=== PATIENT | male | born 1965 | race African-American/Black ===

== ENCOUNTER 2017-05-16 19:35 | Inpatient (IN) | payer MEDICARE ==
[~2017-05-16] VITALS: Ht 172.7 cm; Wt 101.7 kg
[~2017-05-16 19:35] MED LIST: LIPI20TA PO; LISI10TA3 PO; METF500T PO; ONDANSETRON HCL 4 MG/2 ML VIAL IV PUSH ONE; PHENYLEPH/NS 1000 MCG/10 ML SYR IV ONE; PROPOFOL 200 MG/20 ML AMP IV ONE
[2017-05-16 20:00] VITALS: BP 135/66; PULSE 119; RESP 18; TEMP 101.8; O2SAT 97
[2017-05-16] MEDS ORDERED: CHLORHEXIDINE GLUCONATE 2 % 1 PACK (2 CLOTHS) TOP PRN (20:30)
[2017-05-16] MEDS ORDERED: SENNOSIDES 8.6 MG TAB PO PRN (20:30)
[2017-05-16] MEDS ORDERED: LORazepam 2 MG/ML VIAL IV PRN (20:30)
[2017-05-16] MEDS ORDERED: LACTULOSE SYRUP 20 GM/30 ML CUP PO PRN (20:30)
[2017-05-16] MEDS ORDERED: MISCELLANEOUS NURSING INFORMATION XX SCH (20:30)
[2017-05-16] MEDS ORDERED: MAGNESIUM HYDROXIDE SUSP 30 ML CUP PO PRN (20:30)
[2017-05-16] MEDS ORDERED: BISACODYL 10 MG SUPP RECTAL PRN (20:30)
--- NOTE | 2017-05-16 20:40 | HHI.HP ---
HPI Service Critical Care Medicine Primary Care Physician No Primary Care Physician Admission Diagnosis Diagnosis: Travel History International Travel<30 Days: No Contact w/Intl Traveler <30 Da: No Traveled to Known Affected Are: No History of Present Illness 51-year-old gentleman with history of diabetes dyslipidemia presents with infection of left gluteal area and generalized weakness also some fevers. This has started to both the morning and a half week ago. Severe is a moderate to severe. Review of Systems Constitutional: COMPLAINS OF: Diaphoretic episodes, Fatigue, Fever, Chills, Dizziness, DENIES: Weight gain, Weight loss, Change in appetite, Night Sweats Endocrine: DENIES: Heat/cold intolerance, Polydipsia, Polyuria, Polyphagia Eyes: DENIES: Blurred vision, Diplopia, Eye inflammation, Eye pain, Vision loss , Photosensitivity, Double Vision Ears, nose, mouth, throat: DENIES: Tinnitus, Hearing loss, Vertigo, Nasal discharge, Oral lesions, Throat pain, Hoarseness, Ear Pain, Running Nose, Epistaxis, Sinus Pain, Toothache, Odynophagia Respiratory: DENIES: Apneas, Cough, Snoring, Wheezing, Hemoptysis, Sputum production, Shortness of breath Cardiovascular: DENIES: Chest pain, Palpitations, Syncope, Dyspnea on Exertion , PND, Lower Extremity Edema, Orthopnea, Claudication Gastrointestinal: DENIES: Abdominal pain, Black stools, Bloody stools, Constipation, Diarrhea, Nausea, Vomiting, Difficulty Swallowing, Anorexia Genitourinary: DENIES: Sexual dysfunction, Urinary frequency, Urinary incontinence, Urgency, Hematuria, Dysuria, Nocturia, Penile Discharge, Testicular Pain, Testicular Swelling Musculoskeletal: DENIES: Joint pain, Muscle aches, Stiffness, Joint Swelling, Back pain, Neck pain Integumentary: DENIES: Abnormal pigmentation, Nail changes, Pruritus, Rash Hematologic/lymphatic: DENIES: Bruising, Lymphadenopathy Immunologic/allergic: DENIES: Eczema, Urticaria Neurologic: DENIES: Abnormal gait, Headache, Localized weakness, Paresthesias, Seizures, Speech Problems, Tremor, Poor Balance Psychiatric: DENIES: Anxiety, Confusion, Mood changes, Depression, Hallucinations, Agitation, Suicidal Ideation, Homicidal Ideation, Delusions Past Family Social History Allergies: Coded Allergies: No Known Allergies (Unverified , 05/16/17) Past Medical History Diabetes type 2 Dyslipidemia Hypertension Past Surgical History No past surgical history Reported Medications Reported Meds & Active Scripts Active Reported Lisinopril 10 Mg Tab 10 Mg PO DAILY Lipitor (Atorvastatin Calcium) 20 Mg Tab 20 Mg PO HS Metformin (Metformin HCl) 500 Mg Tab 500 Mg PO BIDPC With meals Active Ordered Medications Current Medications Medications (Trade) Dose Ordered Sig/Reese Route PRN Reason Start Time Stop Time Status Last Admin Dose Admin Sodium Chloride (NS 1000 ml Inj) 1,000 ml @ 84 mls/hr [id number] IV 05/16/17 20:29 UNV Sodium Chloride (NS Flush) 2 ml UNSCH PRN .XX FLUSH AFTER USING IV ACCESS 05/16/17 20:30 UNV Sodium Chloride (NS Flush) 2 ml BID .XX 05/16/17 21:00 UNV Acetaminophen (Tylenol) 650 mg Q6H PRN PO PAIN 1-10 AND/OR FEVER >101F 05/16/17 20:30 UNV Morphine Sulfate (Morphine Inj) 2 mg Q2H PRN IV PAIN SCALE 6 TO 10 05/16/17 20:30 UNV Famotidine (Pepcid Inj) 20 mg Q12HR IV PUSH 05/16/17 21:00 UNV Lorazepam (Ativan Inj) 1 mg Q1H PRN IV Agitation/Sedation 05/16/17 20:30 UNV Miscellaneous Information 1 Q361D XX 05/16/17 20:30 UNV Chlorhexidine Gluconate (Chlorhexidine 2% Cloth) 3 pack Taper DAILY@04 TOP 05/17/17 04:00 05/13/18 03:59 UNV Chlorhexidine Gluconate (Chlorhexidine 2% Cloth) 3 pack UNSCH PRN [facility] 05/16/17 20:30 UNV Family History No history of premature coronary artery disease or cancer Social History Denies tobacco or illicit drug or alcohol abuse Physical Exam Physical Exam GENERAL: Well-nourished, well-developed patient. SKIN: Warm and dry. HEAD: Normocephalic. EYES: No scleral icterus. No injection or drainage. NECK: Supple, trachea midline. No JVD or lymphadenopathy. CARDIOVASCULAR: Regular rate and rhythm without murmurs, gallops, or rubs. RESPIRATORY: Breath sounds equal bilaterally. No accessory muscle use. GASTROINTESTINAL: Abdomen soft, non-tender, nondistended. MUSCULOSKELETAL: No cyanosis, or edema. BACK: Nontender without obvious deformity. No CVA tenderness. 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 fluids resuscitation DVT GI prophylaxis - Subcutaneous heparin teds SCDs and Pepcid Critical Care: The total critical care time was 35 minutes. Time to perform other separately billable procedures was not included in the critical care time. Wojciech Novak MD May 16, 2017 20:40
[2017-05-16] MEDS ORDERED: Vancomycin Consult Pharmacy 1 EA OTHER SCH (20:45)
[2017-05-16] MEDS ORDERED: DEXTROSE 50% IN WATER 50 ML VIAL(D50) IV PRN (20:45)
[2017-05-16] MEDS ORDERED: GLUCAGON 1 MG/ML VIAL OTHER PRN (20:45)
[2017-05-16] MEDS ORDERED: INSULIN ASPART SUPPLEMENTAL SCALE SQ SCH (21:00)
[2017-05-16] MEDS: HEPARIN SODIUM - SQ 10,000 UNITS/ML VIAL SQ SCH (21:00)
[2017-05-16] MEDS: FAMOTIDINE 20 MG/2 ML VIAL IV PUSH SCH (21:00)
[2017-05-16] MEDS: ATORVASTATIN 20 MG TAB PO SCH (21:00)
[2017-05-16] MEDS: DOCUSATE SODIUM 50 MG/SENNA 8.6 MG TAB PO SCH (21:00)
[2017-05-16] MEDS: SODIUM CHLORIDE 0.9% FLUSH 10 ML FLUSH IV FLUSH SCH (21:00)
[2017-05-16] MEDS ORDERED: ACETAMINOPHEN 1000 MG/100 ML VIAL IV ONE (21:12)
[2017-05-16] MEDS: SODIUM CHLOR 0.9% 1000 ML INJ 1,000 ML IV SCH (22:08)
[2017-05-16] MEDS ORDERED: DEXTROSE 50% IN WATER 50 ML VIAL(D50) IV PUSH PRN (22:30)
[2017-05-16] MEDS ORDERED: MISC INFORMATION OTHER ONE (22:30)
--- NOTE | 2017-05-16 22:33 | PD.OP ---
Operative Report Date of Surgery: May 16, 2017 Preoperative Diagnosis: (1) Carlos gangrene Postoperative Diagnosis: Procedure: Extensive Incision and Drainage, Debridement of Scrotum, Perineum extending into Left Gluteus Surgeon: Nikolas Lopes Special Procedure Technologist(s): N/A Operation and Findings: Extensive necrosis, eschar of scrotum, perineum, left gluteal area Cultures sent Will likely need another debridement in 24-48 hours. May need General Surgery involvement. Nikolas Lopes MD May 16, 2017 22:33
[2017-05-16] MEDS ORDERED: MIDAZOLAM HCL 2 MG/2 ML VIAL ONE (22:45)
[2017-05-16] MEDS ORDERED: fentaNYL CITRATE 250 MCG/5 ML AMP ONE (22:45)
[2017-05-16] MEDS: INSULIN REGULAR (IV INFUSION) 100 UNITS in SODIUM CHLORIDE 0.9% INJ 99 ML IV SCH (22:47)
[2017-05-16 23:00] VITALS: O2SAT 100
[2017-05-16] MEDS: MIDAZOLAM 100 MG/ML INJ 100 ML IV SCH (23:11)
[2017-05-16] MEDS: fentaNYL DRIP 250 ML IV SCH (23:12)
[2017-05-16 23:15] VITALS: BP 111/53; PULSE 118; RESP 18; TEMP 100.9; O2SAT 100
--- NOTE | 2017-05-16 23:29 | RADRPT ---
EXAM DATE/TIME: 05/16/2017 23:08 [facility] COMPARISON: CHEST SINGLE AP, May 16, 2017, 18:13. INDICATIONS : Post intubation MEDICAL HISTORY : Diabetes mellitus type II. Hypertension SURGICAL HISTORY : None. ENCOUNTER: Initial ACUITY: 1 day PAIN SCORE: Non-responsive. LOCATION: Bilateral chest FINDINGS: Status post placement of an endotracheal tube which appears in good position. No evidence of pneumoth orax. There is atelectasis in the left lung base. Right lung is grossly clear. No definite pleural ef fusions. The bony structures are grossly intact. CONCLUSION: 1. ET tube in good position. 2. No pneumothorax. 3. Left lung atelectasis. Abundio Allison MD on May 16, 2017 at 23:27 Board Certified Radiologist. This report was verified electronically.
[2017-05-16] MEDS ORDERED: DO NOT ADM ANY ANTICOAGULANT DRUGS PRN (23:45)
[2017-05-17] VITALS (16 sets, daily range): BP systolic 88–146; BP diastolic 53–87; PULSE 92–126; RESP 7–23; TEMP 97.8–101.9; O2SAT 95–100
[2017-05-17] MEDS ORDERED: TERBUTALINE INJ 1 MG/ML AMP SQ PRN (01:00)
[2017-05-17] MEDS ORDERED: NOREPINEPHRINE INJ 4 MG in SODIUM CHLOR 0.9% 250 ML INJ 246 ML IV SCH ×5 (01:00→01:15)
[2017-05-17] MEDS ORDERED: SODIUM BICARBONATE 8.4% INJ 50 ML ONE (01:01)
--- NOTE | 2017-05-17 01:09 | PD.PROCEDR ---
Procedure Note Procedure Central line placement A time-out was completed verifying correct patient, procedure, site, positioning , and special equipment if applicable. The patient was placed in a dependent position appropriate for central line placement based on the vein to be cannulated. The patients right shoulder was prepped and draped in sterile fashion. 1% Lidocaine was used to anesthetize the surrounding skin area. A triple lumen 9-[place] Cordis catheter was introduced into the the right subclavian vein using the Seldinger technique. The catheter was threaded smoothly over the guide wire and appropriate blood return was obtained. Each lumen of the catheter was evacuated of air and flushed with sterile saline. The catheter was then sutured in place to the skin and a sterile dressing applied. Perfusion to the extremity distal to the point of catheter insertion was checked and found to be adequate. Estimated Blood Loss: 1ml The patient tolerated the procedure well and there were no complications. Wojciech Novak MD May 17, 2017 01:09
--- NOTE | 2017-05-17 01:10 | PD.PROCEDR ---
Procedure Note Procedure Arterial line placement A time-out was completed verifying correct patient, procedure, site, positioning , and special equipment if applicable. Allens test was performed to ensure adequate perfusion. The patients right wrist was prepped and draped in sterile fashion. 1% Lidocaine was used to anesthetize the area. A 18G Arrow arterial line was introduced into the radial artery. The catheter was threaded over the guide wire and the needle was removed with appropriate pulsatile blood return. The catheter was then sutured in place to the skin and a sterile dressing applied. Perfusion to the extremity distal to the point of catheter insertion was checked and found to be adequate. Estimated Blood Loss: 1ml The patient tolerated the procedure well and there were no complications. Wojciech Novak MD May 17, 2017 01:10
[2017-05-17 01:20] LABS: BLOOD GAS HCO3 24 mmol/L (22-26); BLOOD GAS METHEMOGLOBIN 0.9 % (0-2); BLOOD GAS O2 HGB SATURATION 97 % (90-100); BLOOD GAS OXYGEN CONTENT 12.8 Vol % (12.0-20.0); BLOOD GAS PCO2 42 mmHg (38-42); BLOOD GAS PO2 229 mmHg (61-120); CRITICAL VALUE NO; FIO2 60 %; OXYGEN DEVICE VENTILATOR; TEMP CORR TO 98.6; VENT SETTINGS PRVC/AC
[2017-05-17 01:21] LABS: DRAW SITE ART LINE; STAT YES
--- NOTE | 2017-05-17 01:36 | RADRPT ---
EXAM DATE/TIME: 05/17/2017 01:32 [facility] COMPARISON: CHEST SINGLE AP, May 16, 2017, 23:08. INDICATIONS : Central line placement. MEDICAL HISTORY : None. SURGICAL HISTORY : None. ENCOUNTER: Initial ACUITY: 1 day PAIN SCORE: 0/10 LOCATION: Bilateral chest FINDINGS: The right central line appears to be in good position. No pneumothorax. The ET tube and NG tube are i n good position. There are scattered areas of atelectasis bilaterally. The heart size is stable. Ther e are no pleural effusions. CONCLUSION: 1. Right-sided central line in place. No pneumothorax. 2. Scattered areas of bilateral atelectasis. Abundio Allison MD on May 17, 2017 at 1:34 Board Certified Radiologist. This report was verified electronically.
[2017-05-17] MEDS: CLINDAMYCIN INJ 600 MG in SODIUM CHLORIDE 0.9% INJ 100 ML IV SCH ×4 (02:39→21:03)
[2017-05-17 03:31] LABS: AUTOMATED NEUTROPHIL # 17.3 TH/MM3 (1.8-7.7); BASOPHIL # 0.2 TH/MM3 (0-0.2); BASOPHIL % 1.1 % (0.0-2.0); HEMATOCRIT 27.5 % (39.0-51.0); LYMPH % 3.2 % (9.0-44.0); LYMPHOCYTE # 0.7 TH/MM3 (1.0-4.8); MEAN CELL VOLUME 81.5 FL (80.0-100.0); MEAN CORPUSCULAR HGB CONC 34.3 % (32.0-36.0); NEUT % 82.7 % (16.0-70.0); PLATELET COUNT 174 TH/MM3 (150-450); RED BLOOD COUNT 3.37 MIL/MM3 (4.50-5.90); RED CELL DISTRIBUTION WIDTH 12.2 % (11.6-17.2); WHITE BLOOD COUNT 20.9 TH/MM3 (4.0-11.0)
[2017-05-17 03:43] LABS: ALT (GPT) 76 U/L (12-78); ANION GAP 12 MEQ/L (5-15); AST (GOT) 165 U/L (15-37); BICARBONATE 23.5 MEQ/L (21.0-32.0); BLOOD UREA NITROGEN 37 MG/DL (7-18); CHLORIDE 105 MEQ/L (98-107); GLOMERULAR FILTRATION RATE 33 ML/MIN (>89); MAGNESIUM 2.2 MG/DL (1.5-2.5); POTASSIUM 4.2 MEQ/L (3.5-5.1); SODIUM (NA) 140 MEQ/L (136-145)
[2017-05-17 03:45] LABS: ALKALINE PHOSPHATASE 119 U/L (45-117); TOTAL BILIRUBIN ADULT 2.6 MG/DL (0.2-1.0)
[2017-05-17] MEDS ORDERED: SODIUM BICARBONATE 8.4% INJ 50 MEQ/50 ML SYR IV ONE (03:45)
[2017-05-17 03:58] LABS: HEMO FLAGS AUTO DIFF
[2017-05-17] MEDS ORDERED: SODIUM CHLOR 0.9% 1000 ML INJ 2,000 ML IV ONE (04:00)
[2017-05-17] MEDS: CHLORHEXIDINE GLUCONATE 2 % 1 PACK (2 CLOTHS) TOP SCH (04:39)
[2017-05-17 05:19] LABS: BANDS 47 % (0-6); DOHLE BODIES PRESENT (NONE SEEN); METAMYELOCYTES 1 % (0-1); NEUTROPHIL # MANUAL DIFF 18.4 TH/MM3 (1.8-7.7); PLATELET ESTIMATE SMEAR NORMAL (NORMAL); PLATELET MORPHOLOGY NORMAL (NORMAL); POLYS (SEG NEUTROPHILS) 40 % (16-70); SCAN/DIFF FINAL DIFF MANUAL; WBC DIFF SAMPLE 100
[2017-05-17] MEDS: HEPARIN SODIUM - SQ 10,000 UNITS/ML VIAL SQ SCH ×4 (05:41→22:31)
[2017-05-17 05:59] LABS: BLOOD GAS BASE EXCESS -2.5 mmol/L (-2-2); BLOOD GAS CARBOXYHEMOGLOBIN 1.8 % (0-4); BLOOD GAS HCO3 22 mmol/L (22-26); BLOOD GAS O2 HGB SATURATION 96 % (90-100); BLOOD GAS OXYGEN CONTENT 12.1 Vol % (12.0-20.0); BLOOD GAS PCO2 36 mmHg (38-42); BLOOD GAS PO2 116 mmHg (61-120); BLOOD GAS TOTAL HGB 8.8 G/DL (12.0-16.0); CRITICAL VALUE NO; OXYGEN DEVICE VENTILATOR; TEMP CORR TO 98.6
[2017-05-17 06:00] LABS: DRAW SITE ALINE; FIO2 45 %; STAT NO; ULNAR PULSE PRESENT; VENT SETTINGS PRVC18/550/1.0/+5
--- NOTE | 2017-05-17 06:23 | MB ---
cc: GUY VALLADARES MD DATE OF SERVICE 05/16/2017 REASON FOR CONSULTATION Cralos's gangrene. HISTORY OF PRESENT ILLNESS The patient is a 51-year-old -[place] male with history of poorly controlled/uncontrolled diabetes. He presented to [facility] with complaint of generalized weakness and fevers starting approximately a week and a half ago and progressively worsened. The patient states he noticed a small little pimple in his left gluteal area about a week and half ago. He states that over the course of time it has worsened and started to spread to his scrotum. He noticed that he started having fevers between 100 and 130 degrees at home, has chills and night sweats. He presented to [facility] for further evaluation. At [facility] he was found have an elevated white count of 17,000 and acidotic with a temperature of 103 and with what appeared to be a septic-like picture. The patient had a CT abdomen and pelvis without contrast done which showed a significant amount of air in the patient's left gluteal area, extending through his perineum, up into the posterior portion of his scrotum. The critical care at [facility] was contacted and they accepted him in transfer to ICU. Urology was also consulted for this apparent Carlos's gangrene. According to the patient, the patient denies any prior episodes like this in the past. He states he does have problems with urination and he usually goes three to four times a night and has a weak stream. He denies family history of prostate cancer or history of kidney stones. He does complain that his scrotum is quite painful at this time and very tense in nature. Denies nausea and vomiting, dysuria, frequency or urgency. ALLERGIES No known drug allergies. PAST MEDICAL HISTORY 1. Type 2 diabetes. 2. Dyslipidemia. 3. Hypertension. SURGICAL HISTORY Circumcision. HOME MEDICATIONS 1. Metformin 500 mg p.o. b.i.d. 2. Lipitor 20 mg p.o. q.h.s. 3. Lisinopril 10 mg p.o. daily. FAMILY HISTORY Denies urolithiasis or genitourinary malignancies. SOCIAL HISTORY Denies tobacco, illicit drug or alcohol abuse. REVIEW OF SYSTEMS See HPI, otherwise all systems reviewed otherwise were negative. PHYSICAL EXAMINATION VITAL SIGNS: T-max 103, T-current 102.3. Heart rate 126, blood pressure 102/75, sating 96% on room air. GENERAL: In general he is alert and oriented x 3, in no apparent distress. Pleasant, cooperative, generally appears his stated age. HEAD: Normocephalic, atraumatic. LUNGS: Clear to auscultation bilaterally. No wheezes, rales or rhonchi. SKIN: No ulcers or rashes. Mucous membranes pink and moist. EYES: No scleral icterus. External extraocular muscles intact. NECK: No JVD. Neck is supple. Trachea is benign. HEART: Tachycardiac. No murmurs, gallops or rubs. ABDOMEN: Soft, obese, nontender, nondistended. Positive bowel sounds. GENITOURINARY EXAMINATION: His penis is circumcised. Testes are descended bilaterally, normal in size and consistency. His left hemiscrotum/posterior base is swollen and tender to touch, slightly warm with fluctuance and crepitus noted. No obvious eschar. EXTREMITIES: Nontender. No clubbing, cyanosis or edema. NEUROLOGICAL: Cranial nerves II-XII intact. Strength 5/5 in all four extremities. LABORATORY DATA Labs show a white count of 17.5, hemoglobin 12.1, hematocrit 37.2, platelet count 11.4. Sodium 126, potassium 4.9, chloride 90, bicarb 17, BUN 30, creatinine 1.90, glucose 576, lactic acid 2.4. His urine showed greater than 1000 glucose, small blood, small bilirubin many bacteria. Cultures currently pending. IMAGING CT of abdomen and pelvis without contrast images were reviewed, read the radiologist report. There is extensive subcutaneous gas in the patient's left perineum that appears to be extending into the lower scrotal sacs consistent with Carlos's gangrene. 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 PLAN 1. Keep the patient n.p.o. 2. We will take him to the OR emergently tonight for incision and drainage and debridement of the scrotum and perineum. I discussed the risks, benefits and alternatives as well as complications with the patient regarding this procedure including pain, bleeding, infection, need for repeat debridement in the next 24-48 hours, potential loss of testicle, need for potential skin grafts in the future by Plastic Surgery as well as worsening sepsis, stroke, IN, loss of life and blood clots to legs and lungs. All questions were answered and he would like to proceed and informed consent was obtained. MD HALEY Wheatley/FRANCOIS /9:26 PM /6:10 AM
[2017-05-17] MEDS: SODIUM CHLORIDE 0.9% FLUSH 10 ML FLUSH IV FLUSH SCH ×2 (09:00→21:00)
[2017-05-17] MEDS: FAMOTIDINE 20 MG/2 ML VIAL IV PUSH SCH (09:05)
[2017-05-17] MEDS: DOCUSATE SODIUM 50 MG/SENNA 8.6 MG TAB PO SCH ×2 (09:06→21:00)
[2017-05-17] MEDS: SODIUM CHLOR 0.9% 1000 ML INJ 1,000 ML IV SCH ×2 (09:06→20:50)
--- NOTE | 2017-05-17 12:12 | HHI.PR ---
Subjective Patient symptoms today intubated, sedated. s/p debridement of scrotum, perineum, left gluteal region Objective Vital Signs Vital Signs Date Time Temp Pulse Resp B/P Pulse Ox O2 Delivery O2 Flow Rate FiO2 05/17/17 10:00 102 05/17/17 08:42 95 40 05/17/17 08:00 45 05/17/17 08:00 95 05/17/17 08:00 98.1 94 18 117/65 100 05/17/17 07:00 100 Mechanical Ventilator 45 05/17/17 06:00 92 05/17/17 04:00 100 45 05/17/17 04:00 96 05/17/17 04:00 45 05/17/17 04:00 97.8 96 18 111/65 100 05/17/17 02:00 94 05/17/17 00:00 99.0 118 18 88/53 100 05/17/17 00:00 118 05/16/17 23:15 118 05/16/17 23:15 100.9 118 18 111/53 100 05/16/17 23:15 60 05/16/17 23:00 100 60 05/16/17 20:00 119 05/16/17 20:00 101.8 119 18 135/66 97 Intake & Output 05/17/17 05/17/17 06:59 18:59 Intake Total 992 ml Output Total 725 ml Balance 267 ml Intake IV Total 992 ml Output Urine Total 725 ml Result Diagram: 05/17/17 0315 05/17/17 0315 Imaging Last 24 hours Impressions Chest X-Ray 05/17/17 0000 Signed Impressions: Service Date/Time: Wednesday, May 17, 2017 01:32 - CONCLUSION: 1. Right-sided central line in place. No pneumothorax. 2. Scattered areas of bilateral atelectasis. Abundio Allison MD Objective Remarks NAD. sedated, intubated abd soft wound edges clean, but some necrosis seen deep within wound. reed dark, cloudy urine Medications and IVs Current Medications Medications (Trade) Dose Ordered Sig/Reese Route Start Time Stop Time Status Last Admin (NS 1000 ml Inj) 1,000 ml @ 84 mls/hr [id number] IV 05/16/17 21:00 05/17/17 09:06 (NS Flush) 2 ml UNSCH PRN .XX 05/16/17 20:30 (NS Flush) 2 ml BID IV FLUSH 05/16/17 21:00 (Tylenol) 650 mg Q6H PRN PO 05/16/17 20:30 (Morphine Inj) 2 mg Q2H PRN IV 05/16/17 20:30 (Pepcid Inj) 20 mg Q12HR IV PUSH 05/16/17 21:00 05/17/17 09:05 (Ativan Inj) 1 mg Q1H PRN IV 05/16/17 20:30 (Heparin Inj) 5,000 units Q8H SQ 05/16/17 21:00 05/17/17 05:41 Miscellaneous Information 1 Q361D XX 05/16/17 20:30 (Chlorhexidine 2% Cloth) 3 pack Taper DAILY@04 TOP 05/17/17 04:00 05/13/18 03:59 05/17/17 04:39 (Chlorhexidine 2% Cloth) 3 pack UNSCH PRN TOP 05/16/17 20:30 (Raquel-Colace) 1 tab BID PO 05/16/17 21:00 05/17/17 09:06 (Milk Of Magnesia Liq) 30 ml Q12H PRN PO 05/16/17 20:30 (Senokot) 17.2 mg Q12H PRN PO 05/16/17 20:30 (Dulcolax Supp) 10 mg DAILY PRN RECTAL 05/16/17 20:30 (Lactulose Liq) 30 ml DAILY PRN PO 05/16/17 20:30 Atorvastatin Calcium 20 mg 20 mg HS PO 05/16/17 21:00 Clindamycin Phosphate 600 mg/ Sodium Chloride 104 ml @ 208 mls/hr Q8H IV 05/16/17 22:00 05/17/17 05:41 Pharmacy Profile Note 0 ml @ 0 mls/hr UNSCH OTHER 05/16/17 20:45 (Vancomycin Inj/ NS 500 ml Inj) 515 ml @ 257.5 mls/ hr Q24H IV 05/17/17 18:00 Miscellaneous Information SPECIFIC LAB TO BE MISAEL... ONCE ONCE .XX 05/19/17 17:45 05/19/17 17:46 (NovoLIN R (IV INFUSION)/NS Inj) 100 ml @ 0 mls/hr TITRATE IV 05/16/17 22:30 05/16/17 22:47 Dextrose 50 ml 50 ml UNSCH PRN IV PUSH 05/16/17 22:30 Fentanyl Citrate 250 ml @ 0 mls/hr TITRATE IV 05/16/17 23:00 05/16/17 23:12 (Versed 100 Mg/ ml Inj) 100 ml @ 0 mls/hr TITRATE IV 05/16/17 23:00 05/16/17 23:11 Miscellaneous Information ALL NURSING DEPARTME... UNSCH PRN .XX 05/16/17 23:45 05/17/17 23:44 Terbutaline Sulfate 1 mg 1 mg UNSCH PRN SQ 05/17/17 01:00 (Levophed Inj/NS 250 ml Inj) 250 ml @ 0 mls/hr TITRATE IV 05/17/17 01:15 05/17/17 02:38 Assessment and Plan Problem List: (1) Carlos gangrene ICD Code: N49.3 Status: Acute Assessment and Plan Will schedule for 2nd look/debridement for tomorrow afternoon ID consult pending Vent per ICU Nikolas Lopes MD May 17, 2017 12:12
--- NOTE | 2017-05-17 13:05 | HHI.CCPN ---
Subjective Remarks/Hospital Course 51-year-old gentleman with history of diabetes dyslipidemia presents with infection of left gluteal area and generalized weakness also some fevers. This has started to both the morning and a half week ago. Severe is a moderate to severe. 05/17: Glucose control improving, still requiring insulin gtt. Urine output acceptable. Septic picture. Objective Vital Signs Date Time Temp Pulse Resp B/P Pulse Ox O2 Delivery O2 Flow Rate FiO2 05/17/17 10:00 102 05/17/17 08:42 95 40 05/17/17 08:00 98.1 18 117/65 05/17/17 07:00 Mechanical Ventilator Result Diagram: 05/17/17 0315 05/17/17 0315 Other Results Laboratory Tests Test 05/17/17 05/17/17 01:07 05:45 Blood Gas Puncture Site ART LINE NICK Blood Gas Patient Temperature 98.6 98.6 Blood Gas HCO3 24 mmol/L 22 mmol/L (22-26) (22-26) Blood Gas Base Excess -1.0 mmol/L -2.5 mmol/L (-2-2) (-2-2) Blood Gas Oxygen Saturation 97 % (90-100) 96 % (90-100) Arterial Blood pH 7.37 7.39 (7.380-7.420) (7.380-7.420) Arterial Blood Partial 42 mmHg (38-42) 36 mmHg (38-42) Pressure CO2 Arterial Blood Partial 229 mmHg 116 mmHg Pressure O2 (61-120) (61-120) Arterial Blood Oxygen Content 12.8 Vol % 12.1 Vol % (12.0-20.0) (12.0-20.0) Arterial Blood 2.0 % (0-4) 1.8 % (0-4) Carboxyhemoglobin Arterial Blood Methemoglobin 0.9 % (0-2) 1.0 % (0-2) Blood Gas Hemoglobin 9.0 G/DL 8.8 G/DL (12.0-16.0) (12.0-16.0) Oxygen Delivery Device VENTILATOR VENTILATOR Blood Gas Ventilator Setting [facility]/ PRVC18/550/1.0/+5 Blood Gas Inspired Oxygen 60 % 45 % Objective Remarks GENERAL: Well-nourished, well-developed patient. SKIN: Warm and dry. HEAD: Normocephalic. EYES: No scleral icterus. No injection or drainage. NECK: Supple, trachea midline. Orally intubated. CARDIOVASCULAR: Regular rate and rhythm without murmurs, gallops, or rubs. No JVD. RESPIRATORY: Breath sounds equal bilaterally. No accessory muscle use. GASTROINTESTINAL: Abdomen soft, non-tender, nondistended. BS few. MUSCULOSKELETAL: No cyanosis, or edema. NEURO: Moves 4 limbs. Opens eyes. A/P Assessment and Plan Assessment: 1. Carlos's gangrene. 2. ROBERTO. 3. Diabetes, Type 2, uncontrolled. 4. Respiratory Failure Plan: 1. Insulin gtt. 2. Electrolyte replacement. 3. Aggressive hydration. 4. Protonix. 5. SCDs. 6. PRVC vent mode/ Overall impression: Critically ill with severe metabolic disturbance from severe sepsis and uncontrolled diabetes. Watch urine blayne. Critical care 38 mins Samuel Betancur MD May 17, 2017 13:05
[2017-05-17] MEDS: fentaNYL DRIP 250 ML IV SCH (13:15)
--- NOTE | 2017-05-17 14:52 | PD.CONS ---
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 Records reviewed. Patient is a 51-year-old male, with diabetes, presented initially to the [facility] emergency room complaining of generalized weakness and fevers. Symptoms have been present for about a week and a half now. He apparently also noted a little pimple in his left gluteal area about the same time, and it progressively worsened and increase in size and the area involved spread to his scrotum. His had some fevers associated with chills and night sweats at home. Patient has no problem with dysuria, frequency or urination. No nausea or vomiting. Patient however has had problem with no dysuria, and decreased urinary stream. Patient has not had any problems similar to his current symptomatology. In the emergency room he had an elevated white count of 17,000 , febrile, and was acidotic. CT of the abdomen and pelvis showed significant amount of air in the patient's left gluteal area extending through his perineum up into his scrotum. He was transferred to the [facility], in the ICU, and was seen by her urology. Surgery was done emergently. Patient currently is on the vent, and on Levophed. He is awake and alert and interactive. Highest temperature since admission is 101.8. His his last WBC is 20.8. Creatinine is also elevated. Lactic acid is down to normal. Infectious disease consultation has been requested to assist with management of his infection. Review of Systems Constitutional: COMPLAINS OF: Fatigue, Fever, Chills, Night Sweats Eyes: DENIES: Eye pain Ears, nose, mouth, throat: DENIES: Nasal discharge, Throat pain, Ear Pain, Sinus Pain Respiratory: DENIES: Cough, Shortness of breath Cardiovascular: DENIES: Chest pain, Palpitations Gastrointestinal: DENIES: Abdominal pain, Diarrhea, Nausea, Vomiting Genitourinary: COMPLAINS OF: Urinary frequency, Nocturia Musculoskeletal: COMPLAINS OF: Muscle aches, DENIES: Joint pain Integumentary: DENIES: Rash Neurologic: DENIES: Headache Psychiatric: DENIES: Hallucinations Past Family Social History Allergies: Coded Allergies: No Known Allergies (Unverified , 05/16/17) Past Medical History Diabetes Hyperlipidemia Hypertension Past Surgical History Circumcision Active Ordered Medications Tylenol Albuterol Lipitor Dulcolax Clindamycin Pepcid Fentanyl Heparin Insulin Lactulose Ativan MOM Versed Morphine Levophed Raquel-Colace Senokot Vancomycin Family History Noncontributory Social History No smoking No alcohol abuse No illicit drugs Physical Exam Vital Signs Vital Signs Date Time Temp Pulse Resp B/P Pulse Ox O2 Delivery O2 Flow Rate FiO2 05/17/17 10:00 102 05/17/17 08:42 95 40 05/17/17 08:00 45 05/17/17 08:00 95 05/17/17 08:00 98.1 94 18 117/65 100 05/17/17 07:00 100 Mechanical Ventilator 45 05/17/17 06:00 92 05/17/17 04:00 100 45 05/17/17 04:00 96 05/17/17 04:00 45 05/17/17 04:00 97.8 96 18 111/65 100 05/17/17 02:00 94 05/17/17 00:00 99.0 118 18 88/53 100 05/17/17 00:00 118 05/16/17 23:15 118 05/16/17 23:15 100.9 118 18 111/53 100 05/16/17 23:15 60 05/16/17 23:00 100 60 05/16/17 20:00 119 05/16/17 20:00 101.8 119 18 135/66 97 Physical Exam GENERAL: Patient is a well-nourished, well-developed AAM, awake, alert, interactive, on the vent, , not in respiratory distress. SKIN: Warm and dry. No generalized rash, no ecchymoses and no evidence of embolic lesions. HEAD: Atraumatic. Normocephalic. No temporal wasting, or tenderness. EYES: [place] conjunctiva. No petechia or hemorrhage. Pupils equal, round and reactive to light. Extraocular movements full and intact. No scleral icterus. No injection or drainage. EARS, NOSE AND THROAT: Nose without bleeding or purulent nasal discharge. No sinus tenderness. Mucous membranes pink and moist. Endotracheal tube is in the mouth. NECK: Trachea midline. Supple and not tender, no meningeal signs CARDIOVASCULAR: Regular rate and rhythm. No murmurs, rubs or gallops heard RESPIRATORY: Clear to auscultation. Breath sounds equal bilaterally. No rales , wheezing or rhonchi. Decreased breath sounds at the bases. ABDOMEN: Soft, non-tender, nondistended. Bowel sounds present and normoactive. No guarding. No rebound. No organomegaly. GENITOURINARY: Cobos in place. He has an open wound in his scrotum down to perineum and back, with packing, has bloody drainage, no odor. EXTREMITIES: No clubbing, cyanosis, or edema. No joint effusion, has good ROM. No calf tenderness. Well perfused and warm. NEUROLOGICAL: Awake and alert. Equal motor strength BUE and BLE. No facial asymmetry. No Babinski, no clonus PSYCHIATRIC: calm and cooperative. LINE: No evidence of infection Laboratory Laboratory Tests Test 05/17/17 05/17/17 05/17/17 01:07 03:15 05:45 Blood Gas Puncture Site ART LINE NICK Blood Gas Patient Temperature 98.6 98.6 Blood Gas HCO3 24 22 Blood Gas Base Excess -1.0 -2.5 Blood Gas Oxygen Saturation 97 96 Arterial Blood pH 7.37 7.39 Arterial Blood Partial 42 36 Pressure CO2 Arterial Blood Partial 229 116 Pressure O2 Arterial Blood Oxygen Content 12.8 12.1 Arterial Blood 2.0 1.8 Carboxyhemoglobin Arterial Blood Methemoglobin 0.9 1.0 Blood Gas Hemoglobin 9.0 8.8 Oxygen Delivery Device VENTILATOR VENTILATOR Blood Gas Ventilator Setting [facility]/AC PRVC18/550/1.0/+5 Blood Gas Inspired Oxygen 60 45 White Blood Count 20.9 Red Blood Count 3.37 Hemoglobin 9.4 Hematocrit 27.5 Mean Corpuscular Volume 81.5 Mean Corpuscular Hemoglobin 28.0 Mean Corpuscular Hemoglobin 34.3 Concent Red Cell Distribution Width 12.2 Platelet Count 174 Mean Platelet Volume 8.9 Neutrophils (%) (Auto) 82.7 Lymphocytes (%) (Auto) 3.2 Monocytes (%) (Auto) 13.0 Eosinophils (%) (Auto) 0.0 Basophils (%) (Auto) 1.1 Neutrophils # (Auto) 17.3 Lymphocytes # (Auto) 0.7 Monocytes # (Auto) 2.7 Eosinophils # (Auto) 0.0 Basophils # (Auto) 0.2 CBC Comment AUTO DIFF Differential Total Cells 100 Counted Neutrophils % (Manual) 40 Band Neutrophils % 47 Lymphocytes % 5 Monocytes % 7 Neutrophils # (Manual) 18.4 Metamyelocytes 1 Differential Comment FINAL DIFF MANUAL Dohle Bodies PRESENT Platelet Estimate NORMAL Platelet Morphology Comment NORMAL Sodium Level 140 Potassium Level 4.2 Chloride Level 105 Carbon Dioxide Level 23.5 Anion Gap 12 Blood Urea Nitrogen 37 Creatinine 2.53 Estimat Glomerular Filtration 33 Rate Random Glucose 224 Lactic Acid Level 1.5 Calcium Level 7.5 Phosphorus Level 4.2 Magnesium Level 2.2 Total Bilirubin 2.6 Aspartate Amino Transf 165 (AST/SGOT) Alanine Aminotransferase 76 (ALT/SGPT) Alkaline Phosphatase 119 Total Protein 5.9 Albumin 1.8 Date/Time Procedure Status Source Growth 05/17/17 04:20 Aerobic Blood Culture Received Blood Peripheral Pending 05/17/17 04:20 Anaerobic Blood Culture Received Blood Peripheral Pending 05/16/17 21:33 Gram Stain - Final Resulted Wound Scrotum 05/16/17 21:33 Wound Culture Resulted Wound Scrotum Pending 05/16/17 21:33 Fungal Smear - Final Resulted Wound Scrotum NO FUNGAL ELEMENTS SEEN. 05/16/17 21:33 Fungal Culture Resulted Wound Scrotum Pending 05/16/17 21:33 Acid Fast Stain Received Wound Scrotum Pending 05/16/17 21:33 Mycobacterial Culture Received Wound Scrotum Pending Result Diagram: 05/17/17 0315 05/17/17 0315 Imaging RADIOLOGY STUDIES/FILMS REVIEWED Chest X-Ray 05/17/17 0000 Signed Impressions: Service Date/Time: Wednesday, May 17, 2017 01:32 - CONCLUSION: 1. Right-sided central line in place. No pneumothorax. 2. Scattered areas of bilateral atelectasis. 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 - on pressors - elevated creatinine due to sepsis, ?baseline not known - acidosis better Respiratory failure Known DM, HTN RECOMMENDATION On Clinda and Vanc - continue for now Add Zosyn for GNR coverage since GNR plays big role in Carlos's gangrene Follow C/S Follow CBC Follow creatinine Will adjust Abx once C/S available Monitor progress I will follow along with you Thank you for this consultation Shanti Solis MD May 17, 2017 14:52
[2017-05-17] MEDS: PIPERACIL-TAZO 2.25 GM PREMIX 50 ML IV SCH ×2 (16:26→21:03)
[2017-05-17] MEDS: INSULIN REGULAR (IV INFUSION) 100 UNITS in SODIUM CHLORIDE 0.9% INJ 99 ML IV SCH (17:23)
[2017-05-17] MEDS ORDERED: VANCOMYCIN 1,500 MG/NS 500 ML IV SCH ×2 (18:00)
[2017-05-17] MEDS: ACETAMINOPHEN 325 MG TAB PO PRN (21:03)
[2017-05-17] MEDS: ATORVASTATIN 20 MG TAB PO SCH (21:05)
[2017-05-18] VITALS (18 sets, daily range): BP systolic 103–127; BP diastolic 50–62; PULSE 77–118; RESP 7–18; TEMP 98.6–100.9; O2SAT 100
[2017-05-18] MEDS: CHLORHEXIDINE GLUCONATE 2 % 1 PACK (2 CLOTHS) TOP SCH (04:00)
[2017-05-18 04:16] LABS: AUTOMATED NEUTROPHIL # 13.8 TH/MM3 (1.8-7.7); BASOPHIL # 0.1 TH/MM3 (0-0.2); BASOPHIL % 0.4 % (0.0-2.0); EOSINOPHIL % 0.1 % (0.0-4.0); HEMATOCRIT 22.1 % (39.0-51.0); HEMO FLAGS DIFF FINAL; LYMPH % 6.5 % (9.0-44.0); LYMPHOCYTE # 1.1 TH/MM3 (1.0-4.8); MEAN CELL VOLUME 85.7 FL (80.0-100.0); MEAN CORPUSCULAR HEMOGLOBIN 27.5 PG (27.0-34.0); MEAN CORPUSCULAR HGB CONC 32.1 % (32.0-36.0); MONO % 9.7 % (0.0-8.0); NEUT % 83.3 % (16.0-70.0); PLATELET COUNT 188 TH/MM3 (150-450); RED BLOOD COUNT 2.59 MIL/MM3 (4.50-5.90); RED CELL DISTRIBUTION WIDTH 12.8 % (11.6-17.2); WHITE BLOOD COUNT 16.6 TH/MM3 (4.0-11.0)
[2017-05-18] MEDS: PIPERACIL-TAZO 2.25 GM PREMIX 50 ML IV SCH ×4 (04:45→23:03)
[2017-05-18] MEDS: CLINDAMYCIN INJ 600 MG in SODIUM CHLORIDE 0.9% INJ 100 ML IV SCH ×3 (04:45→21:09)
[2017-05-18 05:09] LABS: BICARBONATE 22.1 MEQ/L (21.0-32.0); CALCIUM-PROTEIN CORRECTED 7.7 MG/DL (8.5-10.1); MAGNESIUM 2.3 MG/DL (1.5-2.5); POTASSIUM 4.2 MEQ/L (3.5-5.1); TOTAL BILIRUBIN ADULT 1.1 MG/DL (0.2-1.0)
--- NOTE | 2017-05-18 07:06 | HHI.CCPN ---
Subjective Remarks/Hospital Course 51-year-old gentleman with history of diabetes dyslipidemia presents with infection of left gluteal area and generalized weakness also some fevers. This has started to both the morning and a half week ago. Severe is a moderate to severe. 05/17: Glucose control improving, still requiring insulin gtt. Urine output acceptable. Septic picture. 05/18: Urine marginal and renal function worse; clearly ATN. Objective Vital Signs Date Time Temp Pulse Resp B/P Pulse Ox O2 Delivery O2 Flow Rate FiO2 05/18/17 06:00 89 05/18/17 06:00 115/53 115/53 05/18/17 05:08 100 40 05/18/17 04:00 99.4 11 05/17/17 19:00 Mechanical Ventilator Intake and Output 05/17/17 05/17/17 05/17/17 07:59 15:59 23:59 Intake Total 992 ml 116 ml 1411 ml Output Total 725 ml 150 ml 150 ml Balance 267 ml -34 ml 1261 ml Result Diagram: 05/18/17 0400 05/18/17 0400 Objective Remarks GENERAL: Ill-appearing patient. SKIN: Warm and dry. HEAD: Normocephalic. EYES: No scleral icterus. No injection or drainage. NECK: Supple, trachea midline. Orally intubated. CARDIOVASCULAR: Regular rate and rhythm without murmurs, gallops, or rubs. No JVD. RESPIRATORY: Breath sounds equal bilaterally. Clear, no wheezes. GASTROINTESTINAL: Abdomen soft, non-tender, nondistended. BS few. MUSCULOSKELETAL: No cyanosis, or edema. Well perfused. NEURO: Moves 4 limbs. Opens eyes. A/P Assessment and Plan Assessment: 1. Carlos's gangrene. 2. ROBERTO. 3. Diabetes, Type 2, uncontrolled. 4. Respiratory Failure Plan: 1. Insulin gtt. 2. Electrolyte replacement. 3. Aggressive hydration. 4. Protonix. 5. SCDs. 6. PRVC vent mode. 7. Renal consult. 8. Adjust heparin DVT to q12h. 9. Check urine lytes. Overall impression: Remains critically ill with severe metabolic disturbance from severe sepsis and uncontrolled diabetes. Worsening renal function. Critical care 39 mins aside from procedures. Samuel Betancur MD May 18, 2017 07:06
[2017-05-18] MEDS: DOCUSATE SODIUM 50 MG/SENNA 8.6 MG TAB PO SCH ×2 (08:07→21:00)
[2017-05-18] MEDS: SODIUM CHLOR 0.9% 1000 ML INJ 1,000 ML IV SCH (08:51)
[2017-05-18] MEDS: SODIUM CHLORIDE 0.9% FLUSH 10 ML FLUSH IV FLUSH SCH ×2 (08:52→21:06)
[2017-05-18] MEDS: FAMOTIDINE 20 MG/2 ML VIAL IV PUSH SCH ×2 (09:12→21:07)
[2017-05-18] MEDS: fentaNYL DRIP 250 ML IV SCH ×2 (09:48→21:08)
--- NOTE | 2017-05-18 11:36 | PD.CONS ---
HPI Service Nephrology Consult Requested By Pipe Reason for Consult Acute renal failure Primary Care Physician No Primary Care Physician History of Present Illness This is a 51 y/o male who went to the ER in [place] for wound to gluteal area. He was transferred to [facility] [place], diagnosed with Carlos gangrene, was taken to OR yesterday for I&D. PMH of DM II, HTN, and hyperlipidemia. On arrival his creatinine was 1.9, then increased to 2.5 and is 4.76 today. His urine output has slowed but is now averaging 40 cc/hr per the nurse. He was intubated for the surgery, and he is to go back for revision today. He is septic , is on Levophed for pressure support. His glucose was in the 500s yesterday. He is unable to provide any history, the information is pulled from medical record and the nurse. He is on sedation, insulin gtt, and also on NS at 125 cc/ hr. He is a full code, we were consulted for renal management. (Latha Friedman) Review of Systems ROS Limitations: Intubated, Unresponsive (Latha Friedman) Past Family Social History Allergies: Coded Allergies: No Known Allergies (Unverified , 05/16/17) Past Medical History HTN DM II hyperlipidemia Past Surgical History no prior surgical history he had I&D yesterday Reported Medications Lisinopril 10 Mg Tab 10 Mg PO DAILY Lipitor (Atorvastatin Calcium) 20 Mg Tab 20 Mg PO HS Metformin (Metformin HCl) 500 Mg Tab 500 Mg PO BIDPC With meals Active Ordered Medications Current Medications Medications (Trade) Dose Ordered Sig/Reese Route Start Time Stop Time Status Last Admin (NS 1000 ml Inj) 1,000 ml @ 125 mls/hr Q8H IV 05/16/17 21:00 05/18/17 08:51 (NS Flush) 2 ml UNSCH PRN .XX 05/16/17 20:30 (NS Flush) 2 ml BID IV FLUSH 05/16/17 21:00 05/18/17 08:52 (Tylenol) 650 mg Q6H PRN PO 05/16/17 20:30 05/17/17 21:03 (Morphine Inj) 2 mg Q2H PRN IV 05/16/17 20:30 (Ativan Inj) 1 mg Q1H PRN IV 05/16/17 20:30 Miscellaneous Information 1 Q361D XX 05/16/17 20:30 (Chlorhexidine 2% Cloth) 3 pack Taper DAILY@04 TOP 05/17/17 04:00 05/13/18 03:59 05/18/17 04:00 (Chlorhexidine 2% Cloth) 3 pack UNSCH PRN TOP 05/16/17 20:30 (Raquel-Colace) 1 tab BID PO 05/16/17 21:00 05/17/17 09:06 (Milk Of Magnesia Liq) 30 ml Q12H PRN PO 05/16/17 20:30 (Senokot) 17.2 mg Q12H PRN PO 05/16/17 20:30 (Dulcolax Supp) 10 mg DAILY PRN RECTAL 05/16/17 20:30 (Lactulose Liq) 30 ml DAILY PRN PO 05/16/17 20:30 Atorvastatin Calcium 20 mg 20 mg HS PO 05/16/17 21:00 05/17/17 21:05 Clindamycin Phosphate 600 mg/ Sodium Chloride 104 ml @ 208 mls/hr Q8H IV 05/16/17 22:00 05/18/17 04:45 Pharmacy Profile Note 0 ml @ 0 mls/hr UNSCH OTHER 05/16/17 20:45 (Vancomycin Inj/ NS 500 ml Inj) 515 ml @ 257.5 mls/ hr Q24H IV 05/17/17 18:00 Hold 05/17/17 17:24 Miscellaneous Information SPECIFIC LAB TO BE MISAEL... ONCE ONCE .XX 05/19/17 17:45 05/19/17 17:46 (NovoLIN R (IV INFUSION)/NS Inj) 100 ml @ 0 mls/hr TITRATE IV 05/16/17 22:30 05/17/17 17:23 Dextrose 50 ml 50 ml UNSCH PRN IV PUSH 05/16/17 22:30 Fentanyl Citrate 250 ml @ 0 mls/hr TITRATE IV 05/16/17 23:00 05/18/17 09:48 (Versed 100 Mg/ ml Inj) 100 ml @ 0 mls/hr TITRATE IV 05/16/17 23:00 05/16/17 23:11 Terbutaline Sulfate 1 mg 1 mg UNSCH PRN SQ 05/17/17 01:00 Norepinephrine Bitartrate 4 mg/ Sodium Chloride 250 ml @ 0 mls/hr TITRATE IV 05/17/17 01:15 05/17/17 02:38 (Zosyn 2.25 Gm Premix) 50 ml @ 100 mls/hr Q6H IV 05/17/17 16:00 05/18/17 09:13 (Pepcid Inj) 10 mg Q12HR IV PUSH 05/18/17 09:00 05/18/17 09:12 (Heparin Inj) 5,000 units Q12H SQ 05/18/17 17:00 Family History unable to obtain Social History unable to obtain he lives in [place] his brother is POA (Latha Friedman) Physical Exam Vital Signs Vital Signs Date Time Temp Pulse Resp B/P Pulse Ox O2 Delivery O2 Flow Rate FiO2 05/18/17 08:42 100 40 05/18/17 08:00 98.6 86 12 106/50 100 Automatic Cuff 05/18/17 08:00 40 05/18/17 07:00 100 Mechanical Ventilator 40 05/18/17 06:00 89 05/18/17 06:00 95 115/53 115/53 05/18/17 05:08 100 40 05/18/17 04:00 40 05/18/17 04:00 99.4 93 11 127/58 100 05/18/17 04:00 88 05/18/17 02:00 88 05/18/17 01:30 100 40 05/18/17 00:00 40 05/18/17 00:00 100.7 90 7 103/58 100 105/59 05/18/17 00:00 90 05/17/17 23:00 95 109/56 103/58 05/17/17 22:00 100.3 05/17/17 22:00 100 40 05/17/17 22:00 93 05/17/17 20:00 101.9 104 7 113/61 100 05/17/17 20:00 104 05/17/17 20:00 40 05/17/17 19:36 105 05/17/17 19:00 100 Mechanical Ventilator 40 05/17/17 18:00 103 05/17/17 16:53 100 40 05/17/17 16:00 105 7/17/17 16:00 40 05/17/17 16:00 98.7 104 13 109/56 100 05/17/17 14:00 108 05/17/17 12:00 98.4 100 15 115/55 100 05/17/17 12:00 40 05/17/17 12:00 102 Physical Exam Obese middle aged AAM, intubated, sedated/unresponsive on vent S1/S2, regular rate, blood pressure is 120s on Levophed lungs clear, vented abdomen round, soft, NG tube is clamped reed draining clear slightly dark urine extremities: trace edema, distal pulses strong skin: his gluteal area is wrapped, some drainage, unable to visualize Laboratory Laboratory Tests Test 05/18/17 05/18/17 04:00 08:20 White Blood Count 16.6 Red Blood Count 2.59 Hemoglobin 7.1 Hematocrit 22.1 Mean Corpuscular Volume 85.7 Mean Corpuscular Hemoglobin 27.5 Mean Corpuscular Hemoglobin 32.1 Concent Red Cell Distribution Width 12.8 Platelet Count 188 Mean Platelet Volume 9.0 Neutrophils (%) (Auto) 83.3 Lymphocytes (%) (Auto) 6.5 Monocytes (%) (Auto) 9.7 Eosinophils (%) (Auto) 0.1 Basophils (%) (Auto) 0.4 Neutrophils # (Auto) 13.8 Lymphocytes # (Auto) 1.1 Monocytes # (Auto) 1.6 Eosinophils # (Auto) 0.0 Basophils # (Auto) 0.1 CBC Comment DIFF FINAL Differential Comment Sodium Level 140 Potassium Level 4.2 Chloride Level 108 Carbon Dioxide Level 22.1 Anion Gap 10 Blood Urea Nitrogen 55 Creatinine 4.76 Estimat Glomerular Filtration 16 Rate Random Glucose 156 Calcium Level 7.2 Protein Corrected Calcium 7.7 Phosphorus Level 4.2 Magnesium Level 2.3 Total Bilirubin 1.1 Aspartate Amino Transf 81 (AST/SGOT) Alanine Aminotransferase 61 (ALT/SGPT) Alkaline Phosphatase 107 Total Protein 6.1 Albumin 1.7 Random Vancomycin Level 20.2 Urine Eosinophils NONE SEEN Urine Osmolality 275 Urine Random Creatinine 119.0 Urine Random Sodium 26 Date/Time Procedure Status Source Growth 05/17/17 04:20 Aerobic Blood Culture - Preliminary Resulted Blood Peripheral NO GROWTH IN 1 DAY 05/17/17 04:20 Anaerobic Blood Culture - Preliminary Resulted Blood Peripheral NO GROWTH IN 1 DAY 05/16/17 21:33 Gram Stain - Final Resulted Wound Scrotum 05/16/17 21:33 Wound Culture - Preliminary Resulted Gram Negative Triston 05/16/17 21:33 Fungal Smear - Final Resulted Wound Scrotum NO FUNGAL ELEMENTS SEEN. 05/16/17 21:33 Fungal Culture Resulted Wound Scrotum Pending 05/16/17 21:33 Acid Fast Stain - Final Resulted Wound Scrotum NO ACID FAST BACILLI SEEN 05/16/17 21:33 Mycobacterial Culture Resulted Wound Scrotum Pending (Latha Friedman) Result Diagram: 05/18/17 0400 05/18/17 0400 Imaging Last Impressions Chest X-Ray 05/17/17 0000 Signed Impressions: Service Date/Time: Wednesday, May 17, 2017 01:32 - CONCLUSION: 1. Right-sided central line in place. No pneumothorax. 2. Scattered areas of bilateral atelectasis. Abundio Allison MD (Latha Friedman) Assessment and Plan Problem List: (1) Acute renal failure Plan: In a patient with no labs for comparison ROBERTO likely from sepsis and decreased renal perfusion; may have progressed to ATN FeNa < 1% which is consistent with prerenal etiology of ROBERTO monitor renal funciton also monitor urine output and electrolytes obtain UA for analysis change IVF to 1/2 NS at 100 cc/hr continue Levophed to maintain MAP > 65mmHg if his urine output stops, he may require dialysis support (2) Carlos gangrene Plan: Dr Lopes is following s/p I&D yesterday, to to back to OR today on Zosyn and clindamycin, was given vancomycin monitor clinically (3) Poorly controlled diabetes mellitus Plan: he is on insulin gtt. monitor glucose (Latha Friedman) Assessment and Plan patient was seen and examined. Likely has suffered ATN. Monitor. No immediate indication for dialysis. Continue supportive care. Avoid nephrotoxic agents. Maintain MAP above 65. (Ernesto Montano MD) Latha Friedman May 18, 2017 11:36 Ernesto Montano MD May 18, 2017 11:45
[2017-05-18] MEDS: SODIUM CHLOR 0.45% 1000 ML INJ 1,000 ML IV SCH ×2 (11:53→21:08)
[2017-05-18] MEDS ORDERED: PHENYLEPH/NS 1000 MCG/10 ML SYR IV ONE (12:00)
[2017-05-18] MEDS ORDERED: ONDANSETRON HCL 4 MG/2 ML VIAL IV PUSH ONE (12:00)
[2017-05-18] MEDS ORDERED: DEXMEDETOMIDINE INJ 200 MCG in SODIUM CHLORIDE 0.9% INJ 50 ML IV SCH (13:00)
[2017-05-18] MEDS ORDERED: METOPROLOL TARTRATE 5 MG/5 ML VIAL IV PUSH SCH (13:00)
[2017-05-18] MEDS ORDERED: TERBUTALINE INJ 1 MG/ML AMP SQ PRN (13:00)
[2017-05-18] MEDS: METOPROLOL TARTRATE 25 MG TAB PO SCH ×2 (13:15→18:00)
--- NOTE | 2017-05-18 13:21 | HHI.PR ---
Subjective Patient symptoms today went into Afib with RVR. on Levophed. Remains Intubated. Objective Vital Signs Vital Signs Date Time Temp Pulse Resp B/P Pulse Ox O2 Delivery O2 Flow Rate FiO2 05/18/17 12:45 100 40 05/18/17 12:00 94 05/18/17 12:00 40 05/18/17 10:00 94 05/18/17 08:42 100 40 05/18/17 08:00 98.6 86 12 106/50 100 Automatic Cuff 05/18/17 08:00 86 05/18/17 08:00 40 05/18/17 07:00 100 Mechanical Ventilator 40 05/18/17 06:00 89 05/18/17 06:00 95 115/53 115/53 05/18/17 05:08 100 40 05/18/17 04:00 40 05/18/17 04:00 99.4 93 11 127/58 100 05/18/17 04:00 88 05/18/17 02:00 88 05/18/17 01:30 100 40 05/18/17 00:00 40 05/18/17 00:00 100.7 90 7 103/58 100 105/59 05/18/17 00:00 90 05/17/17 23:00 95 109/56 103/58 05/17/17 22:00 100.3 05/17/17 22:00 100 40 05/17/17 22:00 93 05/17/17 20:00 101.9 104 7 113/61 100 05/17/17 20:00 104 05/17/17 20:00 40 05/17/17 19:36 105 05/17/17 19:00 100 Mechanical Ventilator 40 05/17/17 18:00 103 05/17/17 16:53 100 40 05/17/17 16:00 105 05/17/17 16:00 40 05/17/17 16:00 98.7 104 13 109/56 100 05/17/17 14:00 108 Intake & Output 05/18/17 05/18/17 06:59 18:59 Intake Total 2071 ml Output Total 275 ml Balance 1796 ml Intake Oral 0 ml IV Total 2071 ml Output Urine Total 275 ml Gastric Drainage Total 0 ml # Bowel Movements 0 Result Diagram: 7/18/17 0400 7/18/17 0400 Objective Remarks NAD. sedated, intubated abd soft reed dark, cloudy urine Medications and IVs Current Medications Medications (Trade) Dose Ordered Sig/Reese Route Start Time Stop Time Status Last Admin (NS Flush) 2 ml UNSCH PRN .XX 05/16/17 20:30 (NS Flush) 2 ml BID IV FLUSH 05/16/17 21:00 05/18/17 08:52 (Tylenol) 650 mg Q6H PRN PO 05/16/17 20:30 05/17/17 21:03 (Morphine Inj) 2 mg Q2H PRN IV 05/16/17 20:30 (Ativan Inj) 1 mg Q1H PRN IV 05/16/17 20:30 Miscellaneous Information 1 Q361D XX 05/16/17 20:30 (Chlorhexidine 2% Cloth) 3 pack Taper DAILY@04 TOP 05/17/17 04:00 05/13/18 03:59 05/18/17 04:00 (Chlorhexidine 2% Cloth) 3 pack UNSCH PRN TOP 05/16/17 20:30 (Raquel-Colace) 1 tab BID PO 05/16/17 21:00 05/17/17 09:06 (Milk Of Magnesia Liq) 30 ml Q12H PRN PO 05/16/17 20:30 (Senokot) 17.2 mg Q12H PRN PO 05/16/17 20:30 (Dulcolax Supp) 10 mg DAILY PRN RECTAL 05/16/17 20:30 (Lactulose Liq) 30 ml DAILY PRN PO 05/16/17 20:30 Atorvastatin Calcium 20 mg 20 mg HS PO 05/16/17 21:00 05/17/17 21:05 Clindamycin Phosphate 600 mg/ Sodium Chloride 104 ml @ 208 mls/hr Q8H IV 05/16/17 22:00 05/18/17 04:45 Pharmacy Profile Note 0 ml @ 0 mls/hr UNSCH OTHER 05/16/17 20:45 (Vancomycin Inj/ NS 500 ml Inj) 515 ml @ 257.5 mls/ hr Q24H IV 05/17/17 18:00 Hold 05/17/17 17:24 Miscellaneous Information SPECIFIC LAB TO BE MISAEL... ONCE ONCE .XX 05/19/17 17:45 05/19/17 17:46 (NovoLIN R (IV INFUSION)/NS Inj) 100 ml @ 0 mls/hr TITRATE IV 05/16/17 22:30 05/17/17 17:23 Dextrose 50 ml 50 ml UNSCH PRN IV PUSH 05/16/17 22:30 Fentanyl Citrate 250 ml @ 0 mls/hr TITRATE IV 05/16/17 23:00 05/18/17 09:48 (Versed 100 Mg/ ml Inj) 100 ml @ 0 mls/hr TITRATE IV 05/16/17 23:00 05/16/17 23:11 Terbutaline Sulfate 1 mg 1 mg UNSCH PRN SQ 05/17/17 01:00 Norepinephrine Bitartrate 4 mg/ Sodium Chloride 250 ml @ 0 mls/hr TITRATE IV 05/17/17 01:15 05/17/17 02:38 (Zosyn 2.25 Gm Premix) 50 ml @ 100 mls/hr Q6H IV 05/17/17 16:00 05/18/17 09:13 (Pepcid Inj) 10 mg Q12HR IV PUSH 05/18/17 09:00 05/18/17 09:12 Heparin Sodium (Porcine) 5000 units 5,000 units Q12H SQ 05/18/17 17:00 (1/2 NS 1000 ml Inj) 1,000 ml @ 100 mls/hr Q10H IV 05/18/17 11:30 05/18/17 11:53 (Lopressor Inj) 5 mg ONCE IV PUSH 05/18/17 13:00 05/18/17 21:00 (Lopressor) 25 mg Q6HR PO 05/18/17 13:00 05/18/17 13:15 Terbutaline Sulfate 1 mg 1 mg UNSCH PRN SQ 05/18/17 13:00 (Neosynephrine Inj/NS 500 ml Inj) 500 ml @ 0 mls/hr TITRATE IV 05/18/17 14:00 Assessment and Plan Problem List: (1) Carlos gangrene ICD 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 Antibiotics per ID. Cultures pending Will likely need skin grafts/flap in future due to size of wound by Plastic Surgery once his clinical picture is much improved. Nikolas Lopes MD May 18, 2017 13:20
[2017-05-18] MEDS: PHENYLEPHRINE INJ 160 MG in SODIUM CHLORID 0.9% 500 ML INJ 484 ML IV SCH (13:57)
--- NOTE | 2017-05-18 14:15 | HHI.IDPN ---
Subjective Subjective Remarks Patient is a 51-year-old male, with diabetes, presented initially to the [facility] emergency room complaining of generalized weakness and fevers. Symptoms have been present for about a week and a half now. He apparently also noted a little pimple in his left gluteal area about the same time, and it progressively worsened and increase in size and the area involved spread to his scrotum. His had some fevers associated with chills and night sweats at home. Patient has no problem with dysuria, frequency or urination. No nausea or vomiting. Patient however has had problem with no dysuria, and decreased urinary stream. Patient has not had any problems similar to his current symptomatology. In the emergency room he had an elevated white count of 17,000 , febrile, and was acidotic. CT of the abdomen and pelvis showed significant amount of air in the patient's left gluteal area extending through his perineum up into his scrotum. He was transferred to the main hospital, in the ICU, and was seen by her urology. Surgery was done emergently. Patient currently is on the vent, and on Levophed. He is awake and alert and interactive. Highest temperature since admission is 101.8. His his last WBC is 20.8. Creatinine is also elevated. Lactic acid is down to normal. Notes reviewed D/W RN Low grade temps last night On CPAP OR again today Went into afib RVR Pressors being switched to neosynephrine Also with worsening renal function Antibiotics Zosyn Clinda Vancomycin Past Medical History Diabetes Hyperlipidemia Hypertension Past Surgical History Circumcision Allergies: Coded Allergies: No Known Allergies (Unverified , 05/16/17) Objective . Vital Signs Date Time Temp Pulse Resp B/P Pulse Ox O2 Delivery O2 Flow Rate FiO2 05/18/17 12:45 100 40 05/18/17 12:00 94 05/18/17 12:00 40 05/18/17 10:00 94 05/18/17 08:42 100 40 05/18/17 08:00 98.6 86 12 106/50 100 Automatic Cuff 05/18/17 08:00 86 05/18/17 08:00 40 05/18/17 07:00 100 Mechanical Ventilator 40 05/18/17 06:00 89 05/18/17 06:00 95 115/53 115/53 05/18/17 05:08 100 40 05/18/17 04:00 40 05/18/17 04:00 99.4 93 11 127/58 100 05/18/17 04:00 88 05/18/17 02:00 88 05/18/17 01:30 100 40 05/18/17 00:00 40 05/18/17 00:00 100.7 90 7 103/58 100 105/59 05/18/17 00:00 90 05/17/17 23:00 95 109/56 103/58 05/17/17 22:00 100.3 05/17/17 22:00 100 40 05/17/17 22:00 93 05/17/17 20:00 101.9 104 7 113/61 100 05/17/17 20:00 104 05/17/17 20:00 40 05/17/17 19:36 105 05/17/17 19:00 100 Mechanical Ventilator 40 05/17/17 18:00 103 05/17/17 16:53 100 40 05/17/17 16:00 105 05/17/17 16:00 40 05/17/17 16:00 98.7 104 13 109/56 100 05/17/17 05/17/17 05/18/17 15:00 23:00 07:00 Intake Total 116 ml 1411 ml 660 ml Output Total 150 ml 150 ml 125 ml Balance -34 ml 1261 ml 535 ml Intake Oral 0 ml 0 ml 0 ml IV Total 116 ml 1411 ml 660 ml Output Urine Total 150 ml 150 ml 125 ml Gastric Drainage Total 0 ml 0 ml 0 ml # Bowel Movements 0 0 0 . Laboratory Tests Test 05/17/17 05/18/17 03:15 04:00 White Blood Count 20.9 TH/MM3 16.6 TH/MM3 Red Blood Count 3.37 MIL/MM3 2.59 MIL/MM3 Hemoglobin 9.4 GM/DL 7.1 GM/DL Hematocrit 27.5 % 22.1 % Mean Corpuscular Volume 81.5 FL 85.7 FL Mean Corpuscular Hemoglobin 28.0 PG 27.5 PG Mean Corpuscular Hemoglobin 34.3 % 32.1 % Concent Red Cell Distribution Width 12.2 % 12.8 % Platelet Count 174 TH/MM3 188 TH/MM3 Mean Platelet Volume 8.9 FL 9.0 FL Neutrophils (%) (Auto) 82.7 % 83.3 % Lymphocytes (%) (Auto) 3.2 % 6.5 % Monocytes (%) (Auto) 13.0 % 9.7 % Eosinophils (%) (Auto) 0.0 % 0.1 % Basophils (%) (Auto) 1.1 % 0.4 % Neutrophils # (Auto) 17.3 TH/MM3 13.8 TH/MM3 Lymphocytes # (Auto) 0.7 TH/MM3 1.1 TH/MM3 Monocytes # (Auto) 2.7 TH/MM3 1.6 TH/MM3 Eosinophils # (Auto) 0.0 TH/MM3 0.0 TH/MM3 Basophils # (Auto) 0.2 TH/MM3 0.1 TH/MM3 CBC Comment AUTO DIFF DIFF FINAL Differential Total Cells 100 Counted Neutrophils % (Manual) 40 % Band Neutrophils % 47 % Lymphocytes % 5 % Monocytes % 7 % Neutrophils # (Manual) 18.4 TH/MM3 Metamyelocytes 1 % Differential Comment FINAL DIFF MANUAL Dohle Bodies PRESENT Platelet Estimate NORMAL Platelet Morphology Comment NORMAL Laboratory Tests Test 05/17/17 05/18/17 03:15 04:00 Sodium Level 140 MEQ/L 140 MEQ/L Potassium Level 4.2 MEQ/L 4.2 MEQ/L Chloride Level 105 MEQ/L 108 MEQ/L Carbon Dioxide Level 23.5 MEQ/L 22.1 MEQ/L Anion Gap 12 MEQ/L 10 MEQ/L Blood Urea Nitrogen 37 MG/DL 55 MG/DL Creatinine 2.53 MG/DL 4.76 MG/DL Estimat Glomerular Filtration 33 ML/MIN 16 ML/MIN Rate Random Glucose 224 MG/DL 156 MG/DL Lactic Acid Level 1.5 mmol/L Calcium Level 7.5 MG/DL 7.2 MG/DL Phosphorus Level 4.2 MG/DL 4.2 MG/DL Magnesium Level 2.2 MG/DL 2.3 MG/DL Total Bilirubin 2.6 MG/DL 1.1 MG/DL Aspartate Amino Transf 165 U/L 81 U/L (AST/SGOT) Alanine Aminotransferase 76 U/L 61 U/L (ALT/SGPT) Alkaline Phosphatase 119 U/L 107 U/L Total Protein 5.9 GM/DL 6.1 GM/DL Albumin 1.8 GM/DL 1.7 GM/DL Protein Corrected Calcium 7.7 MG/DL Microbiology Date/Time Procedure Status Source Growth 05/16/17 21:33 Gram Stain - Final Resulted Wound Scrotum 05/16/17 21:33 Wound Culture - Preliminary Resulted Klebsiella Pneumoniae Strep Not A,B D 05/16/17 21:33 Acid Fast Stain - Final Resulted Wound Scrotum NO ACID FAST BACILLI SEEN 05/16/17 21:33 Mycobacterial Culture Resulted Wound Scrotum Pending 05/16/17 21:33 Fungal Smear - Final Resulted Wound Scrotum NO FUNGAL ELEMENTS SEEN. 05/16/17 21:33 Fungal Culture Resulted Wound Scrotum Pending 05/17/17 04:05 Aerobic Blood Culture - Preliminary Resulted Blood Peripheral NO GROWTH IN 1 DAY 05/17/17 04:05 Anaerobic Blood Culture - Preliminary Resulted Blood Peripheral NO GROWTH IN 1 DAY 05/17/17 04:20 Aerobic Blood Culture - Preliminary Resulted Blood Peripheral NO GROWTH IN 1 DAY 05/17/17 04:20 Anaerobic Blood Culture - Preliminary Resulted Blood Peripheral NO GROWTH IN 1 DAY Imaging Chest X-Ray 05/17/17 0000 Signed Impressions: Service Date/Time: Wednesday, May 17, 2017 01:32 - CONCLUSION: 1. Right-sided central line in place. No pneumothorax. 2. Scattered areas of bilateral atelectasis. Abundio Allison MD Physical Exam GENERAL: Sedated on the vent, , not in respiratory distress. SKIN: Warm and dry. No generalized rash, no ecchymoses and no evidence of embolic lesions. HEAD: Atraumatic. Normocephalic. No temporal wasting, or tenderness. EYES: [place] conjunctiva. No petechia or hemorrhage. Pupils equal, round and reactive to light. No scleral icterus. No injection or drainage. EARS, NOSE AND THROAT: Nose without bleeding or purulent nasal discharge. No sinus tenderness. Mucous membranes pink and moist. Endotracheal tube is in the mouth. NECK: Trachea midline. Supple and not tender, no meningeal signs CARDIOVASCULAR: Regular rate and rhythm. No murmurs, rubs or gallops heard RESPIRATORY: Clear to auscultation. Breath sounds equal bilaterally. No rales , wheezing or rhonchi. Decreased breath sounds at the bases. ABDOMEN: Soft, non-tender, nondistended. Bowel sounds present and normoactive. No guarding. No rebound. No organomegaly. GENITOURINARY: Ocbos in place. He has an open wound in his scrotum down to perineum and back, with packing, has bloody drainage, no odor. EXTREMITIES: No clubbing, cyanosis, or edema. No joint effusion, has good ROM. No calf tenderness. Well perfused and warm. 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 - on pressors - elevated creatinine due to sepsis, ?baseline not known - acidosis better Respiratory failure Worsening renal function Known DM, HTN RECOMMENDATION On Clinda Stop Vanco Continue Zosyn for GNR Follow C/S Follow CBC Follow creatinine Monitor progress OR again today Renal evaluating patient D/W Shanti Ryan MD May 18, 2017 14:15
[2017-05-18] MEDS ORDERED: NOREPINEPHRINE INJ 4 MG in SODIUM CHLOR 0.9% 250 ML INJ 246 ML IV SCH (14:30)
[2017-05-18] MEDS ORDERED: LIDOCAINE HCL 1% 50 ML VIAL ONE (16:04)
[2017-05-18] MEDS: HEPARIN SODIUM - SQ 10,000 UNITS/ML VIAL SQ SCH (17:00)
--- NOTE | 2017-05-18 18:23 | PD.OP ---
Operative Report Date of Surgery: May 18, 2017 Preoperative Diagnosis: (1) Carlos gangrene Postoperative Diagnosis: Procedure: Exam under anesthesia, debridement of scrotum, perineum Surgeon: Nikolas Lopes Patient Care(s): n/a Operation and Findings: Several small areas were debrided, mostly in gluteal region. Tissue appears pink, healthy, including edges. continue wet to dry dressing changes as needed. IV antibiotics. Leave catheter in place Will likely need skin grafts in future by Plastic Surgery. discussed with son, Gorge Evans. Nikolas Lopes MD May 18, 2017 18:23
[2017-05-18] MEDS: ATORVASTATIN 20 MG TAB PO SCH (21:07)
[2017-05-18] MEDS: MIDAZOLAM 100 MG/ML INJ 100 ML IV SCH (21:08)
--- NOTE | 2017-05-18 21:13 | MP ---
cc: GUY VALLADARES MD DATE OF SURGERY 05/16/17 PREOPERATIVE DIAGNOSIS 1. Carlos's gangrene. 2. Urosepsis. 3. Urinary retention POSTOPERATIVE DIAGNOSIS 1. Carlos's gangrene. 2. Urosepsis. 3. Urinary retention PROCEDURE PERFORMED Extensive incision and drainage as well as debridement of the scrotum, perineum and left gluteal area. SURGEON Davon Valladares MD ANESTHESIA General COMPLICATIONS None. PREOPERATIVE ANTIBIOTICS vancomycin 1 gram IV DRAINS 16-Spanish Cobos catheter to gravity drainage. SPECIMENS Scrotal wound culture BLOOD LOSS 100 mL CONDITION Critical to ICU. INDICATIONS Patient is a 51-year-old male with a history of the uncontrolled diabetes who presented to [place] ER earlier this afternoon with complaints of pain in his scrotum as well as fevers and chills. He said initially about a week ago he started having pain near his left buttocks which was a small pimple. Over the course of time, it has progressed to the posterior part of the scrotum where he started having fevers of 103 at home. He had a CT abdomen and pelvis done in the ER which shows extensive air throughout his scrotum and perineum consistent with a Carlos's gangrene. He also had a white count of 17,000 and was in acute renal failure. Due to these findings, he was then transferred to [facility] where urology was consulted due to this clinical picture. The patient was then emergently taken to the OR for the above said procedure. After risks, benefits and alternatives explained to the patient including need for multiple debridements, skin grafts in the future as well as remaining intubated after the procedure, he elected to proceed and informed consent was obtained. PROCEDURE IN DETAIL The patient was properly identified, brought back to the operating room and laid supine on the operating table. Proper time-out was performed. Under direction of anesthesiology, the patient was intubated and induced under general anesthesia. The patient had received vancomycin 1 gram within one hour of this procedure. The patient then placed into the dorsolithotomy, position, prepped and draped in normal sterile surgical fashion. A CT Spanish Cobos catheter was placed under sterile technique and dark cloudy urine returned, approximately 5-0 mL initially. At this time, an incision was made from the posterior portion of the left scrotum all the way down to his left gluteal area approximately 90 inches in length. There was a very foul odor that emanated from the wound. A significant amount of purulent drainage was expressed. Culture was taken of this fluid. At this time, using both 11-blade scalpel and heavy Metzenbaum scissors I then debrided a large amount of necrotic tissue from the posterior portion of his left hemiscrotum all the way down to his gluteal region. A significant amount of tissue was removed and debrided until pink, healthy tissue was seen with a significant amount of venous bleeding. Several arterial bleeders were encountered and these were controlled with electrocautery. After extensive debridement in this area for approximately an hour, it appeared that all necrotic tissue had been debrided. There was no longer any odor. All the tissue remaining looked pink and healthy including the edges. At this time, Pulsavac was then used to irrigate the wound, approximately 3 liters of normal saline. Wet to dry dressings were applied to the wound and this concluded the procedure. The patient remained intubated and was sent back to the ICU in critical but stable condition. He will be continued on IV antibiotics. We will consult Infectious Disease and wound care for further treatment and recommendations. He will likely need a second look with a re-debridement in the next 24-48 hours. MD HALEY Wheatley/ /1:02 PM /8:57 PM
[2017-05-19] VITALS (23 sets, daily range): BP systolic 105–154; BP diastolic 57–84; PULSE 70–95; RESP 18; TEMP 97.8–101.4; O2SAT 99–100
[2017-05-19] MEDS: PIPERACIL-TAZO 2.25 GM PREMIX 50 ML IV SCH ×3 (04:09→17:51)
[2017-05-19] MEDS: CHLORHEXIDINE GLUCONATE 2 % 1 PACK (2 CLOTHS) TOP SCH (04:09)
[2017-05-19] MEDS: HEPARIN SODIUM - SQ 10,000 UNITS/ML VIAL SQ SCH ×2 (04:09→17:32)
[2017-05-19] MEDS: ACETAMINOPHEN 325 MG TAB PO PRN (04:10)
[2017-05-19 04:13] LABS: AUTOMATED NEUTROPHIL # 14.6 TH/MM3 (1.8-7.7); BASOPHIL # 0.1 TH/MM3 (0-0.2); BASOPHIL % 0.3 % (0.0-2.0); EOSINOPHIL % 0.1 % (0.0-4.0); LYMPH % 7.7 % (9.0-44.0); LYMPHOCYTE # 1.4 TH/MM3 (1.0-4.8); MEAN CELL VOLUME 85.8 FL (80.0-100.0); MEAN CORPUSCULAR HEMOGLOBIN 27.7 PG (27.0-34.0); MEAN CORPUSCULAR HGB CONC 32.3 % (32.0-36.0); MONO % 9.5 % (0.0-8.0); NEUT % 82.4 % (16.0-70.0); PLATELET COUNT 261 TH/MM3 (150-450); WHITE BLOOD COUNT 17.7 TH/MM3 (4.0-11.0)
[2017-05-19 04:39] LABS: HEMO FLAGS AUTO DIFF
[2017-05-19 04:42] LABS: HEMATOCRIT 19.8 % (39.0-51.0)
[2017-05-19 04:57] LABS: BICARBONATE 20.7 MEQ/L (21.0-32.0); CALCIUM-PROTEIN CORRECTED 7.5 MG/DL (8.5-10.1); POTASSIUM 4.3 MEQ/L (3.5-5.1); TOTAL BILIRUBIN ADULT 2.4 MG/DL (0.2-1.0)
[2017-05-19] MEDS ORDERED: SODIUM CHLOR 0.9% 250 ML INJ 250 ML IV ONE (05:00)
[2017-05-19] MEDS: METOPROLOL TARTRATE 25 MG TAB PO SCH ×4 (06:00→18:00)
[2017-05-19] MEDS: CLINDAMYCIN INJ 600 MG in SODIUM CHLORIDE 0.9% INJ 100 ML IV SCH (06:16)
[2017-05-19] MEDS: SODIUM CHLOR 0.45% 1000 ML INJ 1,000 ML IV SCH (06:17)
--- NOTE | 2017-05-19 07:42 | MP ---
cc: GUY VALLADARES MD DATE OF SURGERY 05/18/2017 PREOPERATIVE DIAGNOSIS Carlos's gangrene POSTOPERATIVE DIAGNOSIS Carlos's gangrene PROCEDURE PERFORMED 1. Exam under anesthesia. 2. Debridement of scrotum and perineum. SURGEON Guy Valladares MD ANESTHESIA General COMPLICATIONS None PREOPERATIVE ANTIBIOTICS Clindamycin and Zosyn DRAINS A 16-English Cobos catheter SPECIMENS None BLOOD LOSS Minimal DISPOSITION Critical but stable to ICU. INDICATIONS The patient is a 51-year-old Afro-[place] Citizen male with history of uncontrolled diabetes who presented to [facility] with Carlos's gangrene on Wednesday. On Wednesday05/15/2017, he underwent emergent an extensive debridement of his scrotum, perineum and left gluteal region Wednesday. The patient presents today for exam under anesthesia and a second look. After the risks, benefits and alternatives were explained to his POA which is his son, the informed stent was obtained. DETAILS OF THE PROCEDURE The patient was brought back to the operating room where he was placed in the dorsolithotomy position. He remained intubated and sedated. He was placed in the dorsal lying position. He was prepped and draped in the normal sterile surgical fashion. The wound was carefully inspected. The scrotum extending down to the perineum appeared to be pink and healthy with no evidence of any other necrotic tissue. Using a curette, I then scraped the surface of this area to stimulate blood flow. There was good healthy bleeding seen throughout this area. I then examined the left gluteal region and buttocks just lateral to the rectum. There were several pockets of necrotic tissue that were debrided with Metzenbaum scissors and then a curette was also used as well. Once these areas removed mostly in the gluteal area, the tissue appeared to have good blood flow and healthy. Rectal exam was performed at the end which the rectum remained intact. At this point, the wound was dressed with wet-to-dry, 4x4s and Kerlix and secured with ABD. The Cobos catheter was left in place. This concluded procedure. The patient was then sent back to ICU in stable condition. Continue wet-to-dry dressings with antibiotics per ID. Wound care has currently been consulted. MD HALEY Wheatley/FROYLAN /6:31 PM /7:37 AM
[2017-05-19 07:57] LABS: BANDS 5 % (0-6); METAMYELOCYTES 2 % (0-1); NEUTROPHIL # MANUAL DIFF 15.6 TH/MM3 (1.8-7.7); POLYS (SEG NEUTROPHILS) 81 % (16-70); WBC DIFF SAMPLE 100
[2017-05-19 07:58] LABS: PLATELET ESTIMATE SMEAR NORMAL (NORMAL); PLATELET MORPHOLOGY NORMAL (NORMAL); SCAN/DIFF FINAL DIFF MANUAL
[2017-05-19] MEDS ORDERED: GLUCAGON 1 MG/ML VIAL OTHER PRN (08:30)
[2017-05-19] MEDS ORDERED: DEXTROSE 50% IN WATER 50 ML VIAL(D50) IV PRN (08:30)
--- NOTE | 2017-05-19 08:34 | HHI.CCPN ---
Subjective Remarks/Hospital Course 51-year-old gentleman with history of diabetes dyslipidemia presents with infection of left gluteal area and generalized weakness also some fevers. This has started to both the morning and a half week ago. Severe is a moderate to severe. 05/17: Glucose control improving, still requiring insulin gtt. Urine output acceptable. Septic picture. 05/18: Urine marginal and renal function worse; clearly ATN. 05/19: ATN, likely will require dialysis. Glucose control improved, convert to levemir and SSI. Objective Vital Signs Date Time Temp Pulse Resp B/P Pulse Ox O2 Delivery O2 Flow Rate FiO2 05/19/17 06:00 78 05/19/17 06:00 116/59 05/19/17 04:14 100 40 05/19/17 04:00 101.4 18 05/18/17 19:00 Mechanical Ventilator Intake and Output 05/18/17 05/18/17 05/19/17 08:00 16:00 00:00 Intake Total 660 ml 1285 ml 910 ml Output Total 125 ml 325 ml 250 ml Balance 535 ml 960 ml 660 ml Result Diagram: 05/19/17 0400 05/19/17 0400 Objective Remarks GENERAL: Ill-appearing patient. SKIN: Warm and dry. HEAD: Normocephalic. EYES: No scleral icterus. No injection or drainage. NECK: Supple, trachea midline. Orally intubated. CARDIOVASCULAR: Regular rate and rhythm without murmurs, gallops, or rubs. No JVD. RESPIRATORY: Breath sounds equal bilaterally. Clear, no wheezes. GASTROINTESTINAL: Abdomen soft, non-tender, nondistended. BS few. MUSCULOSKELETAL: No cyanosis, or edema. Well perfused. NEURO: Moves 4 limbs. Opens eyes. A/P Assessment and Plan Assessment: 1. Carlos's gangrene. 2. ROBERTO. 3. Diabetes, Type 2, uncontrolled. 4. Respiratory Failure Plan: 1. Insulin gtt. 2. Electrolyte replacement. 3. Aggressive hydration. 4. Protonix. 5. SCDs. 6. PRVC vent mode. 7. Renal consult. 8. Adjust heparin DVT to q12h. 9. Check urine lytes. Overall impression: Remains critically ill with severe metabolic disturbance from severe sepsis and uncontrolled diabetes. Worsening renal function and will require emergency dialysis. Critical care 36 mins aside from procedures. Samuel Betancur MD May 19, 2017 08:34
[2017-05-19] MEDS: INSULIN ASPART SUPPLEMENTAL SCALE SQ SCH ×3 (09:00→20:48)
[2017-05-19] MEDS: DOCUSATE SODIUM 50 MG/SENNA 8.6 MG TAB PO SCH ×2 (09:00→21:00)
[2017-05-19] MEDS: FAMOTIDINE 20 MG/2 ML VIAL IV PUSH SCH ×2 (09:37→21:26)
[2017-05-19] MEDS: INSULIN DETEMIR 100 UNITS/ML VIAL SQ SCH ×2 (09:39→21:00)
[2017-05-19] MEDS: SODIUM CHLORIDE 0.9% FLUSH 10 ML FLUSH IV FLUSH SCH ×2 (09:40→21:27)
--- NOTE | 2017-05-19 11:30 | HHI.NPPN ---
Subjective Renal Failure: Acute Interval History Remains intubated, sedated on pressors. He is being transfused. Renal function is worse today. (Latha Friedman) Review of Systems General General Remarks unable to obtain (Latha Friedman) Objective Data Data 05/18/17 05/19/17 19:00 07:00 Intake Total 1285 ml 1882 ml Output Total 325 ml 475 ml Balance 960 ml 1407 ml Intake Oral 0 ml 0 ml IV Total 1285 ml 1882 ml Output Urine Total 325 ml 475 ml Gastric Drainage Total 0 ml 0 ml # Bowel Movements 0 0 Vital Signs Date Time Temp Pulse Resp B/P Pulse Ox O2 Delivery O2 Flow Rate FiO2 05/19/17 08:59 100 40 05/19/17 08:00 81 05/19/17 08:00 40 05/19/17 07:00 100 Mechanical Ventilator 40 05/19/17 06:00 78 05/19/17 06:00 95 116/59 05/19/17 04:14 100 40 05/19/17 04:00 81 05/19/17 04:00 101.4 79 18 122/64 100 05/19/17 04:00 40 05/19/17 02:00 78 05/19/17 01:12 100 40 05/19/17 00:00 100.9 78 18 105/62 100 05/19/17 00:00 78 05/19/17 00:00 40 05/18/17 22:00 77 05/18/17 20:21 100 40 05/18/17 20:00 40 05/18/17 20:00 78 05/18/17 20:00 100.9 78 18 114/60 100 05/18/17 19:00 100 Mechanical Ventilator 40 05/18/17 17:08 100 60 05/18/17 16:47 100 40 05/18/17 16:00 90 05/18/17 16:00 99.2 90 10 111/55 100 05/18/17 16:00 40 05/18/17 14:00 118 05/18/17 12:45 100 40 05/18/17 12:00 112 05/18/17 12:00 98.6 112 9 113/62 100 05/18/17 12:00 40 (Latha Friedman) -: 05/19/17 0400 05/19/17 0400 Imaging Last 72 hours Impressions Chest X-Ray 05/17/17 0000 Signed Impressions: Service Date/Time: Wednesday, May 17, 2017 01:32 - CONCLUSION: 1. Right-sided central line in place. No pneumothorax. 2. Scattered areas of bilateral atelectasis. Abundio Allison MD Tubes & Lines: Cobos Tubes & Lines Comment A line, TLC Drip Comment versed, neosynepherine, fentanyl, 1/2 NS (Latha FriedmanP) Physical Exam General Appearance: Well Developed, Well Nourished Appearance Remarks intubated, sedated (Latha Friedman. STOCK COUNTER) Throat Throat Exam: Oral Mucosa [place] & Moist Throat Remarks ETT (Latha Friedman B. STOCK COUNTER) Neck Neck Exam: Neck Supple (Latha Friedman B. STOCK COUNTER) Pulmonary Resp Exam: Clear Bilaterally, Breath Sounds Equal (Latha Friedman B. STOCK COUNTER) Cardiology CV Exam: Regular, Normal Sinus Rhythm (Latha Friedman B. STOCK COUNTER) Gastrointestinal/Abdomen GI Exam: Soft, Non-Tender (Latha Friedman B. STOCK COUNTER) Musculoskeletal MS Exam: Joints Intact, Normal Tone (Latha Friedman B. STOCK COUNTER) Integumentary Skin Exam: Warm, Dry (Latha Friedman B. STOCK COUNTER) Extremeties Extremities Exam: Pedal Pulses Palpable, Trace Edema (Latha Friedman B. STOCK COUNTER) Neurologic Neuro Exam: Unresponsive, Sedated (Latha Friedman BKayce STOCK COUNTER) VTE Prophylaxis Device: SCDs (Latha Friedman B. STOCK COUNTER) Assessment/Plan Assessment Summary: ROBERTO/Acute Renal Failure, Acute Tubular Necrosis, Fluid/ Volume Overload Electrolyte Assessment: Metabolic Acidosis Problem List: (1) Acute renal failure Plan: In a patient with no labs for comparison renal failure: ATN from sepsis renal function is worse today although he is still making some urine vascath to be placed, HD today and tomorrow orders have been placed, 2L fluid removal today, reevaluate tomorrow monitor renal function daily,await renal recovery stop IVF currently infusing continue pressors to maintain MAP > 65mmHg labs in AM (2) Carlos gangrene Plan: Dr Lopes is following, he has become septic s/p I&D yesterday (05/17) ID has been consulted Zosyn and clindamycin continue, vancomycin has been stopped wound care has also been consulted may require skin graft in future monitor clinically (3) Poorly controlled diabetes mellitus Plan: insulin gtt continues, may be discontinued today per protocol will have intermittent insulin dosage after monitor glucose (4) Anemia Plan: he is currently being transfused, monitor Hb he reportedly had 100 ml blood loss during surgery (5) Sepsis affecting skin Plan: ID following antibiotics as above monitor clinically, support blood pressure if needed (Latha Friedman) Plan patient was seen and examined. Agree with above assessment and plan. Discussed with Dr. Ocasio. Oliguric, renal function is worse, to initiate dialysis from today. (Ernesto Montano MD) Problem Qualifiers (1) Acute renal failure: Qualified Code: N17.0 - Acute renal failure with tubular necrosis Latha Friedman May 19, 2017 11:30 Ernesto Montano MD May 19, 2017 19:49
--- NOTE | 2017-05-19 12:13 | PD.WCN.NOT ---
Wound Consult Description: Carlos's Gangrene s/p debridement of scrotum and perianal area Communicated with: LIZZETH Mills and Call placed to Doctor Odom occupational health specialist for Doctor Lopes. Received call back from Doctor Odom for telephone order for 0.125% Dakin's solution dressing. Recommendation: Recommend to apply Dakin's 0.125% moistened gauze packed into wound bed and pulled out ~1cm to allow for tissue growth and cover with dry 4x4 gauze pads and ABD pads.Apply skin prep to periwound and before securing dressing with tape or mesh underwear. Change Dakin's Wet to dry dressing Twice a day Additional Information: Patient seen on [address] [place] [address] for evaluation of Carlos's gangrene s/p debridement x 2 of scrotum and perianal areas. Patient turned to R side with the assistance of Lina [facility], Student RN, and blog writer. Wound presents with ~ 70% clean red non granulation tissue, ~10% tendon and ~20% visible testicle. Irrigated wound with 30CC of normal saline.Active wound drainage is scant and sero-sanguinous without odor.Periwound Induration is noted between 1 and 5 o' clock. Wound measurements are as follows: 4cmx 18cm x 3.5cm undermining noted between 3 and 5 o'clock, with deepest being at 3 o'clock and measuring 6.4 cm. Wound culture is positive for moderate growth of KLEBSIELLA PNEUMONIAE and heavy growth of STREP not A, B , D. Cleansed wound with normal saline and applied saline moistened gauze packed into wound bed and pulled back ~1cm to allow for tissue growth. Covered wound with to 4x4 gauze pads and 2 ABD pads. Secured dressing with silk tape and mesh underwear. Ostomy Date of Surgery: May 18, 2017 Cass Castorena [facility] May 19, 2017 12:13
--- NOTE | 2017-05-19 12:37 | HHI.IDPN ---
Subjective Subjective Remarks Patient is a 51-year-old male, with diabetes, presented initially to the [facility] emergency room complaining of generalized weakness and fevers. Symptoms have been present for about a week and a half now. He apparently also noted a little pimple in his left gluteal area about the same time, and it progressively worsened and increase in size and the area involved spread to his scrotum. His had some fevers associated with chills and night sweats at home. Patient has no problem with dysuria, frequency or urination. No nausea or vomiting. Patient however has had problem with no dysuria, and decreased urinary stream. Patient has not had any problems similar to his current symptomatology. In the emergency room he had an elevated white count of 17,000 , febrile, and was acidotic. CT of the abdomen and pelvis showed significant amount of air in the patient's left gluteal area extending through his perineum up into his scrotum. He was transferred to the main hospital, in the ICU, and was seen by her urology. Surgery was done emergently. Patient currently is on the vent, and on Levophed. He is awake and alert and interactive. Highest temperature since admission is 101.8. His his last WBC is 20.8. Creatinine is also elevated. Lactic acid is down to normal. Notes reviewed Had OR yesterday - more necrotic tissue removed in perianal region Has worsening renal function Had vascath placement Renal following On the vent WBC remains high Antibiotics Zosyn Clinda Past Medical History Diabetes Hyperlipidemia Hypertension Past Surgical History Circumcision Allergies: Coded Allergies: No Known Allergies (Unverified , 05/16/17) Objective . Vital Signs Date Time Temp Pulse Resp B/P Pulse Ox O2 Delivery O2 Flow Rate FiO2 05/19/17 08:59 100 40 05/19/17 08:00 81 05/19/17 08:00 40 05/19/17 07:00 100 Mechanical Ventilator 40 05/19/17 06:00 78 05/19/17 06:00 95 116/59 05/19/17 04:14 100 40 05/19/17 04:00 81 05/19/17 04:00 101.4 79 18 122/64 100 05/19/17 04:00 40 05/19/17 02:00 78 05/19/17 01:12 100 40 05/19/17 00:00 100.9 78 18 105/62 100 05/19/17 00:00 78 05/19/17 00:00 40 05/18/17 22:00 77 05/18/17 20:21 100 40 05/18/17 20:00 40 05/18/17 20:00 78 05/18/17 20:00 100.9 78 18 114/60 100 05/18/17 19:00 100 Mechanical Ventilator 40 05/18/17 17:08 100 60 05/18/17 16:47 100 40 05/18/17 16:00 90 05/18/17 16:00 99.2 90 10 111/55 100 05/18/17 16:00 40 05/18/17 14:00 118 05/18/17 12:45 100 40 05/18/17 05/18/17 05/19/17 15:00 23:00 07:00 Intake Total 1285 ml 910 ml 972 ml Output Total 325 ml 250 ml 225 ml Balance 960 ml 660 ml 747 ml Intake Oral 0 ml 0 ml 0 ml IV Total 1285 ml 910 ml 972 ml Output Urine Total 325 ml 250 ml 225 ml Gastric Drainage Total 0 ml 0 ml 0 ml # Bowel Movements 0 0 0 . Laboratory Tests Test 05/18/17 05/19/17 04:00 04:00 White Blood Count 16.6 TH/MM3 17.7 TH/MM3 Red Blood Count 2.59 MIL/MM3 2.30 MIL/MM3 Hemoglobin 7.1 GM/DL 6.4 GM/DL Hematocrit 22.1 % 19.8 % Mean Corpuscular Volume 85.7 FL 85.8 FL Mean Corpuscular Hemoglobin 27.5 PG 27.7 PG Mean Corpuscular Hemoglobin 32.1 % 32.3 % Concent Red Cell Distribution Width 12.8 % 13.0 % Platelet Count 188 TH/MM3 261 TH/MM3 Mean Platelet Volume 9.0 FL 8.9 FL Neutrophils (%) (Auto) 83.3 % 82.4 % Lymphocytes (%) (Auto) 6.5 % 7.7 % Monocytes (%) (Auto) 9.7 % 9.5 % Eosinophils (%) (Auto) 0.1 % 0.1 % Basophils (%) (Auto) 0.4 % 0.3 % Neutrophils # (Auto) 13.8 TH/MM3 14.6 TH/MM3 Lymphocytes # (Auto) 1.1 TH/MM3 1.4 TH/MM3 Monocytes # (Auto) 1.6 TH/MM3 1.7 TH/MM3 Eosinophils # (Auto) 0.0 TH/MM3 0.0 TH/MM3 Basophils # (Auto) 0.1 TH/MM3 0.1 TH/MM3 CBC Comment DIFF FINAL AUTO DIFF Differential Comment FINAL DIFF MANUAL Differential Total Cells 100 Counted Neutrophils % (Manual) 81 % Band Neutrophils % 5 % Lymphocytes % 4 % Monocytes % 8 % Neutrophils # (Manual) 15.6 TH/MM3 Metamyelocytes 2 % Platelet Estimate NORMAL Platelet Morphology Comment NORMAL Laboratory Tests Test 05/18/17 05/19/17 04:00 04:00 Sodium Level 140 MEQ/L 141 MEQ/L Potassium Level 4.2 MEQ/L 4.3 MEQ/L Chloride Level 108 MEQ/L 109 MEQ/L Carbon Dioxide Level 22.1 MEQ/L 20.7 MEQ/L Anion Gap 10 MEQ/L 11 MEQ/L Blood Urea Nitrogen 55 MG/DL 72 MG/DL Creatinine 4.76 MG/DL 6.18 MG/DL Estimat Glomerular Filtration 16 ML/MIN 12 ML/MIN Rate Random Glucose 156 MG/DL 131 MG/DL Calcium Level 7.2 MG/DL 7.0 MG/DL Protein Corrected Calcium 7.7 MG/DL 7.5 MG/DL Phosphorus Level 4.2 MG/DL Magnesium Level 2.3 MG/DL Total Bilirubin 1.1 MG/DL 2.4 MG/DL Aspartate Amino Transf 81 U/L 689 U/L (AST/SGOT) Alanine Aminotransferase 61 U/L 191 U/L (ALT/SGPT) Alkaline Phosphatase 107 U/L 192 U/L Total Protein 6.1 GM/DL 6.2 GM/DL Albumin 1.7 GM/DL 1.7 GM/DL Total Creatine Kinase 67 U/L Microbiology Date/Time Procedure Status Source Growth 05/16/17 21:33 Gram Stain - Final Complete Wound Scrotum 05/16/17 21:33 Wound Culture - Final Complete Klebsiella Pneumoniae Strep Not A,B D 05/16/17 21:33 Acid Fast Stain - Final Resulted Wound Scrotum NO ACID FAST BACILLI SEEN 05/16/17 21:33 Mycobacterial Culture Resulted Wound Scrotum Pending 05/16/17 21:33 Fungal Smear - Final Resulted Wound Scrotum NO FUNGAL ELEMENTS SEEN. 05/16/17 21:33 Fungal Culture Resulted Wound Scrotum Pending 05/17/17 04:05 Aerobic Blood Culture - Preliminary Resulted Blood Peripheral NO GROWTH IN 2 DAYS 05/17/17 04:05 Anaerobic Blood Culture - Preliminary Resulted Blood Peripheral NO GROWTH IN 2 DAYS 05/17/17 04:20 Aerobic Blood Culture - Preliminary Resulted Blood Peripheral NO GROWTH IN 2 DAYS 05/17/17 04:20 Anaerobic Blood Culture - Preliminary Resulted Blood Peripheral NO GROWTH IN 2 DAYS Imaging Chest X-Ray 05/17/17 0000 Signed Impressions: Service Date/Time: Wednesday, May 17, 2017 01:32 - CONCLUSION: 1. Right-sided central line in place. No pneumothorax. 2. Scattered areas of bilateral atelectasis. Abundio Allison MD Physical Exam GENERAL: Sedated on the vent, , not in respiratory distress. SKIN: Warm and dry. No generalized rash, no ecchymoses and no evidence of embolic lesions. HEAD: Atraumatic. Normocephalic. No temporal wasting, or tenderness. EYES: [place] conjunctiva. No petechia or hemorrhage. Pupils equal, round and reactive to light. No scleral icterus. No injection or drainage. EARS, NOSE AND THROAT: Nose without bleeding or purulent nasal discharge. Endotracheal tube is in the mouth. NECK: Trachea midline. Supple and not tender, no meningeal signs CARDIOVASCULAR: Regular rate and rhythm. No murmurs, rubs or gallops heard RESPIRATORY: Coarse BS bilaterally. Decreased breath sounds at the bases. ABDOMEN: Soft, non-tender, nondistended. Bowel sounds present and normoactive. No guarding. No rebound. No organomegaly. GENITOURINARY: Cobos in place. He has an open wounds with packing, no odor. EXTREMITIES: No clubbing, cyanosis, or edema. No joint effusion, has good ROM. No calf tenderness. Well perfused and warm. 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 - on pressors - elevated creatinine due to sepsis, ?baseline not known - acidosis better Respiratory failure Worsening renal function Known DM, HTN RECOMMENDATION Stop Clinda Continue Zosyn for GNR, decrease dose Follow CBC To be started on HD Monitor progress D/W Shanti Ryan MD May 19, 2017 12:37
--- NOTE | 2017-05-19 12:54 | RADRPT ---
EXAM DATE/TIME: 05/19/2017 12:27 [facility] COMPARISON: CHEST SINGLE AP, May 17, 2017, 1:32. INDICATIONS : Central line, VAS cath placement. MEDICAL HISTORY : Hypertension. Diabetes mellitus type 2. SURGICAL HISTORY : None. ENCOUNTER: Subsequent ACUITY: 4 - 6 days PAIN SCORE: Non-responsive. LOCATION: Bilateral chest FINDINGS: A single view of the chest demonstrates right basilar atelectasis. Endotracheal tube, nasogastric tub e and right subclavian central line in stable position. Vascular catheter placement left jugular appr oach with tip heading cranially into the right jugular vein. Osseous structures are intact. CONCLUSION: 1. Left jugular vascular catheter with tip heading cranially into the right jugular vein. This should be repositioned. 2. Right basilar subsegmental atelectasis. Eloy Mcginnis MD on May 19, 2017 at 12:50 Board Certified Radiologist. This report was verified electronically.
--- NOTE | 2017-05-19 14:09 | PD.PROCEDR ---
Procedure Note Procedure DX: ROBERTO (N17.9) OP: Insertion Hemodialysis Catheter ([id number]) Procedure: Time out performed. Left neck prepped and draped. Left internal jugular vein cannulated with ultrasound guidance. Wire advanced without resistance. Dilators passed and dialysis catheter passed over wire to 20 cm. CXR revealed inadequate position. Wire re-inserted and catheter repositioned. Lumens aspirated, flushed, and packed with heparin 1000 u/ml. Dressing applied. CXR revealed good position, suitable for use. Samuel Betancur MD May 19, 2017 14:09
--- NOTE | 2017-05-19 14:43 | RADRPT ---
EXAM DATE/TIME: 05/19/2017 14:05 [facility] COMPARISON: No previous studies available for comparison. INDICATIONS : Reposition of dialysis catheter. MEDICAL HISTORY : None. SURGICAL HISTORY : None. ENCOUNTER: Initial ACUITY: 4 - 6 days PAIN SCORE: Non-responsive. LOCATION: chest FINDINGS: A single view of the chest demonstrates the endotracheal tube, nasogastric tube, right subclavian samir tral line and left IJ Vas cath are in good position. The Vas cath tip overlies the SVC. The lungs a re clear. No infiltrate is seen. CONCLUSION: Left IJ Vas cath in good position. Eduar Gross MD on May 19, 2017 at 14:36 Board Certified Radiologist. This report was verified electronically.
[2017-05-19] MEDS: SODIUM HYPOCHLORITE 0.125% 500 ML BTL TOPICAL SCH ×2 (15:15→22:11)
[2017-05-19] MEDS ORDERED: PHARMACY ORDERED LAB ONE (17:45)
[2017-05-19] MEDS ORDERED: ONDANSETRON HCL 4 MG/2 ML VIAL IV PRN (20:00)
[2017-05-19] MEDS ORDERED: ALBUMIN HUMAN 25% 25 GM/100 ML BAGP IV PRN (20:00)
[2017-05-19] MEDS ORDERED: diphenhydrAMINE HCL 25 MG CAP PO PRN (20:00)
[2017-05-19] MEDS ORDERED: ACETAMINOPHEN 325 MG TAB PO PRN (20:00)
[2017-05-19] MEDS ORDERED: GELATIN 12 MM/7 MM FOAM TOPICAL PRN (20:00)
[2017-05-19] MEDS ORDERED: HEPARIN SODIUM - IV 10,000 UNITS/10 ML VIAL IV FLUSH PRN ×2 (20:00)
[2017-05-19] MEDS ORDERED: SODIUM CHLOR 0.9% 1000 ML IV PRN (20:00)
[2017-05-19] MEDS ORDERED: NS 250 ML IV PRN (20:00)
[2017-05-19] MEDS ORDERED: SODIUM CHLORIDE 0.9% FLUSH 10 ML FLUSH IV FLUSH PRN (20:00)
[2017-05-19] MEDS ORDERED: NITROGLYCERIN 0.4 MG SL 25 TABS/BTL SL PRN (20:00)
[2017-05-19] MEDS ORDERED: MANNITOL 12.5 GM/50 ML VIAL IV PRN (20:00)
[2017-05-19] MEDS ORDERED: cloNIDine HCL 0.1 MG TAB PO PRN (20:00)
[2017-05-19] MEDS: GENTAMICIN SULFATE (DIALYSIS USE ONLY) 20 MG/2 ML VIAL OTHER PRN (20:07)
[2017-05-19] MEDS: HEPARIN SODIUM - IV 10,000 UNITS/10 ML VIAL OTHER PRN (20:07)
[2017-05-19] MEDS: ATORVASTATIN 20 MG TAB PO SCH (21:27)
[2017-05-20] VITALS (18 sets, daily range): BP systolic 117–148; BP diastolic 59–78; PULSE 68–80; RESP 18; TEMP 98.2–99.8; O2SAT 95–100
[2017-05-20] MEDS: PIPERACIL-TAZO 2.25 GM PREMIX 50 ML IV SCH ×3 (00:46→17:23)
[2017-05-20] MEDS: METOPROLOL TARTRATE 25 MG TAB PO SCH ×4 (00:46→17:24)
[2017-05-20] MEDS: fentaNYL DRIP 250 ML IV SCH ×2 (01:01→16:58)
[2017-05-20] MEDS: INSULIN ASPART SUPPLEMENTAL SCALE SQ SCH ×4 (03:00→21:34)
[2017-05-20] MEDS: PHENYLEPHRINE INJ 160 MG in SODIUM CHLORID 0.9% 500 ML INJ 484 ML IV SCH (03:11)
[2017-05-20] MEDS: CHLORHEXIDINE GLUCONATE 2 % 1 PACK (2 CLOTHS) TOP SCH (03:11)
[2017-05-20] MEDS: HEPARIN SODIUM - SQ 10,000 UNITS/ML VIAL SQ SCH ×2 (05:19→16:38)
[2017-05-20 05:30] LABS: AUTOMATED NEUTROPHIL # 16.7 TH/MM3 (1.8-7.7); BASOPHIL # 0.1 TH/MM3 (0-0.2); BASOPHIL % 0.4 % (0.0-2.0); EOSINOPHIL # 0.2 TH/MM3 (0-0.4); EOSINOPHIL % 0.9 % (0.0-4.0); LYMPH % 9.6 % (9.0-44.0); MEAN CELL VOLUME 83.9 FL (80.0-100.0); MEAN CORPUSCULAR HEMOGLOBIN 26.8 PG (27.0-34.0); MONO % 10.7 % (0.0-8.0); NEUT % 78.4 % (16.0-70.0); PLATELET COUNT 309 TH/MM3 (150-450); RED BLOOD COUNT 2.31 MIL/MM3 (4.50-5.90); RED CELL DISTRIBUTION WIDTH 15.8 % (11.6-17.2); WHITE BLOOD COUNT 21.3 TH/MM3 (4.0-11.0)
[2017-05-20 05:46] LABS: HEMO FLAGS AUTO DIFF
[2017-05-20 05:53] LABS: HEMATOCRIT 19.4 % (39.0-51.0)
[2017-05-20 06:04] LABS: ALKALINE PHOSPHATASE 347 U/L (45-117); ALT (GPT) 230 U/L (12-78); ANION GAP 14 MEQ/L (5-15); AST (GOT) 598 U/L (15-37); BICARBONATE 21.7 MEQ/L (21.0-32.0); BLOOD UREA NITROGEN 70 MG/DL (7-18); CHLORIDE 105 MEQ/L (98-107); GLOMERULAR FILTRATION RATE 14 ML/MIN (>89); SODIUM (NA) 141 MEQ/L (136-145)
[2017-05-20 07:07] LABS: BANDS 4 % (0-6); CORRECTED NUCLEATED RBC 2 /100 WBC (0-0); METAMYELOCYTES 1 % (0-1); MYELOCYTES 1 % (0-0); NEUTROPHIL # MANUAL DIFF 16.8 TH/MM3 (1.8-7.7); POLYS (SEG NEUTROPHILS) 73 % (16-70); WBC DIFF SAMPLE 100
[2017-05-20 07:08] LABS: PLATELET ESTIMATE SMEAR NORMAL (NORMAL); PLATELET MORPHOLOGY NORMAL (NORMAL); SCAN/DIFF FINAL DIFF MANUAL
--- NOTE | 2017-05-20 08:00 | HHI.CCPN ---
Subjective Remarks/Hospital Course 51-year-old gentleman with history of diabetes dyslipidemia presents with infection of left gluteal area and generalized weakness also some fevers. This has started to both the morning and a half week ago. Severe is a moderate to severe. 05/17: Glucose control improving, still requiring insulin gtt. Urine output acceptable. Septic picture. 05/18: Urine marginal and renal function worse; clearly ATN. 05/19: ATN, likely will require dialysis. Glucose control improved, convert to levemir and SSI. 05/20: Glucose control improved on levemir bid and SSI. Rising alk phos and bilirubin suspicious for common duct obstruction; check RUQ ultrasound. Dakin's BID dressing changes started. Objective Vital Signs Date Time Temp Pulse Resp B/P Pulse Ox O2 Delivery O2 Flow Rate FiO2 05/20/17 07:00 96 Mechanical Ventilator 40 05/20/17 06:00 80 05/20/17 06:00 130/63 05/20/17 04:00 98.8 18 Intake and Output 05/19/17 05/19/17 05/20/17 08:00 16:00 00:00 Intake Total 972 ml 1450 ml 484 ml Output Total 225 ml 425 ml 2525 ml Balance 747 ml 1025 ml -2041 ml Result Diagram: 05/20/17 0500 05/20/17 0500 Objective Remarks GENERAL: Ill-appearing patient. Discomfort during dressing changes. SKIN: Warm and dry. HEAD: Normocephalic. EYES: No scleral icterus. No injection or drainage. NECK: Supple, trachea midline. Orally intubated. CARDIOVASCULAR: Regular rate and rhythm without murmurs, gallops, or rubs. No JVD. RESPIRATORY: Breath sounds equal bilaterally. Clear, no wheezes. Normal excursions. GASTROINTESTINAL: Abdomen soft, non-tender, nondistended. BS few. MUSCULOSKELETAL: No cyanosis, trace edema. Well perfused. NEURO: Moves 4 limbs. Opens eyes. Withdraws 4 limbs when light. A/P Assessment and Plan Assessment: 1. Carlos's gangrene. 2. ROBERTO. 3. Diabetes, Type 2, uncontrolled. 4. Respiratory Failure 5. Elevated LFTs. Plan: DM, 2, uncontrolled. 1. Insulin gtt -> levemir BID and SSI q6h. 2. Electrolyte replacement. Severe sepsis 3. Aggressive hydration. 4. Broad antibiotic coverage. ROBERTO 1. HD - Hoslote 2. Left IJ catheter 05/19 Prophylaxis. 4. Protonix. 2. Adjust heparin DVT to q12h. 5. SCDs. Respiratory Failure 6. PRVC vent mode. Anemia 9. Transfuse 2 units during dialysis. Carlos's Gangrene 1. BID dressing changes with Dakin's 2. ABX per ID Elevated LFTs 1. RUQ ultrasound Overall impression: Remains critically ill with severe metabolic disturbance from severe sepsis and uncontrolled diabetes. Worsening renal function and requiring emergency dialysis. Unable to wean from ventilator. Critical care 38 mins aside from procedures. Samuel Betancur MD May 20, 2017 08:00
[2017-05-20] MEDS: SODIUM HYPOCHLORITE 0.125% 500 ML BTL TOPICAL SCH ×2 (09:00→21:38)
[2017-05-20] MEDS: INSULIN DETEMIR 100 UNITS/ML VIAL SQ SCH ×2 (09:00→21:32)
--- NOTE | 2017-05-20 09:01 | HHI.NPPN ---
Subjective Renal Failure: Acute Interval History patient was seen and examined. Remains on the ventilator. Anemic. To have HD again today. Oliguric. Remains on a small dose of Neosynephrine. Review of Systems General General Remarks unable to obtain Objective Data Data 05/19/17 05/20/17 19:00 07:00 Intake Total 1450 ml 933 ml Output Total 425 ml 3250 ml Balance 1025 ml -2317 ml Intake Oral 0 ml 0 ml IV Total 1050 ml 693 ml Packed Cells 250 ml Other 150 ml 240 ml Output Urine Total 400 ml 1250 ml Gastric Drainage Total 25 ml 0 ml Hemodialysis 2000 ml # Bowel Movements 0 0 Vital Signs Date Time Temp Pulse Resp B/P Pulse Ox O2 Delivery O2 Flow Rate FiO2 05/20/17 08:00 40 05/20/17 07:00 96 Mechanical Ventilator 40 05/20/17 06:00 80 05/20/17 06:00 80 130/63 05/20/17 04:00 98.8 76 18 126/70 98 05/20/17 04:00 40 05/20/17 04:00 74 05/20/17 03:35 97 40 05/20/17 02:00 70 05/20/17 00:00 74 05/20/17 00:00 99.8 74 18 146/78 100 05/20/17 00:00 40 05/19/17 23:35 100 40 05/19/17 22:00 75 05/19/17 21:39 100 40 05/19/17 20:16 99 40 05/19/17 20:00 40 05/19/17 20:00 97.8 70 18 154/84 100 05/19/17 20:00 71 05/19/17 19:00 100 Mechanical Ventilator 40 05/19/17 18:00 75 145/66 05/19/17 18:00 74 05/19/17 16:00 40 05/19/17 16:00 99.7 72 18 130/62 100 05/19/17 16:00 72 05/19/17 15:07 100 40 05/19/17 14:00 74 05/19/17 13:53 100 40 05/19/17 12:00 40 05/19/17 12:00 75 05/19/17 12:00 100.4 74 18 123/60 99 05/19/17 11:00 100.4 75 18 132/79 100 05/19/17 10:00 78 05/19/17 08:59 100 40 -: 05/20/17 0500 05/20/17 0500 Tubes & Lines: Cobos Tubes & Lines Comment A line, TLC Drip Comment versed, neosynepherine, fentanyl, 1/2 NS Physical Exam General Appearance: Well Developed, Well Nourished Throat Throat Exam: Oral Mucosa Hodgkins & Moist Neck Neck Exam: Neck Supple Pulmonary Resp Exam: Clear Bilaterally, Breath Sounds Equal Cardiology CV Exam: Regular, Normal Sinus Rhythm Gastrointestinal/Abdomen GI Exam: Soft Musculoskeletal MS Exam: Joints Intact, Normal Tone Integumentary Skin Exam: Warm, Dry Extremeties Extremities Exam: Pedal Pulses Palpable, Trace Edema, Dependent Edema Neurologic Neuro Exam: Unresponsive, Sedated VTE Prophylaxis Device: SCDs Assessment/Plan Assessment Summary: ROBERTO/Acute Renal Failure, Acute Tubular Necrosis, Fluid/ Volume Overload Electrolyte Assessment: Metabolic Acidosis Problem List: (1) Acute renal failure Plan: ROBERTO likely secondary to ATN. UA not available, I will order it. CPK was ordered, results not available, I will reorder. Dialysis today. Supportive care. Avoid nephrotoxic agents. (2) Carlos gangrene Plan: Dr Lopes is following, he has become septic s/p I&D on 05/17 and 05/18. ID has been consulted He is now on Zosyn. Wound care. May need skin graft at some point. (3) Poorly controlled diabetes mellitus Plan: insulin gtt continues, may be discontinued today per protocol will have intermittent insulin dosage after monitor glucose (4) Anemia Plan: he is currently being transfused, monitor Hb he reportedly had 100 ml blood loss during surgery (5) Sepsis affecting skin Plan: ID following antibiotics as above monitor clinically, support blood pressure if needed Problem Qualifiers (1) Acute renal failure: Qualified Code: N17.0 - Acute renal failure with tubular necrosis Ernesto Montano MD May 20, 2017 09:01
[2017-05-20] MEDS: DOCUSATE SODIUM 50 MG/SENNA 8.6 MG TAB PO SCH ×2 (09:14→21:31)
[2017-05-20] MEDS: SODIUM CHLORIDE 0.9% FLUSH 10 ML FLUSH IV FLUSH SCH ×2 (09:14→21:31)
[2017-05-20] MEDS: FAMOTIDINE 20 MG/2 ML VIAL IV PUSH SCH ×2 (09:14→21:31)
[2017-05-20] MEDS: SODIUM CHLOR 0.9% 1000 ML IV PRN (10:30)
[2017-05-20] MEDS: GENTAMICIN SULFATE (DIALYSIS USE ONLY) 20 MG/2 ML VIAL OTHER PRN (10:31)
[2017-05-20] MEDS: HEPARIN SODIUM - IV 10,000 UNITS/10 ML VIAL OTHER PRN (10:31)
--- NOTE | 2017-05-20 12:14 | HHI.IDPN ---
Subjective Subjective Remarks Patient is a 51-year-old male, with diabetes, presented initially to the [facility] emergency room complaining of generalized weakness and fevers. Symptoms have been present for about a week and a half now. He apparently also noted a little pimple in his left gluteal area about the same time, and it progressively worsened and increase in size and the area involved spread to his scrotum. His had some fevers associated with chills and night sweats at home. Patient has no problem with dysuria, frequency or urination. No nausea or vomiting. Patient however has had problem with no dysuria, and decreased urinary stream. Patient has not had any problems similar to his current symptomatology. In the emergency room he had an elevated white count of 17,000 , febrile, and was acidotic. CT of the abdomen and pelvis showed significant amount of air in the patient's left gluteal area extending through his perineum up into his scrotum. He was transferred to the main hospital, in the ICU, and was seen by her urology. Surgery was done emergently. Patient currently is on the vent, and on Levophed. He is awake and alert and interactive. Highest temperature since admission is 101.8. His his last WBC is 20.8. Creatinine is also elevated. Lactic acid is down to normal. Notes reviewed D/W RN Started on HD yesterday Getting HD now On low dose pressors, being weaned Temps ok On the vent Getting PRBC transfusion WBC remains high Last debridement 05/18 Antibiotics Zosyn Past Medical History Diabetes Hyperlipidemia Hypertension Past Surgical History Circumcision Allergies: Coded Allergies: No Known Allergies (Unverified , 05/16/17) Objective . Vital Signs Date Time Temp Pulse Resp B/P Pulse Ox O2 Delivery O2 Flow Rate FiO2 05/20/17 10:48 98 80 05/20/17 09:02 99 40 05/20/17 08:00 98.5 80 18 148/76 97 05/20/17 08:00 80 05/20/17 08:00 40 05/20/17 07:00 96 Mechanical Ventilator 40 05/20/17 06:00 80 05/20/17 06:00 80 130/63 05/20/17 04:00 98.8 76 18 126/70 98 05/20/17 04:00 40 05/20/17 04:00 74 05/20/17 03:35 97 40 05/20/17 02:00 70 05/20/17 00:00 74 05/20/17 00:00 99.8 74 18 146/78 100 05/20/17 00:00 40 05/19/17 23:35 100 40 05/19/17 22:00 75 05/19/17 21:39 100 40 05/19/17 20:16 99 40 05/19/17 20:00 40 05/19/17 20:00 97.8 70 18 154/84 100 05/19/17 20:00 71 05/19/17 19:00 100 Mechanical Ventilator 40 05/19/17 18:00 75 145/66 05/19/17 18:00 74 05/19/17 16:00 40 05/19/17 16:00 99.7 72 18 130/62 100 05/19/17 16:00 72 05/19/17 15:07 100 40 05/19/17 14:00 74 05/19/17 13:53 100 40 05/19/17 05/19/17 05/20/17 14:59 22:59 06:59 Intake Total 1450 ml 484 ml 449 ml Output Total 425 ml 2525 ml 725 ml Balance 1025 ml -2041 ml -276 ml Intake Oral 0 ml 0 ml 0 ml IV Total 1050 ml 364 ml 329 ml Packed Cells 250 ml Other 150 ml 120 ml 120 ml Output Urine Total 400 ml 525 ml 725 ml Gastric Drainage Total 25 ml 0 ml 0 ml Hemodialysis 2000 ml # Bowel Movements 0 0 0 . Laboratory Tests Test 05/19/17 05/20/17 04:00 05:00 White Blood Count 17.7 TH/MM3 21.3 TH/MM3 Red Blood Count 2.30 MIL/MM3 2.31 MIL/MM3 Hemoglobin 6.4 GM/DL 6.2 GM/DL Hematocrit 19.8 % 19.4 % Mean Corpuscular Volume 85.8 FL 83.9 FL Mean Corpuscular Hemoglobin 27.7 PG 26.8 PG Mean Corpuscular Hemoglobin 32.3 % 32.0 % Concent Red Cell Distribution Width 13.0 % 15.8 % Platelet Count 261 TH/MM3 309 TH/MM3 Mean Platelet Volume 8.9 FL 8.8 FL Neutrophils (%) (Auto) 82.4 % 78.4 % Lymphocytes (%) (Auto) 7.7 % 9.6 % Monocytes (%) (Auto) 9.5 % 10.7 % Eosinophils (%) (Auto) 0.1 % 0.9 % Basophils (%) (Auto) 0.3 % 0.4 % Neutrophils # (Auto) 14.6 TH/MM3 16.7 TH/MM3 Lymphocytes # (Auto) 1.4 TH/MM3 2.0 TH/MM3 Monocytes # (Auto) 1.7 TH/MM3 2.3 TH/MM3 Eosinophils # (Auto) 0.0 TH/MM3 0.2 TH/MM3 Basophils # (Auto) 0.1 TH/MM3 0.1 TH/MM3 CBC Comment AUTO DIFF AUTO DIFF Differential Total Cells 100 100 Counted Neutrophils % (Manual) 81 % 73 % Band Neutrophils % 5 % 4 % Lymphocytes % 4 % 13 % Monocytes % 8 % 8 % Neutrophils # (Manual) 15.6 TH/MM3 16.8 TH/MM3 Metamyelocytes 2 % 1 % Differential Comment FINAL DIFF FINAL DIFF MANUAL MANUAL Platelet Estimate NORMAL NORMAL Platelet Morphology Comment NORMAL NORMAL Myelocytes 1 % Nucleated Red Blood Cells 2 /100 WBC Laboratory Tests Test 05/19/17 05/20/17 04:00 05:00 Sodium Level 141 MEQ/L 141 MEQ/L Potassium Level 4.3 MEQ/L 4.0 MEQ/L Chloride Level 109 MEQ/L 105 MEQ/L Carbon Dioxide Level 20.7 MEQ/L 21.7 MEQ/L Anion Gap 11 MEQ/L 14 MEQ/L Blood Urea Nitrogen 72 MG/DL 70 MG/DL Creatinine 6.18 MG/DL 5.16 MG/DL Estimat Glomerular Filtration 12 ML/MIN 14 ML/MIN Rate Random Glucose 131 MG/DL 150 MG/DL Calcium Level 7.0 MG/DL 7.5 MG/DL Protein Corrected Calcium 7.5 MG/DL Total Bilirubin 2.4 MG/DL 4.0 MG/DL Aspartate Amino Transf 689 U/L 598 U/L (AST/SGOT) Alanine Aminotransferase 191 U/L 230 U/L (ALT/SGPT) Alkaline Phosphatase 192 U/L 347 U/L Total Creatine Kinase 67 U/L Total Protein 6.2 GM/DL 6.2 GM/DL Albumin 1.7 GM/DL 1.7 GM/DL Imaging Chest X-Ray 05/19/17 0000 Signed Impressions: Service Date/Time: Friday, May 19, 2017 14:05 - CONCLUSION: Left IJ Vas cath in good position. Eduar Gross MD Chest X-Ray 05/17/17 0000 Signed Impressions: Service Date/Time: Wednesday, May 17, 2017 01:32 - CONCLUSION: 1. Right-sided central line in place. No pneumothorax. 2. Scattered areas of bilateral atelectasis. Abundio Allison MD Physical Exam GENERAL: Awake, on the vent, , not in respiratory distress. Following commands SKIN: Warm and dry. No generalized rash, no ecchymoses and no evidence of embolic lesions. HEAD: Atraumatic. Normocephalic. No temporal wasting, or tenderness. EYES: [place] conjunctiva. No petechia or hemorrhage. Pupils equal, round and reactive to light. No scleral icterus. No injection or drainage. EARS, NOSE AND THROAT: Nose without bleeding or purulent nasal discharge. Endotracheal tube is in the mouth. NECK: Trachea midline. Supple and not tender, no meningeal signs CARDIOVASCULAR: Regular rate and rhythm. No murmurs, rubs or gallops heard RESPIRATORY: Coarse BS bilaterally. Decreased breath sounds at the bases. ABDOMEN: Soft, non-tender, nondistended. Bowel sounds present and normoactive. No guarding. No rebound. No organomegaly. GENITOURINARY: Cobos in place. He has an open wounds with packing, no odor. EXTREMITIES: No clubbing, cyanosis, or edema. No joint effusion, has good ROM. No calf tenderness. Well perfused and warm. 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 - on pressors - elevated creatinine due to sepsis, ?baseline not known - acidosis better Respiratory failure Worsening renal function, started in HD 05/19 Known DM, HTN RECOMMENDATION Continue Zosyn Follow CBC Monitor progress Follow brenden Tillman/W Shanti Ryan MD May 20, 2017 12:14
[2017-05-20] MEDS: METOCLOPRAMIDE HCL 10 MG/2 ML VIAL IV PUSH SCH ×2 (12:20→17:24)
[2017-05-20] MEDS: BENEPROTEIN POWDER 1 PACK G-TUBE SCH ×2 (13:00→17:24)
[2017-05-20 13:18] LABS: BACTERIA, URINE MANY /hpf; BLOOD, URINE MOD (NEG); GLUCOSE,URINE NEG (NEG); KETONE, URINE NEG (NEG); MUCUS URINE FEW /lpf (OCC); NITRITE,URINE NEG (NEG); PH, URINE 5.5 (5.0-8.5); SQUAMOUS EPITHELIAL CELL URINE 1 /hpf (0-5); TRANSITIONAL EPI CELLS, URINE <1 /hpf; URINE COLOR YELLOW (YELLW/STRAW)
[2017-05-20 13:22] LABS: COMMENT (UR) CATH-CULTURE IND; CULTURE IF INDICATED CATH CULTURE IND
--- NOTE | 2017-05-20 16:03 | RADRPT ---
EXAM DATE/TIME: 05/20/2017 15:02 [facility] COMPARISON: No previous studies available for comparison. INDICATIONS : Evaluate common bile duct for obstruction. MEDICAL HISTORY : Hypertension. Hypercholesterolemia. Diabetic. SURGICAL HISTORY : None. ENCOUNTER: Initial ACUITY: 4-6 days PAIN SCORE: Nonresponsive. LOCATION: Right upper quadrant MEASUREMENTS: LIVER: 23.3 cm length COMMON DUCT: 5 mm RIGHT KIDNEY: 13.0 x 6.1 x 5.8 cm FINDINGS: LIVER: Increased echotexture consistent with fatty replacement with some sparing around the sonia hepatis. COMMON DUCT: No intraluminal mass or stone visualized. GALLBLADDER: Contains no stones but there is some sludge present, however ultrasound demonstrates definite wall th ickening and a small amount of pericholecystic fluid. PANCREAS: The visualized portions are within normal limits. RIGHT KIDNEY: No evidence of hydronephrosis, stone, or mass. CONCLUSION: Gallbladder wall thickening with some pericholecystic fluid suspicious for acute cholecystitis hue lares I reviewed the CT scan 05/16/17 and there is no obvious inflammation around the gallbladder wall to suggest acute cholecystitis. Eduar Gross MD on May 20, 2017 at 15:59 Board Certified Radiologist. This report was verified electronically.
[2017-05-20] MEDS: MIDAZOLAM 100 MG/ML INJ 100 ML IV SCH (16:58)
[2017-05-20] MEDS: ATORVASTATIN 20 MG TAB PO SCH (21:31)
[2017-05-21] VITALS (17 sets, daily range): BP systolic 116–157; BP diastolic 58–71; PULSE 66–94; RESP 18–24; TEMP 98.1–99.3; O2SAT 94–100
[2017-05-21] MEDS: METOPROLOL TARTRATE 25 MG TAB PO SCH ×5 (01:26→23:23)
[2017-05-21] MEDS: METOCLOPRAMIDE HCL 10 MG/2 ML VIAL IV PUSH SCH ×3 (01:26→17:32)
[2017-05-21] MEDS: PIPERACIL-TAZO 2.25 GM PREMIX 50 ML IV SCH ×3 (01:27→17:33)
[2017-05-21 04:43] LABS: AUTOMATED NEUTROPHIL # 18.8 TH/MM3 (1.8-7.7); BASOPHIL # 0.1 TH/MM3 (0-0.2); BASOPHIL % 0.3 % (0.0-2.0); EOSINOPHIL # 0.2 TH/MM3 (0-0.4); EOSINOPHIL % 1.1 % (0.0-4.0); LYMPH % 8.7 % (9.0-44.0); LYMPHOCYTE # 1.9 TH/MM3 (1.0-4.8); MEAN CELL VOLUME 82.6 FL (80.0-100.0); MEAN CORPUSCULAR HEMOGLOBIN 27.6 PG (27.0-34.0); MEAN CORPUSCULAR HGB CONC 33.5 % (32.0-36.0); MONO % 5.8 % (0.0-8.0); NEUT % 84.1 % (16.0-70.0); PLATELET COUNT 314 TH/MM3 (150-450); RED BLOOD COUNT 2.48 MIL/MM3 (4.50-5.90); RED CELL DISTRIBUTION WIDTH 15.8 % (11.6-17.2); WHITE BLOOD COUNT 22.3 TH/MM3 (4.0-11.0)
[2017-05-21] MEDS: CHLORHEXIDINE GLUCONATE 2 % 1 PACK (2 CLOTHS) TOP SCH (04:48)
[2017-05-21] MEDS: HEPARIN SODIUM - SQ 10,000 UNITS/ML VIAL SQ SCH ×2 (04:48→17:32)
[2017-05-21] MEDS: INSULIN ASPART SUPPLEMENTAL SCALE SQ SCH ×4 (04:48→20:59)
[2017-05-21 05:03] LABS: HEMO FLAGS AUTO DIFF
[2017-05-21 05:06] LABS: HEMATOCRIT 20.5 % (39.0-51.0)
[2017-05-21 05:09] LABS: BICARBONATE 25.2 MEQ/L (21.0-32.0); INDIRECT BILIRUBIN 1.4 MG/DL (0.0-0.8); POTASSIUM 3.7 MEQ/L (3.5-5.1); TOTAL BILIRUBIN ADULT 3.8 MG/DL (0.2-1.0)
[2017-05-21 05:13] LABS: CALCIUM-PROTEIN CORRECTED 7.8 MG/DL (8.5-10.1)
[2017-05-21 06:30] LABS: BANDS 31 % (0-6); CORRECTED NUCLEATED RBC 4 /100 WBC (0-0); EOSINOPHILS 1 % (0-4); METAMYELOCYTES 6 % (0-1); MYELOCYTES 4 % (0-0); NEUTROPHIL # MANUAL DIFF 19.2 TH/MM3 (1.8-7.7); PLATELET ESTIMATE SMEAR NORMAL (NORMAL); POLYS (SEG NEUTROPHILS) 45 % (16-70); SCAN/DIFF FINAL DIFF MANUAL; WBC DIFF SAMPLE 100
[2017-05-21 06:31] LABS: PLATELET MORPHOLOGY ENLARGED (NORMAL)
[2017-05-21 06:32] LABS: TOXIC GRANULATION 1+ (NORMAL)
[2017-05-21] MEDS: MIDAZOLAM 100 MG/ML INJ 100 ML IV SCH (06:43)
[2017-05-21] MEDS: fentaNYL DRIP 250 ML IV SCH (06:43)
[2017-05-21] MEDS: SODIUM CHLORIDE 0.9% FLUSH 10 ML FLUSH IV FLUSH SCH ×2 (09:00→20:53)
[2017-05-21] MEDS: BENEPROTEIN POWDER 1 PACK G-TUBE SCH ×3 (09:00→17:33)
[2017-05-21] MEDS: INSULIN DETEMIR 100 UNITS/ML VIAL SQ SCH ×2 (09:00→20:59)
[2017-05-21] MEDS: SODIUM HYPOCHLORITE 0.125% 500 ML BTL TOPICAL SCH ×2 (09:00→21:00)
[2017-05-21] MEDS: FAMOTIDINE 20 MG/2 ML VIAL IV PUSH SCH ×2 (09:52→20:56)
[2017-05-21] MEDS: DOCUSATE SODIUM 50 MG/SENNA 8.6 MG TAB PO SCH ×2 (09:53→20:54)
--- NOTE | 2017-05-21 11:55 | HHI.CCPN ---
Subjective Remarks/Hospital Course 51-year-old gentleman with history of diabetes dyslipidemia presents with infection of left gluteal area and generalized weakness also some fevers. This has started to both the morning and a half week ago. Severe is a moderate to severe. 05/17: Glucose control improving, still requiring insulin gtt. Urine output acceptable. Septic picture. 05/18: Urine marginal and renal function worse; clearly ATN. 05/19: ATN, likely will require dialysis. Glucose control improved, convert to levemir and SSI. 05/20: Glucose control improved on levemir bid and SSI. Rising alk phos and bilirubin suspicious for common duct obstruction; check RUQ ultrasound. Dakin's BID dressing changes started. 05/21: Patient slightly more lethargic today. Off sedation. Gallbladder ultrasound shows probable cholecystitis, check HIDA scan to confirm. WBC increased to 22.3 from 21.3. Bilirubin and liver enzymes elevated but trending down Objective Vital Signs Date Time Temp Pulse Resp B/P Pulse Ox O2 Delivery O2 Flow Rate FiO2 05/21/17 09:56 40 05/21/17 09:46 100 05/21/17 06:00 78 05/21/17 06:00 128/58 05/21/17 04:00 98.5 18 05/20/17 19:00 Mechanical Ventilator Intake and Output 05/20/17 05/20/17 05/20/17 07:59 15:59 23:59 Intake Total 449 ml 828 ml 429 ml Output Total 725 ml 2700 ml 425 ml Balance -276 ml -1872 ml 4 ml Result Diagram: 05/21/17 0420 05/21/17 0420 Objective Remarks GENERAL: Ill-appearing patient. More lethargic today SKIN: Warm and dry. HEAD: Normocephalic. EYES: No scleral icterus. No injection or drainage. NECK: Supple, trachea midline. Orally intubated. CARDIOVASCULAR: Regular rate and rhythm without murmurs, gallops, or rubs. No JVD. RESPIRATORY: Breath sounds equal bilaterally. Clear, no wheezes. Normal excursions. GASTROINTESTINAL: Abdomen soft, non-tender, nondistended. BS few. MUSCULOSKELETAL: No cyanosis, trace edema. Well perfused. : Open wounds with packing, no odor. NEURO: lethargic Moves 4 limbs. Opens eyes. Withdraws 4 limbs A/P Assessment and Plan Assessment: 1. Carlos's gangrene. 2. ROBERTO. 3. Diabetes, Type 2, uncontrolled. 4. Respiratory Failure 5. Elevated LFTs. 6. Probable acute cholecystitis Plan: DM, 2, uncontrolled. -Levemir BID and SSI q6h. -Electrolyte replacement. Severe sepsis -Aggressive hydration. -Broad antibiotic coverage. -ID Following -HIDA scan to rule out acute cholecystitis ROBERTO -HD - [facility] -Left IJ catheter 05/19 Prophylaxis. -Protonix. -heparin for DVT to q12h. -SCDs. Respiratory Failure -PRVC vent mode. -SBT, Mental status will not permit extubation Anemia -Transfuse 2 units during dialysis. Carlos's Gangrene -BID dressing changes with Dakin's -ABX per ID Elevated LFTs 1. RUQ ultrasound Overall impression: Remains critically ill with severe metabolic disturbance from severe sepsis and uncontrolled diabetes. Worsening renal function and requiring emergency dialysis. Unable to wean from ventilator. Now with probable acute cholecystitis Critical care 35 mins aside from procedures. Bebeto Mcnulty MD May 21, 2017 11:55
--- NOTE | 2017-05-21 13:34 | HHI.IDPN ---
Subjective Subjective Remarks Patient is a 51-year-old male, with diabetes, presented initially to the [facility] emergency room complaining of generalized weakness and fevers. Symptoms have been present for about a week and a half now. He apparently also noted a little pimple in his left gluteal area about the same time, and it progressively worsened and increase in size and the area involved spread to his scrotum. His had some fevers associated with chills and night sweats at home. Patient has no problem with dysuria, frequency or urination. No nausea or vomiting. Patient however has had problem with no dysuria, and decreased urinary stream. Patient has not had any problems similar to his current symptomatology. In the emergency room he had an elevated white count of 17,000 , febrile, and was acidotic. CT of the abdomen and pelvis showed significant amount of air in the patient's left gluteal area extending through his perineum up into his scrotum. He was transferred to the main hospital, in the ICU, and was seen by her urology. Surgery was done emergently. Patient currently is on the vent, and on Levophed. He is awake and alert and interactive. Highest temperature since admission is 101.8. His his last WBC is 20.8. Creatinine is also elevated. Lactic acid is down to normal. Notes reviewed Had HD 2 days in a row Temps ok On the vent LFT have been elevated Imaging studies showing possible cholecystitis WBC remains high Last debridement 05/18 Antibiotics Zosyn Past Medical History Diabetes Hyperlipidemia Hypertension Past Surgical History Circumcision Allergies: Coded Allergies: No Known Allergies (Unverified , 05/16/17) Objective . Vital Signs Date Time Temp Pulse Resp B/P Pulse Ox O2 Delivery O2 Flow Rate FiO2 05/21/17 13:09 97 40 05/21/17 09:56 40 05/21/17 09:46 100 40 05/21/17 06:00 78 05/21/17 06:00 78 128/58 05/21/17 04:00 70 05/21/17 04:00 40 05/21/17 04:00 98.5 70 18 116/59 100 05/21/17 04:00 100 40 05/21/17 02:00 70 05/21/17 01:00 99 40 05/21/17 00:00 60 05/21/17 00:00 68 05/21/17 00:00 98.1 68 18 120/61 100 05/20/17 23:04 100 50 05/20/17 22:00 74 05/20/17 20:34 100 60 05/20/17 20:00 98.2 68 18 120/60 100 05/20/17 20:00 70 05/20/17 20:00 60 05/20/17 19:00 100 Mechanical Ventilator 60 05/20/17 18:00 71 117/59 05/20/17 18:00 71 05/20/17 16:56 95 60 05/20/17 16:00 98.4 70 18 124/64 99 05/20/17 16:00 60 05/20/17 16:00 70 05/20/17 14:00 78 05/20/17 05/20/17 05/21/17 15:00 23:00 07:00 Intake Total 828 ml 429 ml 418 ml Output Total 2700 ml 425 ml 525 ml Balance -1872 ml 4 ml -107 ml Intake Oral 0 ml 0 ml IV Total 268 ml 309 ml 298 ml Packed Cells 500 ml Other 60 ml 120 ml 120 ml Output Urine Total 600 ml 425 ml 525 ml Gastric Drainage Total 100 ml 0 ml 0 ml Hemodialysis 2000 ml # Bowel Movements 0 0 100 . Laboratory Tests Test 05/20/17 05/21/17 05:00 04:20 White Blood Count 21.3 TH/MM3 22.3 TH/MM3 Red Blood Count 2.31 MIL/MM3 2.48 MIL/MM3 Hemoglobin 6.2 GM/DL 6.9 GM/DL Hematocrit 19.4 % 20.5 % Mean Corpuscular Volume 83.9 FL 82.6 FL Mean Corpuscular Hemoglobin 26.8 PG 27.6 PG Mean Corpuscular Hemoglobin 32.0 % 33.5 % Concent Red Cell Distribution Width 15.8 % 15.8 % Platelet Count 309 TH/MM3 314 TH/MM3 Mean Platelet Volume 8.8 FL 8.8 FL Neutrophils (%) (Auto) 78.4 % 84.1 % Lymphocytes (%) (Auto) 9.6 % 8.7 % Monocytes (%) (Auto) 10.7 % 5.8 % Eosinophils (%) (Auto) 0.9 % 1.1 % Basophils (%) (Auto) 0.4 % 0.3 % Neutrophils # (Auto) 16.7 TH/MM3 18.8 TH/MM3 Lymphocytes # (Auto) 2.0 TH/MM3 1.9 TH/MM3 Monocytes # (Auto) 2.3 TH/MM3 1.3 TH/MM3 Eosinophils # (Auto) 0.2 TH/MM3 0.2 TH/MM3 Basophils # (Auto) 0.1 TH/MM3 0.1 TH/MM3 CBC Comment AUTO DIFF AUTO DIFF Differential Total Cells 100 100 Counted Neutrophils % (Manual) 73 % 45 % Band Neutrophils % 4 % 31 % Lymphocytes % 13 % 10 % Monocytes % 8 % 3 % Neutrophils # (Manual) 16.8 TH/MM3 19.2 TH/MM3 Metamyelocytes 1 % 6 % Myelocytes 1 % 4 % Nucleated Red Blood Cells 2 /100 WBC 4 /100 WBC Differential Comment FINAL DIFF FINAL DIFF MANUAL MANUAL Platelet Estimate NORMAL NORMAL Platelet Morphology Comment NORMAL ENLARGED Eosinophils % 1 % Toxic Granulation 1+ Laboratory Tests Test 05/20/17 05/20/17 05/21/17 05:00 12:30 04:20 Sodium Level 141 MEQ/L 141 MEQ/L Potassium Level 4.0 MEQ/L 3.7 MEQ/L Chloride Level 105 MEQ/L 105 MEQ/L Carbon Dioxide Level 21.7 MEQ/L 25.2 MEQ/L Anion Gap 14 MEQ/L 11 MEQ/L Blood Urea Nitrogen 70 MG/DL 77 MG/DL Creatinine 5.16 MG/DL 4.41 MG/DL Estimat Glomerular Filtration 14 ML/MIN 17 ML/MIN Rate Random Glucose 150 MG/DL 240 MG/DL Calcium Level 7.5 MG/DL 7.3 MG/DL Total Bilirubin 4.0 MG/DL 3.8 MG/DL Aspartate Amino Transf 598 U/L 239 U/L (AST/SGOT) Alanine Aminotransferase 230 U/L 159 U/L (ALT/SGPT) Alkaline Phosphatase 347 U/L 258 U/L Total Protein 6.2 GM/DL 6.2 GM/DL Albumin 1.7 GM/DL 1.6 GM/DL Total Creatine Kinase 111 U/L Protein Corrected Calcium 7.8 MG/DL Direct Bilirubin 2.4 MG/DL Indirect Bilirubin 1.4 MG/DL Microbiology Date/Time Procedure Status Source Growth 05/20/17 12:30 Urine Culture Received Urine Catheterized Urine Pending Imaging Chest X-Ray 05/19/17 0000 Signed Impressions: Service Date/Time: Friday, May 19, 2017 14:05 - CONCLUSION: Left IJ Vas cath in good position. Eduar Gross MD Chest X-Ray 05/17/17 0000 Signed Impressions: Service Date/Time: Wednesday, May 17, 2017 01:32 - CONCLUSION: 1. Right-sided central line in place. No pneumothorax. 2. Scattered areas of bilateral atelectasis. Abundio Allison MD Physical Exam GENERAL: On the vent, , not in respiratory distress. Following commands when less sedation SKIN: Warm and dry. No generalized rash, no ecchymoses and no evidence of embolic lesions. HEAD: Atraumatic. Normocephalic. No temporal wasting, or tenderness. EYES: [place] conjunctiva. No petechia or hemorrhage. Pupils equal, round and reactive to light. No scleral icterus. No injection or drainage. EARS, NOSE AND THROAT: Nose without bleeding or purulent nasal discharge. Endotracheal tube is in the mouth. NECK: Trachea midline. Supple and not tender, no meningeal signs CARDIOVASCULAR: Regular rate and rhythm. No murmurs, rubs or gallops heard RESPIRATORY: Coarse BS bilaterally. Decreased breath sounds at the bases. ABDOMEN: Soft, non-tender, nondistended. Bowel sounds present and normoactive. No guarding. No rebound. No organomegaly. GENITOURINARY: Cobos in place. He has an open wounds with packing, no odor. EXTREMITIES: No clubbing, cyanosis, or edema. No calf tenderness. Well perfused and warm. 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 - on pressors - elevated creatinine due to sepsis, ?baseline not known - acidosis better Respiratory failure Worsening renal function, started in HD 05/19 Known DM, HTN Elevated LFT, ?from sepsis, ?cholecystitis RECOMMENDATION Continue Zosyn Follow CBC Monitor progress Follow temps Agree with HIDA scan Wound care per urology Weaning per [facility] D/W dr daniel ([facility]) Shanti Solis MD May 21, 2017 13:34
--- NOTE | 2017-05-21 14:29 | RADRPT ---
EXAM DATE/TIME: 05/21/2017 13:36 [facility] COMPARISON: CHEST SINGLE AP, May 19, 2017, 14:05. INDICATIONS : Shortness of breath. MEDICAL HISTORY : Hypertension. Diabetes mellitus type II. SURGICAL HISTORY : Vas Cath placement. ENCOUNTER: Subsequent ACUITY: 4 - 6 days PAIN SCORE: Non-responsive. LOCATION: Bilateral chest FINDINGS: A single view of the chest demonstrates minimal bibasilar densities. Right subclavian line, nasogastr ic tube and endotracheal tube are unchanged. Left jugular central line with tip in the brachiocephali c vein. Osseous structures are intact. CONCLUSION: Bibasilar densities likely atelectasis. Eloy Mcginnis MD on May 21, 2017 at 14:27 Board Certified Radiologist. This report was verified electronically.
[2017-05-21] MEDS ORDERED: PROPOFOL 1000 MG/100 ML INJ 100 ML ONE (14:57)
--- NOTE | 2017-05-21 15:49 | HHI.NPPN ---
Subjective Renal Failure: Acute Interval History he has made a good amount of urine. had total of 4 liters removed with dialysis past two days. He is on vent, CPAP trial. Tube feeding has been started. he is still anemic. (Latha Friedman) Review of Systems General General Remarks unable to obtain (Latha Friedman) Objective Data Data 05/20/17 05/21/17 19:00 07:00 Intake Total 828 ml 847 ml Output Total 2700 ml 950 ml Balance -1872 ml -103 ml Intake Oral 0 ml IV Total 268 ml 607 ml Packed Cells 500 ml Other 60 ml 240 ml Output Urine Total 600 ml 950 ml Gastric Drainage Total 100 ml 0 ml Hemodialysis 2000 ml # Bowel Movements 0 100 Vital Signs Date Time Temp Pulse Resp B/P Pulse Ox O2 Delivery O2 Flow Rate FiO2 05/21/17 13:09 97 40 05/21/17 09:56 40 05/21/17 09:46 100 40 05/21/17 07:00 100 Mechanical Ventilator 60 05/21/17 06:00 78 05/21/17 06:00 78 128/58 05/21/17 04:00 70 05/21/17 04:00 40 05/21/17 04:00 98.5 70 18 116/59 100 05/21/17 04:00 100 40 05/21/17 02:00 70 05/21/17 01:00 99 40 05/21/17 00:00 60 05/21/17 00:00 68 05/21/17 00:00 98.1 68 18 120/61 100 05/20/17 23:04 100 50 05/20/17 22:00 74 05/20/17 20:34 100 60 05/20/17 20:00 98.2 68 18 120/60 100 05/20/17 20:00 70 05/20/17 20:00 60 05/20/17 19:00 100 Mechanical Ventilator 60 05/20/17 18:00 71 117/59 05/20/17 18:00 71 05/20/17 16:56 95 60 05/20/17 16:00 98.4 70 18 124/64 99 05/20/17 16:00 60 05/20/17 16:00 70 (Latha Friedman) -: 05/21/17 0420 05/21/17 0420 Imaging Last 72 hours Impressions Chest X-Ray 05/21/17 0000 Signed Impressions: Service Date/Time: Sunday, May 21, 2017 13:36 - CONCLUSION: Bibasilar densities likely atelectasis. Eloy Mcginnis MD Gall Bladder Ultrasound 05/20/17 0000 Signed Impressions: Service Date/Time: May 15:02 - CONCLUSION: Gallbladder wall thickening with some pericholecystic fluid suspicious for acute cholecystitis however I reviewed the CT scan 05/16/17 and there is no obvious inflammation around the gallbladder wall to suggest acute cholecystitis. Eduar Gross MD Chest X-Ray 05/19/17 0000 Signed Impressions: Service Date/Time: Friday, May 19, 2017 14:05 - CONCLUSION: Left IJ Vas cath in good position. Eduar Gross MD Chest X-Ray 05/19/17 0000 Signed Impressions: Service Date/Time: Friday, May 19, 2017 12:27 - CONCLUSION: 1. Left jugular vascular catheter with tip heading cranially into the right jugular vein. This should be repositioned. 2. Right basilar subsegmental atelectasis. Eloy Mcginnis MD Tubes & Lines: Vas-Cath, Cobos Tubes & Lines Comment A line, TLC Drip Comment propofol (Latha Friedman B. DAYNA) Physical Exam General Appearance: Well Developed, Well Nourished Appearance Remarks intubated, sedated (Latha Friedman B. PAN PULLER) Throat Throat Exam: Oral Mucosa [place] & Moist Throat Remarks ETT (Latha Friedman B. PAN PULLER) Neck Neck Exam: Neck Supple (Latha Friedman B. PAN PULLER) Pulmonary Resp Exam: Clear Bilaterally, Breath Sounds Equal (Latha Friedman B. PAN PULLER) Cardiology CV Exam: Regular, Normal Sinus Rhythm (Latha Friedman B. PAN PULLER) Gastrointestinal/Abdomen GI Exam: Soft (Latha Friedman PAN PULLER) Musculoskeletal MS Exam: Joints Intact, Normal Tone (Latha Friedman BKayce PAN PULLER) Integumentary Skin Exam: Warm, Dry (Latha Friedman BKayce PAN PULLER) Extremeties Extremities Exam: Pedal Pulses Palpable, Trace Edema, Dependent Edema (Latha Friedman) Neurologic Neuro Exam: Unresponsive, Sedated (Latha Friedman) VTE Prophylaxis Device: SCDs (Latha Friedman) Assessment/Plan Assessment Summary: ROBERTO/Acute Renal Failure, Acute Tubular Necrosis, Fluid/ Volume Overload Electrolyte Assessment: Metabolic Acidosis Problem List: (1) Acute renal failure Plan: ROBERTO likely secondary to ATN from sepsis HD started 05/19, 05/20 continue HD support TTS await renal recovery urine appears infected culture in progress CPK low, not rhabdomyolysis continue Supportive care. Avoid IVF. Start tube feeding Avoid nephrotoxic agents. vascath for HD (2) Carlos gangrene Plan: Dr Lopes is following, he is septic s/p I&D on 05/17 and 05/18. ID following, now on Zosyn. continue Wound care. May need skin graft at some point. (3) Poorly controlled diabetes mellitus Plan: continue insulin as ordered monitor glucose (4) Anemia Plan: persistent anemia, may partly be due to dilutional effect, no source of bleeding has been identified transfuse if needed, monitor Hb (5) Sepsis affecting skin Plan: ID following antibiotics as above monitor clinically, support blood pressure if needed may have developed acute cholecystitis due for HIDA scan (Latha Friedman) Plan patient was seen and examined. Non oliguric. Possible HD tomorrow. Watch for signs of renal recovery. (Ernesto Montano MD) Problem Qualifiers (1) Acute renal failure: Qualified Code: N17.0 - Acute renal failure with tubular necrosis Latha Friedman May 21, 2017 15:49 Ernesto Montano MD May 21, 2017 21:11
[2017-05-21] MEDS: PROPOFOL 1000 MG/100 ML INJ 100 ML IV SCH ×2 (18:30→21:04)
[2017-05-21] MEDS: ATORVASTATIN 20 MG TAB PO SCH (20:54)
[2017-05-22] VITALS (19 sets, daily range): BP systolic 104–176; BP diastolic 53–77; PULSE 72–88; RESP 18–23; TEMP 97.8–98.7; O2SAT 99–100
[2017-05-22] MEDS: METOCLOPRAMIDE HCL 10 MG/2 ML VIAL IV PUSH SCH ×3 (01:55→18:06)
[2017-05-22] MEDS: PIPERACIL-TAZO 2.25 GM PREMIX 50 ML IV SCH ×3 (01:55→18:08)
[2017-05-22] MEDS: PROPOFOL 1000 MG/100 ML INJ 100 ML IV SCH ×5 (01:56→22:13)
[2017-05-22] MEDS: INSULIN ASPART SUPPLEMENTAL SCALE SQ SCH ×4 (02:17→21:00)
[2017-05-22] MEDS: CHLORHEXIDINE GLUCONATE 2 % 1 PACK (2 CLOTHS) TOP SCH (03:29)
[2017-05-22] MEDS: HEPARIN SODIUM - SQ 10,000 UNITS/ML VIAL SQ SCH ×2 (05:04→16:58)
[2017-05-22] MEDS: METOPROLOL TARTRATE 25 MG TAB PO SCH ×4 (05:04→23:12)
[2017-05-22 05:38] LABS: AUTOMATED NEUTROPHIL # 24.8 TH/MM3 (1.8-7.7); BASOPHIL # 0.2 TH/MM3 (0-0.2); BASOPHIL % 0.6 % (0.0-2.0); EOSINOPHIL # 0.4 TH/MM3 (0-0.4); EOSINOPHIL % 1.5 % (0.0-4.0); LYMPH % 6.5 % (9.0-44.0); LYMPHOCYTE # 1.9 TH/MM3 (1.0-4.8); MEAN CELL VOLUME 83.3 FL (80.0-100.0); MEAN CORPUSCULAR HEMOGLOBIN 28.1 PG (27.0-34.0); MEAN CORPUSCULAR HGB CONC 33.8 % (32.0-36.0); MONO % 5.7 % (0.0-8.0); NEUT % 85.7 % (16.0-70.0); PLATELET COUNT 386 TH/MM3 (150-450); RED BLOOD COUNT 2.49 MIL/MM3 (4.50-5.90); RED CELL DISTRIBUTION WIDTH 16.4 % (11.6-17.2); WHITE BLOOD COUNT 28.9 TH/MM3 (4.0-11.0)
[2017-05-22 06:06] LABS: HEMO FLAGS AUTO DIFF
[2017-05-22 06:09] LABS: HEMATOCRIT 20.8 % (39.0-51.0)
[2017-05-22 06:10] LABS: ALT (GPT) 158 U/L (12-78); ANION GAP 9 MEQ/L (5-15); AST (GOT) 189 U/L (15-37); BICARBONATE 26.6 MEQ/L (21.0-32.0); BLOOD UREA NITROGEN 82 MG/DL (7-18); CHLORIDE 107 MEQ/L (98-107); GLOMERULAR FILTRATION RATE 16 ML/MIN (>89); MAGNESIUM 2.9 MG/DL (1.5-2.5); POTASSIUM 3.4 MEQ/L (3.5-5.1); SODIUM (NA) 143 MEQ/L (136-145)
[2017-05-22 06:13] LABS: ALKALINE PHOSPHATASE 325 U/L (45-117); TOTAL BILIRUBIN ADULT 2.2 MG/DL (0.2-1.0)
[2017-05-22] MEDS: SODIUM CHLORIDE 0.9% FLUSH 10 ML FLUSH IV FLUSH SCH ×2 (08:46→20:43)
[2017-05-22] MEDS: BENEPROTEIN POWDER 1 PACK G-TUBE SCH ×3 (08:46→18:00)
[2017-05-22] MEDS: DOCUSATE SODIUM 50 MG/SENNA 8.6 MG TAB PO SCH ×2 (08:48→20:43)
[2017-05-22] MEDS: INSULIN DETEMIR 100 UNITS/ML VIAL SQ SCH ×2 (08:50→20:50)
[2017-05-22] MEDS: FAMOTIDINE 20 MG/2 ML VIAL IV PUSH SCH ×2 (08:51→20:43)
[2017-05-22] MEDS: SODIUM HYPOCHLORITE 0.125% 500 ML BTL TOPICAL SCH ×2 (09:02→20:43)
--- NOTE | 2017-05-22 09:35 | HHI.CCPN ---
Subjective Remarks/Hospital Course 51-year-old gentleman with history of diabetes dyslipidemia presents with infection of left gluteal area and generalized weakness also some fevers. This has started to both the morning and a half week ago. Severe is a moderate to severe. 05/17: Glucose control improving, still requiring insulin gtt. Urine output acceptable. Septic picture. 05/18: Urine marginal and renal function worse; clearly ATN. 05/19: ATN, likely will require dialysis. Glucose control improved, convert to levemir and SSI. 05/20: Glucose control improved on levemir bid and SSI. Rising alk phos and bilirubin suspicious for common duct obstruction; check RUQ ultrasound. Dakin's BID dressing changes started. 05/21: Patient slightly more lethargic today. Off sedation. Gallbladder ultrasound shows probable cholecystitis, check HIDA scan to confirm. WBC increased to 22.3 from 21.3. Bilirubin and liver enzymes elevated but trending down. 05/22: Rising WBCs and new glucose intolerance implicates active infection probably. Perineal wound is clean. Gallbladder suspicious on ultrasound but not on CT a few days earlier; check HIDA today. Objective Vital Signs Date Time Temp Pulse Resp B/P Pulse Ox O2 Delivery O2 Flow Rate FiO2 05/22/17 08:00 40 05/22/17 08:00 72 05/22/17 07:00 100 Mechanical Ventilator 05/22/17 04:00 98.3 18 104/53 Intake and Output 05/21/17 05/21/17 05/21/17 07:59 15:59 23:59 Intake Total 418 ml 465 ml 337 ml Output Total 525 ml 750 ml 600 ml Balance -107 ml -285 ml -263 ml Result Diagram: 05/22/17 0510 05/22/17 0510 Objective Remarks GENERAL: Ill-appearing patient. More lethargic today SKIN: Warm and dry. HEAD: Normocephalic. EYES: No scleral icterus. No injection or drainage. NECK: Supple, trachea midline. Orally intubated. CARDIOVASCULAR: Regular rate and rhythm without murmurs, gallops, or rubs. No JVD. RESPIRATORY: Breath sounds equal bilaterally. Clear, no wheezes. Normal excursions. GASTROINTESTINAL: Abdomen soft, non-tender, mildly distended. BS few. MUSCULOSKELETAL: No cyanosis, trace edema. Well perfused. : Open perineal wounds with packing, no odor. NEURO: More lethargic Moves 4 limbs. Opens eyes. Withdraws 4 limbs A/P Assessment and Plan Assessment: 1. Carlos's gangrene. 2. ROBERTO. 3. Diabetes, Type 2, uncontrolled. 4. Respiratory Failure 5. Elevated LFTs. 6. Probable acute cholecystitis Plan: DM, 2, uncontrolled. -Levemir BID and SSI q6h. -Electrolyte replacement. Severe sepsis -Aggressive hydration. -Broad antibiotic coverage. -ID Following -HIDA scan to rule out acute cholecystitis ROBERTO -HD - [facility] -Left IJ catheter 05/19 Prophylaxis. -Protonix. -heparin for DVT to q12h. -SCDs. Respiratory Failure -PRVC vent mode. -SBT, Mental status will not permit extubation Anemia -Transfuse 2 units during dialysis. Carlos's Gangrene -BID dressing changes with Dakin's -ABX per ID Elevated LFTs 1. RUQ ultrasound Overall impression: Remains critically ill with severe metabolic disturbance from severe sepsis and uncontrolled diabetes. Worsening renal function and requiring emergency dialysis. Unable to wean from ventilator. Now with probable acute cholecystitis, check HIDA today. Critical care 42 mins Samuel Betancur MD May 22, 2017 09:34
[2017-05-22] MEDS ORDERED: ALTEPLASE RECOMBINANT 2 MG VIAL IV FLUSH ONE (11:15)
[2017-05-22 11:24] LABS: BANDS 15 % (0-6); CORRECTED NUCLEATED RBC 1 /100 WBC (0-0); METAMYELOCYTES 6 % (0-1); MYELOCYTES 5 % (0-0); NEUTROPHIL # MANUAL DIFF 24.3 TH/MM3 (1.8-7.7); POLYCHROMASIA 2.1 % (0.0-1.9); POLYS (SEG NEUTROPHILS) 58 % (16-70); WBC DIFF SAMPLE 100
[2017-05-22 11:25] LABS: PLATELET ESTIMATE SMEAR NORMAL (NORMAL); PLATELET MORPHOLOGY NORMAL (NORMAL); SCAN/DIFF FINAL DIFF MANUAL
--- NOTE | 2017-05-22 14:12 | HHI.NPPN ---
Subjective Renal Failure: Acute Additional Remarks Patient seen during HIDA scan, remain on the vent. and sedated. Review of Systems General General Remarks unable to obtain Objective Data Data 05/21/17 05/22/17 18:59 06:59 Intake Total 465 ml 924 ml Output Total 750 ml 1700 ml Balance -285 ml -776 ml IV Total 238 ml 399 ml Tube Feeding 127 ml 325 ml Other 100 ml 200 ml Output Urine Total 750 ml 1450 ml Stool Total 250 ml Gastric Drainage Total 0 ml # Bowel Movements 0 Vital Signs Date Time Temp Pulse Resp B/P Pulse Ox O2 Delivery O2 Flow Rate FiO2 05/22/17 10:00 81 05/22/17 09:35 100 40 05/22/17 08:00 40 05/22/17 08:00 72 05/22/17 07:00 100 Mechanical Ventilator 40 05/22/17 06:00 76 05/22/17 04:25 100 40 05/22/17 04:00 98.3 76 18 104/53 100 05/22/17 04:00 74 05/22/17 04:00 40 05/22/17 02:20 100 40 05/22/17 02:00 85 05/22/17 00:00 98.7 86 18 157/69 100 05/22/17 00:00 40 05/22/17 00:00 76 05/21/17 23:19 100 40 05/21/17 22:00 86 05/21/17 20:00 40 05/21/17 20:00 98.3 80 22 143/64 100 05/21/17 20:00 78 05/21/17 19:00 100 Mechanical Ventilator 40 05/21/17 18:00 82 05/21/17 18:00 Automatic Cuff 05/21/17 17:23 100 40 05/21/17 16:00 40 05/21/17 16:00 94 05/21/17 16:00 99.1 94 24 132/63 94 -: 05/22/17 0510 05/22/17 0510 Tubes & Lines: Vas-Cath, Cobos Tubes & Lines Comment A line, TLC Drip Comment propofol Physical Exam General Appearance Remarks Intubated and sedated. Throat Throat Exam: Oral Mucosa [place] & Moist Neck Neck Exam: Neck Supple Pulmonary Resp Exam: Rhonchi, Decreased Bases, Diminished Breath Sounds, Poor Inspiratory Effort Cardiology CV Exam: Regular, Normal Sinus Rhythm Gastrointestinal/Abdomen GI Exam: Soft, Distended Integumentary Skin Exam: Warm, Dry Extremeties Extremities Exam: Trace Edema, Dependent Edema Neurologic Neuro Exam: Unresponsive, Sedated VTE Prophylaxis Device: SCDs Assessment/Plan Assessment Summary: ROBERTO/Acute Renal Failure, Acute Tubular Necrosis, Fluid/ Volume Overload Electrolyte Assessment: Metabolic Acidosis Problem List: (1) Acute renal failure Plan: ROBERTO likely secondary to ATN from sepsis HD started 05/19, 05/20 continue HD support TTS await renal recovery urine appears infected culture in progress CPK low, not rhabdomyolysis continue Supportive care. Avoid IVF. Start tube feeding Avoid nephrotoxic agents. Urine out put is better, Creatinine still increasing. HD today. Getting HIDA scan now. 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 ID following, now on Zosyn. continue Wound care. May need skin graft at some point. (3) Poorly controlled diabetes mellitus Plan: continue insulin as ordered monitor glucose (4) Anemia Plan: persistent anemia, may partly be due to dilutional effect, no source of bleeding has been identified transfuse if needed, monitor Hb (5) Sepsis affecting skin Plan: ID following antibiotics as above monitor clinically, support blood pressure if needed may have developed acute cholecystitis due for HIDA scan Problem Qualifiers (1) Acute renal failure: Qualified Code: N17.0 - Acute renal failure with tubular necrosis Eboni Castillo MD May 22, 2017 14:12
[2017-05-22] MEDS: HEPARIN SODIUM - IV 10,000 UNITS/10 ML VIAL OTHER PRN (15:07)
[2017-05-22] MEDS: SODIUM CHLOR 0.9% 1000 ML IV PRN (15:08)
[2017-05-22] MEDS: GENTAMICIN SULFATE (DIALYSIS USE ONLY) 20 MG/2 ML VIAL OTHER PRN (15:08)
--- NOTE | 2017-05-22 15:22 | RADRPT ---
EXAM DATE/TIME: 05/22/2017 12:05 This report includes an Addendum and supersedes previous reports for this exam. [facility] COMPARISON: No previous studies available for comparison. INDICATIONS : Jaundice with elevated LFT's. DOSE: 4.1 mCi Tc99m Mebrofenin IV MEDICAL HISTORY : Hypertension. Diabetes mellitus type 2. SURGICAL HISTORY : None. ENCOUNTER: Initial ACUITY: 2 days PAIN SCALE: 0/10 LOCATION: upper quadrant TECHNIQUE: Following the intravenous administration of radiotracer, dynamic sequential images were performed wit h continuous acquisition. FINDINGS: HEPATIC KINETICS: There is prompt uptake of radiotracer in the liver. No focal defects are seen. There is normal rate of washout from the hepatic parenchyma. BILIARY CLEARANCE: Activity is first seen in the extrahepatic biliary system at 10 minutes. There is normal excretion i nto the small bowel. GALLBLADDER: Activity is not seen in the gallbladder. Common bile duct kinetics are normal and there is no eviden ce of biliary obstruction. BILIARY ENTRIC REFLUX: Small amount observed. CONCLUSION: 1. No uptake within the gallbladder. Delayed imaging will be obtained. 2. Small amount of biliary enteric reflux. Eloy Mcginnis MD on May 22, 2017 at 15:20 Board Certified Radiologist. This report was verified electronically. ADDENDUM: COMPARISON: CT ABDOMEN & PELVIS W/O CONTRAST, May 16, 2017, 16:28. Delayed 24 our view does not demonstrate gallbladder therefore possibility of cystic duct obstruction and acute cholecystitis should be entertained. Armaan Tanner MD on May 23, 2017 at 12:26 Board Certified Radiologist. This report was verified electronically.
--- NOTE | 2017-05-22 18:03 | HHI.IDPN ---
Subjective Subjective Remarks Patient is a 51-year-old male, with diabetes, presented initially to the [place] emergency room complaining of generalized weakness and fevers. Symptoms have been present for about a week and a half now. He apparently also noted a little pimple in his left gluteal area about the same time, and it progressively worsened and increase in size and the area involved spread to his scrotum. His had some fevers associated with chills and night sweats at home. Patient has no problem with dysuria, frequency or urination. No nausea or vomiting. Patient however has had problem with no dysuria, and decreased urinary stream. Patient has not had any problems similar to his current symptomatology. In the emergency room he had an elevated white count of 17,000 , febrile, and was acidotic. CT of the abdomen and pelvis showed significant amount of air in the patient's left gluteal area extending through his perineum up into his scrotum. He was transferred to the main hospital, in the ICU, and was seen by her urology. Surgery was done emergently. Patient currently is on the vent, and on Levophed. He is awake and alert and interactive. Highest temperature since admission is 101.8. His his last WBC is 20.8. Creatinine is also elevated. Lactic acid is down to normal. Notes reviewed Had HD today Temps ok On the vent LFT have been elevated WBC rising HIDA scan (+) - will have delayed imaging studies Last debridement 05/18 Antibiotics Zosyn Past Medical History Diabetes Hyperlipidemia Hypertension Past Surgical History Circumcision Allergies: Coded Allergies: No Known Allergies (Unverified , 05/16/17) Objective . Vital Signs Date Time Temp Pulse Resp B/P Pulse Ox O2 Delivery O2 Flow Rate FiO2 05/22/17 16:56 100 40 05/22/17 16:00 86 05/22/17 16:00 40 05/22/17 16:00 98.6 85 18 146/65 100 05/22/17 15:00 85 05/22/17 15:00 40 05/22/17 14:00 80 05/22/17 12:00 40 05/22/17 12:00 77 05/22/17 12:00 98.0 88 23 176/77 100 05/22/17 10:00 81 05/22/17 09:35 100 40 05/22/17 08:00 97.8 82 21 165/70 100 05/22/17 08:00 40 05/22/17 08:00 72 05/22/17 07:00 100 Mechanical Ventilator 40 05/22/17 06:00 76 05/22/17 04:25 100 40 05/22/17 04:00 98.3 76 18 104/53 100 05/22/17 04:00 74 05/22/17 04:00 40 05/22/17 02:20 100 40 05/22/17 02:00 85 05/22/17 00:00 98.7 86 18 157/69 100 05/22/17 00:00 40 05/22/17 00:00 76 05/21/17 23:19 100 40 05/21/17 22:00 86 05/21/17 20:00 40 05/21/17 20:00 98.3 80 22 143/64 100 05/21/17 20:00 78 05/21/17 19:00 100 Mechanical Ventilator 40 05/21/17 05/21/17 05/22/17 15:00 23:00 07:00 Intake Total 465 ml 337 ml 587 ml Output Total 750 ml 600 ml 1100 ml Balance -285 ml -263 ml -513 ml IV Total 238 ml 162 ml 237 ml Tube Feeding 127 ml 175 ml 150 ml Other 100 ml 200 ml Output Urine Total 750 ml 550 ml 900 ml Stool Total 50 ml 200 ml Gastric Drainage Total 0 ml # Bowel Movements 0 . Laboratory Tests Test 05/21/17 05/22/17 04:20 05:10 White Blood Count 22.3 TH/MM3 28.9 TH/MM3 Red Blood Count 2.48 MIL/MM3 2.49 MIL/MM3 Hemoglobin 6.9 GM/DL 7.0 GM/DL Hematocrit 20.5 % 20.8 % Mean Corpuscular Volume 82.6 FL 83.3 FL Mean Corpuscular Hemoglobin 27.6 PG 28.1 PG Mean Corpuscular Hemoglobin 33.5 % 33.8 % Concent Red Cell Distribution Width 15.8 % 16.4 % Platelet Count 314 TH/MM3 386 TH/MM3 Mean Platelet Volume 8.8 FL 9.1 FL Neutrophils (%) (Auto) 84.1 % 85.7 % Lymphocytes (%) (Auto) 8.7 % 6.5 % Monocytes (%) (Auto) 5.8 % 5.7 % Eosinophils (%) (Auto) 1.1 % 1.5 % Basophils (%) (Auto) 0.3 % 0.6 % Neutrophils # (Auto) 18.8 TH/MM3 24.8 TH/MM3 Lymphocytes # (Auto) 1.9 TH/MM3 1.9 TH/MM3 Monocytes # (Auto) 1.3 TH/MM3 1.6 TH/MM3 Eosinophils # (Auto) 0.2 TH/MM3 0.4 TH/MM3 Basophils # (Auto) 0.1 TH/MM3 0.2 TH/MM3 CBC Comment AUTO DIFF AUTO DIFF Differential Total Cells 100 100 Counted Neutrophils % (Manual) 45 % 58 % Band Neutrophils % 31 % 15 % Lymphocytes % 10 % 9 % Monocytes % 3 % 7 % Eosinophils % 1 % Neutrophils # (Manual) 19.2 TH/MM3 24.3 TH/MM3 Metamyelocytes 6 % 6 % Myelocytes 4 % 5 % Nucleated Red Blood Cells 4 /100 WBC 1 /100 WBC Differential Comment FINAL DIFF FINAL DIFF MANUAL MANUAL Toxic Granulation 1+ Platelet Estimate NORMAL NORMAL Platelet Morphology Comment ENLARGED NORMAL Polychromasia 2.1 % Laboratory Tests Test 05/21/17 05/22/17 05/22/17 04:20 05:10 10:10 Sodium Level 141 MEQ/L 143 MEQ/L Potassium Level 3.7 MEQ/L 3.4 MEQ/L Chloride Level 105 MEQ/L 107 MEQ/L Carbon Dioxide Level 25.2 MEQ/L 26.6 MEQ/L Anion Gap 11 MEQ/L 9 MEQ/L Blood Urea Nitrogen 77 MG/DL 82 MG/DL Creatinine 4.41 MG/DL 4.62 MG/DL Estimat Glomerular Filtration 17 ML/MIN 16 ML/MIN Rate Random Glucose 240 MG/DL 226 MG/DL Calcium Level 7.3 MG/DL 7.9 MG/DL Protein Corrected Calcium 7.8 MG/DL Total Bilirubin 3.8 MG/DL 2.2 MG/DL Direct Bilirubin 2.4 MG/DL Indirect Bilirubin 1.4 MG/DL Aspartate Amino Transf 239 U/L 189 U/L (AST/SGOT) Alanine Aminotransferase 159 U/L 158 U/L (ALT/SGPT) Alkaline Phosphatase 258 U/L 325 U/L Total Protein 6.2 GM/DL 7.4 GM/DL Albumin 1.6 GM/DL 1.8 GM/DL Magnesium Level 2.9 MG/DL Lactic Acid Level 1.0 mmol/L Microbiology Date/Time Procedure Status Source Growth 05/20/17 12:30 Urine Culture - Preliminary Resulted Urine Catheterized Urine Yeast Species Imaging Chest X-Ray 05/19/17 0000 Signed Impressions: Service Date/Time: Friday, May 19, 2017 14:05 - CONCLUSION: Left IJ Vas cath in good position. Eduar Gross MD Chest X-Ray 05/17/17 0000 Signed Impressions: Service Date/Time: Wednesday, May 17, 2017 01:32 - CONCLUSION: 1. Right-sided central line in place. No pneumothorax. 2. Scattered areas of bilateral atelectasis. Abundio Allison MD Physical Exam GENERAL: On the vent, , not in respiratory distress. Following commands when less sedation SKIN: Warm and dry. No generalized rash, no ecchymoses and no evidence of embolic lesions. HEAD: Atraumatic. Normocephalic. No temporal wasting, or tenderness. EYES: [place] conjunctiva. No petechia or hemorrhage. No scleral icterus. No injection or drainage. EARS, NOSE AND THROAT: Nose without bleeding or purulent nasal discharge. Endotracheal tube is in the mouth. NECK: Trachea midline. Supple and not tender, no meningeal signs CARDIOVASCULAR: Regular rate and rhythm. No murmurs, rubs or gallops heard RESPIRATORY: Coarse BS bilaterally. Decreased breath sounds at the bases. ABDOMEN: Soft, non-tender, nondistended. Bowel sounds present and normoactive. No guarding. No rebound. No organomegaly. GENITOURINARY: Cobos in place. dressing in place EXTREMITIES: No clubbing, cyanosis, or edema. No calf tenderness. Well perfused and warm. 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
[2017-05-22] MEDS: MORPHINE SULFATE 4 MG/ML INJ IV PRN (18:08)
[2017-05-22] MEDS: FLUCONAZOLE 200 MG PREMIX BAG 100 ML IV SCH (18:53)
[2017-05-22] MEDS: ATORVASTATIN 20 MG TAB PO SCH (20:43)
[2017-05-23] VITALS (19 sets, daily range): BP systolic 152–185; BP diastolic 64–85; PULSE 73–100; RESP 18–28; TEMP 97.6–99.5; O2SAT 94–100
[2017-05-23] MEDS: METOCLOPRAMIDE HCL 10 MG/2 ML VIAL IV PUSH SCH ×3 (02:16→17:22)
[2017-05-23] MEDS: PIPERACIL-TAZO 2.25 GM PREMIX 50 ML IV SCH ×3 (02:16→17:23)
[2017-05-23] MEDS: CHLORHEXIDINE GLUCONATE 2 % 1 PACK (2 CLOTHS) TOP SCH (02:25)
[2017-05-23] MEDS: INSULIN ASPART SUPPLEMENTAL SCALE SQ SCH ×4 (02:25→21:00)
[2017-05-23] MEDS: PROPOFOL 1000 MG/100 ML INJ 100 ML IV SCH ×3 (02:27→15:11)
[2017-05-23] MEDS: METOPROLOL TARTRATE 25 MG TAB PO SCH ×4 (05:12→23:28)
[2017-05-23] MEDS: MORPHINE SULFATE 4 MG/ML INJ IV PRN ×3 (05:12→21:16)
[2017-05-23] MEDS: HEPARIN SODIUM - SQ 10,000 UNITS/ML VIAL SQ SCH ×2 (05:12→17:22)
[2017-05-23 05:44] LABS: AUTOMATED NEUTROPHIL # 18.7 TH/MM3 (1.8-7.7); BASOPHIL # 0.1 TH/MM3 (0-0.2); BASOPHIL % 0.3 % (0.0-2.0); EOSINOPHIL # 0.3 TH/MM3 (0-0.4); EOSINOPHIL % 1.6 % (0.0-4.0); HEMATOCRIT 24.9 % (39.0-51.0); LYMPH % 7.2 % (9.0-44.0); LYMPHOCYTE # 1.6 TH/MM3 (1.0-4.8); MEAN CELL VOLUME 83.9 FL (80.0-100.0); MEAN CORPUSCULAR HEMOGLOBIN 27.4 PG (27.0-34.0); MEAN CORPUSCULAR HGB CONC 32.7 % (32.0-36.0); MONO % 5.7 % (0.0-8.0); NEUT % 85.2 % (16.0-70.0); PLATELET COUNT 379 TH/MM3 (150-450); RED BLOOD COUNT 2.97 MIL/MM3 (4.50-5.90); RED CELL DISTRIBUTION WIDTH 16.7 % (11.6-17.2)
[2017-05-23 05:53] LABS: HEMO FLAGS AUTO DIFF
[2017-05-23 06:25] LABS: BICARBONATE 26.5 MEQ/L (21.0-32.0); INDIRECT BILIRUBIN 0.4 MG/DL (0.0-0.8); POTASSIUM 3.2 MEQ/L (3.5-5.1); TOTAL BILIRUBIN ADULT 1.4 MG/DL (0.2-1.0)
[2017-05-23 08:08] LABS: BANDS 16 % (0-6); CORRECTED NUCLEATED RBC 1 /100 WBC (0-0); EOSINOPHILS 3 % (0-4); METAMYELOCYTES 6 % (0-1); NEUTROPHIL # MANUAL DIFF 18.3 TH/MM3 (1.8-7.7); POLYS (SEG NEUTROPHILS) 61 % (16-70); WBC DIFF SAMPLE 100
[2017-05-23 08:10] LABS: PLATELET ESTIMATE SMEAR NORMAL (NORMAL); PLATELET MORPHOLOGY CLUMPED (NORMAL); SCAN/DIFF FINAL DIFF MANUAL
[2017-05-23] MEDS: BENEPROTEIN POWDER 1 PACK G-TUBE SCH ×3 (09:00→17:23)
[2017-05-23] MEDS: DOCUSATE SODIUM 50 MG/SENNA 8.6 MG TAB PO SCH ×2 (09:00→21:15)
[2017-05-23] MEDS: SODIUM CHLORIDE 0.9% FLUSH 10 ML FLUSH IV FLUSH SCH ×2 (09:15→21:16)
[2017-05-23] MEDS: FAMOTIDINE 20 MG/2 ML VIAL IV PUSH SCH ×2 (09:16→21:16)
[2017-05-23] MEDS: SODIUM HYPOCHLORITE 0.125% 500 ML BTL TOPICAL SCH ×2 (09:18→21:00)
[2017-05-23] MEDS: INSULIN DETEMIR 100 UNITS/ML VIAL SQ SCH ×2 (09:31→21:00)
--- NOTE | 2017-05-23 10:50 | HHI.CCPN ---
Subjective Remarks/Hospital Course 51-year-old gentleman with history of diabetes dyslipidemia presents with infection of left gluteal area and generalized weakness also some fevers. This has started to both the morning and a half week ago. Severe is a moderate to severe. 05/17: Glucose control improving, still requiring insulin gtt. Urine output acceptable. Septic picture. 05/18: Urine marginal and renal function worse; clearly ATN. 05/19: ATN, likely will require dialysis. Glucose control improved, convert to levemir and SSI. 05/20: Glucose control improved on levemir bid and SSI. Rising alk phos and bilirubin suspicious for common duct obstruction; check RUQ ultrasound. Dakin's BID dressing changes started. 05/21: Patient slightly more lethargic today. Off sedation. Gallbladder ultrasound shows probable cholecystitis, check HIDA scan to confirm. WBC increased to 22.3 from 21.3. Bilirubin and liver enzymes elevated but trending down. 05/22: Rising WBCs and new glucose intolerance implicates active infection probably. Perineal wound is clean. Gallbladder suspicious on ultrasound but not on CT a few days earlier; check HIDA today. 05/23: WBC trending down today. HIDA scan is positive, continue medical management with ABX, also will discuss with ID regarding cholecystostomy. Bilirubin and liver enzymes trending down Objective Vital Signs Date Time Temp Pulse Resp B/P Pulse Ox O2 Delivery O2 Flow Rate FiO2 05/23/17 08:00 40 05/23/17 08:00 88 05/23/17 08:00 98.7 18 171/80 100 05/23/17 07:00 Mechanical Ventilator Intake and Output 05/22/17 05/22/17 05/23/17 08:00 16:00 00:00 Intake Total 587 ml 255 ml 598 ml Output Total 1100 ml 1200 ml 3300 ml Balance -513 ml -945 ml -2702 ml Result Diagram: 05/23/17 0510 05/23/17 0510 Objective Remarks GENERAL: Critically ill male, awake on the vent SKIN: Warm and dry. Perineal wounds with packing HEAD: Normocephalic. atraumatic EYES: No scleral icterus. No injection or drainage. NECK: Supple, trachea midline. Orally intubated. CARDIOVASCULAR: Regular rate and rhythm without murmurs, gallops, or rubs. No JVD. RESPIRATORY: Breath sounds equal bilaterally. Clear, no wheezes. Normal excursions. GASTROINTESTINAL: Abdomen soft, non-tender, mildly distended. BS few. MUSCULOSKELETAL: No cyanosis, trace edema. Well perfused. : Open perineal wounds with packing, no odor. NEURO: Awake on the vent. Moves all extremities, follow commands A/P Assessment and Plan Assessment: 1. Carlos's gangrene. 2. ROBERTO. 3. Diabetes, Type 2, uncontrolled. 4. Respiratory Failure 5. Elevated LFTs. 6. Probable acute cholecystitis Plan: Neuro: - Propofol and fentanyl for sedation and ventilator synchrony - Daily sedation vacation Resp: Respiratory failure - PRVC. Daily SBT - Ventilator bundle DuoNeb when necessary - Leave intubated until need for dye working colostomy addressed, also may need cholecystostomy tube CVS: - Remains hemodynamically stable - Monitor heart rate blood pressure GI: - Continue tube feeds - Protonix RENAL ROBERTO -HD - [facility] -Left IJ catheter 05/19 ID: Severe sepsis Carlos's gangrene -Aggressive hydration. -Broad antibiotic coverage. -ID Following -HIDA positive for nonvisualization of gallbladder/ probable acute cholecystitis -Will discuss with ID re cholecystomy tube placement. Clinically improving, WBC and liver enzymes trending down -BID dressing changes with Dakin's ENDO: DM-2, uncontrolled. -Levemir BID and SSI q6h. -Electrolyte replacement. Prophylaxis. -Protonix. -Heparin for DVT to q12h. -SCDs. Overall impression: Remains critically ill with severe metabolic disturbance from severe sepsis and uncontrolled diabetes. Worsening renal function and requiring emergency dialysis. Unable to wean from ventilator. Level 3 Bebeto Mcnulty MD May 23, 2017 10:50
--- NOTE | 2017-05-23 14:48 | HHI.NPPN ---
Subjective Renal Failure: Acute Additional Remarks Patient remain on the vent., and now on CPAP. Review of Systems General General Remarks unable to obtain Objective Data Data 05/22/17 05/23/17 19:00 07:00 Intake Total 255 ml 1124 ml Output Total 3700 ml 1650 ml Balance -3445 ml -526 ml Intake Oral 0 ml IV Total 255 ml 740 ml Tube Feeding 0 ml 184 ml Other 200 ml Output Urine Total 1100 ml 1450 ml Stool Total 100 ml 200 ml Hemodialysis 2500 ml Vital Signs Date Time Temp Pulse Resp B/P Pulse Ox O2 Delivery O2 Flow Rate FiO2 05/23/17 14:00 79 05/23/17 12:09 99 40 05/23/17 12:09 100 100 05/23/17 12:00 93 05/23/17 12:00 40 05/23/17 12:00 99.5 90 28 170/74 100 05/23/17 10:56 40 05/23/17 10:00 85 05/23/17 08:00 40 05/23/17 08:00 88 05/23/17 08:00 98.7 76 18 171/80 100 05/23/17 07:56 99 40 05/23/17 07:00 100 Mechanical Ventilator 40 05/23/17 06:00 77 05/23/17 04:30 99 40 05/23/17 04:00 40 05/23/17 04:00 98.4 76 18 158/64 100 05/23/17 04:00 76 05/23/17 02:00 73 05/23/17 00:50 99 40 05/23/17 00:00 77 05/23/17 00:00 97.6 77 18 152/65 100 05/23/17 00:00 40 05/22/17 22:00 86 05/22/17 21:30 100 40 05/22/17 20:00 81 05/22/17 20:00 98.3 73 18 157/70 100 05/22/17 20:00 40 05/22/17 19:00 100 Mechanical Ventilator 40 05/22/17 18:13 20 05/22/17 18:00 82 05/22/17 16:56 100 40 05/22/17 16:00 86 05/22/17 16:00 40 05/22/17 16:00 98.6 85 18 146/65 100 05/22/17 15:00 85 05/22/17 15:00 40 -: 05/23/17 0510 05/23/17 0510 Tubes & Lines: Vas-Cath, Cobos Tubes & Lines Comment A line, TLC Drip Comment propofol Physical Exam General Appearance Remarks Intubated and sedated. Throat Throat Exam: Oral Mucosa Bessie & Moist Neck Neck Exam: Neck Supple Pulmonary Resp Exam: Rhonchi, Decreased Bases, Diminished Breath Sounds, Poor Inspiratory Effort Cardiology CV Exam: Regular, Normal Sinus Rhythm Gastrointestinal/Abdomen GI Exam: Soft, Distended Integumentary Skin Exam: Warm, Dry Extremeties Extremities Exam: Trace Edema, Dependent Edema Neurologic Neuro Exam: Unresponsive, Sedated VTE Prophylaxis Device: SCDs Assessment/Plan Assessment Summary: ROBERTO/Acute Renal Failure, Acute Tubular Necrosis, Fluid/ Volume Overload Electrolyte Assessment: Metabolic Acidosis Problem List: (1) Acute renal failure Plan: ROBERTO likely secondary to ATN from sepsis HD started 05/19, 05/20 continue HD support TTS await renal recovery urine appears infected culture in progress CPK low, not rhabdomyolysis continue Supportive care. Avoid IVF. Start tube feeding Avoid nephrotoxic agents. HIDA scan results noted. Urine out put is better, and Creatinine improving. HD done yesterday, watch for renal recovery, HD as needed. 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 ID following, now on Zosyn. continue Wound care. May need skin graft at some point. (3) Poorly controlled diabetes mellitus Plan: continue insulin as ordered monitor glucose (4) Anemia Plan: persistent anemia, may partly be due to dilutional effect, no source of bleeding has been identified transfuse if needed, monitor Hb (5) Sepsis affecting skin Plan: ID following antibiotics as above monitor clinically, support blood pressure if needed may have developed acute cholecystitis due for HIDA scan Problem Qualifiers (1) Acute renal failure: Qualified Code: N17.0 - Acute renal failure with tubular necrosis Eboni Castillo MD May 23, 2017 14:48
--- NOTE | 2017-05-23 16:17 | HHI.IDPN ---
Subjective Subjective Remarks Patient is a 51-year-old male, with diabetes, presented initially to the [place] emergency room complaining of generalized weakness and fevers. Symptoms have been present for about a week and a half now. He apparently also noted a little pimple in his left gluteal area about the same time, and it progressively worsened and increase in size and the area involved spread to his scrotum. His had some fevers associated with chills and night sweats at home. Patient has no problem with dysuria, frequency or urination. No nausea or vomiting. Patient however has had problem with no dysuria, and decreased urinary stream. Patient has not had any problems similar to his current symptomatology. In the emergency room he had an elevated white count of 17,000 , febrile, and was acidotic. CT of the abdomen and pelvis showed significant amount of air in the patient's left gluteal area extending through his perineum up into his scrotum. He was transferred to the main hospital, in the ICU, and was seen by her urology. Surgery was done emergently. Patient currently is on the vent, and on Levophed. He is awake and alert and interactive. Highest temperature since admission is 101.8. His his last WBC is 20.8. Creatinine is also elevated. Lactic acid is down to normal. Notes reviewed D/W RN Patient has been extubated this afternoon Temps ok Good sats on nasal O2 Denies abdominal pain LFT improving WBC better today HIDA scan (+) - with delayed imaging studies Last debridement 05/18 RN states the open wounds clean and has red beefy tissue Antibiotics Zosyn Diflucan Past Medical History Diabetes Hyperlipidemia Hypertension Past Surgical History Circumcision Allergies: Coded Allergies: No Known Allergies (Unverified , 05/16/17) Objective . Vital Signs Date Time Temp Pulse Resp B/P Pulse Ox O2 Delivery O2 Flow Rate FiO2 05/23/17 15:17 97 40 05/23/17 14:00 79 05/23/17 12:09 99 40 05/23/17 12:09 100 100 05/23/17 12:00 93 05/23/17 12:00 40 05/23/17 12:00 99.5 90 28 170/74 100 05/23/17 10:56 40 05/23/17 10:00 85 05/23/17 08:00 40 05/23/17 08:00 88 05/23/17 08:00 98.7 76 18 171/80 100 05/23/17 07:56 99 40 05/23/17 07:00 100 Mechanical Ventilator 40 05/23/17 06:00 77 05/23/17 04:30 99 40 05/23/17 04:00 40 05/23/17 04:00 98.4 76 18 158/64 100 05/23/17 04:00 76 05/23/17 02:00 73 05/23/17 00:50 99 40 05/23/17 00:00 77 05/23/17 00:00 97.6 77 18 152/65 100 05/23/17 00:00 40 05/22/17 22:00 86 05/22/17 21:30 100 40 05/22/17 20:00 81 05/22/17 20:00 98.3 73 18 157/70 100 05/22/17 20:00 40 05/22/17 19:00 100 Mechanical Ventilator 40 05/22/17 18:13 20 05/22/17 18:00 82 05/22/17 16:56 100 40 05/22/17 05/22/17 05/23/17 15:00 23:00 07:00 Intake Total 255 ml 598 ml 526 ml Output Total 1200 ml 3300 ml 850 ml Balance -945 ml -2702 ml -324 ml Intake Oral 0 ml IV Total 255 ml 394 ml 346 ml Tube Feeding 0 ml 104 ml 80 ml Other 100 ml 100 ml Output Urine Total 1100 ml 700 ml 750 ml Stool Total 100 ml 100 ml 100 ml Hemodialysis 2500 ml . Laboratory Tests Test 05/22/17 05/23/17 05:10 05:10 White Blood Count 28.9 TH/MM3 22.0 TH/MM3 Red Blood Count 2.49 MIL/MM3 2.97 MIL/MM3 Hemoglobin 7.0 GM/DL 8.1 GM/DL Hematocrit 20.8 % 24.9 % Mean Corpuscular Volume 83.3 FL 83.9 FL Mean Corpuscular Hemoglobin 28.1 PG 27.4 PG Mean Corpuscular Hemoglobin 33.8 % 32.7 % Concent Red Cell Distribution Width 16.4 % 16.7 % Platelet Count 386 TH/MM3 379 TH/MM3 Mean Platelet Volume 9.1 FL 8.3 FL Neutrophils (%) (Auto) 85.7 % 85.2 % Lymphocytes (%) (Auto) 6.5 % 7.2 % Monocytes (%) (Auto) 5.7 % 5.7 % Eosinophils (%) (Auto) 1.5 % 1.6 % Basophils (%) (Auto) 0.6 % 0.3 % Neutrophils # (Auto) 24.8 TH/MM3 18.7 TH/MM3 Lymphocytes # (Auto) 1.9 TH/MM3 1.6 TH/MM3 Monocytes # (Auto) 1.6 TH/MM3 1.3 TH/MM3 Eosinophils # (Auto) 0.4 TH/MM3 0.3 TH/MM3 Basophils # (Auto) 0.2 TH/MM3 0.1 TH/MM3 CBC Comment AUTO DIFF AUTO DIFF Differential Total Cells 100 100 Counted Neutrophils % (Manual) 58 % 61 % Band Neutrophils % 15 % 16 % Lymphocytes % 9 % 10 % Monocytes % 7 % 4 % Neutrophils # (Manual) 24.3 TH/MM3 18.3 TH/MM3 Metamyelocytes 6 % 6 % Myelocytes 5 % Nucleated Red Blood Cells 1 /100 WBC 1 /100 WBC Differential Comment FINAL DIFF FINAL DIFF MANUAL MANUAL Platelet Estimate NORMAL NORMAL Platelet Morphology Comment NORMAL CLUMPED Polychromasia 2.1 % Eosinophils % 3 % Laboratory Tests Test 05/22/17 05/22/17 05/23/17 05:10 10:10 05:10 Sodium Level 143 MEQ/L 142 MEQ/L Potassium Level 3.4 MEQ/L 3.2 MEQ/L Chloride Level 107 MEQ/L 106 MEQ/L Carbon Dioxide Level 26.6 MEQ/L 26.5 MEQ/L Anion Gap 9 MEQ/L 10 MEQ/L Blood Urea Nitrogen 82 MG/DL 62 MG/DL Creatinine 4.62 MG/DL 3.57 MG/DL Estimat Glomerular Filtration 16 ML/MIN 22 ML/MIN Rate Random Glucose 226 MG/DL 177 MG/DL Calcium Level 7.9 MG/DL 8.0 MG/DL Magnesium Level 2.9 MG/DL Total Bilirubin 2.2 MG/DL 1.4 MG/DL Aspartate Amino Transf 189 U/L 158 U/L (AST/SGOT) Alanine Aminotransferase 158 U/L 130 U/L (ALT/SGPT) Alkaline Phosphatase 325 U/L 393 U/L Total Protein 7.4 GM/DL 7.3 GM/DL Albumin 1.8 GM/DL 1.9 GM/DL Lactic Acid Level 1.0 mmol/L Direct Bilirubin 1.0 MG/DL Indirect Bilirubin 0.4 MG/DL Imaging Hepatobiliary Scan Nuclear Medicine 05/22/17 0000 Signed Impressions: Service Date/Time: Monday, May 22, 2017 12:05 - CONCLUSION: 1. No uptake within the gallbladder. Delayed imaging will be obtained. 2. Small amount of biliary enteric reflux. Eloy Mcginnis MD ADDENDUM: COMPARISON: CT ABDOMEN & PELVIS W/O CONTRAST, May 16, 2017, 16:28. Delayed 24 our view does not demonstrate gallbladder therefore possibility of cystic duct obstruction and acute cholecystitis should be entertained. Armaan Tanner MD Chest X-Ray 05/19/17 0000 Signed Impressions: Service Date/Time: Friday, May 19, 2017 14:05 - CONCLUSION: Left IJ Vas cath in good position. Eduar Gross MD Chest X-Ray 05/17/17 0000 Signed Impressions: Service Date/Time: Wednesday, May 17, 2017 01:32 - CONCLUSION: 1. Right-sided central line in place. No pneumothorax. 2. Scattered areas of bilateral atelectasis. Abundio Allison MD Physical Exam GENERAL: Awake and alert, comfortable, post extubation on nasal O2 SKIN: Warm and dry. No generalized rash, no ecchymoses and no evidence of embolic lesions. HEAD: Atraumatic. Normocephalic. No temporal wasting, or tenderness. EYES: [place] conjunctiva. No petechia or hemorrhage. No scleral icterus. No injection or drainage. EARS, NOSE AND THROAT: Nose without bleeding or purulent nasal discharge. Moist mucosa NECK: Trachea midline. Supple and not tender, no meningeal signs CARDIOVASCULAR: Regular rate and rhythm. No murmurs, rubs or gallops heard RESPIRATORY: Coarse BS bilaterally. Decreased breath sounds at the bases. ABDOMEN: Soft, non-tender, nondistended. Bowel sounds present and normoactive. No guarding. No rebound. No organomegaly. GENITOURINARY: Cobos in place. dressing in place EXTREMITIES: No clubbing, cyanosis, or edema. No calf tenderness. Well perfused and warm. 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, due to Carlos's gangrene - S/P debridement, has an extensive open wound - WBC worsening - on pressors - elevated creatinine due to sepsis, ?baseline not known - acidosis better Respiratory failure Worsening renal function, started in HD 05/19 Known DM, HTN Elevated LFT, ?from sepsis, ?cholecystitis, ?cholangitis - HIDA (+) - LFTs improving - clinically no findings on exam to suggest acute kenia UC with Poornima Leukocytosis, slightly better RECOMMENDATION Continue Zosyn Follow CBC Continue Diflucan Monitor progress Follow temps Wound care per urology D/W Dr Mcnulty - will repeat gallbladder US in few days D/W Dr Mcnulty ([facility]) D/W Shanti Ryan MD May 23, 2017 16:17
[2017-05-23] MEDS: FLUCONAZOLE 200 MG PREMIX BAG 100 ML IV SCH (17:21)
[2017-05-23] MEDS ORDERED: hydrALAZINE HCL 20 MG/ML VIAL ONE (18:12)
[2017-05-23] MEDS ORDERED: LABETALOL HCL 20 MG/4 ML VIAL IV PRN (18:45)
[2017-05-23] MEDS: ATORVASTATIN 20 MG TAB PO SCH (21:15)
[2017-05-23] MEDS: hydrALAZINE HCL 20 MG/ML VIAL IV PRN (22:13)
[2017-05-23] MEDS: LABETALOL HCL 100 MG/20 ML VIAL IV PRN (22:13)
[2017-05-24] VITALS (14 sets, daily range): BP systolic 156–199; BP diastolic 66–83; PULSE 82–96; RESP 14–29; TEMP 97.8–99.4; O2SAT 94–100
[2017-05-24] MEDS: MORPHINE SULFATE 4 MG/ML INJ IV PRN ×3 (00:44→22:38)
[2017-05-24] MEDS: METOCLOPRAMIDE HCL 10 MG/2 ML VIAL IV PUSH SCH ×3 (02:43→18:41)
[2017-05-24] MEDS: PIPERACIL-TAZO 2.25 GM PREMIX 50 ML IV SCH ×3 (02:43→19:36)
[2017-05-24] MEDS: INSULIN ASPART SUPPLEMENTAL SCALE SQ SCH ×4 (02:57→21:39)
[2017-05-24] MEDS: CHLORHEXIDINE GLUCONATE 2 % 1 PACK (2 CLOTHS) TOP SCH (03:25)
--- NOTE | 2017-05-24 04:53 | RADRPT ---
EXAM DATE/TIME: 05/24/2017 03:43 [facility] COMPARISON: CHEST SINGLE AP, May 21, 2017, 13:36. INDICATIONS : Shortness of breath MEDICAL HISTORY : Hypertension. Diabetes mellitus type II. SURGICAL HISTORY : Vas cath placement ENCOUNTER: Subsequent ACUITY: 1 week PAIN SCORE: 9/10 LOCATION: Bilateral chest FINDINGS: Portable AP view of the chest demonstrates a normal-sized cardiac silhouette. Patient is rotated and underinflated. Left IJ line and right subclavian central line remain present. ETT and nasogastric tub e have been removed. There is mild bibasilar airspace opacity, right greater than left. No pneumothor ax or pleural effusion is seen. CONCLUSION: Unchanged bibasilar opacity representing either atelectasis or consolidation. Hamlet Al MD on May 24, 2017 at 4:50 Board Certified Radiologist. This report was verified electronically.
[2017-05-24] MEDS: hydrALAZINE HCL 20 MG/ML VIAL IV PRN ×3 (04:56→21:23)
[2017-05-24] MEDS: METOPROLOL TARTRATE 25 MG TAB PO SCH ×3 (04:56→18:41)
[2017-05-24] MEDS: HEPARIN SODIUM - SQ 10,000 UNITS/ML VIAL SQ SCH ×2 (04:56→16:02)
[2017-05-24 06:07] LABS: AUTOMATED NEUTROPHIL # 17.5 TH/MM3 (1.8-7.7); BASOPHIL # 0.1 TH/MM3 (0-0.2); BASOPHIL % 0.4 % (0.0-2.0); EOSINOPHIL # 0.3 TH/MM3 (0-0.4); EOSINOPHIL % 1.7 % (0.0-4.0); HEMATOCRIT 25.4 % (39.0-51.0); LYMPH % 6.6 % (9.0-44.0); LYMPHOCYTE # 1.3 TH/MM3 (1.0-4.8); MEAN CELL VOLUME 83.5 FL (80.0-100.0); MEAN CORPUSCULAR HEMOGLOBIN 28.2 PG (27.0-34.0); MEAN CORPUSCULAR HGB CONC 33.8 % (32.0-36.0); MONO % 5.2 % (0.0-8.0); NEUT % 86.1 % (16.0-70.0); PLATELET COUNT 375 TH/MM3 (150-450); RED BLOOD COUNT 3.05 MIL/MM3 (4.50-5.90); RED CELL DISTRIBUTION WIDTH 16.6 % (11.6-17.2); WHITE BLOOD COUNT 20.3 TH/MM3 (4.0-11.0)
[2017-05-24] MEDS: LABETALOL HCL 100 MG/20 ML VIAL IV PRN ×2 (06:13→15:51)
[2017-05-24 06:18] LABS: ALT (GPT) 107 U/L (12-78); ANION GAP 8 MEQ/L (5-15); AST (GOT) 133 U/L (15-37); BICARBONATE 26.4 MEQ/L (21.0-32.0); BLOOD UREA NITROGEN 54 MG/DL (7-18); CHLORIDE 107 MEQ/L (98-107); GLOMERULAR FILTRATION RATE 22 ML/MIN (>89); MAGNESIUM 2.7 MG/DL (1.5-2.5); POTASSIUM 3.3 MEQ/L (3.5-5.1); SODIUM (NA) 141 MEQ/L (136-145)
[2017-05-24 06:21] LABS: ALKALINE PHOSPHATASE 315 U/L (45-117); HEMO FLAGS AUTO DIFF; TOTAL BILIRUBIN ADULT 1.5 MG/DL (0.2-1.0)
[2017-05-24 08:26] LABS: BANDS 15 % (0-6); CORRECTED NUCLEATED RBC 1 /100 WBC (0-0); EOSINOPHILS 1 % (0-4); MYELOCYTES 1 % (0-0); NEUTROPHIL # MANUAL DIFF 17.3 TH/MM3 (1.8-7.7); POLYS (SEG NEUTROPHILS) 69 % (16-70); WBC DIFF SAMPLE 100
[2017-05-24 08:27] LABS: OVALOCYTES 1+ (NORMAL); PLATELET ESTIMATE SMEAR HIGH (NORMAL); PLATELET MORPHOLOGY NORMAL (NORMAL); SCAN/DIFF FINAL DIFF MANUAL
[2017-05-24] MEDS: SODIUM CHLORIDE 0.9% FLUSH 10 ML FLUSH IV FLUSH SCH ×2 (08:44→20:42)
[2017-05-24] MEDS: BENEPROTEIN POWDER 1 PACK G-TUBE SCH (08:44)
[2017-05-24] MEDS: FAMOTIDINE 20 MG/2 ML VIAL IV PUSH SCH ×2 (09:00→20:42)
[2017-05-24] MEDS: DOCUSATE SODIUM 50 MG/SENNA 8.6 MG TAB PO SCH ×2 (09:00→20:33)
[2017-05-24] MEDS: INSULIN DETEMIR 100 UNITS/ML VIAL SQ SCH ×2 (09:00→21:39)
--- NOTE | 2017-05-24 10:55 | HHI.NPPN ---
Subjective Renal Failure: Acute Interval History He was extubated, now awake. Not on pressors or IVF. Renal function has improved. (Latha Friedman) Review of Systems General Constitutional: Fatigue (Latha Friedman) Objective Data Data 05/23/17 05/24/17 18:59 06:59 Intake Total 174 ml 1676 ml Output Total 1475 ml 2850 ml Balance -1301 ml -1174 ml Intake Oral 0 ml 1442 ml IV Total 164 ml 234 ml Tube Feeding 10 ml Output Urine Total 1275 ml 2800 ml Stool Total 200 ml 50 ml Vital Signs Date Time Temp Pulse Resp B/P Pulse Ox O2 Delivery O2 Flow Rate FiO2 05/24/17 06:00 91 05/24/17 04:00 83 05/24/17 04:00 98.2 83 20 162/77 94 05/24/17 02:00 83 05/24/17 00:00 98.6 95 15 168/66 97 05/24/17 00:00 95 05/23/17 22:00 92 05/23/17 21:06 95 Nasal Cannula 4.00 05/23/17 20:00 100 05/23/17 20:00 98.6 92 23 178/79 94 05/23/17 19:00 95 Nasal Cannula 3.00 05/23/17 18:00 90 05/23/17 16:13 98 Nasal Cannula 3 05/23/17 16:13 98 Nasal Cannula 3.00 05/23/17 16:10 25 05/23/17 16:00 98.9 92 25 185/85 99 05/23/17 16:00 95 05/23/17 15:17 97 40 05/23/17 14:00 79 05/23/17 12:09 99 40 05/23/17 12:09 100 100 05/23/17 12:00 93 05/23/17 12:00 40 05/23/17 12:00 99.5 90 28 170/74 100 05/23/17 10:56 40 (Latha Friedman) -: 05/24/17 0540 05/24/17 0540 Imaging Last 72 hours Impressions Chest X-Ray 05/24/17 0600 Signed Impressions: Service Date/Time: Wednesday, May 24, 2017 03:43 - CONCLUSION: Unchanged bibasilar opacity representing either atelectasis or consolidation. Hamlet Al MD Hepatobiliary Scan Nuclear Medicine 05/22/17 0000 Signed Impressions: Service Date/Time: Wednesday, May 22, 2017 12:05 - CONCLUSION: 1. No uptake within the gallbladder. Delayed imaging will be obtained. 2. Small amount of biliary enteric reflux. Eloy Mcginnis MD ADDENDUM: COMPARISON: CT ABDOMEN & PELVIS W/O CONTRAST, May 16, 2017, 16:28. Delayed 24 our view does not demonstrate gallbladder therefore possibility of cystic duct obstruction and acute cholecystitis should be entertained. Armaan Tanner MD Tubes & Lines: Vas-Cath, [place] Tubes & Lines Comment TLC Drip Comment none (Latha Friedman) Physical Exam General Appearance: Well Developed, Well Nourished, No Acute Distress, Comfortable ( Latha Friedman. [employer]IN[employer] HEL[employer]) Eyes Eye Exam: Pupils Equal (Latha Friedman) Throat Throat Exam: Oral Mucosa [place] & Moist (Latha Friedman BKayce [employer]INETMAKER HELPER) Neck Neck Exam: Neck Supple (Latha FriedmanP) Pulmonary Resp Exam: Breath Sounds Equal, No Distress, Crackles, Poor Inspiratory Effort (Latha Friedman BKayce MCINTOSH) Cardiology CV Exam: Regular, Normal Sinus Rhythm (Latha Friedman B. CABINETMAKER HELPER) Gastrointestinal/Abdomen GI Exam: Soft, Non-Tender, Bowel Sounds Present (Latha Friedman BKayce MCINTOSH) Musculoskeletal MS Exam: Joints Intact, Good Strength, Unable to Ambulate (Latha Friedman) Integumentary Skin Exam: Warm, Dry Skin Remarks large wound to perineum (Latha FriedmanP) Extremeties Extremities Exam: No Edema, Pedal Pulses Palpable (Latha Friedman BKayce MCINTOSH) Neurologic Neuro Exam: Alert, Awake, Oriented, Speech Clear, Moving All Extremities ( Latha Friedman B. CABINETMAKER HELPER) Psychiatric Psych Exam: Appropriate Responses (Latha Friedman) VTE Prophylaxis Device: SCDs (Latha Friedman) Assessment/Plan Discussed Condition With: Patient, Relative Assessment Summary: ROBERTO/Acute Renal Failure, Acute Tubular Necrosis, Fluid/ Volume Overload, Hypertension, Diabetes Mellitus Electrolyte Assessment: Hypokalemia Problem List: (1) Acute renal failure Plan: ROBERTO likely secondary to ATN from sepsis HD started 05/19, has had 3 treatments to date creatinine has improved, has good urine output potassium replacement has been ordered appears to be in renal recovery repeat labs tomorrow, HD if needed he is not on IVF Avoid nephrotoxic agents. 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 ID following, now on fluconazole with Zosyn. continue Wound care. May need skin graft at some point. (3) Poorly controlled diabetes mellitus Plan: continue insulin as ordered monitor glucose , goal 140-180 mg/dL. (4) Anemia Plan: Hb low but has improved transfuse if needed, monitor Hb (5) Sepsis affecting skin Plan: ID following current Carlos's as above also has developed acute cholecystitis , HIDA positive may require GB removal in OR antibiotics as above monitor clinically (Latha Friedman) Plan patient was seen and examined. Urine output has significantly improved. ROBERTO may be improving. Dialysis as needed. Monitor urine output and renal function. ( Ernesto Montano MD) Problem Qualifiers (1) Acute renal failure: Qualified Code: N17.0 - Acute renal failure with tubular necrosis Latha Friedman May 24, 2017 10:55 Ernesto Montano MD May 24, 2017 16:22
--- NOTE | 2017-05-24 12:08 | HHI.CCPN ---
Subjective Remarks/Hospital Course 51-year-old gentleman with history of diabetes dyslipidemia presents with infection of left gluteal area and generalized weakness also some fevers. This has started to both the morning and a half week ago. Severe is a moderate to severe. 05/17: Glucose control improving, still requiring insulin gtt. Urine output acceptable. Septic picture. 05/18: Urine marginal and renal function worse; clearly ATN. 05/19: ATN, likely will require dialysis. Glucose control improved, convert to levemir and SSI. 05/20: Glucose control improved on levemir bid and SSI. Rising alk phos and bilirubin suspicious for common duct obstruction; check RUQ ultrasound. Dakin's BID dressing changes started. 05/21: Patient slightly more lethargic today. Off sedation. Gallbladder ultrasound shows probable cholecystitis, check HIDA scan to confirm. WBC increased to 22.3 from 21.3. Bilirubin and liver enzymes elevated but trending down. 05/22: Rising WBCs and new glucose intolerance implicates active infection probably. Perineal wound is clean. Gallbladder suspicious on ultrasound but not on CT a few days earlier; check HIDA today. 05/23: WBC trending down today. HIDA scan is positive, continue medical management with ABX, also will discuss with ID regarding cholecystostomy. Bilirubin and liver enzymes trending down Subjective 05/24: Afebrile. Patient requesting to eat. Pain controlled on current regimen. Currently resting in bed in no acute distress. Pain controlled with IV morphine Objective Vital Signs Date Time Temp Pulse Resp B/P Pulse Ox O2 Delivery O2 Flow Rate FiO2 05/24/17 10:00 88 05/24/17 08:00 98.3 14 157/67 95 05/24/17 07:00 Nasal Cannula 3.00 05/23/17 15:17 40 Intake and Output 05/23/17 05/23/17 05/23/17 07:59 15:59 23:59 Intake Total 526 ml 174 ml 1290 ml Output Total 850 ml 1475 ml 1650 ml Balance -324 ml -1301 ml -360 ml Result Diagram: 05/24/17 0540 05/24/17 0540 Other Results Microbiology Date/Time Procedure Status Source Growth 05/20/17 12:30 Urine Culture - Final Complete Urine Catheterized Urine Tracee [facility] Imaging Last Impressions Chest X-Ray 05/24/17 0600 Signed Impressions: Service Date/Time: Wednesday, May 24, 2017 03:43 - CONCLUSION: Unchanged bibasilar opacity representing either atelectasis or consolidation. Hamlet Al MD Hepatobiliary Scan Nuclear Medicine 05/22/17 0000 Signed Impressions: Service Date/Time: Monday, May 22, 2017 12:05 - CONCLUSION: 1. No uptake within the gallbladder. Delayed imaging will be obtained. 2. Small amount of biliary enteric reflux. Eloy Mcginnis MD ADDENDUM: COMPARISON: CT ABDOMEN & PELVIS W/O CONTRAST, May 16, 2017, 16:28. Delayed 24 our view does not demonstrate gallbladder therefore possibility of cystic duct obstruction and acute cholecystitis should be entertained. Armaan Tanner MD Gall Bladder Ultrasound 05/20/17 0000 Signed Impressions: Service Date/Time: May 15:02 - CONCLUSION: Gallbladder wall thickening with some pericholecystic fluid suspicious for acute cholecystitis however I reviewed the CT scan 05/16/17 and there is no obvious inflammation around the gallbladder wall to suggest acute cholecystitis. Eduar Gross MD Objective Remarks GENERAL: 51-year-old AA male, resting in bed in no distress SKIN: Warm and dry. Left Perineal wounds with packing HEAD: Normocephalic. atraumatic EYES: No scleral icterus. No injection or drainage. NECK: Supple, trachea midline. CARDIOVASCULAR: Regular rate and rhythm without murmurs, gallops, or rubs. No JVD. RESPIRATORY: Breath sounds equal bilaterally. Clear, no wheezes. Normal excursions. GASTROINTESTINAL: Abdomen soft, non-tender, mildly distended. BS few. MUSCULOSKELETAL: Trace bilateral lower extremity edema. Well perfused. : Open perineal wounds with packing, no odor. NEURO: Cranial nerves II through XII grossly intact. Strength is equal symmetric. Normal sensation. A/P Assessment and Plan Neuro/Psych: Pain management/postoperative Acetaminophen 650 mg every 4 hours when necessary pain 1-10 Morphine sulfate 2 g every 2 hours when necessary pain still 10 Resp: Postoperative respiratory failure - resolved Nasal cannula to maintain saturations greater than equal to 92% Incentive spirometry while awake CVS: History of hypertension - Remains hemodynamically stable - Monitor heart rate blood pressure Holding lisinopril 10 mg by mouth daily light of elevated GI: Elevated transaminases Positive HIDA scan - acute kenia cystitis? Hypoalbuminemia Start on ADA diet Famotidine 10 mg IV twice a day for GI prophylaxis Docusate sodium/senna 100 mg/8.6 mg 1 tablet twice a day for bowel regimen HIDA positive for nonvisualization of gallbladder/ probable acute cholecystitis Plan on repeating liver/gallbladder ultrasound 05/23 per ID recommendations RENAL ROBERTO -HD - [facility] -Left IJ catheter 05/19 Creatinine decreased disc 3.5. Making excellent urine. Avoid nephrotoxic drugs Accurate I's and O's Monitor urine output ID: Severe sepsis - Carlos's gangrene Candiduria Continue with Piperacillin/tazobactam 2.25 g IV daily 8 hours and Diflucan 200 mg IV every 24 hours Infectious disease following Pertinent cultures 05/20 - urine -tracee 05/16 - wound - Klebsiella/strep not A, ,D : Status post I&D with debridement of scrotum and perineum - Dr. Lopes 05/16 Status post reexploration of perineum 05/18 - Dr. Lopes -Will likely need plastics at some point when available -BID dressing changes with Dakin's sodium hypochlorite 0.125% ENDO: DM-2, uncontrolled Currently on insulin detemir 20 units subcutaneous twice a day BID and Insulin aspart SSI q6h. Holding metformin 500 mg by mouth twice a day FEN: HypoKalemia Hyper-magnesium 20 mEq KCl IV 1. Recheck in a.m. with phosphorus Prophylaxis. -GI - famotidine 10 mg IV every 12 hours -Heparin subcutaneous q12h. Level 3 Pk Méndez MD May 24, 2017 12:08
[2017-05-24] MEDS: SODIUM HYPOCHLORITE 0.125% 500 ML BTL TOPICAL SCH ×2 (13:00→21:40)
[2017-05-24] MEDS: FLUCONAZOLE 200 MG PREMIX BAG 100 ML IV SCH (18:41)
[2017-05-25] VITALS (12 sets, daily range): BP systolic 144–197; BP diastolic 64–92; PULSE 75–100; RESP 10–23; TEMP 97.8–98.9; O2SAT 92–98
[2017-05-25] MEDS: METOPROLOL TARTRATE 25 MG TAB PO SCH ×4 (00:27→17:31)
[2017-05-25] MEDS: PIPERACIL-TAZO 2.25 GM PREMIX 50 ML IV SCH ×3 (01:24→17:31)
[2017-05-25] MEDS: METOCLOPRAMIDE HCL 10 MG/2 ML VIAL IV PUSH SCH ×3 (01:28→17:31)
[2017-05-25] MEDS: INSULIN ASPART SUPPLEMENTAL SCALE SQ SCH ×5 (03:36→20:30)
[2017-05-25] MEDS: CHLORHEXIDINE GLUCONATE 2 % 1 PACK (2 CLOTHS) TOP SCH (04:00)
[2017-05-25] MEDS: MORPHINE SULFATE 4 MG/ML INJ IV PRN (05:44)
[2017-05-25] MEDS: HEPARIN SODIUM - SQ 10,000 UNITS/ML VIAL SQ SCH ×2 (05:44→17:31)
[2017-05-25] MEDS: LABETALOL HCL 100 MG/20 ML VIAL IV PRN (07:01)
[2017-05-25] MEDS: FAMOTIDINE 20 MG/2 ML VIAL IV PUSH SCH (09:00)
[2017-05-25] MEDS: INSULIN DETEMIR 100 UNITS/ML VIAL SQ SCH ×2 (09:00→20:30)
[2017-05-25] MEDS: DOCUSATE SODIUM 50 MG/SENNA 8.6 MG TAB PO SCH ×2 (09:00→20:27)
[2017-05-25] MEDS: SODIUM HYPOCHLORITE 0.125% 500 ML BTL TOPICAL SCH ×2 (09:00→20:27)
[2017-05-25] MEDS: SODIUM CHLORIDE 0.9% FLUSH 10 ML FLUSH IV FLUSH SCH ×2 (09:00→20:27)
--- NOTE | 2017-05-25 10:40 | HHI.CCPN ---
Subjective Remarks/Hospital Course 51-year-old gentleman with history of diabetes dyslipidemia presents with infection of left gluteal area and generalized weakness also some fevers. This has started to both the morning and a half week ago. Severe is a moderate to severe. 05/17: Glucose control improving, still requiring insulin gtt. Urine output acceptable. Septic picture. 05/18: Urine marginal and renal function worse; clearly ATN. 05/19: ATN, likely will require dialysis. Glucose control improved, convert to levemir and SSI. 05/20: Glucose control improved on levemir bid and SSI. Rising alk phos and bilirubin suspicious for common duct obstruction; check RUQ ultrasound. Dakin's BID dressing changes started. 05/21: Patient slightly more lethargic today. Off sedation. Gallbladder ultrasound shows probable cholecystitis, check HIDA scan to confirm. WBC increased to 22.3 from 21.3. Bilirubin and liver enzymes elevated but trending down. 05/22: Rising WBCs and new glucose intolerance implicates active infection probably. Perineal wound is clean. Gallbladder suspicious on ultrasound but not on CT a few days earlier; check HIDA today. 05/23: WBC trending down today. HIDA scan is positive, continue medical management with ABX, also will discuss with ID regarding cholecystostomy. Bilirubin and liver enzymes trending down 05/24: Afebrile. Patient requesting to eat. Pain controlled on current regimen. Currently resting in bed in no acute distress. Pain controlled with IV morphine Subjective 05/25: Afebrile. Tolerating diabetic diet. Denies pain. Resting comfortably in bed. Objective Vital Signs Date Time Temp Pulse Resp B/P Pulse Ox O2 Delivery O2 Flow Rate FiO2 05/25/17 08:36 93 Nasal Cannula 4.00 05/25/17 06:00 84 05/25/17 04:00 98.6 16 146/64 05/23/17 15:17 40 Intake and Output 05/24/17 05/24/17 05/25/17 08:00 16:00 00:00 Intake Total 386 ml 2018 ml 1238 ml Output Total 1200 ml 1900 ml 1050 ml Balance -814 ml 118 ml 188 ml Result Diagram: 05/24/17 0540 05/24/17 0540 Other Results Microbiology Date/Time Procedure Status Source Growth 05/20/17 12:30 Urine Culture - Final Complete Urine Catheterized Urine Tracee [facility] Imaging Last Impressions Chest X-Ray 05/24/17 0600 Signed Impressions: Service Date/Time: Wednesday, May 24, 2017 03:43 - CONCLUSION: Unchanged bibasilar opacity representing either atelectasis or consolidation. Hamlet Al MD Hepatobiliary Scan Nuclear Medicine 05/22/17 0000 Signed Impressions: Service Date/Time: Monday, May 22, 2017 12:05 - CONCLUSION: 1. No uptake within the gallbladder. Delayed imaging will be obtained. 2. Small amount of biliary enteric reflux. Eloy Mcginnis MD ADDENDUM: COMPARISON: CT ABDOMEN & PELVIS W/O CONTRAST, May 16, 2017, 16:28. Delayed 24 our view does not demonstrate gallbladder therefore possibility of cystic duct obstruction and acute cholecystitis should be entertained. Armaan Tanner MD Gall Bladder Ultrasound 05/20/17 0000 Signed Impressions: Service Date/Time: May 15:02 - CONCLUSION: Gallbladder wall thickening with some pericholecystic fluid suspicious for acute cholecystitis however I reviewed the CT scan 05/16/17 and there is no obvious inflammation around the gallbladder wall to suggest acute cholecystitis. Eduar Gross MD Objective Remarks GENERAL: 51-year-old AA male, resting in bed in no distress SKIN: Warm and dry. Left Perineal wounds with packing HEAD: Normocephalic. atraumatic EYES: No scleral icterus. No injection or drainage. NECK: Supple, trachea midline. CARDIOVASCULAR: Regular rate and rhythm without murmurs, gallops, or rubs. No JVD. RESPIRATORY: Breath sounds equal bilaterally. Clear, no wheezes. Normal excursions. GASTROINTESTINAL: Abdomen soft, non-tender, mildly distended. BS few. MUSCULOSKELETAL: Trace bilateral lower extremity edema. Well perfused. : Open perineal wounds with packing. Measures 4 x 18 x 3.5 cm. Red non granulation tissue. NEURO: Cranial nerves II through XII grossly intact. Strength is equal symmetric. Normal sensation. A/P Assessment and Plan Neuro/Psych: Pain management/postoperative Acetaminophen 650 mg every 4 hours when necessary pain 1-10 Morphine sulfate 2 g every 2 hours when necessary pain still 10 Resp: Postoperative respiratory failure - resolved Nasal cannula to maintain saturations greater than equal to 92% currently in 4 L nasal cannula Incentive spirometry while awake CVS: History of hypertension - Remains hemodynamically stable - Monitor heart rate blood pressure Holding lisinopril 10 mg by mouth daily light of elevated creatinine GI: Elevated transaminases Positive HIDA scan - acute kenia cystitis? Hypoalbuminemia Start on 1999 ADA diet Famotidine 10 mg IV twice a day for GI prophylaxis discontinued Docusate sodium/senna 100 mg/8.6 mg 1 tablet twice a day for bowel regimen HIDA positive for nonvisualization of gallbladder/ probable acute cholecystitis Plan on repeating liver/gallbladder ultrasound 05/23 per ID recommendations are as likely 05/26 RENAL ROBERTO -HD - [facility] -Left IJ catheter 05/19 Creatinine decreased 3.5. Making excellent urine. Avoid nephrotoxic drugs Accurate I's and O's Monitor urine output ID: Severe sepsis - Carlos's gangrene Candiduria Continue with Piperacillin/tazobactam 2.25 g IV daily 8 hours and Diflucan 200 mg IV every 24 hours Infectious disease following Pertinent cultures 05/20 - urine -tracee 05/16 - wound - Klebsiella/strep not A, ,D : Status post I&D with debridement of scrotum and perineum - Dr. Lopes 05/16 Status post reexploration of perineum 05/18 - Dr. Lopes -Will likely need plastics at some point when available -BID dressing changes with Dakin's sodium hypochlorite 0.125% ENDO: DM-2, uncontrolled Currently on insulin detemir 20 units subcutaneous twice a day BID and Insulin aspart SSI before meals/at bedtime. 23 units sliding scale past 24 hours Holding metformin 500 mg by mouth twice a day FEN: HypoKalemia Hyper-magnesium A.m. laboratories pending Prophylaxis. -GI - famotidine 10 mg IV every 12 hours discontinued 05/25 -Heparin 5 thousand units subcutaneous q12h. Level 2 Pk Méndez MD May 25, 2017 10:39
[2017-05-25 10:41] LABS: BICARBONATE 26.4 MEQ/L (21.0-32.0); POTASSIUM 3.3 MEQ/L (3.5-5.1)
--- NOTE | 2017-05-25 10:44 | PD.TRANSFR ---
Transfer Summary Admission Date May 16, 2017 at 19:49 Transfer Date: May 25, 2017 Admitting Diagnosis Carlos's gangrene Diagnoses: (1) Carlos gangrene Diagnosis: Principal (2) Poorly controlled diabetes mellitus Diagnosis: Principal Significant Findings See note below for operative notes Transfer Summary/Subjective See below Objective Vital Signs Date Time Temp Pulse Resp B/P Pulse Ox O2 Delivery O2 Flow Rate FiO2 05/25/17 08:36 93 Nasal Cannula 4.00 05/25/17 06:00 84 05/25/17 04:00 98.6 16 146/64 05/23/17 15:17 40 Intake and Output 05/24/17 05/24/17 05/25/17 08:00 16:00 00:00 Intake Total 386 ml 2018 ml 1238 ml Output Total 1200 ml 1900 ml 1050 ml Balance -814 ml 118 ml 188 ml Result Diagram: 05/24/17 0540 05/24/17 0540 Imaging Last Impressions Chest X-Ray 05/24/17 0600 Signed Impressions: Service Date/Time: Wednesday, May 24, 2017 03:43 - CONCLUSION: Unchanged bibasilar opacity representing either atelectasis or consolidation. Hamlet Al MD Hepatobiliary Scan Nuclear Medicine 05/22/17 0000 Signed Impressions: Service Date/Time: Monday, May 22, 2017 12:05 - CONCLUSION: 1. No uptake within the gallbladder. Delayed imaging will be obtained. 2. Small amount of biliary enteric reflux. Eloy Mcginnis MD ADDENDUM: COMPARISON: CT ABDOMEN & PELVIS W/O CONTRAST, May 16, 2017, 16:28. Delayed 24 our view does not demonstrate gallbladder therefore possibility of cystic duct obstruction and acute cholecystitis should be entertained. Armaan Tanner MD Gall Bladder Ultrasound 05/20/17 0000 Signed Impressions: Service Date/Time: May 15:02 - CONCLUSION: Gallbladder wall thickening with some pericholecystic fluid suspicious for acute cholecystitis however I reviewed the CT scan 05/16/17 and there is no obvious inflammation around the gallbladder wall to suggest acute cholecystitis. Eduar Gross MD Objective Remarks GENERAL: 51-year-old AA male, resting in bed in no distress SKIN: Warm and dry. Left Perineal wounds with packing HEAD: Normocephalic. atraumatic EYES: No scleral icterus. No injection or drainage. NECK: Supple, trachea midline. CARDIOVASCULAR: Regular rate and rhythm without murmurs, gallops, or rubs. No JVD. RESPIRATORY: Breath sounds equal bilaterally. Clear, no wheezes. Normal excursions. GASTROINTESTINAL: Abdomen soft, non-tender, mildly distended. BS few. MUSCULOSKELETAL: Trace bilateral lower extremity edema. Well perfused. : Open perineal wounds with packing. Measures 4 x 18 x 3.5 cm. Red non granulation tissue. NEURO: Cranial nerves II through XII grossly intact. Strength is equal symmetric. Normal sensation. A/P Assessment and Plan Neuro/Psych: Pain management/postoperative Acetaminophen 650 mg every 4 hours when necessary pain 1-10 Morphine sulfate 2 g every 2 hours when necessary pain still 10 Resp: Postoperative respiratory failure - resolved Nasal cannula to maintain saturations greater than equal to 92% currently in 4 L nasal cannula Incentive spirometry while awake CVS: History of hypertension - Remains hemodynamically stable - Monitor heart rate blood pressure Holding lisinopril 10 mg by mouth daily light of elevated creatinine GI: Elevated transaminases Positive HIDA scan - acute kenia cystitis? Hypoalbuminemia Start on 1999 ADA diet Famotidine 10 mg IV twice a day for GI prophylaxis discontinued Docusate sodium/senna 100 mg/8.6 mg 1 tablet twice a day for bowel regimen HIDA positive for nonvisualization of gallbladder/ probable acute cholecystitis Plan on repeating liver/gallbladder ultrasound 05/23 per ID recommendations are as likely 05/26 RENAL ROBERTO -HD - [facility] -Left IJ catheter 05/19 Creatinine decreased 3.5. Making excellent urine. Avoid nephrotoxic drugs Accurate I's and O's Monitor urine output ID: Severe sepsis - Carlos's gangrene Candiduria Continue with Piperacillin/tazobactam 2.25 g IV daily 8 hours and Diflucan 200 mg IV every 24 hours Infectious disease following Pertinent cultures 05/20 - urine -tracee 05/16 - wound - Klebsiella/strep not A, ,D : Status post I&D with debridement of scrotum and perineum - Dr. Lopes 05/16 Status post reexploration of perineum 05/18 - Dr. Lopes -Will likely need plastics at some point when available -BID dressing changes with Dakin's sodium hypochlorite 0.125% ENDO: DM-2, uncontrolled Currently on insulin detemir 20 units subcutaneous twice a day BID and Insulin aspart SSI before meals/at bedtime. 23 units sliding scale past 24 hours Holding metformin 500 mg by mouth twice a day FEN: HypoKalemia Hyper-magnesium A.m. laboratories pending Prophylaxis. -GI - famotidine 10 mg IV every 12 hours discontinued 05/25 -Heparin 5 thousand units subcutaneous q12h. Level 2 Pk Méndez MD May 25, 2017 10:44
--- NOTE | 2017-05-25 10:56 | HHI.NPPN ---
Subjective Renal Failure: Acute Interval History Renal function improved. Excellent urine output. (Latha Friedman) Review of Systems General Constitutional: Fatigue (Latha Friedman) Objective Data Data 05/24/17 05/25/17 19:00 07:00 Intake Total 2018 ml 1366 ml Output Total 1900 ml 2500 ml Balance 118 ml -1134 ml Intake Oral 1920 ml 960 ml IV Total 98 ml 406 ml Output Urine Total 1900 ml 2250 ml Stool Total 250 ml Vital Signs Date Time Temp Pulse Resp B/P Pulse Ox O2 Delivery O2 Flow Rate FiO2 05/25/17 08:36 93 Nasal Cannula 4.00 05/25/17 06:00 84 05/25/17 04:00 85 05/25/17 04:00 98.6 85 16 146/64 93 05/25/17 02:00 85 05/25/17 00:00 93 05/25/17 00:00 98.5 95 20 144/65 93 05/24/17 22:00 96 05/24/17 20:00 99.4 95 29 199/83 95 05/24/17 20:00 95 05/24/17 19:15 94 Nasal Cannula 4.00 05/24/17 19:00 95 Nasal Cannula 4.00 05/24/17 18:00 90 05/24/17 16:00 94 05/24/17 16:00 97.8 94 23 156/76 95 05/24/17 14:52 100 Nasal Cannula 4.00 05/24/17 14:00 90 05/24/17 12:00 97.9 90 18 187/82 95 05/24/17 12:00 90 (Latha Friedman) -: 05/24/17 0540 05/25/17 0913 Imaging Last 72 hours Impressions Chest X-Ray 05/24/17 0600 Signed Impressions: Service Date/Time: Wednesday, May 24, 2017 03:43 - CONCLUSION: Unchanged bibasilar opacity representing either atelectasis or consolidation. Hamlet Al MD Tubes & Lines: Vas-Cath, Cobos Tubes & Lines Comment TLC Drip Comment none (Latha Friedman) Physical Exam General Appearance: Well Developed, Well Nourished, No Acute Distress, Comfortable ( Latha Friedman. CHILDREN'S ATTENDANT) Eyes Eye Exam: Pupils Equal (Latha Friedman CHILDREN'S ATTENDANT) Throat Throat Exam: Oral Mucosa [place] & Moist (Latha Friedman CHILDREN'S ATTENDANT) Neck Neck Exam: Neck Supple (Latha Friedman. CHILDREN'S ATTENDANT) Pulmonary Resp Exam: Breath Sounds Equal, No Distress, Crackles, Poor Inspiratory Effort (Latha Friedman. CHILDREN'S ATTENDANT) Cardiology CV Exam: Regular, Normal Sinus Rhythm (Latha Friedman CHILDREN'S ATTENDANT) Gastrointestinal/Abdomen GI Exam: Soft, Non-Tender, Bowel Sounds Present (Latha Friedman. CHILDREN'S ATTENDANT) Musculoskeletal MS Exam: Joints Intact, Good Strength, Unable to Ambulate (Latha Friedman CHILDREN'S ATTENDANT) Integumentary Skin Exam: Warm, Dry Skin Remarks large wound to perineum (Latha Friedman. CHILDREN'S ATTENDANT) Extremeties Extremities Exam: No Edema, Pedal Pulses Palpable (Latha Friedman CHILDREN'S ATTENDANT) Neurologic Neuro Exam: Alert, Awake, Oriented, Speech Clear, Moving All Extremities ( Latha Friedman. CHILDREN'S ATTENDANT) Psychiatric Psych Exam: Appropriate Responses (Latha Friedman) VTE Prophylaxis Device: SCDs (Latha Friedman) Assessment/Plan Discussed Condition With: Patient, Relative Assessment Summary: ROBERTO/Acute Renal Failure, Acute Tubular Necrosis, Fluid/ Volume Overload, Hypertension, Diabetes Mellitus Electrolyte Assessment: Hypokalemia Problem List: (1) Acute renal failure Plan: ROBERTO likely secondary to ATN from sepsis HD started 05/19, has had 3 treatments to date he is in recovery phase excellent urine output continue to monitor renal function remove vascath in next few days not on IVF Avoid nephrotoxic agents. 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 ID following, now on fluconazole with Zosyn. continue Wound care. May need skin graft at some point. (3) Poorly controlled diabetes mellitus Plan: continue insulin as ordered monitor glucose , goal 140-180 mg/dL. (4) Anemia Plan: Hb low but has improved transfuse if needed, monitor Hb (5) Sepsis affecting skin Plan: ID following current Carlos's as above also has developed acute cholecystitis , HIDA positive may require GB removal in OR antibiotics as above monitor clinically (Latha Friedman) Plan patient was seen and examined. Renal function has improved. No need for dialysis. Avoid nephrotoxic agents. Monitor urine output and renal function. ( Ernesto Montano MD) Problem Qualifiers (1) Acute renal failure: Qualified Code: N17.0 - Acute renal failure with tubular necrosis Latha Friedman May 25, 2017 10:56 Ernesto Montano MD May 26, 2017 09:53
[2017-05-25] MEDS ORDERED: POTASSIUM CHLORIDE 20 MEQ CONTROLLED RELEASE TAB PO ONE (12:00)
[2017-05-25 13:27] LABS: AUTOMATED NEUTROPHIL # 14.3 TH/MM3 (1.8-7.7); BASOPHIL % 0.3 % (0.0-2.0); EOSINOPHIL # 0.2 TH/MM3 (0-0.4); EOSINOPHIL % 1.3 % (0.0-4.0); HEMATOCRIT 25.6 % (39.0-51.0); LYMPH % 5.7 % (9.0-44.0); LYMPHOCYTE # 0.9 TH/MM3 (1.0-4.8); MEAN CELL VOLUME 84.3 FL (80.0-100.0); MEAN CORPUSCULAR HEMOGLOBIN 27.2 PG (27.0-34.0); MEAN CORPUSCULAR HGB CONC 32.3 % (32.0-36.0); MONO % 5.6 % (0.0-8.0); NEUT % 87.1 % (16.0-70.0); PLATELET COUNT 368 TH/MM3 (150-450); RED BLOOD COUNT 3.04 MIL/MM3 (4.50-5.90); RED CELL DISTRIBUTION WIDTH 16.4 % (11.6-17.2); WHITE BLOOD COUNT 16.5 TH/MM3 (4.0-11.0)
[2017-05-25 13:32] LABS: HEMO FLAGS AUTO DIFF
[2017-05-25 14:11] LABS: SCAN/DIFF AUTO DIFF CONFIRMED
--- NOTE | 2017-05-25 16:00 | HHI.IDPN ---
Subjective Subjective Remarks Patient is a 51-year-old male, with diabetes, presented initially to the [facility] emergency room complaining of generalized weakness and fevers. Symptoms have been present for about a week and a half now. He apparently also noted a little pimple in his left gluteal area about the same time, and it progressively worsened and increase in size and the area involved spread to his scrotum. His had some fevers associated with chills and night sweats at home. Patient has no problem with dysuria, frequency or urination. No nausea or vomiting. Patient however has had problem with no dysuria, and decreased urinary stream. Patient has not had any problems similar to his current symptomatology. In the emergency room he had an elevated white count of 17,000 , febrile, and was acidotic. CT of the abdomen and pelvis showed significant amount of air in the patient's left gluteal area extending through his perineum up into his scrotum. He was transferred to the main hospital, in the ICU, and was seen by her urology. Surgery was done emergently. Patient currently is on the vent, and on Levophed. He is awake and alert and interactive. Highest temperature since admission is 101.8. His his last WBC is 20.8. Creatinine is also elevated. Lactic acid is down to normal. Notes reviewed Doing well Temps ok Good sats on nasal O2 Being transferred out of ICU Good UO Creatinine slowly improving Denies abdominal pain LFT improving WBC decreasing HIDA scan (+) - with delayed imaging studies Last debridement 05/18 Antibiotics Zosyn Diflucan Past Medical History Diabetes Hyperlipidemia Hypertension Past Surgical History Circumcision Allergies: Coded Allergies: No Known Allergies (Unverified , 05/16/17) Objective . Vital Signs Date Time Temp Pulse Resp B/P Pulse Ox O2 Delivery O2 Flow Rate FiO2 05/25/17 14:00 75 05/25/17 12:01 96 Nasal Cannula 4.00 05/25/17 12:00 84 05/25/17 12:00 98.0 84 23 184/78 98 05/25/17 10:00 85 05/25/17 08:36 93 Nasal Cannula 4.00 05/25/17 08:00 97.8 76 10 152/66 94 05/25/17 08:00 76 05/25/17 07:00 93 Nasal Cannula 4.00 05/25/17 06:00 84 05/25/17 04:00 85 05/25/17 04:00 98.6 85 16 146/64 93 05/25/17 02:00 85 05/25/17 00:00 93 05/25/17 00:00 98.5 95 20 144/65 93 05/24/17 22:00 96 05/24/17 20:00 99.4 95 29 199/83 95 05/24/17 20:00 95 05/24/17 19:15 94 Nasal Cannula 4.00 05/24/17 19:00 95 Nasal Cannula 4.00 05/24/17 18:00 90 05/24/17 16:00 94 05/24/17 16:00 97.8 94 23 156/76 95 05/24/17 05/24/17 05/25/17 15:00 23:00 07:00 Intake Total 2018 ml 1238 ml 128 ml Output Total 1900 ml 1050 ml 1450 ml Balance 118 ml 188 ml -1322 ml Intake Oral 1920 ml 960 ml IV Total 98 ml 278 ml 128 ml Output Urine Total 1900 ml 1000 ml 1250 ml Stool Total 50 ml 200 ml . Laboratory Tests Test 05/24/17 05/25/17 05:40 12:30 White Blood Count 20.3 TH/MM3 16.5 TH/MM3 Red Blood Count 3.05 MIL/MM3 3.04 MIL/MM3 Hemoglobin 8.6 GM/DL 8.3 GM/DL Hematocrit 25.4 % 25.6 % Mean Corpuscular Volume 83.5 FL 84.3 FL Mean Corpuscular Hemoglobin 28.2 PG 27.2 PG Mean Corpuscular Hemoglobin 33.8 % 32.3 % Concent Red Cell Distribution Width 16.6 % 16.4 % Platelet Count 375 TH/MM3 368 TH/MM3 Mean Platelet Volume 8.7 FL 8.5 FL Neutrophils (%) (Auto) 86.1 % 87.1 % Lymphocytes (%) (Auto) 6.6 % 5.7 % Monocytes (%) (Auto) 5.2 % 5.6 % Eosinophils (%) (Auto) 1.7 % 1.3 % Basophils (%) (Auto) 0.4 % 0.3 % Neutrophils # (Auto) 17.5 TH/MM3 14.3 TH/MM3 Lymphocytes # (Auto) 1.3 TH/MM3 0.9 TH/MM3 Monocytes # (Auto) 1.1 TH/MM3 0.9 TH/MM3 Eosinophils # (Auto) 0.3 TH/MM3 0.2 TH/MM3 Basophils # (Auto) 0.1 TH/MM3 0.0 TH/MM3 CBC Comment AUTO DIFF AUTO DIFF Differential Total Cells 100 Counted Neutrophils % (Manual) 69 % Band Neutrophils % 15 % Lymphocytes % 9 % Monocytes % 5 % Eosinophils % 1 % Neutrophils # (Manual) 17.3 TH/MM3 Myelocytes 1 % Nucleated Red Blood Cells 1 /100 WBC Differential Comment FINAL DIFF AUTO DIFF MANUAL CONFIRMED Platelet Estimate HIGH Platelet Morphology Comment NORMAL Ovalocytes 1+ Laboratory Tests Test 05/24/17 05/25/17 05:40 09:13 Sodium Level 141 MEQ/L 141 MEQ/L Potassium Level 3.3 MEQ/L 3.3 MEQ/L Chloride Level 107 MEQ/L 107 MEQ/L Carbon Dioxide Level 26.4 MEQ/L 26.4 MEQ/L Anion Gap 8 MEQ/L 8 MEQ/L Blood Urea Nitrogen 54 MG/DL 42 MG/DL Creatinine 3.52 MG/DL 3.11 MG/DL Estimat Glomerular Filtration 22 ML/MIN 26 ML/MIN Rate Random Glucose 186 MG/DL 118 MG/DL Calcium Level 8.2 MG/DL 8.2 MG/DL Magnesium Level 2.7 MG/DL Total Bilirubin 1.5 MG/DL Aspartate Amino Transf 133 U/L (AST/SGOT) Alanine Aminotransferase 107 U/L (ALT/SGPT) Alkaline Phosphatase 315 U/L Total Protein 7.6 GM/DL Albumin 1.9 GM/DL Imaging Hepatobiliary Scan Nuclear Medicine 05/22/17 0000 Signed Impressions: Service Date/Time: Monday, May 22, 2017 12:05 - CONCLUSION: 1. No uptake within the gallbladder. Delayed imaging will be obtained. 2. Small amount of biliary enteric reflux. Eloy Mcginnis MD ADDENDUM: COMPARISON: CT ABDOMEN & PELVIS W/O CONTRAST, May 16, 2017, 16:28. Delayed 24 our view does not demonstrate gallbladder therefore possibility of cystic duct obstruction and acute cholecystitis should be entertained. Armaan Tanner MD Chest X-Ray 05/19/17 0000 Signed Impressions: Service Date/Time: Friday, May 19, 2017 14:05 - CONCLUSION: Left IJ Vas cath in good position. Eduar Gross MD Chest X-Ray 05/17/17 0000 Signed Impressions: Service Date/Time: Wednesday, May 17, 2017 01:32 - CONCLUSION: 1. Right-sided central line in place. No pneumothorax. 2. Scattered areas of bilateral atelectasis. Abundio Allison MD Physical Exam GENERAL: Awake and alert, comfortable, NAD SKIN: Warm and dry. No generalized rash, no ecchymoses and no evidence of embolic lesions. HEAD: Atraumatic. Normocephalic. No temporal wasting, or tenderness. EYES: [place] conjunctiva. No petechia or hemorrhage. No scleral icterus. No injection or drainage. EARS, NOSE AND THROAT: Nose without bleeding or purulent nasal discharge. Moist mucosa NECK: Trachea midline. Supple and not tender, no meningeal signs CARDIOVASCULAR: Regular rate and rhythm. No murmurs, rubs or gallops heard RESPIRATORY: Coarse BS bilaterally. Decreased breath sounds at the bases. ABDOMEN: Soft, non-tender, nondistended. Bowel sounds present and normoactive. No guarding. No rebound. No organomegaly. GENITOURINARY: Cobos in place. dressing in place EXTREMITIES: No clubbing, cyanosis, or edema. No calf tenderness. Well perfused and warm. 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, due to Carlos's gangrene - S/P debridement, has an extensive open wound - WBC worsening - on pressors - elevated creatinine due to sepsis, ?baseline not known - acidosis better Respiratory failure Worsening renal function, started in HD 05/19 Known DM, HTN Elevated LFT, ?from sepsis, ?cholecystitis, ?cholangitis - HIDA (+) - LFTs improving - clinically no findings on exam to suggest acute kenia UC with Poornima Leukocytosis, improving RECOMMENDATION Continue Zosyn Follow CBC Continue Diflucan Monitor progress Follow temps Wound care per urology Repeat gallbladder US tomorrow Shanti Solis MD May 25, 2017 16:00
[2017-05-25] MEDS: FLUCONAZOLE 200 MG PREMIX BAG 100 ML IV SCH (17:30)
[2017-05-26] VITALS (8 sets, daily range): BP systolic 150–195; BP diastolic 77–90; PULSE 83–104; RESP 18–20; TEMP 98–99.7; O2SAT 90–99
[2017-05-26] MEDS: METOPROLOL TARTRATE 25 MG TAB PO SCH ×4 (00:02→17:12)
[2017-05-26] MEDS: CHLORHEXIDINE GLUCONATE 2 % 1 PACK (2 CLOTHS) TOP SCH (03:28)
[2017-05-26] MEDS: METOCLOPRAMIDE HCL 10 MG/2 ML VIAL IV PUSH SCH ×3 (03:28→17:12)
[2017-05-26] MEDS: PIPERACIL-TAZO 2.25 GM PREMIX 50 ML IV SCH ×3 (03:28→17:12)
[2017-05-26 04:50] LABS: AUTOMATED NEUTROPHIL # 14.1 TH/MM3 (1.8-7.7); BASOPHIL % 0.2 % (0.0-2.0); EOSINOPHIL # 0.2 TH/MM3 (0-0.4); EOSINOPHIL % 1.2 % (0.0-4.0); HEMATOCRIT 24.8 % (39.0-51.0); HEMO FLAGS DIFF FINAL; LYMPH % 7.1 % (9.0-44.0); LYMPHOCYTE # 1.2 TH/MM3 (1.0-4.8); MEAN CELL VOLUME 83.8 FL (80.0-100.0); MEAN CORPUSCULAR HEMOGLOBIN 27.6 PG (27.0-34.0); MEAN CORPUSCULAR HGB CONC 32.9 % (32.0-36.0); MONO % 6.6 % (0.0-8.0); NEUT % 84.9 % (16.0-70.0); PLATELET COUNT 354 TH/MM3 (150-450); RED BLOOD COUNT 2.96 MIL/MM3 (4.50-5.90); RED CELL DISTRIBUTION WIDTH 16.5 % (11.6-17.2); WHITE BLOOD COUNT 16.6 TH/MM3 (4.0-11.0)
[2017-05-26 05:05] LABS: BICARBONATE 24.4 MEQ/L (21.0-32.0); POTASSIUM 3.5 MEQ/L (3.5-5.1)
[2017-05-26] MEDS: HEPARIN SODIUM - SQ 10,000 UNITS/ML VIAL SQ SCH ×2 (06:16→15:46)
[2017-05-26] MEDS: INSULIN ASPART SUPPLEMENTAL SCALE SQ SCH ×4 (06:17→21:00)
[2017-05-26] MEDS: hydrALAZINE HCL 20 MG/ML VIAL IV PRN (08:42)
[2017-05-26] MEDS: SODIUM CHLORIDE 0.9% FLUSH 10 ML FLUSH IV FLUSH SCH ×2 (08:43→21:31)
[2017-05-26] MEDS: SODIUM HYPOCHLORITE 0.125% 500 ML BTL TOPICAL SCH ×2 (08:43→21:30)
[2017-05-26] MEDS: DOCUSATE SODIUM 50 MG/SENNA 8.6 MG TAB PO SCH (08:43)
[2017-05-26] MEDS: INSULIN DETEMIR 100 UNITS/ML VIAL SQ SCH ×2 (08:55→21:33)
--- NOTE | 2017-05-26 09:49 | RADRPT ---
EXAM DATE/TIME: 05/25/2017 17:11 [facility] COMPARISON: BILIARY SCAN (HIDA), May 22, 2017, 12:05. US ABDOMEN - GALLBLADDER, May 20, 2017, 15:02. INDICATIONS : Abnormal gallbladder. Right upper quadrant pain. MEDICAL HISTORY : Hypercholesterolemia. Hypertension. Nocturia. Diabetes. SURGICAL HISTORY : None. ENCOUNTER: Subsequent ACUITY: 1 week PAIN SCORE: 0/10 LOCATION: Right upper quadrant MEASUREMENTS: LIVER: 20.0 cm length COMMON DUCT: 5 mm RIGHT KIDNEY: 13.8 x 7.5 x 7.2 cm FINDINGS: LIVER: Liver is enlarged without focal lesion or ductal dilatation. COMMON DUCT: No intraluminal mass or stone visualized. GALLBLADDER: Gallbladder is distended measuring up to 11 cm containing sludge with gallbladd er wall thickening measuring up to 5 mm. There is no significant pericholecystic fluid . Outcomes Specialist reports a negative Mccray's sign. PANCREAS: The visualized portions are within normal limits. Pancreatic tail is not well-demo nstrated. RIGHT KIDNEY: No evidence of hydronephrosis, stone, or mass. CONCLUSION: Distended sludge-filled gallbladder with gallbladder wall thickening. Overall degree of gallbladder d istention is largely unchanged from prior ultrasound exam although there is increased wall thickening . Trace pericholecystic fluid has resolved in the interval. HIDA scan performed 3 days ago demonstrat es no filling of the gallbladder at 24 hours. Findings are consistent with acute cholecystitis likely secondary to cystic duct obstruction with mild interval improvement following antibiotic therapy. Royal Alfaro MD on May 26, 2017 at 9:38 Board Certified Radiologist. This report was verified electronically.
--- NOTE | 2017-05-26 10:02 | HHI.NPPN ---
Subjective Renal Failure: Acute Interval History Creatinine is improving. Tolerating diet. No acute concerns from the patient. ( Latha Friedman) Review of Systems General Constitutional: Fatigue (Latha Friedman) Objective Data Data 05/25/17 05/26/17 19:00 07:00 Intake Total 2264 ml 50 ml Output Total 950 ml 2500 ml Balance 1314 ml -2450 ml Intake Oral 2160 ml IV Total 104 ml 50 ml Output Urine Total 950 ml 2300 ml Stool Total 0 ml Gastric Drainage Total 200 ml Vital Signs Date Time Temp Pulse Resp B/P Pulse Ox O2 Delivery O2 Flow Rate FiO2 05/26/17 08:00 99.3 83 18 161/77 96 05/26/17 04:00 99.1 90 20 170/81 95 05/26/17 00:00 99.2 103 20 179/82 96 05/25/17 21:00 Nasal Cannula 4.00 05/25/17 20:00 98.0 100 20 180/82 94 05/25/17 17:25 Nasal Cannula 4.00 05/25/17 16:00 98.9 78 18 197/92 92 05/25/17 14:00 75 05/25/17 12:01 96 Nasal Cannula 4.00 05/25/17 12:00 84 05/25/17 12:00 98.0 84 23 184/78 98 05/25/17 10:00 85 (Latha Friedman) -: 05/26/17 0425 05/26/17 0425 Imaging Last 72 hours Impressions Gall Bladder Ultrasound 05/26/17 0000 Signed Impressions: Service Date/Time: Thursday, May 25, 2017 17:11 - CONCLUSION: Distended sludge-filled gallbladder with gallbladder wall thickening. Overall degree of gallbladder distention is largely unchanged from prior ultrasound exam although there is increased wall thickening. Trace pericholecystic fluid has resolved in the interval. HIDA scan performed 3 days ago demonstrates no filling of the gallbladder at 24 hours. Findings are consistent with acute cholecystitis likely secondary to cystic duct obstruction with mild interval improvement following antibiotic therapy. Royal Alfaro MD Chest X-Ray 05/24/17 0600 Signed Impressions: Service Date/Time: Wednesday, May 24, 2017 03:43 - CONCLUSION: Unchanged bibasilar opacity representing either atelectasis or consolidation. Hamlet Al MD Tubes & Lines: Vas-Cath, Reed Tubes & Lines Comment TLC Drip Comment none (Latha Friedman) Physical Exam General Appearance: Well Developed, Well Nourished, No Acute Distress, Comfortable ( Latha Friedman) Eyes Eye Exam: Pupils Equal (Latha Friedman) Throat Throat Exam: Oral Mucosa [place] & Moist (Latha Friedman) Neck Neck Exam: Neck Supple (Latha Friedman) Pulmonary Resp Exam: Breath Sounds Equal, No Distress, Crackles, Poor Inspiratory Effort (Latha Friedman) Cardiology CV Exam: Regular, Normal Sinus Rhythm (Latha Friedman) Gastrointestinal/Abdomen GI Exam: Soft, Non-Tender, Bowel Sounds Present (Latha Friedman) Genitourinary Remarks urine sediment noted (Latha Friedman) Musculoskeletal MS Exam: Joints Intact, Good Strength, Unable to Ambulate (Latha Friedman) Integumentary Skin Exam: Warm, Dry Skin Remarks large wound to perineum (Latha Friedman) Extremeties Extremities Exam: No Edema, Pedal Pulses Palpable (Latha Friedman) Neurologic Neuro Exam: Alert, Awake, Oriented, Speech Clear, Moving All Extremities ( Latha Friedman) Psychiatric Psych Exam: Appropriate Responses (Latha Friedman) VTE Prophylaxis Device: SCDs (Latha Friedman) Assessment/Plan Discussed Condition With: Patient, Relative Assessment Summary: ROBERTO/Acute Renal Failure, Acute Tubular Necrosis, Fluid/ Volume Overload, Hypertension, Diabetes Mellitus Problem List: (1) Acute renal failure Plan: ROBERTO secondary to ATN from sepsis he required three HD treatments now in recovery phase, creatinine improving excellent urine output continue to monitor renal function remove vascath today remove reed not on IVF, tolerating oral fluids Avoid nephrotoxic agents. 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 ID following, he is on fluconazole with Zosyn. continue Wound care. May need skin graft at some point. (3) Poorly controlled diabetes mellitus Plan: continue insulin as ordered monitor glucose , goal 140-180 mg/dL. (4) Anemia Plan: Hb low but has improved transfuse if needed, monitor Hb (5) Sepsis affecting skin Plan: ID following current Carlos's as above also has developed acute cholecystitis , HIDA positive, US of gallbladder removed antibiotics as above monitor clinically (Latha Friedman) Problem List: (1) Acute renal failure Plan: ROBERTO secondary to ATN from sepsis he required three HD treatments now in recovery phase, creatinine improving excellent urine output continue to monitor renal function remove vascath today remove reed not on IVF, tolerating oral fluids Avoid nephrotoxic agents. 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 ID following, he is on fluconazole with Zosyn. continue Wound care. May need skin graft at some point. (3) Poorly controlled diabetes mellitus Plan: continue insulin as ordered monitor glucose , goal 140-180 mg/dL. (4) Anemia Plan: Hb low but has improved transfuse if needed, monitor Hb (5) Sepsis affecting skin Plan: ID following current Carlos's as above also has developed acute cholecystitis , HIDA positive, US of gallbladder removed antibiotics as above monitor clinically Plan patient was seen and examined. Renal function continues to improve. Remove Vascath and Reed catheter. Avoid nephrotoxic agents. ID following: on Zosyn and Diflucan. Carlos's gangrene and cholecystitis are the issues. (Ernesto Montano MD) Problem Qualifiers (1) Acute renal failure: Qualified Code: N17.0 - Acute renal failure with tubular necrosis Latha Friedman May 26, 2017 10:02 Ernesto Montano MD May 27, 2017 07:40
[2017-05-26] MEDS: RESP: ALBUTEROL 2.5 MG/IPRATROPIUM 0.5 MG NEB (PRN) INH ×2 (10:55→15:41)
--- NOTE | 2017-05-26 13:20 | HHI.PR ---
Subjective Remarks Follow-up sepsis/Carlos disease 05/26/17-patient seen and examined, currently afebrile and denies any scrotal pain. Patient ambulated without any difficulty. Reports some formed stool. Objective Vitals Vital Signs Date Time Temp Pulse Resp B/P Pulse Ox O2 Delivery O2 Flow Rate FiO2 05/26/17 12:00 98.0 104 18 195/90 91 05/26/17 08:00 Nasal Cannula 4.00 05/26/17 08:00 99.3 83 18 161/77 96 05/26/17 04:00 99.1 90 20 170/81 95 05/26/17 00:00 99.2 103 20 179/82 96 05/25/17 21:00 Nasal Cannula 4.00 05/25/17 20:00 98.0 100 20 180/82 94 05/25/17 17:25 Nasal Cannula 4.00 05/25/17 16:00 98.9 78 18 197/92 92 05/25/17 14:00 75 I/O 05/25/17 05/25/17 05/25/17 05/26/17 05/26/17 05/26/17 06:59 14:59 22:59 06:59 14:59 22:59 Intake Total 128 ml 2264 ml 50 ml Output Total 1450 ml 950 ml 1300 ml 1200 ml Balance -1322 ml 1314 ml -1300 ml -1150 ml Intake Oral 2160 ml IV Total 128 ml 104 ml 50 ml Output Urine Total 1250 ml 950 ml 1100 ml 1200 ml Stool Total 200 ml 0 ml Gastric Drainage Total 200 ml Result Diagram: 05/26/17 0425 05/26/17 0425 Imaging Last Impressions Gall Bladder Ultrasound 05/26/17 0000 Signed Impressions: Service Date/Time: Thursday, May 25, 2017 17:11 - CONCLUSION: Distended sludge-filled gallbladder with gallbladder wall thickening. Overall degree of gallbladder distention is largely unchanged from prior ultrasound exam although there is increased wall thickening. Trace pericholecystic fluid has resolved in the interval. HIDA scan performed 3 days ago demonstrates no filling of the gallbladder at 24 hours. Findings are consistent with acute cholecystitis likely secondary to cystic duct obstruction with mild interval improvement following antibiotic therapy. Royal Alfaro MD Chest X-Ray 05/24/17 0600 Signed Impressions: Service Date/Time: Wednesday, May 24, 2017 03:43 - CONCLUSION: Unchanged bibasilar opacity representing either atelectasis or consolidation. Hamlet Al MD Hepatobiliary Scan Nuclear Medicine 05/22/17 0000 Signed Impressions: Service Date/Time: Monday, May 22, 2017 12:05 - CONCLUSION: 1. No uptake within the gallbladder. Delayed imaging will be obtained. 2. Small amount of biliary enteric reflux. Eloy Mcginnis MD ADDENDUM: COMPARISON: CT ABDOMEN & PELVIS W/O CONTRAST, May 16, 2017, 16:28. Delayed 24 our view does not demonstrate gallbladder therefore possibility of cystic duct obstruction and acute cholecystitis should be entertained. Armaan Tanner MD Objective Remarks GENERAL: NAD SKIN: Warm and dry. HEAD: Normocephalic. EYES: No scleral icterus. No injection or drainage. NECK: Supple, trachea midline. No JVD or lymphadenopathy. CARDIOVASCULAR: Regular rate and rhythm without murmurs, gallops, or rubs. RESPIRATORY: Breath sounds equal bilaterally. No accessory muscle use. GASTROINTESTINAL: Abdomen soft, non-tender, nondistended. MUSCULOSKELETAL: No cyanosis, or edema. : dressing over scrotum BACK: Nontender without obvious deformity. No CVA tenderness. A/P Problem List: (1) Carlos gangrene ICD Code: N49.3 Status: Acute (2) Poorly controlled diabetes mellitus ICD Code: E11.65 Status: Acute Assessment and Plan 51-year-old man with Severe sepsis - Carlos's gangrene Candiduria Continue with Piperacillin/tazobactam 2.25 g IV daily 8 hours and Diflucan 200 mg IV every 24 hours Infectious disease following 05/20 - urine -tracee 05/16 - wound - Klebsiella/strep not A, ,D Status post I&D with debridement of scrotum and perineum - Dr. Lopes 05/16 Status post reexploration of perineum 05/18 - Dr. Lopes -Will likely need plastics at some point when available -BID dressing changes with Dakin's sodium hypochlorite 0.125% History of hypertension-labile BP -Start hydralazine 50 mg daily at hour and continue Lopressor Q8H Continue to hold lisinopril 10 mg by mouth daily light of elevated creatinine Elevated transaminases Positive HIDA scan - acute kenia cystitis? Hypoalbuminemia Famotidine 10 mg IV twice a day for GI prophylaxis discontinued Docusate sodium/senna 100 mg/8.6 mg 1 tablet twice a day for bowel regimen HIDA positive for nonvisualization of gallbladder/ probable acute cholecystitis Repeat liver/gallbladder ultrasound today 05/26 ROBERTO -He had required hemodialysis 3 and now in recovery phase Avoid nephrotoxic drugs DM-2, uncontrolled Currently on insulin detemir 20 units subcutaneous twice a day BID and Insulin aspart SSI before meals/at bedtime. Holding metformin 500 mg by mouth twice a day Hypokalemia Hyper-magnesium Replace electrolyte accordingly Prophylaxis. -GI - famotidine 10 mg IV every 12 hours discontinued 05/25 -Heparin 5 thousand units subcutaneous q12h. Eloy Cuadra MD May 26, 2017 13:20
[2017-05-26] MEDS ORDERED: ALTEPLASE RECOMBINANT 2 MG VIAL INTRACATH PRN (13:30)
[2017-05-26] MEDS: hydrALAZINE HCL 50 MG TAB PO SCH ×2 (15:46→21:30)
[2017-05-26] MEDS: FLUCONAZOLE 200 MG PREMIX BAG 100 ML IV SCH (17:11)
[2017-05-27] VITALS (11 sets, daily range): BP systolic 162–191; BP diastolic 74–88; PULSE 89–101; RESP 18–21; TEMP 98–99.8; O2SAT 91–99
[2017-05-27] MEDS: METOPROLOL TARTRATE 25 MG TAB PO SCH ×4 (00:47→17:41)
[2017-05-27] MEDS: METOCLOPRAMIDE HCL 10 MG/2 ML VIAL IV PUSH SCH ×3 (01:17→17:42)
[2017-05-27] MEDS: PIPERACIL-TAZO 2.25 GM PREMIX 50 ML IV SCH ×3 (01:17→18:29)
[2017-05-27] MEDS: CHLORHEXIDINE GLUCONATE 2 % 1 PACK (2 CLOTHS) TOP SCH (04:00)
[2017-05-27] MEDS: HEPARIN SODIUM - SQ 10,000 UNITS/ML VIAL SQ SCH ×2 (05:17→16:00)
[2017-05-27] MEDS: hydrALAZINE HCL 50 MG TAB PO SCH ×3 (05:17→21:49)
[2017-05-27] MEDS: INSULIN ASPART SUPPLEMENTAL SCALE SQ SCH ×4 (06:15→20:24)
[2017-05-27 06:23] LABS: AUTOMATED NEUTROPHIL # 11.6 TH/MM3 (1.8-7.7); BASOPHIL # 0.1 TH/MM3 (0-0.2); BASOPHIL % 0.4 % (0.0-2.0); EOSINOPHIL # 0.1 TH/MM3 (0-0.4); EOSINOPHIL % 0.8 % (0.0-4.0); HEMATOCRIT 24.7 % (39.0-51.0); HEMO FLAGS DIFF FINAL; MEAN CELL VOLUME 84.1 FL (80.0-100.0); MEAN CORPUSCULAR HEMOGLOBIN 26.6 PG (27.0-34.0); MEAN CORPUSCULAR HGB CONC 31.6 % (32.0-36.0); MONO % 7.8 % (0.0-8.0); PLATELET COUNT 304 TH/MM3 (150-450); RED BLOOD COUNT 2.93 MIL/MM3 (4.50-5.90); RED CELL DISTRIBUTION WIDTH 16.2 % (11.6-17.2); WHITE BLOOD COUNT 13.8 TH/MM3 (4.0-11.0)
[2017-05-27 06:44] LABS: BICARBONATE 23.3 MEQ/L (21.0-32.0); POTASSIUM 3.5 MEQ/L (3.5-5.1)
--- NOTE | 2017-05-27 08:32 | HHI.NPPN ---
Subjective Renal Failure: Acute Interval History he says he has some trouble breathing, on oxygen, NRB mask. Non oliguric. Cobos catheter and VasCath removed. Review of Systems General Constitutional: Fatigue Respiratory Lungs: SOB Objective Data Data 05/26/17 05/27/17 19:00 07:00 Intake Total 820 ml 793 ml Output Total 2100 ml 250 ml Balance -1280 ml 543 ml Intake Oral 720 ml 600 ml IV Total 100 ml 193 ml Output Urine Total 2100 ml 250 ml # Voids 2 # Bowel Movements 1 1 Vital Signs Date Time Temp Pulse Resp B/P Pulse Ox O2 Delivery O2 Flow Rate FiO2 05/27/17 04:00 98.7 91 18 166/75 92 05/27/17 00:00 98.0 101 18 167/80 96 05/26/17 20:00 Partial Non-Rebreather 6.00 05/26/17 20:00 99.7 90 18 176/80 95 05/26/17 17:00 98.8 95 18 150/79 99 05/26/17 16:07 Partial Non-Rebreather 13.00 05/26/17 16:00 99.2 101 18 183/88 90 05/26/17 15:42 96 Nasal Cannula 4.00 05/26/17 12:00 98.0 104 18 195/90 91 05/26/17 12:00 Nasal Cannula 6.00 -: 05/27/17 0604 05/27/17 0604 Tubes & Lines: Vas-Cath, Cobos Tubes & Lines Comment TLC Drip Comment none Physical Exam General Appearance: Well Developed, Well Nourished, No Acute Distress, Comfortable Eyes Eye Exam: Pupils Equal Throat Throat Exam: Oral Mucosa [place] & Moist Neck Neck Exam: Neck Supple Pulmonary Resp Exam: Breath Sounds Equal, No Distress, Poor Inspiratory Effort Cardiology CV Exam: Regular, Normal Sinus Rhythm Gastrointestinal/Abdomen GI Exam: Soft, Non-Tender, Bowel Sounds Present Musculoskeletal MS Exam: Joints Intact, Good Strength Integumentary Skin Exam: Warm, Dry Extremeties Extremities Exam: No Edema, Pedal Pulses Palpable Neurologic Neuro Exam: Alert, Awake, Oriented, Speech Clear, Moving All Extremities Psychiatric Psych Exam: Appropriate Responses VTE Prophylaxis Device: SCDs Assessment/Plan Discussed Condition With: Patient, Relative Assessment Summary: ROBERTO/Acute Renal Failure, Acute Tubular Necrosis, Fluid/ Volume Overload, Hypertension, Diabetes Mellitus Problem List: (1) Acute renal failure Plan: ROBERTO secondary to ATN from sepsis he required three HD treatments now in recovery phase, creatinine improving continue to monitor renal function No need for dialysis. Avoid nephrotoxic agents. I will give him a dose of Bumex. 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 ID following, he is on fluconazole with Zosyn. continue Wound care. May need skin graft at some point. (3) Poorly controlled diabetes mellitus Plan: continue insulin as ordered monitor glucose , goal 140-180 mg/dL. (4) Anemia Plan: Hb low but has improved transfuse if needed, monitor Hb (5) Sepsis affecting skin Plan: ID following current Carlos's as above also has developed acute cholecystitis , HIDA positive, US of gallbladder removed antibiotics as above monitor clinically (6) Cholecystitis Plan: US revealed gall stones, distended gall bladder. ID and surgery following. Problem Qualifiers (1) Acute renal failure: Qualified Code: N17.0 - Acute renal failure with tubular necrosis Ernesto Montano MD May 27, 2017 08:32
[2017-05-27] MEDS ORDERED: BUMETANIDE INJ 1 MG/4 ML VIAL IV PUSH ONE (08:45)
[2017-05-27] MEDS ORDERED: POTASSIUM CHLORIDE 10 MEQ CONTROLLED RELEASE TAB PO ONE (08:45)
[2017-05-27] MEDS: SODIUM CHLORIDE 0.9% FLUSH 10 ML FLUSH IV FLUSH SCH ×2 (08:59→20:26)
[2017-05-27] MEDS: SODIUM HYPOCHLORITE 0.125% 500 ML BTL TOPICAL SCH ×3 (09:00→20:27)
[2017-05-27] MEDS: RESP: ALBUTEROL 2.5 MG/IPRATROPIUM 0.5 MG NEB (PRN) INH (09:11)
[2017-05-27] MEDS: INSULIN DETEMIR 100 UNITS/ML VIAL SQ SCH ×2 (09:11→20:25)
--- NOTE | 2017-05-27 10:49 | RADRPT ---
EXAM DATE/TIME: 05/27/2017 09:54 [facility] COMPARISON: CHEST SINGLE AP, May 24, 2017, 3:43. INDICATIONS : Cough. MEDICAL HISTORY : Hypercholesterolemia. Hypertension. Nocturia. Diabetes. SURGICAL HISTORY : None. ENCOUNTER: Subsequent ACUITY: 2 weeks PAIN SCORE: 9/10 LOCATION: Bilateral chest FINDINGS: Single portable frontal view the chest shows worsening consolidation of the lung bases. No effusions. Heart normal size. Bony structures are unremarkable. CONCLUSION: Worsening bibasilar infiltrates. Lei Moreno Jr., MD on May 27, 2017 at 10:45 Board Certified Radiologist. This report was verified electronically.
[2017-05-27] MEDS ORDERED: SODIUM CHLOR 0.9% 250 ML INJ 250 ML IV SCH (11:45)
--- NOTE | 2017-05-27 11:53 | HHI.PR ---
Subjective Remarks Follow-up sepsis/Carlos disease 05/26/17-patient seen and examined, currently afebrile and denies any scrotal pain. Patient ambulated without any difficulty. Reports some formed stool. 05/27/17-patient seen and examined, currently on partial nonrebreather. Patient had an episode of fall yesterday. Currently patient with a dry cough. Hemoglobin dropping. BP up Objective Vitals Vital Signs Date Time Temp Pulse Resp B/P Pulse Ox O2 Delivery O2 Flow Rate FiO2 05/27/17 10:09 94 Partial Non-Rebreather 13.00 05/27/17 09:13 91 Partial Rebreather 15.00 05/27/17 08:00 99.2 89 21 172/88 94 05/27/17 04:00 98.7 91 18 166/75 92 05/27/17 00:00 98.0 101 18 167/80 96 05/26/17 20:00 Partial Non-Rebreather 6.00 05/26/17 20:00 99.7 90 18 176/80 95 05/26/17 17:00 98.8 95 18 150/79 99 05/26/17 16:07 Partial Non-Rebreather 13.00 05/26/17 16:00 99.2 101 18 183/88 90 05/26/17 15:42 96 Nasal Cannula 4.00 05/26/17 12:00 98.0 104 18 195/90 91 05/26/17 12:00 Nasal Cannula 6.00 I/O 05/26/17 05/26/17 05/26/17 05/27/17 05/27/17 05/27/17 07:00 15:00 23:00 07:00 15:00 23:00 Intake Total 50 ml 820 ml 360 ml 433 ml Output Total 1200 ml 2100 ml 250 ml Balance -1150 ml -1280 ml 110 ml 433 ml Intake Oral 720 ml 360 ml 240 ml IV Total 50 ml 100 ml 193 ml Output Urine Total 1200 ml 2100 ml 250 ml # Voids 2 # Bowel Movements 1 1 0 Result Diagram: 05/27/17 0604 05/27/17 0604 Objective Remarks GENERAL: NAD SKIN: Warm and dry. HEAD: Normocephalic. EYES: No scleral icterus. No injection or drainage. NECK: Supple, trachea midline. No JVD or lymphadenopathy. CARDIOVASCULAR: Regular rate and rhythm without murmurs, gallops, or rubs. RESPIRATORY: Breath sounds decreased bilaterally. No accessory muscle use. GASTROINTESTINAL: Abdomen soft, non-tender, nondistended. MUSCULOSKELETAL: No cyanosis, or edema. : dressing over scrotum BACK: Nontender without obvious deformity. No CVA tenderness. 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 Lopes 05/16 Status post reexploration of perineum 05/18 - Dr. Lopes -Will likely need plastics at some point when available -BID dressing changes with Dakin's sodium hypochlorite 0.125% History of hypertension-labile BP -Will give hydralazine 50 mg by mouth 1 now -Increase hydralazine to 100 mg daily Q8H and continue Lopressor Q8H Continue to hold lisinopril 10 mg by mouth daily light of elevated creatinine Dyspnea with hypoxia Currently on partial nonrebreather Check Chest x-ray today 05/27/17 Continue with DuoNeb when necessary Anemia of chronic disease Transfuse 1 unit packed red blood cell today 05/27/17 Monitor H&H Elevated transaminases Positive HIDA scan - acute kenia cystitis? Hypoalbuminemia Famotidine 10 mg IV twice a day for GI prophylaxis discontinued Docusate sodium/senna 100 mg/8.6 mg 1 tablet twice a day for bowel regimen HIDA positive for nonvisualization of gallbladder/ probable acute cholecystitis Repeat liver/gallbladder ultrasound noted 05/26 ROBERTO -He had required hemodialysis 3 and now in recovery phase Avoid nephrotoxic drugs DM-2, uncontrolled Currently on insulin detemir 20 units subcutaneous twice a day BID and Insulin aspart SSI before meals/at bedtime. Holding metformin 500 mg by mouth twice a day Hypokalemia Hyper-magnesium Replace electrolyte accordingly Prophylaxis. -Heparin 5 thousand units subcutaneous q12h. Eloy Cuadra MD May 27, 2017 11:53
[2017-05-27] MEDS ORDERED: ACETAMINOPHEN 325 MG TAB PO PRN (12:00)
[2017-05-27] MEDS ORDERED: diphenhydrAMINE HCL 25 MG CAP PO PRN (12:00)
[2017-05-27] MEDS ORDERED: hydrALAZINE HCL 50 MG TAB PO ONE (12:15)
[2017-05-27] MEDS: FLUCONAZOLE 200 MG PREMIX BAG 100 ML IV SCH (18:28)
[2017-05-28] VITALS (8 sets, daily range): BP systolic 157–195; BP diastolic 72–86; PULSE 81–99; RESP 18–22; TEMP 98.6–100.1; O2SAT 81–97
[2017-05-28] MEDS: METOPROLOL TARTRATE 25 MG TAB PO SCH ×4 (00:36→17:01)
[2017-05-28] MEDS: PIPERACIL-TAZO 2.25 GM PREMIX 50 ML IV SCH ×2 (02:03→09:32)
[2017-05-28] MEDS: METOCLOPRAMIDE HCL 10 MG/2 ML VIAL IV PUSH SCH ×3 (02:03→17:01)
[2017-05-28] MEDS: CHLORHEXIDINE GLUCONATE 2 % 1 PACK (2 CLOTHS) TOP SCH (04:00)
[2017-05-28] MEDS: hydrALAZINE HCL 50 MG TAB PO SCH ×3 (05:42→20:39)
[2017-05-28] MEDS: HEPARIN SODIUM - SQ 10,000 UNITS/ML VIAL SQ SCH ×2 (05:43→17:01)
[2017-05-28] MEDS: INSULIN ASPART SUPPLEMENTAL SCALE SQ SCH ×4 (05:46→20:43)
[2017-05-28 06:52] LABS: AUTOMATED NEUTROPHIL # 10.5 TH/MM3 (1.8-7.7); BASOPHIL # 0.1 TH/MM3 (0-0.2); BASOPHIL % 0.8 % (0.0-2.0); EOSINOPHIL # 0.2 TH/MM3 (0-0.4); EOSINOPHIL % 1.3 % (0.0-4.0); HEMATOCRIT 27.4 % (39.0-51.0); HEMO FLAGS DIFF FINAL; LYMPH % 9.1 % (9.0-44.0); LYMPHOCYTE # 1.2 TH/MM3 (1.0-4.8); MEAN CELL VOLUME 84.4 FL (80.0-100.0); MEAN CORPUSCULAR HEMOGLOBIN 27.8 PG (27.0-34.0); MONO % 8.2 % (0.0-8.0); NEUT % 80.6 % (16.0-70.0); PLATELET COUNT 329 TH/MM3 (150-450); RED BLOOD COUNT 3.24 MIL/MM3 (4.50-5.90); RED CELL DISTRIBUTION WIDTH 15.8 % (11.6-17.2); WHITE BLOOD COUNT 13.1 TH/MM3 (4.0-11.0)
[2017-05-28 07:12] LABS: BICARBONATE 21.7 MEQ/L (21.0-32.0); POTASSIUM 3.1 MEQ/L (3.5-5.1)
[2017-05-28] MEDS ORDERED: POTASSIUM CHLORIDE 10 MEQ CONTROLLED RELEASE TAB PO ONE ×3 (08:15→12:30)
[2017-05-28] MEDS ORDERED: BUMETANIDE INJ 1 MG/4 ML VIAL IV PUSH ONE (08:15)
[2017-05-28] MEDS: SODIUM CHLORIDE 0.9% FLUSH 10 ML FLUSH IV FLUSH SCH ×2 (09:17→20:40)
[2017-05-28] MEDS: INSULIN DETEMIR 100 UNITS/ML VIAL SQ SCH ×2 (09:30→20:43)
[2017-05-28] MEDS: SODIUM HYPOCHLORITE 0.125% 500 ML BTL TOPICAL SCH ×2 (09:32→20:43)
--- NOTE | 2017-05-28 11:28 | HHI.NPPN ---
Subjective Renal Failure: Acute Interval History He is on oxygen. Shortness of breath is improving. Adequate urine output. His renal function is improving. (Latha Friedman) Review of Systems General Constitutional: Fever, Fatigue (Latha Friedman) Respiratory Lungs: SOB (Latha Friedman) Objective Data Data 05/27/17 05/28/17 19:00 07:00 Intake Total 480 ml 580 ml Output Total 850 ml 800 ml Balance -370 ml -220 ml Intake Oral 480 ml 580 ml Output Urine Total 850 ml 800 ml # Voids 3 # Bowel Movements 1 Vital Signs Date Time Temp Pulse Resp B/P Pulse Ox O2 Delivery O2 Flow Rate FiO2 05/28/17 08:00 98.6 88 18 167/81 93 05/28/17 04:00 Simple Mask 8.00 05/28/17 04:00 98.9 98 22 161/72 94 05/28/17 00:00 Simple Mask 10.00 05/28/17 00:00 99.2 90 22 161/79 97 05/27/17 22:25 99 Partial Rebreather 13.00 05/27/17 20:01 99.8 95 20 162/74 94 05/27/17 20:00 94 Partial Non-Rebreather 13.00 05/27/17 18:11 98.0 95 18 179/85 05/27/17 17:55 98.5 96 18 176/87 97 05/27/17 17:44 98.7 96 18 173/77 96 05/27/17 16:00 98.8 98 18 180/84 93 05/27/17 12:00 98.4 98 18 191/86 93 (Latha Friedman) -: 05/28/17 0635 05/28/17 0635 Imaging Last 72 hours Impressions Chest X-Ray 05/27/17 0000 Signed Impressions: Service Date/Time: May 09:54 - CONCLUSION: Worsening bibasilar infiltrates. Lei Moreno Jr., MD Gall Bladder Ultrasound 05/26/17 0000 Signed Impressions: Service Date/Time: Thursday, May 25, 2017 17:11 - CONCLUSION: Distended sludge-filled gallbladder with gallbladder wall thickening. Overall degree of gallbladder distention is largely unchanged from prior ultrasound exam although there is increased wall thickening. Trace pericholecystic fluid has resolved in the interval. HIDA scan performed 3 days ago demonstrates no filling of the gallbladder at 24 hours. Findings are consistent with acute cholecystitis likely secondary to cystic duct obstruction with mild interval improvement following antibiotic therapy. Royal Alfaro MD Drip Comment none (Mikey Friedmanon B. [employer] PERSON) Physical Exam General Appearance: Well Developed, Well Nourished, No Acute Distress, Comfortable ( Idalia,Latha B. [employer] PERSON) Eyes Eye Exam: Pupils Equal (Idalia,Latha B. [employer] PERSON) Throat Throat Exam: Oral Mucosa [place] & Moist (Idalia,Latha B. [employer] PERSON) Neck Neck Exam: Neck Supple (Idalia,Latha B. [employer] PERSON) Pulmonary Resp Exam: Breath Sounds Equal, No Distress, Poor Inspiratory Effort (Idalia, Latha B. [employer] PERSON) Cardiology CV Exam: Regular, Normal Sinus Rhythm (Idalia,Latha B. [employer] PERSON) Gastrointestinal/Abdomen GI Exam: Soft, Non-Tender, Bowel Sounds Present (Idalia,Latha B. [employer] PERSON) Musculoskeletal MS Exam: Joints Intact, Normal Tone, Good Strength (Idalia,Latha B. [employer] PERSON) Integumentary Skin Exam: Warm, Dry Skin Remarks perineal wounds, buttock wound (Idalia,Latha B. [employer] PERSON) Extremeties Extremities Exam: No Edema, Pedal Pulses Palpable (Idalia,Latha B. [employer] PERSON) Neurologic Neuro Exam: Alert, Awake, Oriented, Speech Clear, Moving All Extremities ( Idalia,Latha B. [employer] PERSON) Psychiatric Psych Exam: Appropriate Responses (IdaliaLatha B. [employer] PERSON) VTE Prophylaxis Device: SCDs (Idalia,Latha B. [employer] PERSON) Assessment/Plan Discussed Condition With: Patient, Relative Assessment Summary: ROBERTO/Acute Renal Failure, Acute Tubular Necrosis, Hypertension, Diabetes Mellitus Problem List: (1) Acute renal failure Plan: ROBERTO secondary to ATN from sepsis he required three HD treatments , 05/22 last HD now in recovery phase, creatinine continues to improve continue to monitor renal function reed removed, excellent urine output vascath removed replace potassium given bumex, monitor fluid status , clinically improved shortness of breath Avoid nephrotoxic agents. 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 ID following, he is on fluconazole with Zosyn. continue Wound care. potential skin graft in the future rectal tube has been removed (3) Poorly controlled diabetes mellitus Plan: continue insulin as ordered monitor glucose , goal 140-180 mg/dL. (4) Anemia Plan: Hb improved he was transfused 1 unit 05/27 monitor for changes (5) Sepsis Plan: ID following, current Carlos's as above also has developed acute cholecystitis, see below antibiotics as ordered monitor clinically, he has developed fevers, persistent leukocytosis (6) Cholecystitis Plan: US revealed gall stones, distended gall bladder HIDA reviewed ID and surgery following, appreciate recommendations (Latha Friedman) Plan patient was seen and examined. Agree with above assessment and plan. Another dose of Bumex ordered. He is no longer on Oxygen mask, hypoxia appears to have improved. (Ernesto Montano MD) Problem Qualifiers (1) Acute renal failure: Qualified Code: N17.0 - Acute renal failure with tubular necrosis Latha Friedman May 28, 2017 11:28 Ernesto Montano MD May 29, 2017 06:20
--- NOTE | 2017-05-28 11:49 | HHI.PR ---
Subjective Remarks Follow-up sepsis/Carlos disease 05/26/17-patient seen and examined, currently afebrile and denies any scrotal pain. Patient ambulated without any difficulty. Reports some formed stool. 05/27/17-patient seen and examined, currently on partial nonrebreather. Patient had an episode of fall yesterday. Currently patient with a dry cough. Hemoglobin dropping. BP up 05/28/17-patient seen and examined, currently on 6L nasal cannula and denies any significant shortness of breath. Afebrile. Treated with Bumex yesterday. Blood pressure slightly up. Objective Vitals Vital Signs Date Time Temp Pulse Resp B/P Pulse Ox O2 Delivery O2 Flow Rate FiO2 05/28/17 08:00 98.6 88 18 167/81 93 05/28/17 04:00 Simple Mask 8.00 05/28/17 04:00 98.9 98 22 161/72 94 05/28/17 00:00 Simple Mask 10.00 05/28/17 00:00 99.2 90 22 161/79 97 05/27/17 22:25 99 Partial Rebreather 13.00 05/27/17 20:01 99.8 95 20 162/74 94 05/27/17 20:00 94 Partial Non-Rebreather 13.00 05/27/17 18:11 98.0 95 18 179/85 05/27/17 17:55 98.5 96 18 176/87 97 05/27/17 17:44 98.7 96 18 173/77 96 05/27/17 16:00 98.8 98 18 180/84 93 05/27/17 12:00 98.4 98 18 191/86 93 I/O 05/27/17 05/27/17 05/27/17 05/28/17 05/28/17 05/28/17 07:00 15:00 23:00 07:00 15:00 23:00 Intake Total 433 ml 480 ml 360 ml 220 ml Output Total 850 ml 800 ml Balance 433 ml -370 ml 360 ml -580 ml Intake Oral 240 ml 480 ml 360 ml 220 ml IV Total 193 ml Output Urine Total 850 ml 800 ml # Voids 2 3 # Bowel Movements 0 1 0 Result Diagram: 05/28/17 0635 05/28/17 0635 Imaging Last Impressions Chest X-Ray 05/27/17 0000 Signed Impressions: Service Date/Time: May 09:54 - CONCLUSION: Worsening bibasilar infiltrates. Lei Moreno Jr., MD Gall Bladder Ultrasound 05/26/17 0000 Signed Impressions: Service Date/Time: Thursday, May 25, 2017 17:11 - CONCLUSION: Distended sludge-filled gallbladder with gallbladder wall thickening. Overall degree of gallbladder distention is largely unchanged from prior ultrasound exam although there is increased wall thickening. Trace pericholecystic fluid has resolved in the interval. HIDA scan performed 3 days ago demonstrates no filling of the gallbladder at 24 hours. Findings are consistent with acute cholecystitis likely secondary to cystic duct obstruction with mild interval improvement following antibiotic therapy. Royal Alfaro MD Hepatobiliary Scan Nuclear Medicine 05/22/17 0000 Signed Impressions: Service Date/Time: Monday, May 22, 2017 12:05 - CONCLUSION: 1. No uptake within the gallbladder. Delayed imaging will be obtained. 2. Small amount of biliary enteric reflux. Eloy Mcginnis MD ADDENDUM: COMPARISON: CT ABDOMEN & PELVIS W/O CONTRAST, May 16, 2017, 16:28. Delayed 24 our view does not demonstrate gallbladder therefore possibility of cystic duct obstruction and acute cholecystitis should be entertained. Armaan Tanner MD Objective Remarks GENERAL: NAD SKIN: Warm and dry. HEAD: Normocephalic. EYES: No scleral icterus. No injection or drainage. NECK: Supple, trachea midline. No JVD or lymphadenopathy. CARDIOVASCULAR: Regular rate and rhythm without murmurs, gallops, or rubs. RESPIRATORY: Breath sounds decreased bilaterally. No accessory muscle use. GASTROINTESTINAL: Abdomen soft, non-tender, nondistended. MUSCULOSKELETAL: No cyanosis, or edema. : dressing over scrotum BACK: Nontender without obvious deformity. No CVA tenderness. 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 Lopes 05/16 Status post reexploration of perineum 05/18 - Dr. Lopes -Will likely need plastics at some point when available -BID dressing changes with Dakin's sodium hypochlorite 0.125% History of hypertension-labile BP -Continue with hydralazine 100 mg daily Q8H and Lopressor Q8H Continue to hold lisinopril 10 mg by mouth daily light of elevated creatinine Dyspnea with hypoxia Currently on 6 L nasal cannula Chest x-ray 05/27/17 Continue with DuoNeb when necessary, Bumex Anemia of chronic disease Transfused 1 unit packed red blood cell 05/27/17 and H&H stable Monitor H&H Elevated transaminases Positive HIDA scan - acute kenia cystitis? Hypoalbuminemia Famotidine 10 mg IV twice a day for GI prophylaxis discontinued Docusate sodium/senna 100 mg/8.6 mg 1 tablet twice a day for bowel regimen HIDA positive for nonvisualization of gallbladder/ probable acute cholecystitis Repeat liver/gallbladder ultrasound noted 05/26 ROBERTO -He had required hemodialysis 3 and now in recovery phase Avoid nephrotoxic drugs DM-2 Currently on insulin detemir 20 units subcutaneous twice a day BID and Insulin aspart SSI before meals/at bedtime. Holding metformin 500 mg by mouth twice a day Hypokalemia Hyper-magnesium Replace electrolyte accordingly Prophylaxis. -Heparin 5 thousand units subcutaneous q12h. Eloy Cuadra MD May 28, 2017 11:49
--- NOTE | 2017-05-28 13:52 | HHI.IDPN ---
Subjective Subjective Remarks Patient is a 51-year-old male, with diabetes, presented initially to the [place] emergency room complaining of generalized weakness and fevers. Symptoms have been present for about a week and a half now. He apparently also noted a little pimple in his left gluteal area about the same time, and it progressively worsened and increase in size and the area involved spread to his scrotum. His had some fevers associated with chills and night sweats at home. Patient has no problem with dysuria, frequency or urination. No nausea or vomiting. Patient however has had problem with no dysuria, and decreased urinary stream. Patient has not had any problems similar to his current symptomatology. In the emergency room he had an elevated white count of 17,000 , febrile, and was acidotic. CT of the abdomen and pelvis showed significant amount of air in the patient's left gluteal area extending through his perineum up into his scrotum. He was transferred to the main hospital, in the ICU, and was seen by her urology. Surgery was done emergently. Patient currently is on the vent, and on Levophed. He is awake and alert and interactive. Highest temperature since admission is 101.8. His his last WBC is 20.8. Creatinine is also elevated. Lactic acid is down to normal. Notes reviewed Occ low grade temps SOB yesterday, got diuresed, better today CXR with CHF Good UO Creatinine slowly improving Denies abdominal pain LFT improving WBC decreasing Repeat US better Last debridement 05/18 Antibiotics Zosyn Diflucan Past Medical History Diabetes Hyperlipidemia Hypertension Past Surgical History Circumcision Allergies: Coded Allergies: No Known Allergies (Unverified , 05/16/17) Objective . Vital Signs Date Time Temp Pulse Resp B/P Pulse Ox O2 Delivery O2 Flow Rate FiO2 05/28/17 12:00 100.1 99 18 195/84 95 05/28/17 08:00 98.6 88 18 167/81 93 05/28/17 04:00 Simple Mask 8.00 05/28/17 04:00 98.9 98 22 161/72 94 05/28/17 00:00 Simple Mask 10.00 05/28/17 00:00 99.2 90 22 161/79 97 05/27/17 22:25 99 Partial Rebreather 13.00 05/27/17 20:01 99.8 95 20 162/74 94 7/27/17 20:00 94 Partial Non-Rebreather 13.00 05/27/17 18:11 98.0 95 18 179/85 05/27/17 17:55 98.5 96 18 176/87 97 05/27/17 17:44 98.7 96 18 173/77 96 05/27/17 16:00 98.8 98 18 180/84 93 05/27/17 05/27/17 05/28/17 15:00 23:00 07:00 Intake Total 480 ml 360 ml 220 ml Output Total 850 ml 800 ml Balance -370 ml 360 ml -580 ml Intake Oral 480 ml 360 ml 220 ml Output Urine Total 850 ml 800 ml # Voids 3 # Bowel Movements 1 0 . Laboratory Tests Test 05/27/17 05/28/17 06:04 06:35 White Blood Count 13.8 TH/MM3 13.1 TH/MM3 Red Blood Count 2.93 MIL/MM3 3.24 MIL/MM3 Hemoglobin 7.8 GM/DL 9.0 GM/DL Hematocrit 24.7 % 27.4 % Mean Corpuscular Volume 84.1 FL 84.4 FL Mean Corpuscular Hemoglobin 26.6 PG 27.8 PG Mean Corpuscular Hemoglobin 31.6 % 33.0 % Concent Red Cell Distribution Width 16.2 % 15.8 % Platelet Count 304 TH/MM3 329 TH/MM3 Mean Platelet Volume 8.1 FL 8.0 FL Neutrophils (%) (Auto) 84.0 % 80.6 % Lymphocytes (%) (Auto) 7.0 % 9.1 % Monocytes (%) (Auto) 7.8 % 8.2 % Eosinophils (%) (Auto) 0.8 % 1.3 % Basophils (%) (Auto) 0.4 % 0.8 % Neutrophils # (Auto) 11.6 TH/MM3 10.5 TH/MM3 Lymphocytes # (Auto) 1.0 TH/MM3 1.2 TH/MM3 Monocytes # (Auto) 1.1 TH/MM3 1.1 TH/MM3 Eosinophils # (Auto) 0.1 TH/MM3 0.2 TH/MM3 Basophils # (Auto) 0.1 TH/MM3 0.1 TH/MM3 CBC Comment DIFF FINAL DIFF FINAL Differential Comment Laboratory Tests Test 05/27/17 05/28/17 06:04 06:35 Sodium Level 141 MEQ/L 137 MEQ/L Potassium Level 3.5 MEQ/L 3.1 MEQ/L Chloride Level 109 MEQ/L 104 MEQ/L Carbon Dioxide Level 23.3 MEQ/L 21.7 MEQ/L Anion Gap 9 MEQ/L 11 MEQ/L Blood Urea Nitrogen 29 MG/DL 28 MG/DL Creatinine 2.50 MG/DL 2.33 MG/DL Estimat Glomerular Filtration 33 ML/MIN 36 ML/MIN Rate Random Glucose 105 MG/DL 124 MG/DL Calcium Level 8.1 MG/DL 8.2 MG/DL Phosphorus Level 3.0 MG/DL 3.4 MG/DL Albumin 2.1 GM/DL 2.2 GM/DL Imaging Hepatobiliary Scan Nuclear Medicine 05/22/17 0000 Signed Impressions: Service Date/Time: Monday, May 22, 2017 12:05 - CONCLUSION: 1. No uptake within the gallbladder. Delayed imaging will be obtained. 2. Small amount of biliary enteric reflux. Eloy Mcginnis MD ADDENDUM: COMPARISON: CT ABDOMEN & PELVIS W/O CONTRAST, May 16, 2017, 16:28. Delayed 24 our view does not demonstrate gallbladder therefore possibility of cystic duct obstruction and acute cholecystitis should be entertained. Armaan Tanner MD Chest X-Ray 05/19/17 0000 Signed Impressions: Service Date/Time: Friday, May 19, 2017 14:05 - CONCLUSION: Left IJ Vas cath in good position. Eudar Gross MD Chest X-Ray 05/17/17 0000 Signed Impressions: Service Date/Time: Wednesday, May 17, 2017 01:32 - CONCLUSION: 1. Right-sided central line in place. No pneumothorax. 2. Scattered areas of bilateral atelectasis. Abundio Allison MD Physical Exam GENERAL: Awake and alert, comfortable, NAD SKIN: Warm and dry. No generalized rash. HEAD: Atraumatic. Normocephalic. No temporal wasting, or tenderness. EYES: [place] conjunctiva. No petechia or hemorrhage. No scleral icterus. No injection or drainage. EARS, NOSE AND THROAT: Nose without bleeding or purulent nasal discharge. Moist mucosa NECK: Trachea midline. Supple and not tender, no meningeal signs CARDIOVASCULAR: Regular rate and rhythm. No murmurs, rubs or gallops heard RESPIRATORY: Coarse BS bilaterally. Decreased breath sounds at the bases. ABDOMEN: Soft, non-tender, nondistended. Bowel sounds present and normoactive. No guarding. No rebound. No organomegaly. GENITOURINARY: dressings in place EXTREMITIES: No clubbing, cyanosis, or edema. No calf tenderness. Well perfused and warm. 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, due to Carlos's gangrene - S/P debridement, has an extensive open wound - WBC worsening - on pressors - elevated creatinine due to sepsis, ?baseline not known - acidosis better Respiratory failure Renal failure, better - off HD; has good UO Known DM, HTN Elevated LFT, ?from sepsis, ?cholecystitis, ?cholangitis - HIDA (+) - LFTs improving - clinically no findings on exam to suggest acute kenia UC with Poornima Leukocytosis, improving Low grade temps may be related to CHF RECOMMENDATION Change to Rocephin and Flagyl - to decrease salt load from Zosyn Continue Diflucan, change to po Wound care per urology Follow Shanti Frederick MD May 28, 2017 13:52
[2017-05-28] MEDS: cefTRIAXone INJ 2,000 MG in SODIUM CHLORIDE 0.9% INJ 100 ML IV SCH (17:01)
[2017-05-28] MEDS: metroNIDAZOLE 500 MG TAB PO SCH ×2 (17:01→20:39)
[2017-05-28] MEDS: FLUCONAZOLE 200 MG TAB PO SCH (17:01)
[2017-05-29] VITALS (7 sets, daily range): BP systolic 131–196; BP diastolic 72–88; PULSE 82–114; RESP 18–20; TEMP 98–99.1; O2SAT 93–97
[2017-05-29] MEDS: METOPROLOL TARTRATE 25 MG TAB PO SCH ×5 (00:07→23:17)
[2017-05-29] MEDS: METOCLOPRAMIDE HCL 10 MG/2 ML VIAL IV PUSH SCH ×3 (01:42→16:57)
[2017-05-29] MEDS: CHLORHEXIDINE GLUCONATE 2 % 1 PACK (2 CLOTHS) TOP SCH (04:00)
[2017-05-29] MEDS: hydrALAZINE HCL 50 MG TAB PO SCH ×3 (05:42→21:08)
[2017-05-29] MEDS: metroNIDAZOLE 500 MG TAB PO SCH ×3 (05:42→21:08)
[2017-05-29] MEDS: HEPARIN SODIUM - SQ 10,000 UNITS/ML VIAL SQ SCH ×2 (05:42→16:57)
[2017-05-29] MEDS: INSULIN ASPART SUPPLEMENTAL SCALE SQ SCH ×4 (05:44→21:31)
[2017-05-29] MEDS: SODIUM CHLORIDE 0.9% FLUSH 10 ML FLUSH IV FLUSH SCH ×2 (08:51→21:08)
[2017-05-29] MEDS: INSULIN DETEMIR 100 UNITS/ML VIAL SQ SCH ×2 (08:55→21:31)
[2017-05-29] MEDS: SODIUM HYPOCHLORITE 0.125% 500 ML BTL TOPICAL SCH ×2 (08:56→21:00)
--- NOTE | 2017-05-29 10:01 | HHI.PR ---
Subjective Remarks Follow-up sepsis/Carlos disease 05/26/17-patient seen and examined, currently afebrile and denies any scrotal pain. Patient ambulated without any difficulty. Reports some formed stool. 05/27/17-patient seen and examined, currently on partial nonrebreather. Patient had an episode of fall yesterday. Currently patient with a dry cough. Hemoglobin dropping. BP up 05/28/17-patient seen and examined, currently on 6L nasal cannula and denies any significant shortness of breath. Afebrile. Treated with Bumex yesterday. Blood pressure slightly up. 05/29/17-patient seen and examined, stable however still on nasal cannula 6 L oxygen. Afebrile in no acute event overnight Objective Vitals Vital Signs Date Time Temp Pulse Resp B/P Pulse Ox O2 Delivery O2 Flow Rate FiO2 05/29/17 08:00 98.8 85 20 158/76 97 05/29/17 04:00 98.6 82 18 154/76 95 05/29/17 04:00 Nasal Cannula 6.00 05/29/17 00:00 98.0 90 18 131/72 95 05/29/17 00:00 94 Nasal Cannula 6.00 05/28/17 20:00 99.0 84 20 168/82 94 05/28/17 20:00 94 Nasal Cannula 6.00 05/28/17 17:13 95 Nasal Cannula 6.00 05/28/17 16:00 99.3 81 18 157/86 81 05/28/17 12:00 100.1 99 18 195/84 95 I/O 05/28/17 05/28/17 05/28/17 05/29/17 05/29/17 05/29/17 06:59 14:59 22:59 06:59 14:59 22:59 Intake Total 220 ml 480 ml Output Total 800 ml 1200 ml 400 ml Balance -580 ml -720 ml -400 ml Intake Oral 220 ml 480 ml Output Urine Total 800 ml 1200 ml 400 ml # Bowel Movements 0 Result Diagram: 05/28/1763405/28/17634 Objective Remarks GENERAL: NAD SKIN: Warm and dry. HEAD: Normocephalic. EYES: No scleral icterus. No injection or drainage. NECK: Supple, trachea midline. No JVD or lymphadenopathy. CARDIOVASCULAR: Regular rate and rhythm without murmurs, gallops, or rubs. RESPIRATORY: Breath sounds decreased bilaterally. No accessory muscle use. GASTROINTESTINAL: Abdomen soft, non-tender, nondistended. MUSCULOSKELETAL: No cyanosis, or edema. : dressing over scrotum BACK: Nontender without obvious deformity. No CVA tenderness. A/P Problem List: (1) Carlos gangrene ICD Code: N49.3 Status: Acute (2) Poorly controlled diabetes mellitus ICD Code: E11.65 Status: Acute (3) Anemia of chronic disease ICD Code: D63.8 Status: Acute (4) Dyspnea ICD Code: R06.00 Status: Acute (5) Hypoxia ICD Code: R09.02 Status: Acute Assessment and Plan 51-year-old man with Severe sepsis - Carlos's gangrene Candiduria Status post Piperacillin/tazobactam 2.25 g IV daily 8 hours and now on Rocephin and Flagyl, continue by mouth Diflucan Infectious disease following 05/20 - urine -tracee 05/16 - wound - Klebsiella/strep not A, ,D Status post I&D with debridement of scrotum and perineum - Dr. Lopes 05/16 Status post reexploration of perineum 05/18 - Dr. Lopes -Will likely need plastics at some point when available -BID dressing changes with Dakin's sodium hypochlorite 0.125% History of hypertension- -Continue with hydralazine 100 mg daily Q8H and Lopressor Q8H Continue to hold lisinopril 10 mg by mouth daily light of elevated creatinine Dyspnea with hypoxia Currently on 6 L nasal cannula Chest x-ray 05/27/17 Continue with DuoNeb when necessary, Bumex Anemia of chronic disease Transfused 1 unit packed red blood cell 05/27/17 and H&H stable Monitor H&H Elevated transaminases Positive HIDA scan - acute kenia cystitis? Hypoalbuminemia Famotidine 10 mg IV twice a day for GI prophylaxis discontinued Docusate sodium/senna 100 mg/8.6 mg 1 tablet twice a day for bowel regimen HIDA positive for nonvisualization of gallbladder/ probable acute cholecystitis Repeat liver/gallbladder ultrasound noted 05/26 ROBERTO -He had required hemodialysis 3 and now in recovery phase Avoid nephrotoxic drugs Appreciate input from nephrology DM-2 Currently on insulin detemir 20 units subcutaneous twice a day BID and Insulin aspart SSI before meals/at bedtime. Holding metformin 500 mg by mouth twice a day Hypokalemia Hyper-magnesium Replace electrolyte accordingly Prophylaxis. -Heparin 5 thousand units subcutaneous q12h. Eloy Cuadra MD May 29, 2017 10:01
[2017-05-29] MEDS: cefTRIAXone INJ 2,000 MG in SODIUM CHLORIDE 0.9% INJ 100 ML IV SCH (16:06)
[2017-05-29] MEDS ORDERED: POTASSIUM CHLORIDE 10 MEQ CONTROLLED RELEASE TAB PO ONE (16:30)
--- NOTE | 2017-05-29 16:33 | HHI.NPPN ---
Subjective Renal Failure: Acute Review of Systems General Constitutional: Fever, Fatigue Respiratory Lungs: SOB Objective Data Data 05/28/17 05/29/17 19:00 07:00 Intake Total 480 ml Output Total 1200 ml 400 ml Balance -720 ml -400 ml Intake Oral 480 ml Output Urine Total 1200 ml 400 ml Vital Signs Date Time Temp Pulse Resp B/P Pulse Ox O2 Delivery O2 Flow Rate FiO2 05/29/17 14:30 97 Nasal Cannula 3.00 05/29/17 12:00 98.8 90 20 160/74 97 05/29/17 08:00 98.8 85 20 158/76 97 05/29/17 08:00 Nasal Cannula 6.00 05/29/17 04:00 98.6 82 18 154/76 95 05/29/17 04:00 Nasal Cannula 6.00 05/29/17 00:00 98.0 90 18 131/72 95 05/29/17 00:00 94 Nasal Cannula 6.00 05/28/17 20:00 99.0 84 20 168/82 94 05/28/17 20:00 94 Nasal Cannula 6.00 05/28/17 17:13 95 Nasal Cannula 6.00 -: 05/28/17 0635 05/28/17 0635 Drip Comment none Physical Exam General Appearance: Well Developed, Well Nourished, No Acute Distress, Comfortable Eyes Eye Exam: Pupils Equal Throat Throat Exam: Oral Mucosa [place] & Moist Neck Neck Exam: Neck Supple Pulmonary Resp Exam: Breath Sounds Equal, No Distress, Poor Inspiratory Effort Cardiology CV Exam: Regular, Normal Sinus Rhythm Gastrointestinal/Abdomen GI Exam: Soft, Non-Tender, Bowel Sounds Present Musculoskeletal MS Exam: Joints Intact, Normal Tone, Good Strength Integumentary Skin Exam: Warm, Dry Extremeties Extremities Exam: No Edema, Pedal Pulses Palpable Neurologic Neuro Exam: Alert, Awake, Oriented, Speech Clear, Moving All Extremities Psychiatric Psych Exam: Appropriate Responses VTE Prophylaxis Device: SCDs Assessment/Plan Discussed Condition With: Patient, Relative Assessment Summary: ROBERTO/Acute Renal Failure, Acute Tubular Necrosis, Hypertension, Diabetes Mellitus Problem List: (1) Acute renal failure Plan: ROBERTO secondary to ATN from sepsis he required three HD treatments , 05/22 last HD now in recovery phase, creatinine continues to improve continue to monitor renal function ered removed, excellent urine output given bumex yesterday low K replace (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 ID following, he is on fluconazole with Zosyn. continue Wound care. potential skin graft in the future rectal tube has been removed (3) Poorly controlled diabetes mellitus Plan: continue insulin as ordered monitor glucose , goal 140-180 mg/dL. (4) Anemia Plan: Hb improved he was transfused 1 unit 05/27 monitor for changes (5) Sepsis Plan: ID following, current Carlos's as above also has developed acute cholecystitis, see below antibiotics as ordered monitor clinically, he has developed fevers, persistent leukocytosis (6) Cholecystitis Plan: US revealed gall stones, distended gall bladder HIDA reviewed ID and surgery following, appreciate recommendations Problem Qualifiers (1) Acute renal failure: Qualified Code: N17.0 - Acute renal failure with tubular necrosis Neha Mendoza MD May 29, 2017 16:33
[2017-05-29] MEDS: FLUCONAZOLE 200 MG TAB PO SCH (16:56)
[2017-05-29] MEDS ORDERED: guaiFENesin/DEXTROMETHORPHAN 200 MG/20 MG/10 ML CUP PO ONE (22:15)
[2017-05-30] VITALS (9 sets, daily range): BP systolic 148–186; BP diastolic 76–89; PULSE 80–96; RESP 16–19; TEMP 97.7–99.5; O2SAT 18–97
[2017-05-30] MEDS: METOCLOPRAMIDE HCL 10 MG/2 ML VIAL IV PUSH SCH ×2 (02:50→10:27)
[2017-05-30] MEDS: CHLORHEXIDINE GLUCONATE 2 % 1 PACK (2 CLOTHS) TOP SCH (04:00)
[2017-05-30] MEDS: hydrALAZINE HCL 20 MG/ML VIAL IV PRN (05:15)
[2017-05-30] MEDS: HEPARIN SODIUM - SQ 10,000 UNITS/ML VIAL SQ SCH ×2 (05:47→17:28)
[2017-05-30] MEDS: metroNIDAZOLE 500 MG TAB PO SCH ×3 (05:47→21:09)
[2017-05-30] MEDS: hydrALAZINE HCL 50 MG TAB PO SCH ×3 (05:47→21:09)
[2017-05-30] MEDS: METOPROLOL TARTRATE 25 MG TAB PO SCH (05:48)
[2017-05-30] MEDS: INSULIN ASPART SUPPLEMENTAL SCALE SQ SCH ×4 (05:52→21:00)
[2017-05-30] MEDS: SODIUM HYPOCHLORITE 0.125% 500 ML BTL TOPICAL SCH ×2 (10:27→21:00)
[2017-05-30] MEDS: INSULIN DETEMIR 100 UNITS/ML VIAL SQ SCH ×2 (10:31→21:39)
[2017-05-30] MEDS: SODIUM CHLORIDE 0.9% FLUSH 10 ML FLUSH IV FLUSH SCH ×2 (10:32→21:12)
[2017-05-30] MEDS ORDERED: METOPROLOL TARTRATE 50 MG TAB PO ONE (10:45)
[2017-05-30] MEDS ORDERED: METOPROLOL TARTRATE 25 MG TAB PO ONE (10:45)
[2017-05-30 12:27] LABS: AUTOMATED NEUTROPHIL # 7.6 TH/MM3 (1.8-7.7); BASOPHIL # 0.1 TH/MM3 (0-0.2); BASOPHIL % 1.2 % (0.0-2.0); EOSINOPHIL # 0.1 TH/MM3 (0-0.4); EOSINOPHIL % 0.9 % (0.0-4.0); HEMATOCRIT 26.6 % (39.0-51.0); HEMO FLAGS DIFF FINAL; LYMPHOCYTE # 1.1 TH/MM3 (1.0-4.8); MEAN CELL VOLUME 82.7 FL (80.0-100.0); MEAN CORPUSCULAR HEMOGLOBIN 29.2 PG (27.0-34.0); MEAN CORPUSCULAR HGB CONC 35.2 % (32.0-36.0); MONO % 8.5 % (0.0-8.0); NEUT % 78.4 % (16.0-70.0); PLATELET COUNT 252 TH/MM3 (150-450); RED BLOOD COUNT 3.22 MIL/MM3 (4.50-5.90); RED CELL DISTRIBUTION WIDTH 16.1 % (11.6-17.2); WHITE BLOOD COUNT 9.7 TH/MM3 (4.0-11.0)
[2017-05-30 12:38] LABS: POTASSIUM 3.9 MEQ/L (3.5-5.1)
--- NOTE | 2017-05-30 13:00 | HHI.PR ---
Subjective Remarks Follow-up sepsis/Carlos disease 05/26/17-patient seen and examined, currently afebrile and denies any scrotal pain. Patient ambulated without any difficulty. Reports some formed stool. 05/27/17-patient seen and examined, currently on partial nonrebreather. Patient had an episode of fall yesterday. Currently patient with a dry cough. Hemoglobin dropping. BP up 05/28/17-patient seen and examined, currently on 6L nasal cannula and denies any significant shortness of breath. Afebrile. Treated with Bumex yesterday. Blood pressure slightly up. 05/29/17-patient seen and examined, stable however still on nasal cannula 6 L oxygen. Afebrile in no acute event overnight 05/30/17-patient seen and examined, had coughing spells overnight otherwise stable today. No chest pain or shortness of breath. Objective Vitals Vital Signs Date Time Temp Pulse Resp B/P Pulse Ox O2 Delivery O2 Flow Rate FiO2 05/30/17 10:00 Room Air 05/30/17 08:15 Nasal Cannula 2.00 05/30/17 08:00 99.4 86 16 165/76 95 05/30/17 05:45 148/89 05/30/17 05:07 Nasal Cannula 2.00 93 Humidified 05/30/17 05:07 98.5 89 18 184/84 18 05/30/17 04:29 92 Nasal Cannula 2.00 05/30/17 00:55 98.7 94 18 179/84 91 05/30/17 00:55 Nasal Cannula 2.00 Humidified 05/29/17 20:00 Nasal Cannula 2.00 Humidified 05/29/17 20:00 98.2 90 20 196/86 93 05/29/17 16:00 Nasal Cannula 2.00 Humidified 05/29/17 16:00 98.3 90 20 173/88 95 05/29/17 14:30 97 Nasal Cannula 3.00 I/O 05/29/17 05/29/17 05/29/17 05/30/17 05/30/17 05/30/17 07:00 15:00 23:00 07:00 15:00 23:00 Intake Total 570 ml Output Total 400 ml 400 ml 400 ml Balance -400 ml 170 ml -400 ml Intake Oral 460 ml IV Total 110 ml Output Urine Total 400 ml 400 ml 400 ml # Voids 0 # Bowel Movements 1 0 0 Result Diagram: 05/30/17 1203 05/30/17 1203 Imaging Last Impressions Chest X-Ray 05/27/17 0000 Signed Impressions: Service Date/Time: May 09:54 - CONCLUSION: Worsening bibasilar infiltrates. Lei Moreno Jr., MD Gall Bladder Ultrasound 05/26/17 0000 Signed Impressions: Service Date/Time: Thursday, May 25, 2017 17:11 - CONCLUSION: Distended sludge-filled gallbladder with gallbladder wall thickening. Overall degree of gallbladder distention is largely unchanged from prior ultrasound exam although there is increased wall thickening. Trace pericholecystic fluid has resolved in the interval. HIDA scan performed 3 days ago demonstrates no filling of the gallbladder at 24 hours. Findings are consistent with acute cholecystitis likely secondary to cystic duct obstruction with mild interval improvement following antibiotic therapy. Royal Alfaro MD Hepatobiliary Scan Nuclear Medicine 05/22/17 0000 Signed Impressions: Service Date/Time: Monday, May 22, 2017 12:05 - CONCLUSION: 1. No uptake within the gallbladder. Delayed imaging will be obtained. 2. Small amount of biliary enteric reflux. Eloy Mcginnis MD ADDENDUM: COMPARISON: CT ABDOMEN & PELVIS W/O CONTRAST, May 16, 2017, 16:28. Delayed 24 our view does not demonstrate gallbladder therefore possibility of cystic duct obstruction and acute cholecystitis should be entertained. Armaan Tanner MD Objective Remarks GENERAL: NAD SKIN: Warm and dry. HEAD: Normocephalic. EYES: No scleral icterus. No injection or drainage. NECK: Supple, trachea midline. No JVD or lymphadenopathy. CARDIOVASCULAR: Regular rate and rhythm without murmurs, gallops, or rubs. RESPIRATORY: Breath sounds decreased bilaterally. No accessory muscle use. GASTROINTESTINAL: Abdomen soft, non-tender, nondistended. MUSCULOSKELETAL: No cyanosis, or edema. : dressing over scrotum BACK: Nontender without obvious deformity. No CVA tenderness. A/P Problem List: (1) Carlos gangrene ICD Code: N49.3 Status: Acute (2) Poorly controlled diabetes mellitus ICD Code: E11.65 Status: Acute (3) Anemia of chronic disease ICD Code: D63.8 Status: Acute (4) Dyspnea ICD Code: R06.00 Status: Acute (5) Hypoxia ICD Code: R09.02 Status: Acute Assessment and Plan 51-year-old man with Severe sepsis - Carlos's gangrene Candiduria Continue Rocephin and Flagyl, continue by mouth Diflucan Infectious disease following 05/20 - urine -tracee 05/16 - wound - Klebsiella/strep not A, ,D Status post I&D with debridement of scrotum and perineum - Dr. Lopes 05/16 Status post reexploration of perineum 05/18 - Dr. Lopes -Will likely need plastics at some point when available -BID dressing changes with Dakin's sodium hypochlorite 0.125% History of hypertension- -Continue with hydralazine 100 mg daily Q8H and Lopressor Q8H Continue to hold lisinopril 10 mg by mouth daily light of elevated creatinine Dyspnea with hypoxia Currently on 6 L nasal cannula Chest x-ray 05/27/17 Continue with DuoNeb when necessary, Bumex Anemia of chronic disease Transfused 1 unit packed red blood cell 05/27/17 and H&H stable Monitor H&H Elevated transaminases Positive HIDA scan - acute kenia cystitis? Hypoalbuminemia Famotidine 10 mg IV twice a day for GI prophylaxis discontinued Docusate sodium/senna 100 mg/8.6 mg 1 tablet twice a day for bowel regimen HIDA positive for nonvisualization of gallbladder/ probable acute cholecystitis Repeat liver/gallbladder ultrasound noted 05/26 ROBERTO Renal indices improving, creatinine down to 1.92 -He had required hemodialysis 3 and now in recovery phase Avoid nephrotoxic drugs Appreciate input from nephrology DM-2 Currently on insulin detemir 20 units subcutaneous twice a day BID and Insulin aspart SSI before meals/at bedtime. Continue Holding metformin 500 mg by mouth twice a day Hypokalemia Hyper-magnesium Replace electrolyte accordingly Prophylaxis. -Heparin 5 thousand units subcutaneous q12h. Eoly Cuadra MD May 30, 2017 13:00
[2017-05-30] MEDS: cefTRIAXone INJ 2,000 MG in SODIUM CHLORIDE 0.9% INJ 100 ML IV SCH (15:18)
[2017-05-30] MEDS: FLUCONAZOLE 200 MG TAB PO SCH (17:27)
[2017-05-30] MEDS: METOPROLOL TARTRATE 100 MG TAB PO SCH (21:09)
[2017-05-30] MEDS: BENZONATATE 100 MG CAP PO PRN (21:10)
[2017-05-30] MEDS: guaiFENesin/DEXTROMETHORPHAN 200 MG/20 MG/10 ML CUP PO PRN (23:15)
[2017-05-31] VITALS (17 sets, daily range): BP systolic 161–204; BP diastolic 77–102; PULSE 78–108; RESP 18–23; TEMP 97.6–99.3; O2SAT 90–99
[2017-05-31 00:45] LABS: BLOOD GAS BASE EXCESS -1.9 mmol/L (-2-2); BLOOD GAS CARBOXYHEMOGLOBIN 1.9 % (0-4); BLOOD GAS HCO3 21 mmol/L (22-26); BLOOD GAS METHEMOGLOBIN 0.9 % (0-2); BLOOD GAS O2 HGB SATURATION 86 % (90-100); BLOOD GAS OXYGEN CONTENT 11.6 Vol % (12.0-20.0); BLOOD GAS PCO2 28 mmHg (38-42); BLOOD GAS PO2 55 mmHg (61-120); BLOOD GAS TOTAL HGB 9.5 G/DL (12.0-16.0); TEMP CORR TO 98.6
[2017-05-31 00:46] LABS: CRITICAL VALUE YES; DRAW SITE RT RADIAL; LITER FLOW 5 L/M; NUMBER OF ARTERIAL PUNCTURES 1; OXYGEN DEVICE NASAL CANNULA; STAT YES; ULNAR PULSE PRESENT
[2017-05-31] MEDS ORDERED: RESP: ALBUTEROL 2.5 MG/IPRATROPIUM 0.5 MG NEB (SCH) NEB ONE (01:00)
[2017-05-31] MEDS ORDERED: Vancomycin Consult Pharmacy 1 EA OTHER SCH (01:00)
[2017-05-31] MEDS ORDERED: RESP: ACETYLCYSTEINE 20% 30 ML NEB NEB ONE (01:00)
--- NOTE | 2017-05-31 01:26 | RADRPT ---
EXAM DATE/TIME: 05/31/2017 00:36 [facility] COMPARISON: CHEST SINGLE AP, May 27, 2017, 9:54. INDICATIONS : Shortness of breath. Follow-up known pulmonary infiltrates. Hypoxia. MEDICAL HISTORY : None. SURGICAL HISTORY : None. ENCOUNTER: Subsequent ACUITY: 2 weeks PAIN SCORE: 0/10 LOCATION: Bilateral chest FINDINGS: A single AP erect portable view of the chest was obtained and demonstrates increasing consolidation i n the right upper lobe and perihilar regions. The heart size remains at the upper limits of normal an d there is no evidence of effusion. The bony thorax is intact. CONCLUSION: Increasing consolidation in the right upper lobe and perihilar regions. Ajay Benitez MD on May 31, 2017 at 1:23 Board Certified Radiologist. This report was verified electronically.
[2017-05-31] MEDS ORDERED: VANCOMYCIN INJ 1,750 MG in SODIUM CHLORID 0.9% 500 ML INJ 500 ML IV ONE (02:00)
[2017-05-31] MEDS: SODIUM CHLORIDE 0.9% FLUSH 10 ML FLUSH PRN (02:35)
[2017-05-31] MEDS: CEFEPIME INJ 2,000 MG in SODIUM CHLORIDE 0.9% INJ 100 ML IV SCH ×2 (02:35→11:35)
[2017-05-31 03:56] LABS: AUTOMATED NEUTROPHIL # 9.3 TH/MM3 (1.8-7.7); BASOPHIL # 0.1 TH/MM3 (0-0.2); BASOPHIL % 0.5 % (0.0-2.0); EOSINOPHIL # 0.1 TH/MM3 (0-0.4); EOSINOPHIL % 0.5 % (0.0-4.0); HEMATOCRIT 28.6 % (39.0-51.0); HEMO FLAGS DIFF FINAL; LYMPH % 6.7 % (9.0-44.0); LYMPHOCYTE # 0.7 TH/MM3 (1.0-4.8); MEAN CORPUSCULAR HEMOGLOBIN 27.7 PG (27.0-34.0); MEAN CORPUSCULAR HGB CONC 32.5 % (32.0-36.0); MONO % 7.4 % (0.0-8.0); NEUT % 84.9 % (16.0-70.0); PLATELET COUNT 252 TH/MM3 (150-450); RED BLOOD COUNT 3.36 MIL/MM3 (4.50-5.90); RED CELL DISTRIBUTION WIDTH 15.9 % (11.6-17.2); WHITE BLOOD COUNT 10.9 TH/MM3 (4.0-11.0)
[2017-05-31] MEDS: hydrALAZINE HCL 20 MG/ML VIAL IV PRN (04:00)
[2017-05-31 04:17] LABS: BICARBONATE 20.1 MEQ/L (21.0-32.0); POTASSIUM 3.6 MEQ/L (3.5-5.1)
[2017-05-31] MEDS: RESP: ALBUTEROL 2.5 MG/IPRATROPIUM 0.5 MG NEB (PRN) INH ×2 (04:17)
[2017-05-31] MEDS ORDERED: POTASSIUM CHLORIDE 20 MEQ CONTROLLED RELEASE TAB PO ONE (05:00)
[2017-05-31] MEDS ORDERED: FUROSEMIDE 40 MG/4 ML VIAL IV PUSH ONE (05:00)
[2017-05-31] MEDS: HEPARIN SODIUM - SQ 10,000 UNITS/ML VIAL SQ SCH ×2 (05:09→17:01)
[2017-05-31] MEDS: INSULIN ASPART SUPPLEMENTAL SCALE SQ SCH ×4 (05:19→20:51)
[2017-05-31] MEDS: hydrALAZINE HCL 50 MG TAB PO SCH ×3 (06:08→20:52)
[2017-05-31] MEDS: metroNIDAZOLE 500 MG TAB PO SCH ×3 (06:08→20:52)
[2017-05-31] MEDS ORDERED: cloNIDine HCL 0.1 MG TAB PO ONE (06:30)
[2017-05-31 06:52] LABS: BLOOD GAS BASE EXCESS -4.8 mmol/L (-2-2); BLOOD GAS CARBOXYHEMOGLOBIN 1.4 % (0-4); BLOOD GAS HCO3 19 mmol/L (22-26); BLOOD GAS METHEMOGLOBIN 0.8 % (0-2); BLOOD GAS O2 HGB SATURATION 97 % (90-100); BLOOD GAS OXYGEN CONTENT 18.3 Vol % (12.0-20.0); BLOOD GAS PCO2 30 mmHg (38-42); BLOOD GAS PO2 173 mmHg (61-120); BLOOD GAS TOTAL HGB 13.2 G/DL (12.0-16.0); CRITICAL VALUE NO; TEMP CORR TO 98.6
[2017-05-31 06:53] LABS: DRAW SITE LT RADIAL; FIO2 100 %; LITER FLOW 15 L/M; NUMBER OF ARTERIAL PUNCTURES 1; STAT NO; ULNAR PULSE PRESENT
[2017-05-31] MEDS: SODIUM CHLORIDE 0.9% FLUSH 10 ML FLUSH IV FLUSH SCH ×2 (09:23→20:52)
[2017-05-31] MEDS: METOPROLOL TARTRATE 100 MG TAB PO SCH ×2 (09:23→20:52)
[2017-05-31] MEDS: SODIUM HYPOCHLORITE 0.125% 500 ML BTL TOPICAL SCH ×2 (09:23→20:54)
[2017-05-31] MEDS: INSULIN DETEMIR 100 UNITS/ML VIAL SQ SCH ×2 (09:35→20:51)
--- NOTE | 2017-05-31 10:37 | HHI.NPPN ---
Subjective Renal Failure: Acute Interval History at bedside. Apparently the patient became hypoxic last night, ABG drawn. He was placed on 100% NRB, symptoms improved. He was given Lasix. (Latha Friedman) Review of Systems General Constitutional: Fatigue General Remarks no fever/chills (Latha Friedman) Respiratory Lungs: SOB Respiratory Remarks no coughing (Latha Friedman) Objective Data Data 05/30/17 05/31/17 19:00 07:00 Intake Total 722 ml 1570 ml Output Total 800 ml 2000 ml Balance -78 ml -430 ml Intake Oral 720 ml 920 ml IV Total 2 ml 650 ml Output Urine Total 800 ml 2000 ml # Voids 2 # Bowel Movements 0 Vital Signs Date Time Temp Pulse Resp B/P Pulse Ox O2 Delivery O2 Flow Rate FiO2 05/31/17 10:22 92 Venturi Mask 6.00 50 05/31/17 10:03 92 Venturi Mask 50 05/31/17 09:09 98 Partial Rebreather 10.00 05/31/17 08:00 98 Partial Non-Rebreather 11.00 05/31/17 06:08 200/94 204/88 05/31/17 04:50 202/98 05/31/17 04:39 96 Non-Rebreather 15.00 100 05/31/17 03:52 198/102 05/31/17 03:52 Partial Non-Rebreather 05/31/17 03:39 97.6 95 23 190/88 95 05/31/17 01:57 96 Partial Rebreather 15.00 05/31/17 01:32 93 Simple Mask 10.00 05/31/17 01:30 Simple Mask 10.00 05/31/17 01:30 21 167/84 92 05/31/17 00:55 93 Simple Mask 10.00 05/31/17 00:02 90 Nasal Cannula 5.00 05/31/17 00:00 98.8 85 20 180/89 91 05/31/17 00:00 Nasal Cannula 5.00 Humidified 05/30/17 23:50 87 Nasal Cannula 3.00 05/30/17 21:01 97 21 05/30/17 20:32 Nasal Cannula 2.00 93 Humidified 05/30/17 20:00 99.5 96 19 186/84 89 05/30/17 20:00 Room Air 05/30/17 16:00 Room Air 05/30/17 16:00 98.9 80 19 172/83 96 05/30/17 12:00 97.7 89 16 161/79 94 05/30/17 12:00 Room Air (Latha Friedman) -: 05/31/17 0336 05/31/17 0336 Imaging Last 72 hours Impressions Chest X-Ray 05/31/17 0000 Signed Impressions: Service Date/Time: Wednesday, May 31, 2017 00:36 - CONCLUSION: Increasing consolidation in the right upper lobe and perihilar regions. Ajay Benitez MD Drip Comment none (Latha Friedman) Physical Exam General Appearance: Well Developed, Well Nourished, No Acute Distress, Comfortable ( Latha Friedman) Eyes Eye Exam: Pupils Equal (Latha Friedman) Throat Throat Exam: Oral Mucosa [place] & Moist (Latha Friedman) Neck Neck Exam: Neck Supple (Latha Friedman) Pulmonary Resp Exam: Breath Sounds Equal, No Distress, Crackles, Poor Inspiratory Effort Resp Remarks no wheezing (Latha Friedman) Cardiology CV Exam: Regular, Normal Sinus Rhythm, Good Perfusion (Latha Friedman) Gastrointestinal/Abdomen GI Exam: Soft, Non-Tender, Bowel Sounds Present (Latha Friedman) Musculoskeletal MS Exam: Joints Intact, Normal Tone, Good Strength (Latha Friedman) Integumentary Skin Exam: Warm, Dry Skin Remarks perineal wounds, buttock wound (Latha Firedman) Extremeties Extremities Exam: No Edema, Pedal Pulses Palpable (Latha Friedman) Neurologic Neuro Exam: Alert, Awake, Oriented, Speech Clear, Moving All Extremities ( Latha Friedman) Psychiatric Psych Exam: Appropriate Responses (Latha Friedman) VTE Prophylaxis Device: SCDs (Latha Friedman) Assessment/Plan Discussed Condition With: Patient, Spouse Assessment Summary: ROBERTO/Acute Renal Failure, Acute Tubular Necrosis, Hypertension, Diabetes Mellitus Problem List: (1) Acute renal failure Plan: resolving ATN from sepsis he required three HD treatments , 05/22 last HD now in recovery phase, creatinine has stabilized continue to monitor renal function he is non oliguric start Bumex 2 mg Q12, first dose now follow fluids status avoid IVF, nephrotoxins (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 ID following, antibiotics changed: on Flagyl po, cefepime, Diflucan Vancomycin, Zosyn, and Rocephin have been stopped continue Wound care, pain control may need potential skin graft in the future (3) Poorly controlled diabetes mellitus Plan: continue insulin as ordered monitor glucose , goal 140-180 mg/dL. (4) Sepsis Plan: ID following, current Carlos's as above also has developed acute cholecystitis, see below antibiotics as ordered monitor clinically, he is afebrile (5) Cholecystitis Plan: US revealed gall stones, distended gall bladder HIDA reviewed, LFTs improving ID and surgery following, non surgical management at this time appreciate recommendations (6) Anemia Plan: Hb stable he was transfused 1 unit 05/27 monitor for changes (7) Hypertension Plan: hypertensive this morning on hydralazine, metoprolol ordered Norvasc, Bumex follow and titrate as needed (Latha Friedman) Plan patient was seen and examined. CXR reviewed, he has diffuse bilateral infiltrates. Pneumonia? CHF. Trial of diuretics. Monitor. (Ernesto Montano MD) Problem Qualifiers (1) Acute renal failure: Qualified Code: N17.0 - Acute renal failure with tubular necrosis Latha Friedman May 31, 2017 10:37 Ernesto Montano MD Jun 01, 2017 09:56
--- NOTE | 2017-05-31 12:29 | HHI.IDPN ---
Subjective Subjective Remarks Patient is a 51-year-old male, with diabetes, presented initially to the [place] emergency room complaining of generalized weakness and fevers. Symptoms have been present for about a week and a half now. He apparently also noted a little pimple in his left gluteal area about the same time, and it progressively worsened and increase in size and the area involved spread to his scrotum. His had some fevers associated with chills and night sweats at home. Patient has no problem with dysuria, frequency or urination. No nausea or vomiting. Patient however has had problem with no dysuria, and decreased urinary stream. Patient has not had any problems similar to his current symptomatology. In the emergency room he had an elevated white count of 17,000 , febrile, and was acidotic. CT of the abdomen and pelvis showed significant amount of air in the patient's left gluteal area extending through his perineum up into his scrotum. He was transferred to the main hospital, in the ICU, and was seen by her urology. Surgery was done emergently. Patient currently is on the vent, and on Levophed. He is awake and alert and interactive. Highest temperature since admission is 101.8. His his last WBC is 20.8. Creatinine is also elevated. Lactic acid is down to normal. Notes reviewed Temps ok Had increased SOB early AM, got diuresed, better now On FM now Good UO Creatinine better Diarrhea has resolved New Abx ordered WBC normal CXR CHF BNP elevated Completed Diflucan No abdominal pain Antibiotics Cefepime Flagyl Vanco Past Medical History reviewed Allergies: Coded Allergies: No Known Allergies (Unverified , 05/16/17) Objective . Vital Signs Date Time Temp Pulse Resp B/P Pulse Ox O2 Delivery O2 Flow Rate FiO2 05/31/17 10:22 92 Venturi Mask 6.00 50 05/31/17 10:03 92 Venturi Mask 50 05/31/17 09:09 98 Partial Rebreather 10.00 05/31/17 08:00 98 Partial Non-Rebreather 11.00 05/31/17 06:08 200/94 204/88 05/31/17 04:50 202/98 05/31/17 04:39 96 Non-Rebreather 15.00 100 05/31/17 03:52 198/102 05/31/17 03:52 Partial Non-Rebreather 05/31/17 03:39 97.6 95 23 190/88 95 05/31/17 01:57 96 Partial Rebreather 15.00 05/31/17 01:32 93 Simple Mask 10.00 05/31/17 01:30 Simple Mask 10.00 05/31/17 01:30 21 167/84 92 05/31/17 00:55 93 Simple Mask 10.00 05/31/17 00:02 90 Nasal Cannula 5.00 05/31/17 00:00 98.8 85 20 180/89 91 05/31/17 00:00 Nasal Cannula 5.00 Humidified 05/30/17 23:50 87 Nasal Cannula 3.00 05/30/17 21:01 97 21 05/30/17 20:32 Nasal Cannula 2.00 93 Humidified 05/30/17 20:00 99.5 96 19 186/84 89 05/30/17 20:00 Room Air 05/30/17 16:00 Room Air 05/30/17 16:00 98.9 80 19 172/83 96 05/30/17 05/30/17 05/31/17 15:00 23:00 07:00 Intake Total 722 ml 740 ml 830 ml Output Total 800 ml 850 ml 1150 ml Balance -78 ml -110 ml -320 ml Intake Oral 720 ml 740 ml 180 ml IV Total 2 ml 650 ml Output Urine Total 800 ml 850 ml 1150 ml # Voids 2 # Bowel Movements 0 0 . Laboratory Tests Test 05/30/17 05/31/17 12:03 03:36 White Blood Count 9.7 TH/MM3 10.9 TH/MM3 Red Blood Count 3.22 MIL/MM3 3.36 MIL/MM3 Hemoglobin 9.4 GM/DL 9.3 GM/DL Hematocrit 26.6 % 28.6 % Mean Corpuscular Volume 82.7 FL 85.0 FL Mean Corpuscular Hemoglobin 29.2 PG 27.7 PG Mean Corpuscular Hemoglobin 35.2 % 32.5 % Concent Red Cell Distribution Width 16.1 % 15.9 % Platelet Count 252 TH/MM3 252 TH/MM3 Mean Platelet Volume 9.3 FL 8.5 FL Neutrophils (%) (Auto) 78.4 % 84.9 % Lymphocytes (%) (Auto) 11.0 % 6.7 % Monocytes (%) (Auto) 8.5 % 7.4 % Eosinophils (%) (Auto) 0.9 % 0.5 % Basophils (%) (Auto) 1.2 % 0.5 % Neutrophils # (Auto) 7.6 TH/MM3 9.3 TH/MM3 Lymphocytes # (Auto) 1.1 TH/MM3 0.7 TH/MM3 Monocytes # (Auto) 0.8 TH/MM3 0.8 TH/MM3 Eosinophils # (Auto) 0.1 TH/MM3 0.1 TH/MM3 Basophils # (Auto) 0.1 TH/MM3 0.1 TH/MM3 CBC Comment DIFF FINAL DIFF FINAL Differential Comment Hematology Comments Laboratory Tests Test 05/30/17 05/31/17 12:03 03:36 Sodium Level 141 MEQ/L 142 MEQ/L Potassium Level 3.9 MEQ/L 3.6 MEQ/L Chloride Level 110 MEQ/L 110 MEQ/L Carbon Dioxide Level 20.0 MEQ/L 20.1 MEQ/L Anion Gap 11 MEQ/L 12 MEQ/L Blood Urea Nitrogen 22 MG/DL 23 MG/DL Creatinine 1.92 MG/DL 1.90 MG/DL Estimat Glomerular Filtration 45 ML/MIN 46 ML/MIN Rate Random Glucose 91 MG/DL 85 MG/DL Calcium Level 8.0 MG/DL 8.1 MG/DL Lactic Acid Level 0.8 mmol/L Magnesium Level 2.0 MG/DL B-Type Natriuretic Peptide 408 PG/ML Imaging Chest X-Ray 05/31/17 0000 Signed Impressions: Service Date/Time: Wednesday, May 31, 2017 00:36 - CONCLUSION: Increasing consolidation in the right upper lobe and perihilar regions. Ajay Benitez MD Hepatobiliary Scan Nuclear Medicine 05/22/17 0000 Signed Impressions: Service Date/Time: Monday, May 22, 2017 12:05 - CONCLUSION: 1. No uptake within the gallbladder. Delayed imaging will be obtained. 2. Small amount of biliary enteric reflux. Eloy Mcginnis MD ADDENDUM: COMPARISON: CT ABDOMEN & PELVIS W/O CONTRAST, May 16, 2017, 16:28. Delayed 24 our view does not demonstrate gallbladder therefore possibility of cystic duct obstruction and acute cholecystitis should be entertained. Armaan Tanner MD Chest X-Ray 05/19/17 0000 Signed Impressions: Service Date/Time: Friday, May 19, 2017 14:05 - CONCLUSION: Left IJ Vas cath in good position. Eduar Gross MD Chest X-Ray 05/17/17 0000 Signed Impressions: Service Date/Time: Wednesday, May 17, 2017 01:32 - CONCLUSION: 1. Right-sided central line in place. No pneumothorax. 2. Scattered areas of bilateral atelectasis. Abundio Allison MD Physical Exam GENERAL: Awake and alert, comfortable, on FM SKIN: Warm and dry. No generalized rash. HEAD: Atraumatic. Normocephalic. No temporal wasting, or tenderness. EYES: [place] conjunctiva. No petechia or hemorrhage. No scleral icterus. No injection or drainage. EARS, NOSE AND THROAT: Nose without bleeding or purulent nasal discharge. Moist mucosa NECK: Trachea midline. Supple and not tender, no meningeal signs CARDIOVASCULAR: Regular rate and rhythm. No murmurs, rubs or gallops heard RESPIRATORY: Coarse BS bilaterally. ABDOMEN: Soft, non-tender, nondistended. Bowel sounds present and normoactive. No guarding. No rebound. No organomegaly. GENITOURINARY: dressings in place EXTREMITIES: No clubbing, cyanosis, or edema. No calf tenderness. Well perfused and warm. 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, due to Carlos's gangrene - S/P debridement, has an extensive open wound - better Respiratory failure, resolved Renal failure, better - off HD; has good UO Known DM, HTN Elevated LFT, ?from sepsis, ?cholecystitis, ?cholangitis - HIDA (+) - LFTs improving - clinically no findings on exam to suggest acute kenia UC with Poornima, S/P RX Leukocytosis, resolved CHF RECOMMENDATION Change back to Rocephin Continue Flagyl Will need to ask urology if with any further plans of his wounds Monitor respiratory status Follow temps Monitor progress Explained plan to patient and Shanti Solis MD May 31, 2017 12:29
--- NOTE | 2017-05-31 13:09 | HHI.PR ---
Subjective Remarks Follow-up sepsis/Carlos disease 05/26/17-patient seen and examined, currently afebrile and denies any scrotal pain. Patient ambulated without any difficulty. Reports some formed stool. 05/27/17-patient seen and examined, currently on partial nonrebreather. Patient had an episode of fall yesterday. Currently patient with a dry cough. Hemoglobin dropping. BP up 05/28/17-patient seen and examined, currently on 6L nasal cannula and denies any significant shortness of breath. Afebrile. Treated with Bumex yesterday. Blood pressure slightly up. 05/29/17-patient seen and examined, stable however still on nasal cannula 6 L oxygen. Afebrile in no acute event overnight 05/30/17-patient seen and examined, had coughing spells overnight otherwise stable today. No chest pain or shortness of breath. 05/31/17-patient seen and examined, went into acute respiratory failure overnight for which he was treated with IV diuresis and is currently on Ventimask. Patient stable and afebrile. BP labile Objective Vitals Vital Signs Date Time Temp Pulse Resp B/P Pulse Ox O2 Delivery O2 Flow Rate FiO2 05/31/17 10:22 92 Venturi Mask 6.00 50 05/31/17 10:03 92 Venturi Mask 50 05/31/17 09:09 98 Partial Rebreather 10.00 05/31/17 08:00 98 Partial Non-Rebreather 11.00 05/31/17 06:08 200/94 204/88 05/31/17 04:50 202/98 05/31/17 04:39 96 Non-Rebreather 15.00 100 05/31/17 03:52 198/102 05/31/17 03:52 Partial Non-Rebreather 05/31/17 03:39 97.6 95 23 190/88 95 05/31/17 01:57 96 Partial Rebreather 15.00 05/31/17 01:32 93 Simple Mask 10.00 05/31/17 01:30 Simple Mask 10.00 05/31/17 01:30 21 167/84 92 05/31/17 00:55 93 Simple Mask 10.00 05/31/17 00:02 90 Nasal Cannula 5.00 05/31/17 00:00 98.8 85 20 180/89 91 05/31/17 00:00 Nasal Cannula 5.00 Humidified 05/30/17 23:50 87 Nasal Cannula 3.00 05/30/17 21:01 97 21 05/30/17 20:32 Nasal Cannula 2.00 93 Humidified 05/30/17 20:00 99.5 96 19 186/84 89 05/30/17 20:00 Room Air 05/30/17 16:00 Room Air 05/30/17 16:00 98.9 80 19 172/83 96 I/O 05/30/17 05/30/17 05/30/17 05/31/17 05/31/17 05/31/17 07:00 15:00 23:00 07:00 15:00 23:00 Intake Total 722 ml 740 ml 830 ml Output Total 800 ml 850 ml 1150 ml Balance -78 ml -110 ml -320 ml Intake Oral 720 ml 740 ml 180 ml IV Total 2 ml 650 ml Output Urine Total 800 ml 850 ml 1150 ml # Voids 0 2 # Bowel Movements 0 0 0 Result Diagram: 05/31/17 0336 05/31/17 0336 Imaging Last Impressions Chest X-Ray 05/31/17 0000 Signed Impressions: Service Date/Time: Wednesday, May 31, 2017 00:36 - CONCLUSION: Increasing consolidation in the right upper lobe and perihilar regions. Ajay Benitez MD Gall Bladder Ultrasound 05/26/17 0000 Signed Impressions: Service Date/Time: Thursday, May 25, 2017 17:11 - CONCLUSION: Distended sludge-filled gallbladder with gallbladder wall thickening. Overall degree of gallbladder distention is largely unchanged from prior ultrasound exam although there is increased wall thickening. Trace pericholecystic fluid has resolved in the interval. HIDA scan performed 3 days ago demonstrates no filling of the gallbladder at 24 hours. Findings are consistent with acute cholecystitis likely secondary to cystic duct obstruction with mild interval improvement following antibiotic therapy. Royal Alfaro MD Hepatobiliary Scan Nuclear Medicine 05/22/17 0000 Signed Impressions: Service Date/Time: Monday, May 22, 2017 12:05 - CONCLUSION: 1. No uptake within the gallbladder. Delayed imaging will be obtained. 2. Small amount of biliary enteric reflux. Eloy Mcginnis MD ADDENDUM: COMPARISON: CT ABDOMEN & PELVIS W/O CONTRAST, May 16, 2017, 16:28. Delayed 24 our view does not demonstrate gallbladder therefore possibility of cystic duct obstruction and acute cholecystitis should be entertained. Armaan Tanner MD Objective Remarks GENERAL: NAD SKIN: Warm and dry. HEAD: Normocephalic. EYES: No scleral icterus. No injection or drainage. NECK: Supple, trachea midline. No JVD or lymphadenopathy. CARDIOVASCULAR: Regular rate and rhythm without murmurs, gallops, or rubs. RESPIRATORY: Breath sounds decreased bilaterally. No accessory muscle use. GASTROINTESTINAL: Abdomen soft, non-tender, nondistended. MUSCULOSKELETAL: No cyanosis, or edema. : dressing over scrotum BACK: Nontender without obvious deformity. No CVA tenderness. A/P Problem List: (1) Carlos gangrene ICD Code: N49.3 Status: Acute (2) Poorly controlled diabetes mellitus ICD Code: E11.65 Status: Acute (3) Anemia of chronic disease ICD Code: D63.8 Status: Acute (4) Dyspnea ICD Code: R06.00 Status: Acute (5) Hypoxia ICD Code: R09.02 Status: Acute Assessment and Plan 51-year-old man with Severe sepsis - Carlos's gangrene Candiduria Continue Rocephin and Flagyl as well as mouth Diflucan per infectious disease specialist Infectious disease following 05/20 - urine -tracee 05/16 - wound - Klebsiella/strep not A, ,D Status post I&D with debridement of scrotum and perineum - Dr. Lopes 05/16 Status post reexploration of perineum 05/18 - Dr. Lopes -Will likely need plastics at some point when available -BID dressing changes with Dakin's sodium hypochlorite 0.125% History of hypertension-labile -Continue with hydralazine 100 mg daily Q8H and Lopressor Q8H, as well as Norvasc and Bumex. Consider clonidine 0.2 mg every 8 if no improvement Continue to hold lisinopril 10 mg by mouth daily light of elevated creatinine Acute respiratory failure-resolving Dyspnea with hypoxia BNP elevated Chest x-ray 05/31/17 noted and review by me Currently on Ventimask Continue with DuoNeb when necessary, Bumex twice a day Check 2-D echo Anemia of chronic disease Transfused 1 unit packed red blood cell 05/27/17 and H&H stable Monitor H&H Elevated transaminases Positive HIDA scan - acute kenia cystitis? Hypoalbuminemia Famotidine 10 mg IV twice a day for GI prophylaxis discontinued Docusate sodium/senna 100 mg/8.6 mg 1 tablet twice a day for bowel regimen HIDA positive for nonvisualization of gallbladder/ probable acute cholecystitis Repeat liver/gallbladder ultrasound noted 05/26 ROBERTO Renal indices improving, creatinine down to 1.90 -He had required hemodialysis 3 and now in recovery phase Avoid nephrotoxic drugs Appreciate input from nephrology DM-2 Currently on insulin detemir 20 units subcutaneous twice a day BID and Insulin aspart SSI before meals/at bedtime. Continue Holding metformin 500 mg by mouth twice a day Prophylaxis. -Heparin 5000 units subcutaneous q12h. Eloy Cuadra MD May 31, 2017 13:09
[2017-05-31] MEDS: cefTRIAXone INJ 2,000 MG in SODIUM CHLORIDE 0.9% INJ 100 ML IV SCH (13:40)
[2017-05-31] MEDS ORDERED: cloNIDine HCL 0.2 MG TAB PO SCH (14:00)
[2017-05-31] MEDS: BUMETANIDE INJ 1 MG/4 ML VIAL IV PUSH SCH (17:01)
[2017-05-31] MEDS: FLUCONAZOLE 200 MG TAB PO SCH (17:01)
--- NOTE | 2017-05-31 18:48 | ECHRPT ---
Indication: Heart failure, unspecified CONCLUSIONS The left ventricular systolic function is normal with an estimated ejection fraction in the range of 60-65%. Trace mitral valve regurgitation. There is trace tricuspid valve regurgitation. BP: / HR: Rhythm: MEASUREMENTS (Male / Female) Normal Values Technical Quality: 2D ECHO LV Diastolic Diameter PLAX 4.4 cm 4.2 - 5.9 / 3.9 - 5.3 cm LV Systolic Diameter PLAX 3.1 cm IVS Diastolic Thickness 1.0 cm 0.6 - 1.0 / 0.6 - 0.9 cm LVPW Diastolic Thickness 0.8 cm 0.6 - 1.0 / 0.6 - 0.9 cm LV Relative Wall Thickness 0.4 LA Systolic Diameter LX 3.7 cm 3.0 - 4.0 / 2.7 - 3.8 cm M-MODE Aortic Root Diameter MM 3.2 cm AV Cusp Separation MM 2.0 cm DOPPLER Mitral E Point Velocity 120.0 cm/s Mitral A Point Velocity 111.0 cm/s Mitral E to A Ratio 1.1 TR Peak Velocity 192.0 cm/s TR Peak Gradient 14.7 mmHg FINDINGS LEFT VENTRICLE Normal left ventricular size. Wall thickness is normal. The left ventricular systolic function is normal with an estimated ejection fraction in the range of 60-65%. RIGHT VENTRICLE Normal right ventricular size and systolic function. LEFT ATRIUM The left atrial size is normal. RIGHT ATRIUM The right atrial size is normal. ATRIAL SEPTUM Normal atrial septal thickness without atrial level shunting by limited color doppler interrogation. AORTA The aortic root and proximal ascending aorta are normal in size on limited imaging. MITRAL VALVE Structurally normal mitral valve. Trace mitral valve regurgitation. No mitral valve stenosis. AORTIC VALVE Trileaflet aortic valve. No aortic valve stenosis or regurgitation. Non-coronary cusp with mild thicking/sclerosis. TRICUSPID VALVE There is trace tricuspid valve regurgitation. The estimated pulmonary arterial pressure is 20 mmHg. PULMONARY VALVE The pulmonary valve is not well visualized. VESSELS The inferior vena cava is normal in size. PERICARDIUM No pericardial effusion. oJno Christina DO (Electronically Signed) Final Date:31 May 2017 18:47
[2017-06-01] VITALS (8 sets, daily range): BP systolic 152–174; BP diastolic 70–81; PULSE 89–103; RESP 16–20; TEMP 98.7–99.4; O2SAT 90–98
[2017-06-01] MEDS: hydrALAZINE HCL 50 MG TAB PO SCH ×3 (05:45→21:07)
[2017-06-01] MEDS: HEPARIN SODIUM - SQ 10,000 UNITS/ML VIAL SQ SCH ×2 (05:45→17:18)
[2017-06-01] MEDS: metroNIDAZOLE 500 MG TAB PO SCH ×3 (05:45→21:07)
[2017-06-01] MEDS: INSULIN ASPART SUPPLEMENTAL SCALE SQ SCH ×4 (05:45→21:12)
[2017-06-01] MEDS: METOPROLOL TARTRATE 100 MG TAB PO SCH ×2 (08:44→21:07)
[2017-06-01] MEDS: BUMETANIDE INJ 1 MG/4 ML VIAL IV PUSH SCH ×2 (08:45→17:18)
[2017-06-01] MEDS: SODIUM HYPOCHLORITE 0.125% 500 ML BTL TOPICAL SCH ×2 (08:45→21:00)
[2017-06-01] MEDS: SODIUM CHLORIDE 0.9% FLUSH 10 ML FLUSH IV FLUSH SCH ×2 (08:45→21:07)
[2017-06-01] MEDS: INSULIN DETEMIR 100 UNITS/ML VIAL SQ SCH ×2 (08:51→21:11)
--- NOTE | 2017-06-01 10:49 | HHI.NPPN ---
Subjective Renal Failure: Acute Interval History Off oxygen, feels shortness of breath has improved. Labs are in process. ( Latha Friedman) Review of Systems General Constitutional: Fatigue General Remarks no fever/chills (Latha Friedman) Respiratory Lungs: SOB Respiratory Remarks no coughing (Latha Friedman) Objective Data Data 05/31/17 06/01/17 18:59 06:59 Intake Total 960 ml 960 ml Output Total 1600 ml 2200 ml Balance -640 ml -1240 ml Intake Oral 960 ml 960 ml Output Urine Total 1600 ml 2200 ml # Bowel Movements 0 0 Vital Signs Date Time Temp Pulse Resp B/P Pulse Ox O2 Delivery O2 Flow Rate FiO2 06/01/17 08:00 99.1 95 20 163/77 90 06/01/17 08:00 Venturi Mask 50 06/01/17 04:00 98.9 94 18 174/81 93 06/01/17 04:00 Venturi Mask 6.00 50 06/01/17 00:00 99.4 93 16 155/74 98 06/01/17 00:00 Venturi Mask 6.00 50 05/31/17 20:00 99.3 108 18 177/84 99 05/31/17 20:00 Venturi Mask 6.00 50 05/31/17 17:43 93 Venturi Mask 6.00 50 05/31/17 16:00 97.7 93 20 165/77 93 05/31/17 12:00 98.2 78 20 161/77 92 (Latha Friedman) -: 05/31/17 0336 05/31/17 0336 Imaging Last 72 hours Impressions Chest X-Ray 05/31/17 0000 Signed Impressions: Service Date/Time: Wednesday, May 31, 2017 00:36 - CONCLUSION: Increasing consolidation in the right upper lobe and perihilar regions. Ajay Benitez MD Drip Comment none (Latha Friedman) Physical Exam General Appearance: Well Developed, Well Nourished, No Acute Distress, Comfortable ( Latha Friedman) Eyes Eye Exam: Pupils Equal (Latha Friedman) Throat Throat Exam: Oral Mucosa [place] & Moist (Latha Friedman) Neck Neck Exam: Neck Supple (Latha FriedmanP) Pulmonary Resp Exam: Breath Sounds Equal, No Distress, Crackles, Rhonchi, Sputum, Poor Inspiratory Effort Resp Remarks wheezing (Latha Friedman PANEL ASSEMBLER) Cardiology CV Exam: Regular, Normal Sinus Rhythm, Good Perfusion (Latha Friedman PANEL ASSEMBLER) Gastrointestinal/Abdomen GI Exam: Soft, Non-Tender, Bowel Sounds Present (Latha Friedman PANEL ASSEMBLER) Musculoskeletal MS Exam: Joints Intact, Normal Tone, Good Strength (Latha Friedman PANEL ASSEMBLER) Integumentary Skin Exam: Warm, Dry Skin Remarks perineal wounds, buttock wound (Latha Friedman) Extremeties Extremities Exam: No Edema, Pedal Pulses Palpable (Latha Friedman PANEL ASSEMBLER) Neurologic Neuro Exam: Alert, Awake, Oriented, Speech Clear, Moving All Extremities ( Latha FriedmanP) Psychiatric Psych Exam: Appropriate Responses (Latha Friedman) VTE Prophylaxis Device: SCDs (Latha Friedman) Assessment/Plan Discussed Condition With: Patient, Spouse Assessment Summary: ROBERTO/Acute Renal Failure, Acute Tubular Necrosis, Hypertension, Diabetes Mellitus Problem List: (1) Acute renal failure Plan: resolving ATN from sepsis he required three HD treatments , 05/22 last HD now in recovery phase, todays labs in process continue to monitor renal function continue Bumex 2 mg BID, he is responding nicely to diuretic therapy follow fluids status avoid IVF, nephrotoxins (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 ID following, antibiotics include Flagyl , Rocephin, Diflucan continue Wound care, pain control may need potential skin graft in the future (3) Poorly controlled diabetes mellitus Plan: continue insulin as ordered monitor glucose , goal 140-180 mg/dL. (4) Sepsis Plan: ID following, current Carlos's as above also has developed acute cholecystitis, see below antibiotics as ordered monitor clinically, he is afebrile (5) Cholecystitis Plan: ID and surgery following, non surgical management at this time appreciate recommendations (6) Anemia Plan: Hb stable he was transfused 1 unit 05/27 monitor for changes (7) Hypertension Plan: hypertensive in AM prior to medications on amlodipine, Bumex, hydralazine, and metoprolol follow and titrate as needed (8) Hypoxia Plan: unsure of etiology echo reviewed, normal EF chest xray reviewed possible pneumonia , low grade fevers but no leukocytosis continue bumex, ween oxygen if able (Latha FriedmanP) Problem List: (1) Acute renal failure Plan: resolving ATN from sepsis he required three HD treatments , 05/22 last HD now in recovery phase, todays labs in process continue to monitor renal function continue Bumex 2 mg BID, he is responding nicely to diuretic therapy follow fluids status avoid IVF, nephrotoxins (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 ID following, antibiotics include Flagyl , Rocephin, Diflucan continue Wound care, pain control may need potential skin graft in the future (3) Poorly controlled diabetes mellitus Plan: continue insulin as ordered monitor glucose , goal 140-180 mg/dL. (4) Sepsis Plan: ID following, current Carlos's as above also has developed acute cholecystitis, see below antibiotics as ordered monitor clinically, he is afebrile (5) Cholecystitis Plan: ID and surgery following, non surgical management at this time appreciate recommendations (6) Anemia Plan: Hb stable he was transfused 1 unit 05/27 monitor for changes (7) Hypertension Plan: hypertensive in AM prior to medications on amlodipine, Bumex, hydralazine, and metoprolol follow and titrate as needed (8) Hypoxia Plan: unsure of etiology echo reviewed, normal EF chest xray reviewed possible pneumonia , low grade fevers but no leukocytosis continue bumex, ween oxygen if able Plan patient was seen and examined. Continue Bumex. Remains hypoxic. Repeat Xray. ( Ernesto Montano MD) Problem Qualifiers (1) Acute renal failure: Qualified Code: N17.0 - Acute renal failure with tubular necrosis Latha Friedman Jun 01, 2017 10:49 Ernesto Montano MD Jun 02, 2017 09:56
--- NOTE | 2017-06-01 12:08 | HHI.IDPN ---
Subjective Subjective Remarks Patient is a 51-year-old male, with diabetes, presented initially to the [facility] emergency room complaining of generalized weakness and fevers. Symptoms have been present for about a week and a half now. He apparently also noted a little pimple in his left gluteal area about the same time, and it progressively worsened and increase in size and the area involved spread to his scrotum. His had some fevers associated with chills and night sweats at home. Patient has no problem with dysuria, frequency or urination. No nausea or vomiting. Patient however has had problem with no dysuria, and decreased urinary stream. Patient has not had any problems similar to his current symptomatology. In the emergency room he had an elevated white count of 17,000 , febrile, and was acidotic. CT of the abdomen and pelvis showed significant amount of air in the patient's left gluteal area extending through his perineum up into his scrotum. He was transferred to the main hospital, in the ICU, and was seen by her urology. Surgery was done emergently. Patient currently is on the vent, and on Levophed. He is awake and alert and interactive. Highest temperature since admission is 101.8. His his last WBC is 20.8. Creatinine is also elevated. Lactic acid is down to normal. Notes reviewed D/W RN Temps ok Per RN, wounds get changed BID, also with stool contamination Breathing ok On FM Good UO Creatinine better Antibiotics Rocephin Flagyl Lines PIV Past Medical History reviewed Allergies: Coded Allergies: No Known Allergies (Unverified , 05/16/17) Objective . Vital Signs Date Time Temp Pulse Resp B/P Pulse Ox O2 Delivery O2 Flow Rate FiO2 06/01/17 08:00 99.1 95 20 163/77 90 06/01/17 08:00 Venturi Mask 50 06/01/17 07:30 93 Venturi Mask 6.00 50 06/01/17 04:00 98.9 94 18 174/81 93 06/01/17 04:00 Venturi Mask 6.00 50 06/01/17 00:00 99.4 93 16 155/74 98 06/01/17 00:00 Venturi Mask 6.00 50 05/31/17 20:00 99.3 108 18 177/84 99 05/31/17 20:00 Venturi Mask 6.00 50 05/31/17 17:43 93 Venturi Mask 6.00 50 05/31/17 16:00 97.7 93 20 165/77 93 05/31/17 05/31/17 06/01/17 14:59 22:59 06:59 Intake Total 960 ml 580 ml 380 ml Output Total 1600 ml 1400 ml 800 ml Balance -640 ml -820 ml -420 ml Intake Oral 960 ml 580 ml 380 ml Output Urine Total 1600 ml 1400 ml 800 ml # Bowel Movements 0 0 0 . Laboratory Tests Test 05/31/17 03:36 White Blood Count 10.9 TH/MM3 Red Blood Count 3.36 MIL/MM3 Hemoglobin 9.3 GM/DL Hematocrit 28.6 % Mean Corpuscular Volume 85.0 FL Mean Corpuscular Hemoglobin 27.7 PG Mean Corpuscular Hemoglobin 32.5 % Concent Red Cell Distribution Width 15.9 % Platelet Count 252 TH/MM3 Mean Platelet Volume 8.5 FL Neutrophils (%) (Auto) 84.9 % Lymphocytes (%) (Auto) 6.7 % Monocytes (%) (Auto) 7.4 % Eosinophils (%) (Auto) 0.5 % Basophils (%) (Auto) 0.5 % Neutrophils # (Auto) 9.3 TH/MM3 Lymphocytes # (Auto) 0.7 TH/MM3 Monocytes # (Auto) 0.8 TH/MM3 Eosinophils # (Auto) 0.1 TH/MM3 Basophils # (Auto) 0.1 TH/MM3 CBC Comment DIFF FINAL Differential Comment Laboratory Tests Test 05/31/17 03:36 Sodium Level 142 MEQ/L Potassium Level 3.6 MEQ/L Chloride Level 110 MEQ/L Carbon Dioxide Level 20.1 MEQ/L Anion Gap 12 MEQ/L Blood Urea Nitrogen 23 MG/DL Creatinine 1.90 MG/DL Estimat Glomerular Filtration 46 ML/MIN Rate Random Glucose 85 MG/DL Lactic Acid Level 0.8 mmol/L Calcium Level 8.1 MG/DL Magnesium Level 2.0 MG/DL B-Type Natriuretic Peptide 408 PG/ML Imaging Chest X-Ray 05/31/17 0000 Signed Impressions: Service Date/Time: Wednesday, May 31, 2017 00:36 - CONCLUSION: Increasing consolidation in the right upper lobe and perihilar regions. Ajay Benitez MD Hepatobiliary Scan Nuclear Medicine 05/22/17 0000 Signed Impressions: Service Date/Time: Monday, May 22, 2017 12:05 - CONCLUSION: 1. No uptake within the gallbladder. Delayed imaging will be obtained. 2. Small amount of biliary enteric reflux. Eloy Mcginnis MD ADDENDUM: COMPARISON: CT ABDOMEN & PELVIS W/O CONTRAST, May 16, 2017, 16:28. Delayed 24 our view does not demonstrate gallbladder therefore possibility of cystic duct obstruction and acute cholecystitis should be entertained. Armaan Tanner MD Chest X-Ray 05/19/17 0000 Signed Impressions: Service Date/Time: Friday, May 19, 2017 14:05 - CONCLUSION: Left IJ Vas cath in good position. Eduar Gross MD Chest X-Ray 05/17/17 0000 Signed Impressions: Service Date/Time: Wednesday, May 17, 2017 01:32 - CONCLUSION: 1. Right-sided central line in place. No pneumothorax. 2. Scattered areas of bilateral atelectasis. Abundio Allison MD Physical Exam GENERAL: Awake and alert, comfortable, on FM SKIN: Warm and dry. No generalized rash. HEAD: Atraumatic. Normocephalic. No temporal wasting, or tenderness. EYES: [place] conjunctiva. No petechia or hemorrhage. No scleral icterus. No injection or drainage. EARS, NOSE AND THROAT: Nose without bleeding or purulent nasal discharge. Moist mucosa NECK: Trachea midline. Supple and not tender, no meningeal signs CARDIOVASCULAR: Regular rate and rhythm. No murmurs, rubs or gallops heard RESPIRATORY: Coarse BS bilaterally. ABDOMEN: Soft, non-tender, nondistended. Bowel sounds present and normoactive. No guarding. No rebound. No organomegaly. GENITOURINARY: Large wounds from the scrotum, to perineum, to L of anus, with yellow film covering the wound, no necrotic tissue EXTREMITIES: No clubbing, cyanosis, or edema. No calf tenderness. 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, due to Carlos's gangrene - S/P debridement, has an extensive open wound - better, but wounds get contaminated by stool Respiratory failure, resolved Renal failure, better - off HD; has good UO Known DM, HTN Elevated LFT, ?from sepsis, ?cholecystitis, ?cholangitis - HIDA (+) - LFTs improving - clinically no findings on exam to suggest acute kenia UC with Poornima, S/P RX Leukocytosis, resolved CHF RECOMMENDATION Continue Rocephin Continue Flagyl Wound care per urology Spoke with Dr Lopes (Urology), he will look at wounds today and make further recs May need to have colostomy done since the wounds always contaminated by stool Monitor respiratory status Monitor progress Explained plan to patient D/W RN Spoke with urology Sahnti Solis MD Jun 01, 2017 12:08
[2017-06-01] MEDS: cefTRIAXone INJ 2,000 MG in SODIUM CHLORIDE 0.9% INJ 100 ML IV SCH (13:56)
--- NOTE | 2017-06-01 16:03 | HHI.PR ---
Subjective Remarks Patient seen today around noon. He reports that shortness of breath better than yesterday, however still very short of breath when lying down, has to sit to avoid shortness of breath. Denies any chest pain. Reports pain is under control. Objective Vital Signs Date Time Temp Pulse Resp B/P Pulse Ox O2 Delivery O2 Flow Rate FiO2 06/01/17 12:51 Room Air 06/01/17 12:00 98.7 89 18 152/70 90 06/01/17 08:00 99.1 95 20 163/77 90 06/01/17 08:00 Venturi Mask 50 06/01/17 07:30 93 Venturi Mask 6.00 50 06/01/17 04:00 98.9 94 18 174/81 93 06/01/17 04:00 Venturi Mask 6.00 50 06/01/17 00:00 99.4 93 16 155/74 98 06/01/17 00:00 Venturi Mask 6.00 50 05/31/17 20:00 99.3 108 18 177/84 99 05/31/17 20:00 Venturi Mask 6.00 50 05/31/17 17:43 93 Venturi Mask 6.00 50 I/O 05/31/17 05/31/17 05/31/17 06/01/17 06/01/17 06/01/17 07:00 15:00 23:00 07:00 15:00 23:00 Intake Total 830 ml 960 ml 580 ml 380 ml Output Total 1150 ml 1600 ml 1400 ml 800 ml Balance -320 ml -640 ml -820 ml -420 ml Intake Oral 180 ml 960 ml 580 ml 380 ml IV Total 650 ml Output Urine Total 1150 ml 1600 ml 1400 ml 800 ml # Bowel Movements 0 0 0 0 Result Diagram: 05/31/17 03305/31/17 033 Objective Remarks GENERAL: Patient sitting up in chair. Appears moderately short of breath. Alert and oriented 3. SKIN: Warm and dry. HEAD: Normocephalic. EYES: No scleral icterus. No injection or drainage. NECK: Supple, trachea midline. Exam limited by body habitus. CARDIOVASCULAR: Regular rate and rhythm without murmurs, gallops, or rubs. RESPIRATORY: Breath sounds equal bilaterally. No accessory muscle use. GASTROINTESTINAL: Abdomen soft, non-tender, nondistended. MUSCULOSKELETAL: No cyanosis, or edema. BACK: Nontender without obvious deformity. No CVA tenderness. A/P Assessment and Plan ====06/01/17======= //Diabetes. Hypoglycemia this morning. Decrease Levemir. //Hypoxemic respiratory failure. Patient still with shortness of breath today, worse with lying down. Diuresis, placed on fluid restrictions. Even though echocardiogram with normal ejection fraction, BNP was elevated in the 400s. Diuresis and close monitoring of intake and output. Consult pulmonology. //Hypertension. Blood pressure elevated up to 160 systolic. We'll add long- acting nifedipine. Continue to monitor. Continue to hold ROMAN inhibitor //Carlos's gangrene. Continue antibiotics as per infectious disease, appreciate surgical assistance. 51-year-old man with //Severe sepsis - Carlos's gangrene //Candiduria Continue Rocephin and Flagyl as well as mouth Diflucan per infectious disease specialist Infectious disease following 05/20 - urine -tracee 05/16 - wound - Klebsiella/strep not A, ,D //Status post I&D with debridement of scrotum and perineum - Dr. Lopes 05/16 //Status post reexploration of perineum 05/18 - Dr. Lopes -Will likely need plastics at some point when available -cont BID dressing changes with Dakin's sodium hypochlorite 0.125% //History of hypertension-labile -Continue with hydralazine 100 mg daily Q8H and Lopressor Q8H, as well as Norvasc and Bumex. Consider clonidine 0.2 mg every 8 if no improvement Continue to hold lisinopril 10 mg by mouth daily light of elevated creatinine //Acute respiratory failure-resolving //Dyspnea with hypoxia BNP elevated Chest x-ray 05/31/17 noted and review by me Currently on Ventimask Continue with DuoNeb when necessary, Bumex twice a day Check 2-D echo - normal EF //Anemia of chronic disease Transfused 1 unit packed red blood cell 05/27/17 and H&H stable Monitor H&H //Elevated transaminases //Positive HIDA scan - acute kenia cystitis? //Hypoalbuminemia Famotidine 10 mg IV twice a day for GI prophylaxis discontinued Docusate sodium/senna 100 mg/8.6 mg 1 tablet twice a day for bowel regimen HIDA positive for nonvisualization of gallbladder/ probable acute cholecystitis Repeat liver/gallbladder ultrasound noted 05/26 //ROBERTO Renal indices improving, creatinine down to 1.90 -He had required hemodialysis 3 and now in recovery phase Avoid nephrotoxic drugs Appreciate input from nephrology //DM-2 Currently on insulin detemir 20 units subcutaneous twice a day BID and Insulin aspart SSI before meals/at bedtime. Continue Holding metformin 500 mg by mouth twice a day //Prophylaxis. -Heparin 5000 units subcutaneous q12h. Discharge Planning When cleared by infectious disease, pulmonary, neph, plastics Ricardo Cardona MD Jun 01, 2017 16:03
[2017-06-01 16:13] LABS: BICARBONATE 24.2 MEQ/L (21.0-32.0); POTASSIUM 3.5 MEQ/L (3.5-5.1)
[2017-06-01] MEDS ORDERED: NIFEdipine 30 MG SUSTAINED RELEASE TAB PO ONE (16:15)
[2017-06-01] MEDS ORDERED: FUROSEMIDE 20 MG/2 ML VIAL IV PUSH ONE (16:15)
[2017-06-01 16:45] LABS: AUTOMATED NEUTROPHIL # 10.5 TH/MM3 (1.8-7.7); BASOPHIL # 0.1 TH/MM3 (0-0.2); EOSINOPHIL # 0.2 TH/MM3 (0-0.4); EOSINOPHIL % 1.3 % (0.0-4.0); HEMATOCRIT 29.3 % (39.0-51.0); HEMO FLAGS DIFF FINAL; LYMPH % 9.2 % (9.0-44.0); LYMPHOCYTE # 1.2 TH/MM3 (1.0-4.8); MEAN CELL VOLUME 83.5 FL (80.0-100.0); MEAN CORPUSCULAR HEMOGLOBIN 27.6 PG (27.0-34.0); MEAN CORPUSCULAR HGB CONC 33.1 % (32.0-36.0); MONO % 6.2 % (0.0-8.0); NEUT % 82.3 % (16.0-70.0); PLATELET COUNT 208 TH/MM3 (150-450); RED BLOOD COUNT 3.52 MIL/MM3 (4.50-5.90); WHITE BLOOD COUNT 12.8 TH/MM3 (4.0-11.0)
[2017-06-01] MEDS: FLUCONAZOLE 200 MG TAB PO SCH (17:18)
[2017-06-02] VITALS (7 sets, daily range): BP systolic 124–164; BP diastolic 61–82; PULSE 86–100; RESP 18–20; TEMP 97.6–98.9; O2SAT 83–97
[2017-06-02] MEDS: metroNIDAZOLE 500 MG TAB PO SCH ×3 (05:41→21:05)
[2017-06-02] MEDS: hydrALAZINE HCL 50 MG TAB PO SCH ×3 (05:41→21:05)
[2017-06-02] MEDS: HEPARIN SODIUM - SQ 10,000 UNITS/ML VIAL SQ SCH ×2 (05:41→16:56)
[2017-06-02] MEDS: INSULIN ASPART SUPPLEMENTAL SCALE SQ SCH ×4 (06:51→21:04)
--- NOTE | 2017-06-02 08:15 | HHI.PR ---
Subjective Patient symptoms today breathing improved. Denies pain. Denies fevers, chills, nausea. Voiding well on own. Denies dysuria. Objective Vital Signs Vital Signs Date Time Temp Pulse Resp B/P Pulse Ox O2 Delivery O2 Flow Rate FiO2 06/02/17 04:00 97.6 86 18 164/82 91 06/02/17 00:00 Venturi Mask 6.00 50 06/02/17 00:00 97.7 88 18 141/65 91 06/01/17 20:00 Venturi Mask 6.00 50 06/01/17 20:00 98.7 103 18 164/77 91 06/01/17 17:42 94 Venturi Mask 6.00 50 06/01/17 16:00 98.9 99 20 173/79 94 06/01/17 16:00 Venturi Mask 50 06/01/17 12:51 Room Air 06/01/17 12:00 98.7 89 18 152/70 90 Intake & Output 06/02/17 06/02/17 07:00 19:00 Output Total 300 ml Balance -300 ml Output Urine Total 300 ml Result Diagram: 06/01/17 1513 06/01/17 1513 Objective Remarks NAD. comfortable. A/O x 3 abd soft scrotum and perineal wound with clean edges, granulation tissues present. No eschar noted. Wound extending around left buttox dusky, with some skin breakdown. Non-tender, no crepitus or eschar noted. Medications and IVs Current Medications Medications (Trade) Dose Ordered Sig/Reese Route Start Time Stop Time Status Last Admin (NS Flush) 2 ml UNSCH PRN .XX 05/16/17 20:30 05/31/17 02:35 (NS Flush) 2 ml BID IV FLUSH 05/16/17 21:00 06/01/17 21:07 (Tylenol) 650 mg Q6H PRN PO 05/16/17 20:30 05/19/17 04:10 (Morphine Inj) 2 mg Q2H PRN IV 05/16/17 20:30 05/25/17 05:44 (Milk Of Magnesia Liq) 30 ml Q12H PRN PO 05/16/17 20:30 (Senokot) 17.2 mg Q12H PRN PO 05/16/17 20:30 (Dulcolax Supp) 10 mg DAILY PRN RECTAL 05/16/17 20:30 (Lactulose Liq) 30 ml DAILY PRN PO 05/16/17 20:30 (Lipitor) 20 mg HS PO 05/16/17 21:00 Hold 05/23/17 21:15 (D50w (Vial) Inj) 50 ml UNSCH PRN IV PUSH 05/16/17 22:30 (Heparin Inj) 5,000 units Q12H SQ 05/18/17 17:00 06/02/17 05:41 (D50w (Vial) Inj) 50 ml UNSCH PRN IV 05/19/17 08:30 (Glucagon Inj) 1 mg UNSCH PRN OTHER 05/19/17 08:30 Sodium Hypochlorite APPLY DAKIN'S 0.1... BID TOPICAL 05/19/17 15:30 06/01/17 21:00 (NS 1000 ml Inj) 1,000 ml @ 0 mls/hr TITRATE PRN IV 05/19/17 20:00 05/22/17 15:08 (Heparin Inj) 8,000 units UNSCH PRN IV FLUSH 05/19/17 20:00 Heparin Sodium (Porcine) 1000 units 1,000 units Q1H PRN IV FLUSH 05/19/17 20:00 Sodium Chloride 1,000 ml @ 200 mls/hr Q5H PRN IV 05/19/17 20:00 (NS 250 ml Inj) 200 ml @ 0 mls/hr UNSCH PRN IV 05/19/17 20:00 (Mannitol Inj) 12.5 gm UNSCH PRN IV 05/19/17 20:00 (Albumin 25% Inj) 25 gm UNSCH PRN IV 05/19/17 20:00 (NS Flush) 5 ml UNSCH PRN IV FLUSH 05/19/17 20:00 (Heparin Inj) Dwell Heparin to f... UNSCH PRN OTHER 05/19/17 20:00 05/22/17 15:07 (Gentamicin (Dialysis) Inj) 10 mg UNSCH PRN OTHER 05/19/17 20:00 05/22/17 15:08 (Gelfoam 12 Mm/7 Mm Top) 1 foam UNSCH PRN TOPICAL 05/19/17 20:00 (Zofran Inj) 4 mg UNSCH PRN IV 05/19/17 20:00 (Benadryl) 25 mg UNSCH PRN PO 05/19/17 20:00 (Nitrostat Sl) 0.4 mg UNSCH PRN SL 05/19/17 20:00 (Catapres) 0.1 mg UNSCH PRN PO 05/19/17 20:00 (Apresoline Inj) 20 mg Q4H PRN IV 05/23/17 18:45 05/31/17 04:00 (Trandate Inj) 20 mg Q2H PRN IV 05/23/17 19:11 05/25/17 07:01 (NovoLOG SUPPLEMENTAL SCALE) 1 ACHS SQ 05/25/17 11:00 06/01/17 21:12 (Cathflo Activase Inj) 2 mg Q2H PRN INTRACATH 05/26/17 13:30 05/26/17 15:46 (Apresoline) 100 mg Q8HR PO 05/27/17 14:00 06/02/17 05:41 (Diflucan) 200 mg Q24H PO 05/28/17 18:00 06/01/17 17:18 (Flagyl) 500 mg Q8HR PO 05/28/17 14:00 06/02/17 05:41 (Lopressor) 100 mg Q12HR PO 05/30/17 21:00 06/01/17 21:07 (Tessalon) 200 mg TID PRN PO 05/30/17 13:00 05/30/17 21:10 (Robitussin Dm 200-20 Mg/10 ml Liq) 10 ml Q4H PRN PO 05/30/17 23:15 05/30/17 23:15 (Bumex Inj) 2 mg BID@09,18 IV PUSH 05/31/17 18:00 06/01/17 17:18 Amlodipine Besylate 10 mg 10 mg DAILY PO 05/31/17 10:45 06/01/17 08:44 (Rocephin Inj/NS Inj) 100 ml @ 200 mls/hr Q24H IV 05/31/17 15:00 06/01/17 13:56 (Levemir Inj) 10 units Q12HR SQ 06/01/17 21:00 06/01/17 21:11 (Procardia Xl) 30 mg DAILY PO 06/02/17 09:00 Assessment and Plan Problem List: (1) Carlos gangrene ICD Code: N49.3 Status: Acute Assessment and Plan Continue dressing changes as prescribed. Antibiotics per ID Will need Plastic Surgery evaluation for possible skin grafts in future Recommend General Surgery consult to discuss possible temporary diverting colostomy to prevent wound contamination. Also would have them evaluate wound of left buttox/gluteal region. Nikolas Lopes MD Jun 02, 2017 08:15
[2017-06-02] MEDS: NIFEdipine 30 MG SUSTAINED RELEASE TAB PO SCH (08:46)
[2017-06-02] MEDS: METOPROLOL TARTRATE 100 MG TAB PO SCH ×2 (08:46→21:05)
[2017-06-02] MEDS: BUMETANIDE INJ 1 MG/4 ML VIAL IV PUSH SCH ×2 (08:47→16:57)
[2017-06-02] MEDS: SODIUM HYPOCHLORITE 0.125% 500 ML BTL TOPICAL SCH ×2 (08:51→21:00)
[2017-06-02] MEDS: SODIUM CHLORIDE 0.9% FLUSH 10 ML FLUSH IV FLUSH SCH ×2 (08:51→21:05)
[2017-06-02] MEDS: INSULIN DETEMIR 100 UNITS/ML VIAL SQ SCH ×2 (08:51→21:03)
--- NOTE | 2017-06-02 10:48 | HHI.NPPN ---
Subjective Renal Failure: Acute Interval History States his breathing is better. Off oxygen during exam. Renal function is stable. (Latha Friedman) Review of Systems General Constitutional: Fatigue General Remarks no fever/chills (Latha Friedman) Respiratory Lungs: SOB Respiratory Remarks no coughing (Latha Friedman) Objective Data Data 06/01/17 06/02/17 19:00 07:00 Intake Total 960 ml Output Total 1500 ml 300 ml Balance -540 ml -300 ml Intake Oral 960 ml Output Urine Total 1500 ml 300 ml # Bowel Movements 1 Vital Signs Date Time Temp Pulse Resp B/P Pulse Ox O2 Delivery O2 Flow Rate FiO2 06/02/17 08:00 98.6 99 20 163/80 90 06/02/17 04:00 97.6 86 18 164/82 91 06/02/17 00:00 Venturi Mask 6.00 50 06/02/17 00:00 97.7 88 18 141/65 91 06/01/17 20:00 Venturi Mask 6.00 50 06/01/17 20:00 98.7 103 18 164/77 91 06/01/17 17:42 94 Venturi Mask 6.00 50 06/01/17 16:00 98.9 99 20 173/79 94 06/01/17 16:00 Venturi Mask 50 06/01/17 12:51 Room Air 06/01/17 12:00 98.7 89 18 152/70 90 (Latha Friedman) -: 06/01/17 1513 06/01/17 1513 Imaging Last 72 hours Impressions Chest X-Ray 05/31/17 0000 Signed Impressions: Service Date/Time: Wednesday, May 31, 2017 00:36 - CONCLUSION: Increasing consolidation in the right upper lobe and perihilar regions. Ajay Benitez MD Drip Comment none (Latha Friedman) Physical Exam General Appearance: Well Developed, Well Nourished, No Acute Distress, Comfortable ( Latha Friedman) Eyes Eye Exam: Pupils Equal (Latha Friedman) Throat Throat Exam: Oral Mucosa [place] & Moist (Latha Friedman) Neck Neck Exam: Neck Supple (Latha Friedman) Pulmonary Resp Exam: Breath Sounds Equal, No Distress, Crackles, Rhonchi, Sputum Resp Remarks wheezing (Latha Friedman) Cardiology CV Exam: Regular, Normal Sinus Rhythm, Good Perfusion (Latha Friedman) Gastrointestinal/Abdomen GI Exam: Soft, Non-Tender, Bowel Sounds Present (Latha Friemdan) Musculoskeletal MS Exam: Joints Intact, Normal Tone, Good Strength (Latha Friedman) Integumentary Skin Exam: Warm, Dry Skin Remarks perineal wounds, buttock wound (Latha Friedman) Extremeties Extremities Exam: No Edema, Pedal Pulses Palpable (Latha Friedman) Neurologic Neuro Exam: Alert, Awake, Oriented, Speech Clear, Moving All Extremities ( Latha Friedman) Psychiatric Psych Exam: Appropriate Responses (Latha Friedman) VTE Prophylaxis Device: SCDs (Latha Friedman) Assessment/Plan Discussed Condition With: Patient, Relative Assessment Summary: ROBERTO/Acute Renal Failure, Acute Tubular Necrosis, Hypertension, Diabetes Mellitus Problem List: (1) Acute renal failure Plan: resolving ATN from sepsis he required three HD treatments , 05/22 last HD he is in recovery phase, renal function is stable, creatinine is slightly better replace potassium orally continue Bumex 2 mg BID, he has excellent urine output continue to monitor renal function follow fluids status avoid IVF, nephrotoxins (2) Hypoxia Plan: unsure of etiology, he is on 50% venti mask echo reviewed, normal EF chest xray reviewed from 05/31 , repeat 2V CXR today ? 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 ID following, antibiotics include Flagyl , Rocephin continue Wound care, pain control may need potential skin graft in the future there is discussion about diverting colostomy (4) Sepsis Plan: ID following, current Carlos's as above also has developed acute cholecystitis, see below antibiotics as ordered monitor clinically, he is afebrile (5) Cholecystitis Plan: ID and surgery following, non surgical management at this time appreciate recommendations (6) Anemia Plan: Hb stable he was transfused 1 unit 05/27 monitor for changes (7) Hypertension Plan: BP acceptable he is on amlodipine, Bumex, hydralazine, and metoprolol follow and titrate as needed (8) Poorly controlled diabetes mellitus Plan: continue insulin as ordered monitor glucose , goal 140-180 mg/dL. (Latha Friedman) Plan patient was seen and examined. He reports that he feels better. Repeat CXR. Monitor renal function. (Ernesto Montano MD) Problem Qualifiers (1) Acute renal failure: Qualified Code: N17.0 - Acute renal failure with tubular necrosis Latha Friedman Jun 02, 2017 10:48 Ernesto Montano MD Jun 03, 2017 07:54
[2017-06-02 12:08] LABS: BICARBONATE 24.2 MEQ/L (21.0-32.0); POTASSIUM 3.4 MEQ/L (3.5-5.1)
[2017-06-02] MEDS: cefTRIAXone INJ 2,000 MG in SODIUM CHLORIDE 0.9% INJ 100 ML IV SCH (14:19)
--- NOTE | 2017-06-02 15:26 | RADRPT ---
EXAM DATE/TIME: 06/02/2017 13:12 [facility] COMPARISON: CHEST SINGLE AP, May 31, 2017, 0:36. INDICATIONS : Short of breath MEDICAL HISTORY : Hypertension. Diabetes mellitus type I. SURGICAL HISTORY : None. ENCOUNTER: Subsequent ACUITY: 2 weeks PAIN SCORE: 0/10 LOCATION: Bilateral chest FINDINGS: Persistent perihilar airspace disease remains in both lungs without effusion or adenopathy slowly imp roving in the interval. The heart and pulmonary vascularity are normal. The portion of the bony skele ton visualized is unremarkable. CONCLUSION: Minimal improvement with persistent airspace disease. Sincere Willis MD FACR on June 02, 2017 at 15:24 Board Certified Radiologist. This report was verified electronically.
[2017-06-02] MEDS ORDERED: POTASSIUM CHLORIDE 20 MEQ CONTROLLED RELEASE TAB PO ONE (16:00)
[2017-06-02] MEDS: FLUCONAZOLE 200 MG TAB PO SCH (16:57)
--- NOTE | 2017-06-02 18:22 | MB ---
cc: OMARI SALCIDO M.D. DATE OF CONSULTATION 06/02/2017 REASON FOR CONSULTATION Worsening pneumonia. HISTORY OF PRESENT ILLNESS Mr. Evans is a 51-year-old male with known history of diabetes mellitus and hypertension admitted due to severe sepsis and septic shock due to Carlos's gangrene. The patient required intubation, mechanical ventilation and presently intubated on O2 via nasal cannula. His chest x-ray, however, revealed worsening infiltrate right upper lung. Acute renal injury, kidney injury has improved. He denies history of fever or chills and does not appear in respiratory distress at present. PAST MEDICAL HISTORY 1. Diabetes mellitus. 2. Hypertension. 3. Sepsis as described above upon presentation. FAMILY HISTORY Noncontributory. ALLERGIES None known to medication. CURRENT MEDICATIONS 1. Insulin. 2. Bumex. 3. Ceftriaxone. 4. Amlodipine. 5. Diflucan. 6. Flagyl. 7. Hydralazine. 8. Labetalol. 9. Gentamicin. 10. Nebulized Albuterol / Ipratropium. REVIEW OF SYSTEMS 12-point review of systems as per HPI and past history otherwise negative. PHYSICAL EXAMINATION VITAL SIGNS: On exam temperature 98.7, pulse 100, respirations 18, blood pressure 160/70, oxygen saturation 91% on 6 liters oxygen via mask. HEENT: Exam unremarkable. Sclerae is pale. NECK: No adenopathy or thyroid enlargement. CHEST: Few scattered rhonchi bilaterally. CARDIOVASCULAR: PMI distant. S1-S2 audible. 2/6 ejection systolic murmur left sternal border. ABDOMEN: Lax. Audible bowel sounds. EXTREMITIES: Trace edema. LABORATORY DATA White count 12,000, hemoglobin 9.7, hematocrit 29, platelets 208,000. Sodium 135, potassium 3.4, BUN 26, creatinine 1.9. ABG pH 7.42, pCO2 30, pO2 173 on 100% oxygen. IMPRESSION 1. Respiratory failure on oxygen therapy. 2. Worsening pneumonia. 3. Carlos's gangrene. 4. Diabetes mellitus. 5. Hypertension. 6. Renal insufficiency improving. PLAN The patient be maintained on oxygen therapy. Antibiotic therapy to be continued followed by infectious disease. We will follow the patient's chest x-ray. If the pneumonia continues to worsen bronchoscopy would be considered at that point. Bronchodilator therapy and pulmonary toilet will be continued. We will follow the patient's course along with you. Omari Salcido MD WWW/SHANIA /5:24 PM /5:57 PM
--- NOTE | 2017-06-02 18:37 | HHI.PR ---
Subjective Remarks Patient seen today around noon. Says shortness of breath slightly better today. Reports pain is under control. Denies any nausea or vomiting. Objective Vital Signs Date Time Temp Pulse Resp B/P Pulse Ox O2 Delivery O2 Flow Rate FiO2 06/02/17 16:00 98.4 95 20 124/61 97 06/02/17 16:00 Venturi Mask 50 06/02/17 12:37 Venturi Mask 50 06/02/17 12:00 98.4 91 20 144/71 92 06/02/17 08:00 98.6 99 20 163/80 90 06/02/17 08:00 83 21 06/02/17 08:00 Venturi Mask 50 06/02/17 04:00 97.6 86 18 164/82 91 06/02/17 00:00 Venturi Mask 6.00 50 06/02/17 00:00 97.7 88 18 141/65 91 06/01/17 20:00 Venturi Mask 6.00 50 06/01/17 20:00 98.7 103 18 164/77 91 I/O 06/01/17 06/01/17 06/01/17 06/02/17 06/02/17 06/02/17 07:00 15:00 23:00 07:00 15:00 23:00 Intake Total 380 ml 960 ml 960 ml Output Total 800 ml 1500 ml 300 ml 1200 ml Balance -420 ml -540 ml -300 ml -240 ml Intake Oral 380 ml 960 ml 960 ml Output Urine Total 800 ml 1500 ml 300 ml 1200 ml # Bowel Movements 0 1 0 Result Diagram: 06/01/17 1513 06/02/17 1115 Objective Remarks GENERAL: Patient sitting up in chair. Appears moderately short of breath. Alert and oriented 3.unchanged from day prior. SKIN: Warm and dry. HEAD: Normocephalic. EYES: No scleral icterus. No injection or drainage. NECK: Supple, trachea midline. Exam limited by body habitus. CARDIOVASCULAR: Regular rate and rhythm without murmurs, gallops, or rubs. RESPIRATORY: Breath sounds equal bilaterally. No accessory muscle use. GASTROINTESTINAL: Abdomen soft, non-tender, nondistended. MUSCULOSKELETAL: No cyanosis, or edema. BACK: Nontender without obvious deformity. No CVA tenderness. A/P Assessment and Plan ====06/02/17======= //Diabetes. Glucose more stable with current regimen. Continue to monitor. //Hypoxemic respiratory failure. -Repeat BNP. Pulmonology following. Continue antibiotics as per infectious disease. Will add Levaquin for antipseudomonal coverage. //Carlos's gangrene. Continue antibiotics as per infectious disease, appreciate surgical assistance. Placed general surgery consult for diapering colostomy 51-year-old man with //Severe sepsis - Carlos's gangrene //Candiduria Continue Rocephin and Flagyl as well as mouth Diflucan per infectious disease specialist Infectious disease following 05/20 - urine -tracee 05/16 - wound - Klebsiella/strep not A, ,D //Status post I&D with debridement of scrotum and perineum - Dr. Lopes 05/16 //Status post reexploration of perineum 05/18 - Dr. Lopes -Will likely need plastics at some point when available -cont BID dressing changes with Dakin's sodium hypochlorite 0.125% //History of hypertension-labile -Continue with hydralazine 100 mg daily Q8H and Lopressor Q8H, as well as Norvasc and Bumex. Consider clonidine 0.2 mg every 8 if no improvement Continue to hold lisinopril 10 mg by mouth daily light of elevated creatinine //Acute respiratory failure-resolving //Dyspnea with hypoxia BNP elevated Chest x-ray 05/31/17 noted and review by me Currently on Ventimask Continue with DuoNeb when necessary, Bumex twice a day Check 2-D echo - normal EF //Anemia of chronic disease Transfused 1 unit packed red blood cell 05/27/17 and H&H stable Monitor H&H //Elevated transaminases //Positive HIDA scan - acute kenia cystitis? //Hypoalbuminemia Famotidine 10 mg IV twice a day for GI prophylaxis discontinued Docusate sodium/senna 100 mg/8.6 mg 1 tablet twice a day for bowel regimen HIDA positive for nonvisualization of gallbladder/ probable acute cholecystitis Repeat liver/gallbladder ultrasound noted 05/26 //ROBERTO Renal indices improving, creatinine down to 1.90 -He had required hemodialysis 3 and now in recovery phase Avoid nephrotoxic drugs Appreciate input from nephrology //DM-2 Currently on insulin detemir 20 units subcutaneous twice a day BID and Insulin aspart SSI before meals/at bedtime. Continue Holding metformin 500 mg by mouth twice a day //Prophylaxis. -Heparin 5000 units subcutaneous q12h. Discharge Planning When cleared by infectious disease, pulmonary, neph, plastics Ricardo Cardona MD Jun 02, 2017 18:37
[2017-06-02] MEDS ORDERED: DILTIAZEM HCL 25 MG/5 ML VIAL ONE (18:44)
[2017-06-02] MEDS ORDERED: LEVOFLOXACIN 750 MG TAB PO ONE (18:45)
[2017-06-03] VITALS (10 sets, daily range): BP systolic 127–156; BP diastolic 59–72; PULSE 80–101; RESP 20; TEMP 98.1–99.5; O2SAT 90–97
--- NOTE | 2017-06-03 01:11 | PD.CAR.PN ---
CVT Progress Note Subjective/Hospital Course: Consult received Due to the busy or schedule could not catch up with patient today Full consult to follow in the morning Objective: Vital Signs Date Time Temp Pulse Resp B/P Pulse Ox O2 Delivery O2 Flow Rate FiO2 06/03/17 00:06 Venturi Mask 50 06/03/17 00:00 99.5 83 20 127/59 94 06/02/17 20:59 95 Nasal Cannula 6.00 06/02/17 20:00 98.9 100 20 134/61 95 06/02/17 20:00 Venturi Mask 50 06/02/17 16:00 98.4 95 20 124/61 97 06/02/17 16:00 Venturi Mask 50 06/02/17 12:37 Venturi Mask 50 06/02/17 12:00 98.4 91 20 144/71 92 06/02/17 08:00 98.6 99 20 163/80 90 06/02/17 08:00 83 21 06/02/17 08:00 Venturi Mask 50 06/02/17 04:00 97.6 86 18 164/82 91 Result Diagram: 06/01/17 1513 06/02/17 1115 Shira Aceves MD Jun 03, 2017 01:11
[2017-06-03] MEDS: guaiFENesin/DEXTROMETHORPHAN 200 MG/20 MG/10 ML CUP PO PRN (03:59)
[2017-06-03] MEDS: HEPARIN SODIUM - SQ 10,000 UNITS/ML VIAL SQ SCH ×2 (04:03→16:55)
[2017-06-03] MEDS: INSULIN ASPART SUPPLEMENTAL SCALE SQ SCH ×4 (04:59→21:50)
[2017-06-03] MEDS: metroNIDAZOLE 500 MG TAB PO SCH ×3 (05:40→20:12)
[2017-06-03] MEDS: hydrALAZINE HCL 50 MG TAB PO SCH ×3 (05:40→20:12)
[2017-06-03 05:51] LABS: AUTOMATED NEUTROPHIL # 8.5 TH/MM3 (1.8-7.7); BASOPHIL # 0.1 TH/MM3 (0-0.2); EOSINOPHIL # 0.3 TH/MM3 (0-0.4); EOSINOPHIL % 2.8 % (0.0-4.0); HEMATOCRIT 27.7 % (39.0-51.0); HEMO FLAGS DIFF FINAL; LYMPH % 11.8 % (9.0-44.0); LYMPHOCYTE # 1.3 TH/MM3 (1.0-4.8); MEAN CELL VOLUME 82.4 FL (80.0-100.0); MEAN CORPUSCULAR HEMOGLOBIN 28.1 PG (27.0-34.0); MEAN CORPUSCULAR HGB CONC 34.1 % (32.0-36.0); MONO % 6.1 % (0.0-8.0); NEUT % 78.3 % (16.0-70.0); PLATELET COUNT 166 TH/MM3 (150-450); RED BLOOD COUNT 3.36 MIL/MM3 (4.50-5.90); RED CELL DISTRIBUTION WIDTH 15.9 % (11.6-17.2); WHITE BLOOD COUNT 10.9 TH/MM3 (4.0-11.0)
[2017-06-03 06:18] LABS: BICARBONATE 24.1 MEQ/L (21.0-32.0); MAGNESIUM 1.7 MG/DL (1.5-2.5); POTASSIUM 3.7 MEQ/L (3.5-5.1)
[2017-06-03] MEDS: SODIUM CHLORIDE 0.9% FLUSH 10 ML FLUSH IV FLUSH SCH ×2 (09:11→20:12)
[2017-06-03] MEDS: SODIUM HYPOCHLORITE 0.125% 500 ML BTL TOPICAL SCH ×2 (09:11→20:12)
[2017-06-03] MEDS: NIFEdipine 30 MG SUSTAINED RELEASE TAB PO SCH (09:11)
[2017-06-03] MEDS: METOPROLOL TARTRATE 100 MG TAB PO SCH ×2 (09:11→20:12)
[2017-06-03] MEDS: BUMETANIDE INJ 1 MG/4 ML VIAL IV PUSH SCH (09:11)
[2017-06-03] MEDS: INSULIN DETEMIR 100 UNITS/ML VIAL SQ SCH ×2 (09:18→21:49)
[2017-06-03] MEDS ORDERED: SODIUM CHLOR 0.9% 250 ML INJ 250 ML IV ONE (09:45)
--- NOTE | 2017-06-03 11:16 | HHI.NPPN ---
Subjective Renal Failure: Acute Interval History Renal function is worse. His breathing has not improved, having trouble when lying flat especially at night. Has been evaluation by pulmonary. (Latha Friedman) Review of Systems General Constitutional: Fatigue General Remarks no fever/chills (Latha Friedman) Respiratory Lungs: SOB, Cough (Latha Friedman) Objective Data Data 06/02/17 06/03/17 19:00 07:00 Intake Total 960 ml 722 ml Output Total 1200 ml 1200 ml Balance -240 ml -478 ml Intake Oral 960 ml 720 ml IV Total 2 ml Output Urine Total 1200 ml 1200 ml # Bowel Movements 0 Vital Signs Date Time Temp Pulse Resp B/P Pulse Ox O2 Delivery O2 Flow Rate FiO2 06/03/17 09:09 Venturi Mask 6.00 37 06/03/17 08:00 99.0 93 20 147/65 96 06/03/17 05:44 93 Venturi Mask 6.00 35 06/03/17 05:36 90 21 06/03/17 04:20 Venturi Mask 50 06/03/17 04:00 98.4 85 20 128/64 92 06/03/17 00:06 Venturi Mask 50 06/03/17 00:00 99.5 83 20 127/59 94 06/02/17 20:59 95 Nasal Cannula 6.00 06/02/17 20:00 98.9 100 20 134/61 95 06/02/17 20:00 Venturi Mask 50 06/02/17 16:00 98.4 95 20 124/61 97 06/02/17 16:00 Venturi Mask 50 06/02/17 12:37 Venturi Mask 50 06/02/17 12:00 98.4 91 20 144/71 92 (Latha Friedman) -: 06/03/17 0537 06/03/17 0537 Imaging Last 72 hours Impressions Chest X-Ray 06/02/17 1048 Signed Impressions: Service Date/Time: Friday, June 02, 2017 13:12 - CONCLUSION: Minimal improvement with persistent airspace disease. Sincere Willis MD FACR Drip Comment none (Latha Friedman) Physical Exam General Appearance: Well Developed, Well Nourished, No Acute Distress, Comfortable ( Latha Friedman CLINICAL EDUCATION MANAGER) Eyes Eye Exam: Pupils Equal (Latha Friedman) Throat Throat Exam: Oral Mucosa [place] & Moist (Latha Friedman) Neck Neck Exam: Neck Supple (Latha Friedman CLINICAL EDUCATION MANAGER) Pulmonary Resp Exam: Breath Sounds Equal, No Distress, Crackles, Rhonchi, Sputum Resp Remarks wheezing (Latha FriedmanP) Cardiology CV Exam: Regular, Normal Sinus Rhythm, Good Perfusion (Latha Friedman CLINICAL EDUCATION MANAGER) Gastrointestinal/Abdomen GI Exam: Soft, Non-Tender, Bowel Sounds Present (Latha Friedman) Musculoskeletal MS Exam: Joints Intact, Normal Tone, Good Strength (Latha Friedman) Integumentary Skin Exam: Warm, Dry Skin Remarks perineal wounds, buttock wound (Latha Friedman) Extremeties Extremities Exam: No Edema, Pedal Pulses Palpable (Latha Friedman) Neurologic Neuro Exam: Alert, Awake, Oriented, Speech Clear, Moving All Extremities ( Latha Friedman) Psychiatric Psych Exam: Appropriate Responses (Latha Friedman) VTE Prophylaxis Device: SCDs (Latha Friedman) Assessment/Plan Discussed Condition With: Patient, Relative Assessment Summary: ROBERTO/Acute Renal Failure, Acute Tubular Necrosis, Hypertension, Diabetes Mellitus Problem List: (1) Acute renal failure Plan: resolving ATN from sepsis s/p three HD treatments , last one on 05/22 he is in recovery phase renal function is worse today, initially it had been improving stop diuretics, follow fluid status, respiratory status non oliguric continue to monitor renal function avoid IVF, nephrotoxins (2) Hypoxia Plan: unsure of etiology, he has low grade fevers and is requiring relatively high 02 concentration echo reviewed, normal EF chest Xray reviewed from 05/31 , repeat chest Xray 06/02 with minimal improvement started on Levaquin to cover pseudomonas he is on Rocephin also CT chest ordered (without contrast) pulmonary has evaluated, may require bronchoscopy if no improvement ID is also following, appreciate recommendations hold bumex, ween oxygen when able (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 ID following, antibiotics include Flagyl and Rocephin continue Wound care, pain control may need potential skin graft in the future there is discussion about diverting colostomy , surgery has been consulted (4) Sepsis Plan: ID following, current Carlos's as above also has developed acute cholecystitis, see below antibiotics as ordered monitor clinically, he is afebrile (5) Cholecystitis Plan: ID and surgery following, non surgical management at this time appreciate recommendations (6) Anemia Plan: Hb improved and stable he was transfused 1 unit 05/27 monitor for changes (7) Hypertension Plan: BP acceptable he is on amlodipine, hydralazine, and metoprolol follow and titrate as needed (8) Poorly controlled diabetes mellitus Plan: continue insulin as ordered monitor glucose, currently acceptable, with goal of 140-180 mg/dL. (Latha Friedman) Plan patient was seen and examined. Hypoxia and symptoms of shortness of breath persist, renal function is worse. We will stop diuretics at this time. On antibiotics, pulmonary on the case. (Ernesto Montano MD) Problem Qualifiers (1) Acute renal failure: Qualified Code: N17.0 - Acute renal failure with tubular necrosis Latha Friedman Jun 03, 2017 11:16 Ernesto Montano MD Jun 03, 2017 21:40
[2017-06-03] MEDS: cefTRIAXone INJ 2,000 MG in SODIUM CHLORIDE 0.9% INJ 100 ML IV SCH (13:43)
--- NOTE | 2017-06-03 13:48 | HHI.IDPN ---
Subjective Subjective Remarks Patient is a 51-year-old male, with diabetes, presented initially to the [place] emergency room complaining of generalized weakness and fevers. Symptoms have been present for about a week and a half now. He apparently also noted a little pimple in his left gluteal area about the same time, and it progressively worsened and increase in size and the area involved spread to his scrotum. His had some fevers associated with chills and night sweats at home. Patient has no problem with dysuria, frequency or urination. No nausea or vomiting. Patient however has had problem with no dysuria, and decreased urinary stream. Patient has not had any problems similar to his current symptomatology. In the emergency room he had an elevated white count of 17,000 , febrile, and was acidotic. CT of the abdomen and pelvis showed significant amount of air in the patient's left gluteal area extending through his perineum up into his scrotum. He was transferred to the main hospital, in the ICU, and was seen by her urology. Surgery was done emergently. Patient currently is on the vent, and on Levophed. He is awake and alert and interactive. Highest temperature since admission is 101.8. His his last WBC is 20.8. Creatinine is also elevated. Lactic acid is down to normal. Notes reviewed Temps ok Still on FM Seen by pulmonary CT chest not - not available yet Good UO, but creatinine rising General surgery has been consulted for diverting colostomy, still pending Antibiotics Rocephin Flagyl Diflucan Levaquin Lines PIV Past Medical History reviewed Allergies: Coded Allergies: No Known Allergies (Unverified , 05/16/17) Objective . Vital Signs Date Time Temp Pulse Resp B/P Pulse Ox O2 Delivery O2 Flow Rate FiO2 06/03/17 12:22 96 Venturi Mask 6.00 35 06/03/17 12:00 98.4 80 20 129/60 90 06/03/17 09:09 Venturi Mask 6.00 37 06/03/17 08:00 99.0 93 20 147/65 96 06/03/17 05:44 93 Venturi Mask 6.00 35 06/03/17 05:36 90 21 06/03/17 04:20 Venturi Mask 50 06/03/17 04:00 98.4 85 20 128/64 92 06/03/17 00:06 Venturi Mask 50 06/03/17 00:00 99.5 83 20 127/59 94 06/02/17 20:59 95 Nasal Cannula 6.00 06/02/17 20:00 98.9 100 20 134/61 95 06/02/17 20:00 Venturi Mask 50 06/02/17 16:00 98.4 95 20 124/61 97 06/02/17 16:00 Venturi Mask 50 06/02/17 06/02/17 06/03/17 15:00 23:00 07:00 Intake Total 960 ml 362 ml 360 ml Output Total 1200 ml 400 ml 800 ml Balance -240 ml -38 ml -440 ml Intake Oral 960 ml 360 ml 360 ml IV Total 2 ml Output Urine Total 1200 ml 400 ml 800 ml # Bowel Movements 0 . Laboratory Tests Test 06/01/17 06/03/17 15:13 05:37 White Blood Count 12.8 TH/MM3 10.9 TH/MM3 Red Blood Count 3.52 MIL/MM3 3.36 MIL/MM3 Hemoglobin 9.7 GM/DL 9.4 GM/DL Hematocrit 29.3 % 27.7 % Mean Corpuscular Volume 83.5 FL 82.4 FL Mean Corpuscular Hemoglobin 27.6 PG 28.1 PG Mean Corpuscular Hemoglobin 33.1 % 34.1 % Concent Red Cell Distribution Width 16.0 % 15.9 % Platelet Count 208 TH/MM3 166 TH/MM3 Mean Platelet Volume 9.2 FL 8.3 FL Neutrophils (%) (Auto) 82.3 % 78.3 % Lymphocytes (%) (Auto) 9.2 % 11.8 % Monocytes (%) (Auto) 6.2 % 6.1 % Eosinophils (%) (Auto) 1.3 % 2.8 % Basophils (%) (Auto) 1.0 % 1.0 % Neutrophils # (Auto) 10.5 TH/MM3 8.5 TH/MM3 Lymphocytes # (Auto) 1.2 TH/MM3 1.3 TH/MM3 Monocytes # (Auto) 0.8 TH/MM3 0.7 TH/MM3 Eosinophils # (Auto) 0.2 TH/MM3 0.3 TH/MM3 Basophils # (Auto) 0.1 TH/MM3 0.1 TH/MM3 CBC Comment DIFF FINAL DIFF FINAL Differential Comment Laboratory Tests Test 06/01/17 06/02/17 06/03/17 15:13 11:15 05:37 Sodium Level 136 MEQ/L 135 MEQ/L 136 MEQ/L Potassium Level 3.5 MEQ/L 3.4 MEQ/L 3.7 MEQ/L Chloride Level 103 MEQ/L 100 MEQ/L 102 MEQ/L Carbon Dioxide Level 24.2 MEQ/L 24.2 MEQ/L 24.1 MEQ/L Anion Gap 9 MEQ/L 11 MEQ/L 10 MEQ/L Blood Urea Nitrogen 22 MG/DL 26 MG/DL 39 MG/DL Creatinine 1.96 MG/DL 1.93 MG/DL 2.30 MG/DL Estimat Glomerular Filtration 44 ML/MIN 45 ML/MIN 37 ML/MIN Rate Random Glucose 87 MG/DL 137 MG/DL 115 MG/DL Calcium Level 8.5 MG/DL 8.6 MG/DL 8.1 MG/DL Phosphorus Level 2.6 MG/DL 3.3 MG/DL 3.0 MG/DL Albumin 2.2 GM/DL 2.2 GM/DL 2.1 GM/DL Magnesium Level 1.7 MG/DL B-Type Natriuretic Peptide 133 PG/ML Imaging Chest X-Ray 05/31/17 0000 Signed Impressions: Service Date/Time: Wednesday, May 31, 2017 00:36 - CONCLUSION: Increasing consolidation in the right upper lobe and perihilar regions. Ajay Benitez MD Hepatobiliary Scan Nuclear Medicine 05/22/17 0000 Signed Impressions: Service Date/Time: Monday, May 22, 2017 12:05 - CONCLUSION: 1. No uptake within the gallbladder. Delayed imaging will be obtained. 2. Small amount of biliary enteric reflux. Eloy Mcginnis MD ADDENDUM: COMPARISON: CT ABDOMEN & PELVIS W/O CONTRAST, May 16, 2017, 16:28. Delayed 24 our view does not demonstrate gallbladder therefore possibility of cystic duct obstruction and acute cholecystitis should be entertained. Armaan Tanner MD Chest X-Ray 05/19/17 0000 Signed Impressions: Service Date/Time: Friday, May 19, 2017 14:05 - CONCLUSION: Left IJ Vas cath in good position. Eduar Gross MD Chest X-Ray 05/17/17 0000 Signed Impressions: Service Date/Time: Wednesday, May 17, 2017 01:32 - CONCLUSION: 1. Right-sided central line in place. No pneumothorax. 2. Scattered areas of bilateral atelectasis. Abundio Allison MD Physical Exam GENERAL: Awake and alert, comfortable, on FM SKIN: Warm and dry. No generalized rash. HEAD: Atraumatic. Normocephalic. No temporal wasting, or tenderness. EYES: [place] conjunctiva. No petechia or hemorrhage. No scleral icterus. No injection or drainage. EARS, NOSE AND THROAT: Nose without bleeding or purulent nasal discharge. Moist mucosa NECK: Trachea midline. Supple and not tender, no meningeal signs CARDIOVASCULAR: Regular rate and rhythm. No murmurs, rubs or gallops heard RESPIRATORY: Coarse BS bilaterally. ABDOMEN: Soft, non-tender, nondistended. Bowel sounds present and normoactive. No guarding. No rebound. No organomegaly. GENITOURINARY: wound with dressings EXTREMITIES: No clubbing, cyanosis, or edema. No calf tenderness. 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, due to Carlos's gangrene - S/P debridement, has an extensive open wound - better, but wounds get contaminated by stool Respiratory failure, stable, still on Renal failure, better - off HD; has good UO Known DM, HTN Elevated LFT, ?from sepsis, ?cholecystitis, ?cholangitis - HIDA (+) - LFTs improving - clinically no findings on exam to suggest acute kenia UC with [place] Leukocytosis, resolved CHF RECOMMENDATION Continue Rocephin Continue Flagyl Also now on Levaquin Pulmonary evaluating patient GS consult for diverting colostomy Monitor progress Shanti Solis MD Jun 03, 2017 13:48
--- NOTE | 2017-06-03 13:57 | RADRPT ---
EXAM DATE/TIME: 06/03/2017 11:29 [place] COMPARISON: CHEST SINGLE AP, May 19, 2017, 14:05. CHEST PA & LAT, June 02, 2017, 13:12. INDICATIONS : Shortness of breath. RADIATION DOSE: 6.82 CTDIvol (mGy) MEDICAL HISTORY : Hypertension. Diabetes mellitus type 2. SURGICAL HISTORY : None. ENCOUNTER: Initial ACUITY: 2 days PAIN SCALE: 0/10 LOCATION: chest TECHNIQUE: Volumetric scanning of the chest was performed. Using automated exposure control and adjustment of t he mA and/or kV according to patient size, radiation dose was kept as low as reasonably achievable to obtain optimal diagnostic quality images. DICOM format image data is available electronically for r eview and comparison. Follow-up recommendations for incidentally detected pulmonary nodules are based at a minimum on nodul e size and patient risk factors according to Fleischner Society Guidelines. FINDINGS: LUNGS: Diffuse bilateral perihilar ground glass opacities with sparing of the lung periphery and lung bases. PLEURAE: No significant pleural effusion or pneumothorax. MEDIASTINUM: Predominantly subcentimeter mediastinal and hilar nodes which do not meet CT size criteria but are no table for number. Heart is grossly unremarkable. No significant pericardial effusion. AXILLAE: Within normal limits. No lymphadenopathy. MUSCULOSKELETAL: Within normal limits for patient age. MISCELLANEOUS: The visualized upper abdominal organs demonstrate no acute abnormality. CONCLUSION: 1. Redemonstration of diffuse perihilar groundglass opacities with peripheral lungs sparing and spari ng of the lung bases bilaterally. Differential considerations include atypical infection versus atypi serjio pulmonary edema/ARDS. Royal Alfaro MD on June 03, 2017 at 13:47 Board Certified Radiologist. This report was verified electronically.
[2017-06-03] MEDS: FLUCONAZOLE 200 MG TAB PO SCH (16:55)
--- NOTE | 2017-06-03 17:08 | HHI.PR ---
Subjective Remarks ALERT NO SOB AT REST Objective GENERAL: SKIN: Warm and dry. HEAD: Atraumatic. Normocephalic. EYES: Pupils equal and round. No scleral icterus. No injection or drainage. ENT: No nasal bleeding or discharge. Mucous membranes pink and moist. NECK: Trachea midline. No JVD. CARDIOVASCULAR: Regular rate and rhythm. RESPIRATORY: No accessory muscle use. Clear to auscultation. Breath sounds equal bilaterally. GASTROINTESTINAL: Abdomen soft, non-tender, nondistended. Hepatic and splenic margins not palpable. MUSCULOSKELETAL: Extremities without clubbing, cyanosis, or edema. No obvious deformities. NEUROLOGICAL: Awake and alert. No obvious cranial nerve deficits. Motor grossly within normal limits. Five out of 5 muscle strength in the arms and legs. Normal speech. PSYCHIATRIC: Appropriate mood and affect; insight and judgment normal. Vital Signs Date Time Temp Pulse Resp B/P Pulse Ox O2 Delivery O2 Flow Rate FiO2 06/03/17 17:04 90 Room Air 06/03/17 12:22 96 Venturi Mask 6.00 35 06/03/17 12:00 98.4 80 20 129/60 90 06/03/17 09:09 Venturi Mask 6.00 37 06/03/17 08:00 99.0 93 20 147/65 96 06/03/17 05:44 93 Venturi Mask 6.00 35 06/03/17 05:36 90 21 06/03/17 04:20 Venturi Mask 50 06/03/17 04:00 98.4 85 20 128/64 92 06/03/17 00:06 Venturi Mask 50 06/03/17 00:00 99.5 83 20 127/59 94 06/02/17 20:59 95 Nasal Cannula 6.00 06/02/17 20:00 98.9 100 20 134/61 95 06/02/17 20:00 Venturi Mask 50 I/O 06/02/17 06/02/17 06/02/17 06/03/17 06/03/17 06/03/17 06:59 14:59 22:59 06:59 14:59 22:59 Intake Total 960 ml 362 ml 360 ml Output Total 300 ml 1200 ml 400 ml 800 ml Balance -300 ml -240 ml -38 ml -440 ml Intake Oral 960 ml 360 ml 360 ml IV Total 2 ml Output Urine Total 300 ml 1200 ml 400 ml 800 ml # Bowel Movements 0 Result Diagram: 06/03/17 0537 06/03/17 0537 Medications and IVs GENERAL: SKIN: Warm and dry. HEAD: Atraumatic. Normocephalic. EYES: Pupils equal and round. No scleral icterus. No injection or drainage. ENT: No nasal bleeding or discharge. Mucous membranes pink and moist. NECK: Trachea midline. No JVD. CARDIOVASCULAR: Regular rate and rhythm. RESPIRATORY: No accessory muscle use. Clear to auscultation. Breath sounds equal bilaterally. GASTROINTESTINAL: Abdomen soft, non-tender, nondistended. Hepatic and splenic margins not palpable. MUSCULOSKELETAL: Extremities without clubbing, cyanosis, or edema. No obvious deformities. NEUROLOGICAL: Awake and alert. No obvious cranial nerve deficits. Motor grossly within normal limits. Five out of 5 muscle strength in the arms and legs. Normal speech. PSYCHIATRIC: Appropriate mood and affect; insight and judgment normal. Assessment and Plan Assessment and Plan ASS PNA SEPSIS PLAN F/U CXRAY CONTINUEANTIBX BRONCHOSCOPY IF NEEDED Omari Salcido MD Jun 03, 2017 17:08
[2017-06-03] MEDS ORDERED: BUMETANIDE INJ 1 MG/4 ML VIAL IV PUSH SCH (18:00)
--- NOTE | 2017-06-03 18:25 | HHI.PR ---
Subjective Remarks Patient seen today around 3 PM. He has been walking around the floor. Sitting in waiting area. He reports that shortness of breath improved today. He says that nebulizations affect his sleep, seem to make his breathing worse Objective Vital Signs Date Time Temp Pulse Resp B/P Pulse Ox O2 Delivery O2 Flow Rate FiO2 06/03/17 17:04 90 Room Air 06/03/17 16:00 98.1 94 20 130/64 92 06/03/17 12:22 96 Venturi Mask 6.00 35 06/03/17 12:00 98.4 80 20 129/60 90 06/03/17 09:09 Venturi Mask 6.00 37 06/03/17 08:00 99.0 93 20 147/65 96 06/03/17 05:44 93 Venturi Mask 6.00 35 06/03/17 05:36 90 21 06/03/17 04:20 Venturi Mask 50 06/03/17 04:00 98.4 85 20 128/64 92 06/03/17 00:06 Venturi Mask 50 06/03/17 00:00 99.5 83 20 127/59 94 06/02/17 20:59 95 Nasal Cannula 6.00 06/02/17 20:00 98.9 100 20 134/61 95 06/02/17 20:00 Venturi Mask 50 I/O 06/02/17 06/02/17 06/02/17 06/03/17 06/03/17 06/03/17 07:00 15:00 23:00 07:00 15:00 23:00 Intake Total 960 ml 362 ml 360 ml 480 ml Output Total 300 ml 1200 ml 400 ml 800 ml 1000 ml Balance -300 ml -240 ml -38 ml -440 ml -520 ml Intake Oral 960 ml 360 ml 360 ml 480 ml IV Total 2 ml Output Urine Total 300 ml 1200 ml 400 ml 800 ml 1000 ml # Bowel Movements 0 1 Result Diagram: 06/03/17 0537 06/03/17 0537 Objective Remarks GENERAL: Patient sitting up in chair. Appears more comfortable today Alert and oriented 3. SKIN: Warm and dry. HEAD: Normocephalic. EYES: No scleral icterus. No injection or drainage. NECK: Supple, trachea midline. Exam limited by body habitus. CARDIOVASCULAR: Regular rate and rhythm without murmurs, gallops, or rubs. RESPIRATORY: Breath sounds equal bilaterally. No accessory muscle use. GASTROINTESTINAL: Abdomen soft, non-tender, nondistended. MUSCULOSKELETAL: No cyanosis, or edema. BACK: Nontender without obvious deformity. No CVA tenderness. A/P Assessment and Plan ====06/03/17======= //Diabetes. Glucose more stable in the 130s today. Continue current regimen. Continue to monitor. //Hypoxemic respiratory failure. Improving. -Repeat BNP 133. Improved.. Pulmonology following. -continue Levaquin for atypical/antipseudomonal coverage. -Discontinue albuterol. Switch to ipratropium nebs. 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 //acute kidney injury.liberalize fluid restrictions. Discontinue diuresis. Nephrology following. Appreciate assistance. 51-year-old man with //Severe sepsis - Carlos's gangrene //Candiduria Continue Rocephin and Flagyl as well as mouth Diflucan per infectious disease specialist Infectious disease following 05/20 - urine -tracee 05/16 - wound - Klebsiella/strep not A, ,D //Status post I&D with debridement of scrotum and perineum - Dr. Lopes 05/16 //Status post reexploration of perineum 05/18 - Dr. Lopes -Will likely need plastics at some point when available -cont BID dressing changes with Dakin's sodium hypochlorite 0.125% //History of hypertension-labile -Continue with hydralazine 100 mg daily Q8H and Lopressor Q8H, as well as Norvasc and Bumex. Consider clonidine 0.2 mg every 8 if no improvement Continue to hold lisinopril 10 mg by mouth daily light of elevated creatinine //Acute respiratory failure-resolving //Dyspnea with hypoxia BNP elevated Chest x-ray 05/31/17 noted and review by me Currently on Ventimask Continue with DuoNeb when necessary, Bumex twice a day Check 2-D echo - normal EF //Anemia of chronic disease Transfused 1 unit packed red blood cell 05/27/17 and H&H stable Monitor H&H //Elevated transaminases //Positive HIDA scan - acute kenia cystitis? //Hypoalbuminemia Famotidine 10 mg IV twice a day for GI prophylaxis discontinued Docusate sodium/senna 100 mg/8.6 mg 1 tablet twice a day for bowel regimen HIDA positive for nonvisualization of gallbladder/ probable acute cholecystitis Repeat liver/gallbladder ultrasound noted 05/26 //ROBERTO Renal indices improving, creatinine down to 1.90 -He had required hemodialysis 3 and now in recovery phase Avoid nephrotoxic drugs Appreciate input from nephrology //DM-2 Currently on insulin detemir 20 units subcutaneous twice a day BID and Insulin aspart SSI before meals/at bedtime. Continue Holding metformin 500 mg by mouth twice a day //Prophylaxis. -Heparin 5000 units subcutaneous q12h. Discharge Planning When cleared by infectious disease, pulmonary, neph, plastics Ricardo Cardona MD Jun 03, 2017 18:25
--- NOTE | 2017-06-03 19:02 | PD.CAR.PN ---
CVT Progress Note Subjective/Hospital Course: Consult received Due to the busy or schedule could not catch up with patient today Full consult to follow in the morning 06/03/17 As per my consult the debrided area in perineum is healing really nicely, is clean granulating without any drainage Patient is keeping very clean and is very careful about soiling the area At this point I would probably recommend against diverting colostomy as long as this is healing nicely for believe is going and scar in an close eventually If on the other hand the local environment worsens I can always go ahead and do a laparoscopic diverting colostomy Thanks J Objective: Vital Signs Date Time Temp Pulse Resp B/P Pulse Ox O2 Delivery O2 Flow Rate FiO2 06/03/17 17:04 90 Room Air 06/03/17 16:00 98.1 94 20 130/64 92 06/03/17 12:22 96 Venturi Mask 6.00 35 06/03/17 12:00 98.4 80 20 129/60 90 06/03/17 09:09 Venturi Mask 6.00 37 06/03/17 08:00 99.0 93 20 147/65 96 06/03/17 05:44 93 Venturi Mask 6.00 35 06/03/17 05:36 90 21 06/03/17 04:20 Venturi Mask 50 06/03/17 04:00 98.4 85 20 128/64 92 06/03/17 00:06 Venturi Mask 50 06/03/17 00:00 99.5 83 20 127/59 94 06/02/17 20:59 95 Nasal Cannula 6.00 06/02/17 20:00 98.9 100 20 134/61 95 06/02/17 20:00 Venturi Mask 50 Result Diagram: 06/03/17 0537 06/03/17 0537 Shira Aceves MD Jun 03, 2017 7:02 pm
--- NOTE | 2017-06-03 19:08 | MB ---
cc: [facility] DATE OF CONSULTATION: 06/03/2017. REASON FOR CONSULTATION: Status post debridements of Carlos's gangrene. Possible need for colostomy and diversion. DESCRIPTION OF THE PROCEDURE IN DETAIL: This 51-year-old gentleman presented about two weeks ago to the emergency room with fever, general weakness and infection in the perineal area. The patient states that this started from a small pimple and then the patient developed sepsis. He was diagnosed with Carlos's gangrene and underwent perianal and periscrotal resection of the skin and subcutaneous tissue. The resection includes an area of the left gluteal area, perineum and the posterior portion of the scrotum. Postoperatively the patient was in the intensive care unit. He improved greatly and he is now on the floor. The question arises as to whether the patient should have a diverting colostomy in the face of an open wound down there. PAST MEDICAL HISTORY: 1. Diabetes mellitus. 2. Hypertension. 3. Hyperlipidemia. 4. Back injury. PAST SURGICAL HISTORY: 1. Circumcision. 2. The current debridements. SOCIAL HISTORY: The patient does not smoke, drink. He is disabled from an injury at work. PHYSICAL EXAMINATION: GENERAL: The physical exam reveals a pleasant 51-year-old male in no acute distress. HEAD, EYES, EARS, NOSE, THROAT: Normocephalic. No trauma to the head. Pupils equal and reactive. Extraocular muscles intact. NECK: The neck is supple. Bilateral carotid pulses. CHEST: Bilateral breath sounds. HEART: Regular rhythm. ABDOMEN: Soft. Active bowel sounds. Slightly obese. No rebound. No guarding. No masses. PERINEAL EXAM: Indeed, there is a defect due to debridement, which includes part of the left gluteal area and perineum and perirectal area going down to the posterior portion of the scrotum. There is good granulation tissue here. Muscle is visible in the gluteal area but appears to be clean and very well-kept hygienically. The patient has regular bowel movements. RECOMMENDATIONS: At this point, the patient has a well-healing perineal wound and I would probably advise against colostomy. This is very nice work by urology and attests to their expertise. The patient has a very good healing potential. He is a younger horacio and granulation tissue is present and well-formed. The wound is completely clean. On one hand, colostomy will of course diver the thecal stream, it seems that the patient is keeping it so nice and clean that I would hate to give him surgery for something that it doing well as it is. I would leave it alone now. The dressings should be changed as per wound care. The patient should wash and have sitz baths three times a day and keep it clean. At this point, I believe the healing process will continue. If it worsens in the future, we can always place a colostomy but right now, I think it would be somewhat of an overkill to go ahead with a colostomy. Thank you very much for the referral. I will continue to follow the patient. Shira ZAPATA/DANGELO /6:50 PM /6:56 PM
[2017-06-04] VITALS (9 sets, daily range): BP systolic 126–155; BP diastolic 58–75; PULSE 80–101; RESP 16–20; TEMP 98.4–99; O2SAT 90–94
[2017-06-04] MEDS: guaiFENesin/DEXTROMETHORPHAN 200 MG/20 MG/10 ML CUP PO PRN ×2 (00:24→04:27)
[2017-06-04] MEDS: HEPARIN SODIUM - SQ 10,000 UNITS/ML VIAL SQ SCH ×2 (04:29→16:50)
[2017-06-04] MEDS: INSULIN ASPART SUPPLEMENTAL SCALE SQ SCH ×4 (05:30→21:20)
[2017-06-04] MEDS: hydrALAZINE HCL 50 MG TAB PO SCH ×3 (05:55→21:10)
[2017-06-04] MEDS: metroNIDAZOLE 500 MG TAB PO SCH ×2 (05:56→14:07)
--- NOTE | 2017-06-04 08:40 | HHI.PR ---
Subjective Remarks ALERT NO SOB AT REST OVER ALL GRADUALLY IMPROVING Objective Vital Signs Date Time Temp Pulse Resp B/P Pulse Ox O2 Delivery O2 Flow Rate FiO2 06/04/17 04:00 98.4 98 20 141/69 92 06/04/17 04:00 Room Air 06/04/17 00:00 Room Air 06/04/17 00:00 98.6 86 20 133/63 92 06/03/17 20:00 98.6 101 20 156/72 97 06/03/17 20:00 Room Air 06/03/17 19:47 92 21 06/03/17 17:04 90 Room Air 06/03/17 16:00 98.1 94 20 130/64 92 06/03/17 12:22 96 Venturi Mask 6.00 35 06/03/17 12:00 98.4 80 20 129/60 90 06/03/17 09:09 Venturi Mask 6.00 37 I/O 06/03/17 06/03/17 06/03/17 06/04/17 06/04/17 06/04/17 06:59 14:59 22:59 06:59 14:59 22:59 Intake Total 360 ml 480 ml 244 ml Output Total 800 ml 1000 ml 350 ml 400 ml Balance -440 ml -520 ml -106 ml -400 ml Intake Oral 360 ml 480 ml 240 ml IV Total 4 ml Output Urine Total 800 ml 1000 ml 350 ml 400 ml # Voids 1 1 # Bowel Movements 1 Result Diagram: 06/03/17 0537 06/03/17 0537 Objective Remarks GENERAL: SKIN: Warm and dry. HEAD: Atraumatic. Normocephalic. EYES: Pupils equal and round. No scleral icterus. No injection or drainage. ENT: No nasal bleeding or discharge. Mucous membranes pink and moist. NECK: Trachea midline. No JVD. CARDIOVASCULAR: Regular rate and rhythm. RESPIRATORY: No accessory muscle use. Clear to auscultation. Breath sounds equal bilaterally. GASTROINTESTINAL: Abdomen soft, non-tender, nondistended. Hepatic and splenic margins not palpable. MUSCULOSKELETAL: Extremities without clubbing, cyanosis, or edema. No obvious deformities. NEUROLOGICAL: Awake and alert. No obvious cranial nerve deficits. Motor grossly within normal limits. Five out of 5 muscle strength in the arms and legs. Normal speech. PSYCHIATRIC: Appropriate mood and affect; insight and judgment normal. Assessment and Plan Assessment and Plan ASS CLINICALY IMPROVING PNA , F/U CT CHEST NOTED , REVIEWED SEPSIS PLAN F/U CXRAY CONTINUE ANTIBX INCREASE ACTIVITY Omari Salcido MD Jun 04, 2017 08:40
[2017-06-04 08:56] LABS: AUTOMATED NEUTROPHIL # 6.9 TH/MM3 (1.8-7.7); BASOPHIL # 0.1 TH/MM3 (0-0.2); BASOPHIL % 1.2 % (0.0-2.0); EOSINOPHIL # 0.3 TH/MM3 (0-0.4); EOSINOPHIL % 3.2 % (0.0-4.0); HEMATOCRIT 27.5 % (39.0-51.0); HEMO FLAGS DIFF FINAL; LYMPH % 10.9 % (9.0-44.0); MEAN CELL VOLUME 82.8 FL (80.0-100.0); MEAN CORPUSCULAR HGB CONC 33.8 % (32.0-36.0); MONO % 7.1 % (0.0-8.0); NEUT % 77.6 % (16.0-70.0); PLATELET COUNT 146 TH/MM3 (150-450); RED BLOOD COUNT 3.32 MIL/MM3 (4.50-5.90); RED CELL DISTRIBUTION WIDTH 15.8 % (11.6-17.2); WHITE BLOOD COUNT 8.9 TH/MM3 (4.0-11.0)
[2017-06-04] MEDS: INSULIN DETEMIR 100 UNITS/ML VIAL SQ SCH ×2 (09:09→21:19)
[2017-06-04] MEDS: NIFEdipine 30 MG SUSTAINED RELEASE TAB PO SCH (09:11)
[2017-06-04] MEDS: METOPROLOL TARTRATE 100 MG TAB PO SCH ×2 (09:11→21:10)
[2017-06-04] MEDS: SODIUM HYPOCHLORITE 0.125% 500 ML BTL TOPICAL SCH ×2 (09:12→21:13)
[2017-06-04] MEDS: SODIUM CHLORIDE 0.9% FLUSH 10 ML FLUSH IV FLUSH SCH ×2 (09:12→21:11)
[2017-06-04 09:18] LABS: MAGNESIUM 1.9 MG/DL (1.5-2.5); POTASSIUM 3.4 MEQ/L (3.5-5.1)
[2017-06-04] MEDS ORDERED: BUMETANIDE INJ 1 MG/4 ML VIAL IV PUSH SCH ×2 (11:00→12:00)
--- NOTE | 2017-06-04 11:05 | HHI.NPPN ---
Subjective Renal Failure: Acute Interval History Shortness of breath and hypoxia improving. He is not on oxygen currently. Renal function improved. (Latha Friedman) Review of Systems General Constitutional: Fatigue General Remarks no fever/chills (Latha Friedman) Respiratory Lungs: SOB, Cough (Latha Friedman) Objective Data Data 06/03/17 06/04/17 18:59 06:59 Intake Total 480 ml 244 ml Output Total 1000 ml 750 ml Balance -520 ml -506 ml Intake Oral 480 ml 240 ml IV Total 4 ml Output Urine Total 1000 ml 750 ml # Voids 2 # Bowel Movements 1 Vital Signs Date Time Temp Pulse Resp B/P Pulse Ox O2 Delivery O2 Flow Rate FiO2 06/04/17 08:30 98.4 101 19 155/70 90 06/04/17 08:00 Room Air 06/04/17 04:00 98.4 98 20 141/69 92 06/04/17 04:00 Room Air 06/04/17 00:00 Room Air 06/04/17 00:00 98.6 86 20 133/63 92 06/03/17 20:00 98.6 101 20 156/72 97 06/03/17 20:00 Room Air 06/03/17 19:47 92 21 06/03/17 17:04 90 Room Air 06/03/17 16:00 98.1 94 20 130/64 92 06/03/17 12:22 96 Venturi Mask 6.00 35 06/03/17 12:00 98.4 80 20 129/60 90 (Latha Friedman) -: 06/04/17 0606 06/04/17 0616 Imaging Last Impressions Chest CT 06/03/17 0959 Signed Impressions: Service Date/Time: June 11:29 - CONCLUSION: 1. Redemonstration of diffuse perihilar groundglass opacities with peripheral lungs sparing and sparing of the lung bases bilaterally. Differential considerations include atypical infection versus atypical pulmonary edema/ARDS. Royal Alfaro MD Chest X-Ray 06/02/17 1048 Signed Impressions: Service Date/Time: Friday, June 02, 2017 13:12 - CONCLUSION: Minimal improvement with persistent airspace disease. Sincere Willis MD FACR Gall Bladder Ultrasound 05/26/17 0000 Signed Impressions: Service Date/Time: Thursday, May 25, 2017 17:11 - CONCLUSION: Distended sludge-filled gallbladder with gallbladder wall thickening. Overall degree of gallbladder distention is largely unchanged from prior ultrasound exam although there is increased wall thickening. Trace pericholecystic fluid has resolved in the interval. HIDA scan performed 3 days ago demonstrates no filling of the gallbladder at 24 hours. Findings are consistent with acute cholecystitis likely secondary to cystic duct obstruction with mild interval improvement following antibiotic therapy. Royal Alfaro MD Hepatobiliary Scan Nuclear Medicine 05/22/17 0000 Signed Impressions: Service Date/Time: Monday, May 22, 2017 12:05 - CONCLUSION: 1. No uptake within the gallbladder. Delayed imaging will be obtained. 2. Small amount of biliary enteric reflux. Eloy Mcginnis MD ADDENDUM: COMPARISON: CT ABDOMEN & PELVIS W/O CONTRAST, May 16, 2017, 16:28. Delayed 24 our view does not demonstrate gallbladder therefore possibility of cystic duct obstruction and acute cholecystitis should be entertained. Armaan Tanner MD Drip Comment none (Latha Friedman B. SUPERVISING FLOORPERSON) Physical Exam General Appearance: Well Developed, Well Nourished, No Acute Distress, Comfortable ( IdaliaLatha B. SUPERVISING FLOORPERSON) Eyes Eye Exam: Pupils Equal (IdaliaLatha B. SUPERVISING FLOORPERSON) Throat Throat Exam: Oral Mucosa [place] & Moist (IdaliaLatha B. SUPERVISING FLOORPERSON) Neck Neck Exam: Neck Supple (IdaliaLatha B. SUPERVISING FLOORPERSON) Pulmonary Resp Exam: Clear Bilaterally, Breath Sounds Equal, No Distress Resp Remarks (IdaliaLatha B. SUPERVISING FLOORPERSON) Cardiology CV Exam: Regular, Normal Sinus Rhythm, Good Perfusion (IdaliaLatha B. SUPERVISING FLOORPERSON) Gastrointestinal/Abdomen GI Exam: Soft, Non-Tender, Bowel Sounds Present (IdaliaLatha B. SUPERVISING FLOORPERSON) Musculoskeletal MS Exam: Joints Intact, Normal Tone, Good Strength (IdaliaLatha B. SUPERVISING FLOORPERSON) Integumentary Skin Exam: Warm, Dry Skin Remarks perineal wounds, buttock wound (IdaliaLatha B. SUPERVISING FLOORPERSON) Extremeties Extremities Exam: No Edema, Pedal Pulses Palpable (Latha Friedman) Neurologic Neuro Exam: Alert, Awake, Oriented, Speech Clear, Moving All Extremities ( Latha Friedman) Psychiatric Psych Exam: Appropriate Responses (Latha Friedman) VTE Prophylaxis Device: SCDs (Latha Friedman) Assessment/Plan Discussed Condition With: Patient, Relative Assessment Summary: ROBERTO/Acute Renal Failure, Acute Tubular Necrosis, Hypertension, Diabetes Mellitus Electrolyte Assessment: Hypokalemia Problem List: (1) Acute renal failure Plan: resolving ATN from sepsis s/p three HD treatments , last one on 05/22 he is in recovery phase his creatinine began to elevate past two days, likely due to overdiuresis since then diuretics have been held he is non oliguric continue to monitor renal function replace potassium avoid IVF, nephrotoxins (2) Hypoxia Plan: suspected pneumonia, he is on Levaquin and clinically improving echo reviewed, normal EF CT reviewed pulmonary following, may require bronchoscopy if no improvement ID is also following, appreciate recommendations (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 ID following, antibiotics include Flagyl , Diflucan, and Rocephin continue Wound care, pain control may need potential skin graft in the future surgery has evaluated and do not recommend a diverting colostomy at this time (4) Sepsis Plan: ID following, current Carlos's as above also has developed acute cholecystitis, see below antibiotics as ordered monitor clinically, he is afebrile (5) Cholecystitis Plan: ID and surgery following, non surgical management at this time appreciate recommendations (6) Anemia Plan: Hb improved and stable he was transfused 1 unit 05/27 monitor for changes (7) Hypertension Plan: BP acceptable he is on amlodipine, hydralazine, and metoprolol follow and titrate as needed (8) Poorly controlled diabetes mellitus Plan: continue insulin as ordered monitor glucose, currently acceptable, with goal of 140-180 mg/dL. (Latha Friedman) Plan patient was seen and examined. Renal function has improved. Diuretics held. On antibiotics. Continue to monitor. (Ernesto Montano MD) Problem Qualifiers (1) Acute renal failure: Qualified Code: N17.0 - Acute renal failure with tubular necrosis Latha Friedman Jun 04, 2017 11:05 Ernesto Montano MD Jun 04, 2017 14:26
[2017-06-04] MEDS ORDERED: POTASSIUM CHLORIDE 20 MEQ CONTROLLED RELEASE TAB PO ONE (11:15)
[2017-06-04] MEDS: cefTRIAXone INJ 2,000 MG in SODIUM CHLORIDE 0.9% INJ 100 ML IV SCH (14:07)
[2017-06-04] MEDS: RESP: IPRATROPIUM 0.5 MG/2.5 ML NEB NEB PRN (14:14)
--- NOTE | 2017-06-04 14:52 | HHI.IDPN ---
Subjective Subjective Remarks Patient is a 51-year-old male, with diabetes, presented initially to the [place] emergency room complaining of generalized weakness and fevers. Symptoms have been present for about a week and a half now. He apparently also noted a little pimple in his left gluteal area about the same time, and it progressively worsened and increase in size and the area involved spread to his scrotum. His had some fevers associated with chills and night sweats at home. Patient has no problem with dysuria, frequency or urination. No nausea or vomiting. Patient however has had problem with no dysuria, and decreased urinary stream. Patient has not had any problems similar to his current symptomatology. In the emergency room he had an elevated white count of 17,000 , febrile, and was acidotic. CT of the abdomen and pelvis showed significant amount of air in the patient's left gluteal area extending through his perineum up into his scrotum. He was transferred to the main hospital, in the ICU, and was seen by her urology. Surgery was done emergently. Patient currently is on the vent, and on Levophed. He is awake and alert and interactive. Highest temperature since admission is 101.8. His his last WBC is 20.8. Creatinine is also elevated. Lactic acid is down to normal. Notes reviewed Temps ok Breathing improving Surgery notes reviewed Good UO, but creatinine rising Antibiotics Rocephin Flagyl Diflucan Levaquin Lines PIV Past Medical History reviewed Allergies: Coded Allergies: No Known Allergies (Unverified , 05/16/17) Objective . Vital Signs Date Time Temp Pulse Resp B/P Pulse Ox O2 Delivery O2 Flow Rate FiO2 06/04/17 14:15 93 Venturi Mask 35 06/04/17 12:02 99.0 80 19 135/75 91 06/04/17 12:00 Room Air 06/04/17 10:00 93 06/04/17 08:30 98.4 101 19 155/70 90 06/04/17 08:00 Room Air 06/04/17 04:00 98.4 98 20 141/69 92 06/04/17 04:00 Room Air 06/04/17 00:00 Room Air 06/04/17 00:00 98.6 86 20 133/63 92 06/03/17 20:00 98.6 101 20 156/72 97 06/03/17 20:00 Room Air 06/03/17 19:47 92 21 06/03/17 17:04 90 Room Air 06/03/17 16:00 98.1 94 20 130/64 92 06/03/17 06/03/17 06/04/17 15:00 23:00 07:00 Intake Total 480 ml 244 ml Output Total 1000 ml 350 ml 400 ml Balance -520 ml -106 ml -400 ml Intake Oral 480 ml 240 ml IV Total 4 ml Output Urine Total 1000 ml 350 ml 400 ml # Voids 1 1 # Bowel Movements 1 . Laboratory Tests Test 06/03/17 06/04/17 05:37 06:06 White Blood Count 10.9 TH/MM3 8.9 TH/MM3 Red Blood Count 3.36 MIL/MM3 3.32 MIL/MM3 Hemoglobin 9.4 GM/DL 9.3 GM/DL Hematocrit 27.7 % 27.5 % Mean Corpuscular Volume 82.4 FL 82.8 FL Mean Corpuscular Hemoglobin 28.1 PG 28.0 PG Mean Corpuscular Hemoglobin 34.1 % 33.8 % Concent Red Cell Distribution Width 15.9 % 15.8 % Platelet Count 166 TH/MM3 146 TH/MM3 Mean Platelet Volume 8.3 FL 9.3 FL Neutrophils (%) (Auto) 78.3 % 77.6 % Lymphocytes (%) (Auto) 11.8 % 10.9 % Monocytes (%) (Auto) 6.1 % 7.1 % Eosinophils (%) (Auto) 2.8 % 3.2 % Basophils (%) (Auto) 1.0 % 1.2 % Neutrophils # (Auto) 8.5 TH/MM3 6.9 TH/MM3 Lymphocytes # (Auto) 1.3 TH/MM3 1.0 TH/MM3 Monocytes # (Auto) 0.7 TH/MM3 0.6 TH/MM3 Eosinophils # (Auto) 0.3 TH/MM3 0.3 TH/MM3 Basophils # (Auto) 0.1 TH/MM3 0.1 TH/MM3 CBC Comment DIFF FINAL DIFF FINAL Differential Comment Laboratory Tests Test 06/03/17 06/04/17 05:37 06:16 Sodium Level 136 MEQ/L 135 MEQ/L Potassium Level 3.7 MEQ/L 3.4 MEQ/L Chloride Level 102 MEQ/L 102 MEQ/L Carbon Dioxide Level 24.1 MEQ/L 23.0 MEQ/L Anion Gap 10 MEQ/L 10 MEQ/L Blood Urea Nitrogen 39 MG/DL 36 MG/DL Creatinine 2.30 MG/DL 2.11 MG/DL Estimat Glomerular Filtration 37 ML/MIN 40 ML/MIN Rate Random Glucose 115 MG/DL 220 MG/DL Calcium Level 8.1 MG/DL 7.7 MG/DL Phosphorus Level 3.0 MG/DL 2.5 MG/DL Magnesium Level 1.7 MG/DL 1.9 MG/DL B-Type Natriuretic Peptide 133 PG/ML Albumin 2.1 GM/DL 2.1 GM/DL Imaging Chest X-Ray 05/31/17 0000 Signed Impressions: Service Date/Time: Wednesday, May 31, 2017 00:36 - CONCLUSION: Increasing consolidation in the right upper lobe and perihilar regions. Ajay Benitez MD Hepatobiliary Scan Nuclear Medicine 05/22/17 0000 Signed Impressions: Service Date/Time: Monday, May 22, 2017 12:05 - CONCLUSION: 1. No uptake within the gallbladder. Delayed imaging will be obtained. 2. Small amount of biliary enteric reflux. Eloy Mcginnis MD ADDENDUM: COMPARISON: CT ABDOMEN & PELVIS W/O CONTRAST, May 16, 2017, 16:28. Delayed 24 our view does not demonstrate gallbladder therefore possibility of cystic duct obstruction and acute cholecystitis should be entertained. Armaan Tanner MD Chest X-Ray 05/19/17 0000 Signed Impressions: Service Date/Time: Friday, May 19, 2017 14:05 - CONCLUSION: Left IJ Vas cath in good position. Eduar Gross MD Chest X-Ray 05/17/17 0000 Signed Impressions: Service Date/Time: Wednesday, May 17, 2017 01:32 - CONCLUSION: 1. Right-sided central line in place. No pneumothorax. 2. Scattered areas of bilateral atelectasis. Abundio Allison MD Physical Exam GENERAL: Awake and alert, comfortable, on FM SKIN: Warm and dry. No generalized rash. HEAD: Atraumatic. Normocephalic. No temporal wasting, or tenderness. EYES: [place] conjunctiva. No petechia or hemorrhage. No scleral icterus. No injection or drainage. EARS, NOSE AND THROAT: Nose without bleeding or purulent nasal discharge. Moist mucosa NECK: Trachea midline. Supple and not tender, no meningeal signs CARDIOVASCULAR: Regular rate and rhythm. No murmurs, rubs or gallops heard RESPIRATORY: Coarse BS bilaterally. ABDOMEN: Soft, non-tender, nondistended. Bowel sounds present and normoactive. No guarding. No rebound. No organomegaly. GENITOURINARY: wound with dressings EXTREMITIES: No clubbing, cyanosis, or edema. No calf tenderness. 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, due to Carlos's gangrene - S/P debridement, has an extensive open wound - better, but wounds get contaminated by stool Respiratory failure, stable, still on FM Renal failure, better - off HD; has good UO Known DM, HTN Elevated LFT, ?from sepsis, ?cholecystitis, ?cholangitis - HIDA (+) - LFTs improving - clinically no findings on exam to suggest acute kenia UC with Poornima Leukocytosis, resolved CHF RECOMMENDATION Will use Augmentin and levaquin for his infection Stop other Abx Wound care as per surgery He is clinically doing well from ID standpoint I will be available prn Please reconsult if with any new ID issue or question Shanti Solis MD Jun 04, 2017 14:52
[2017-06-04] MEDS: LEVOFLOXACIN 750 MG TAB PO SCH (16:50)
--- NOTE | 2017-06-04 18:39 | HHI.PR ---
Subjective Remarks Patient seen this afternoon around noon. Says he is feeling all right. Breathing about the same as yesterday. Denies any chest pain. Denies any nausea or vomiting. Objective Vital Signs Date Time Temp Pulse Resp B/P Pulse Ox O2 Delivery O2 Flow Rate FiO2 06/04/17 17:11 94 Venturi Mask 35 06/04/17 16:01 98.6 97 18 143/60 90 06/04/17 16:00 Nasal Cannula 6.00 06/04/17 14:15 93 Venturi Mask 35 06/04/17 12:02 99.0 80 19 135/75 91 06/04/17 12:00 Room Air 06/04/17 10:00 93 06/04/17 08:30 98.4 101 19 155/70 90 06/04/17 08:00 Room Air 06/04/17 04:00 98.4 98 20 141/69 92 06/04/17 04:00 Room Air 06/04/17 00:00 Room Air 06/04/17 00:00 98.6 86 20 133/63 92 06/03/17 20:00 98.6 101 20 156/72 97 06/03/17 20:00 Room Air 06/03/17 19:47 92 21 I/O 06/03/17 06/03/17 06/03/17 06/04/17 06/04/17 06/04/17 07:00 15:00 23:00 07:00 15:00 23:00 Intake Total 360 ml 480 ml 244 ml 480 ml Output Total 800 ml 1000 ml 350 ml 400 ml 1200 ml Balance -440 ml -520 ml -106 ml -400 ml -720 ml Intake Oral 360 ml 480 ml 240 ml 480 ml IV Total 4 ml Output Urine Total 800 ml 1000 ml 350 ml 400 ml 1200 ml # Voids 1 1 # Bowel Movements 1 0 Result Diagram: 06/04/17 0606 06/04/17 0616 Objective Remarks GENERAL: Patient sitting up in chair. Appears comfortable. Alert and oriented 3. SKIN: Warm and dry. HEAD: Normocephalic. EYES: No scleral icterus. No injection or drainage. NECK: Supple, trachea midline. Exam limited by body habitus. CARDIOVASCULAR: Regular rate and rhythm without murmurs, gallops, or rubs. RESPIRATORY: Breath sounds equal bilaterally. No accessory muscle use. GASTROINTESTINAL: Abdomen soft, non-tender, nondistended. MUSCULOSKELETAL: No cyanosis, or edema. BACK: Nontender without obvious deformity. No CVA tenderness. A/P Assessment and Plan ====06/04/17======= //Carlos's gangrene. Reviewed surgical consultation. Dr. Grover does not feel that colostomy as necessary for wound healing. Continue antibiotics as per infectious disease. //acute kidney injury.renal function improving with liberalize fluid restrictions. Creatinine 2.1. Nephrology following. Appreciate assistance. We'll need to watch respiratory function closely, as may need to add back diuresis. 51-year-old man with //Severe sepsis - Carlos's gangrene //Candiduria Continue Rocephin and Flagyl as well as mouth Diflucan per infectious disease specialist Infectious disease following 05/20 - urine -tracee 05/16 - wound - Klebsiella/strep not A, ,D //Status post I&D with debridement of scrotum and perineum - Dr. Lopes 05/16 //Status post reexploration of perineum 05/18 - Dr. Lopes -Will likely need plastics at some point when available -cont BID dressing changes with Dakin's sodium hypochlorite 0.125% //History of hypertension-labile -Continue with hydralazine 100 mg daily Q8H and Lopressor Q8H, as well as Norvasc and Bumex. Consider clonidine 0.2 mg every 8 if no improvement Continue to hold lisinopril 10 mg by mouth daily light of elevated creatinine //Acute respiratory failure-resolving //Dyspnea with hypoxia BNP elevated Chest x-ray 05/31/17 noted and review by me Currently on Ventimask Continue with DuoNeb when necessary, Bumex twice a day Check 2-D echo - normal EF -06/04. Continue antibiotics as per infectious disease. //Anemia of chronic disease Transfused 1 unit packed red blood cell 05/27/17 and H&H stable Monitor H&H //Elevated transaminases //Positive HIDA scan - acute kenia cystitis? //Hypoalbuminemia Famotidine 10 mg IV twice a day for GI prophylaxis discontinued Docusate sodium/senna 100 mg/8.6 mg 1 tablet twice a day for bowel regimen HIDA positive for nonvisualization of gallbladder/ probable acute cholecystitis Repeat liver/gallbladder ultrasound noted 05/26 //ROBERTO Renal indices improving, creatinine down to 1.90 -He had required hemodialysis 3 and now in recovery phase Avoid nephrotoxic drugs Appreciate input from nephrology //DM-2 Currently on insulin detemir 20 units subcutaneous twice a day BID and Insulin aspart SSI before meals/at bedtime. Continue Holding metformin 500 mg by mouth twice a day -06/04. Glucose stable in the 140s this morning. //Prophylaxis. -Heparin 5000 units subcutaneous q12h. Discharge Planning When cleared by infectious disease, pulmonary, neph, plastics Ricardo Cardona MD Jun 04, 2017 18:39
[2017-06-04] MEDS: AMOXICILLIN/CLAVULANATE K 500 MG TAB PO SCH (21:11)
[2017-06-05] VITALS (8 sets, daily range): BP systolic 119–146; BP diastolic 56–74; PULSE 80–103; RESP 16–20; TEMP 97.8–99.2; O2SAT 91–95
[2017-06-05] MEDS: hydrALAZINE HCL 50 MG TAB PO SCH ×3 (05:22→20:49)
[2017-06-05] MEDS: HEPARIN SODIUM - SQ 10,000 UNITS/ML VIAL SQ SCH ×2 (05:22→18:00)
[2017-06-05] MEDS: INSULIN ASPART SUPPLEMENTAL SCALE SQ SCH ×4 (06:32→20:52)
[2017-06-05] MEDS: NIFEdipine 30 MG SUSTAINED RELEASE TAB PO SCH (09:21)
[2017-06-05] MEDS: INSULIN DETEMIR 100 UNITS/ML VIAL SQ SCH ×2 (09:21→20:53)
[2017-06-05] MEDS: AMOXICILLIN/CLAVULANATE K 500 MG TAB PO SCH ×2 (09:22→20:49)
[2017-06-05] MEDS: METOPROLOL TARTRATE 100 MG TAB PO SCH ×2 (09:22→20:49)
[2017-06-05] MEDS: SODIUM CHLORIDE 0.9% FLUSH 10 ML FLUSH IV FLUSH SCH ×2 (09:25→20:53)
[2017-06-05] MEDS: SODIUM HYPOCHLORITE 0.125% 500 ML BTL TOPICAL SCH ×2 (09:26→20:53)
--- NOTE | 2017-06-05 10:10 | HHI.NPPN ---
Subjective Renal Failure: Acute Interval History bmp pending today. Non oliguric. Review of Systems General Constitutional: Fatigue General Remarks no fever/chills Respiratory Lungs: SOB, Cough Objective Data Data 06/04/17 06/05/17 19:00 07:00 Intake Total 480 ml 580 ml Output Total 1200 ml 1850 ml Balance -720 ml -1270 ml Intake Oral 480 ml 580 ml Output Urine Total 1200 ml 1850 ml # Bowel Movements 0 0 Vital Signs Date Time Temp Pulse Resp B/P Pulse Ox O2 Delivery O2 Flow Rate FiO2 06/05/17 05:15 98.3 91 16 132/65 93 06/05/17 00:20 98.3 84 16 119/56 91 06/04/17 22:00 Nasal Cannula 3.00 06/04/17 22:00 98.8 99 16 126/58 92 06/04/17 17:11 94 Venturi Mask 35 06/04/17 16:01 98.6 97 18 143/60 90 06/04/17 16:00 Nasal Cannula 6.00 06/04/17 14:15 93 Venturi Mask 35 06/04/17 12:02 99.0 80 19 135/75 91 06/04/17 12:00 Room Air -: 06/04/17 0606 06/04/17 0616 Drip Comment none Physical Exam General Appearance: Well Developed, Well Nourished, No Acute Distress, Comfortable Eyes Eye Exam: Pupils Equal Throat Throat Exam: Oral Mucosa [place] & Moist Neck Neck Exam: Neck Supple Pulmonary Resp Exam: Clear Bilaterally, Breath Sounds Equal, No Distress Cardiology CV Exam: Regular, Normal Sinus Rhythm, Good Perfusion Gastrointestinal/Abdomen GI Exam: Soft, Non-Tender, Bowel Sounds Present Musculoskeletal MS Exam: Joints Intact, Normal Tone, Good Strength Integumentary Skin Exam: Warm, Dry Extremeties Extremities Exam: No Edema, Pedal Pulses Palpable Neurologic Neuro Exam: Alert, Awake, Oriented, Speech Clear, Moving All Extremities Psychiatric Psych Exam: Appropriate Responses VTE Prophylaxis Device: SCDs Assessment/Plan Discussed Condition With: Patient, Relative Assessment Summary: ROBERTO/Acute Renal Failure, Acute Tubular Necrosis, Hypertension, Diabetes Mellitus Electrolyte Assessment: Hypokalemia Problem List: (1) Acute renal failure Plan: resolving ATN from sepsis s/p three HD treatments , last one on 05/22 he is in recovery phase his creatinine began to elevate likely due to diuresis. Bumex stopped, renal function improved. Repeat labs. Avoid nephrotoxic agents. (2) Hypoxia Plan: suspected pneumonia, he is on Levaquin and clinically improving echo reviewed, normal EF CT reviewed pulmonary following, may require bronchoscopy if no improvement ID is also following, appreciate recommendations (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 ID following, antibiotics include Flagyl , Diflucan, and Rocephin continue Wound care, pain control may need potential skin graft in the future surgery has evaluated and do not recommend a diverting colostomy at this time (4) Sepsis Plan: ID following, current Carlos's as above also has developed acute cholecystitis, see below antibiotics as ordered monitor clinically, he is afebrile (5) Cholecystitis Plan: ID and surgery following, non surgical management at this time appreciate recommendations (6) Anemia Plan: Hb improved and stable he was transfused 1 unit 05/27 monitor for changes (7) Hypertension Plan: BP acceptable he is on amlodipine, hydralazine, and metoprolol follow and titrate as needed (8) Poorly controlled diabetes mellitus Plan: continue insulin as ordered monitor glucose, currently acceptable, with goal of 140-180 mg/dL. (9) Pneumonia Plan: antibiotics per ID. On Augmentin, Levaquin, also on Diflucan. Problem Qualifiers (1) Acute renal failure: Qualified Code: N17.0 - Acute renal failure with tubular necrosis Ernesto Montano MD Jun 05, 2017 10:10
[2017-06-05 11:21] LABS: BICARBONATE 22.3 MEQ/L (21.0-32.0); POTASSIUM 3.7 MEQ/L (3.5-5.1)
--- NOTE | 2017-06-05 13:34 | HHI.PR ---
Subjective Remarks ALERT NO SOB AT REST OVER ALL GRADUALLY IMPROVING Objective Vital Signs Date Time Temp Pulse Resp B/P Pulse Ox O2 Delivery O2 Flow Rate FiO2 06/05/17 12:00 99.2 100 16 139/69 93 06/05/17 08:01 97.8 100 16 146/65 95 06/05/17 05:15 98.3 91 16 132/65 93 06/05/17 00:20 98.3 84 16 119/56 91 06/04/17 22:00 Nasal Cannula 3.00 06/04/17 22:00 98.8 99 16 126/58 92 06/04/17 17:11 94 Venturi Mask 35 06/04/17 16:01 98.6 97 18 143/60 90 06/04/17 16:00 Nasal Cannula 6.00 06/04/17 14:15 93 Venturi Mask 35 I/O 06/04/17 06/04/17 06/04/17 06/05/17 06/05/17 06/05/17 06:59 14:59 22:59 06:59 14:59 22:59 Intake Total 480 ml 480 ml 100 ml Output Total 400 ml 1200 ml 1100 ml 750 ml Balance -400 ml -720 ml -620 ml -650 ml Intake Oral 480 ml 480 ml 100 ml Output Urine Total 400 ml 1200 ml 1100 ml 750 ml # Voids 1 # Bowel Movements 0 0 0 Result Diagram: 06/04/17 0606 06/05/17 1015 Objective Remarks GENERAL: SKIN: Warm and dry. HEAD: Atraumatic. Normocephalic. EYES: Pupils equal and round. No scleral icterus. No injection or drainage. ENT: No nasal bleeding or discharge. Mucous membranes pink and moist. NECK: Trachea midline. No JVD. CARDIOVASCULAR: Regular rate and rhythm. RESPIRATORY: No accessory muscle use. Clear to auscultation. Breath sounds equal bilaterally. GASTROINTESTINAL: Abdomen soft, non-tender, nondistended. Hepatic and splenic margins not palpable. MUSCULOSKELETAL: Extremities without clubbing, cyanosis, or edema. No obvious deformities. NEUROLOGICAL: Awake and alert. No obvious cranial nerve deficits. Motor grossly within normal limits. Five out of 5 muscle strength in the arms and legs. Normal speech. PSYCHIATRIC: Appropriate mood and affect; insight and judgment normal. Assessment and Plan Assessment and Plan ASS CLINICALY IMPROVING PNA , F/U CT CHEST NOTED , REVIEWED SEPSIS PLAN F/U CXRAY CONTINUE ANTIBX INCREASE ACTIVITY Omari Salcido MD Jun 05, 2017 13:34
--- NOTE | 2017-06-05 15:04 | HHI.PR ---
Subjective Remarks The patient reported left-sided chest pain. He said as a 4 out of 10 in severity. He said that it just started. He said deep breathing actually helped. He still has shortness of breath and feels like he has a lot of fluid in his lungs. It is worse when he lays back. He would like to try a sleeping medication. Objective Vitals Vital Signs Date Time Temp Pulse Resp B/P Pulse Ox O2 Delivery O2 Flow Rate FiO2 06/05/17 12:00 99.2 100 16 139/69 93 06/05/17 12:00 Nasal Cannula 6.00 06/05/17 08:01 97.8 100 16 146/65 95 06/05/17 08:00 Nasal Cannula 6.00 06/05/17 05:15 98.3 91 16 132/65 93 06/05/17 00:20 98.3 84 16 119/56 91 06/04/17 22:00 Nasal Cannula 3.00 06/04/17 22:00 98.8 99 16 126/58 92 06/04/17 17:11 94 Venturi Mask 35 06/04/17 16:01 98.6 97 18 143/60 90 06/04/17 16:00 Nasal Cannula 6.00 I/O 06/04/17 06/04/17 06/04/17 06/05/17 06/05/17 06/05/17 06:59 14:59 22:59 06:59 14:59 22:59 Intake Total 480 ml 480 ml 100 ml Output Total 400 ml 1200 ml 1100 ml 750 ml Balance -400 ml -720 ml -620 ml -650 ml Intake Oral 480 ml 480 ml 100 ml Output Urine Total 400 ml 1200 ml 1100 ml 750 ml # Voids 1 # Bowel Movements 0 0 0 Result Diagram: 06/04/17 0606 06/05/17 1015 Imaging Last Impressions Chest CT 06/03/17 0959 Signed Impressions: Service Date/Time: June 11:29 - CONCLUSION: 1. Redemonstration of diffuse perihilar groundglass opacities with peripheral lungs sparing and sparing of the lung bases bilaterally. Differential considerations include atypical infection versus atypical pulmonary edema/ARDS. Royal Alfaro MD Chest X-Ray 06/02/17 1048 Signed Impressions: Service Date/Time: Friday, June 02, 2017 13:12 - CONCLUSION: Minimal improvement with persistent airspace disease. Sincere Willis MD FACR Gall Bladder Ultrasound 05/26/17 0000 Signed Impressions: Service Date/Time: Thursday, May 25, 2017 17:11 - CONCLUSION: Distended sludge-filled gallbladder with gallbladder wall thickening. Overall degree of gallbladder distention is largely unchanged from prior ultrasound exam although there is increased wall thickening. Trace pericholecystic fluid has resolved in the interval. HIDA scan performed 3 days ago demonstrates no filling of the gallbladder at 24 hours. Findings are consistent with acute cholecystitis likely secondary to cystic duct obstruction with mild interval improvement following antibiotic therapy. Royal Alfaro MD Hepatobiliary Scan Nuclear Medicine 05/22/17 0000 Signed Impressions: Service Date/Time: Monday, May 22, 2017 12:05 - CONCLUSION: 1. No uptake within the gallbladder. Delayed imaging will be obtained. 2. Small amount of biliary enteric reflux. Eloy Mcginnis MD ADDENDUM: COMPARISON: CT ABDOMEN & PELVIS W/O CONTRAST, May 16, 2017, 16:28. Delayed 24 our view does not demonstrate gallbladder therefore possibility of cystic duct obstruction and acute cholecystitis should be entertained. Armaan Tanner MD Objective Remarks GENERAL: Patient sitting up in chair. Appears comfortable. SKIN: Warm and dry. HEAD: Normocephalic. EYES: No scleral icterus. No injection or drainage. NECK: Supple, trachea midline. Exam limited by body habitus. CARDIOVASCULAR: Regular rate and rhythm without murmurs, gallops, or rubs. RESPIRATORY: Breath sounds equal bilaterally. No accessory muscle use. GASTROINTESTINAL: Abdomen soft, non-tender, nondistended. MUSCULOSKELETAL: No cyanosis, or edema. BACK: Nontender without obvious deformity. No CVA tenderness. Medications and IVs Current Medications Medications (Trade) Dose Ordered Sig/Reese Route Start Time Stop Time Status Last Admin (NS Flush) 2 ml UNSCH PRN .XX 05/16/17 20:30 05/31/17 02:35 (NS Flush) 2 ml BID IV FLUSH 05/16/17 21:00 06/05/17 09:25 (Tylenol) 650 mg Q6H PRN PO 05/16/17 20:30 05/19/17 04:10 (Morphine Inj) 2 mg Q2H PRN IV 05/16/17 20:30 05/25/17 05:44 (Milk Of Magnesia Liq) 30 ml Q12H PRN PO 05/16/17 20:30 (Senokot) 17.2 mg Q12H PRN PO 05/16/17 20:30 (Dulcolax Supp) 10 mg DAILY PRN RECTAL 05/16/17 20:30 (Lactulose Liq) 30 ml DAILY PRN PO 05/16/17 20:30 (Lipitor) 20 mg HS PO 05/16/17 21:00 Hold 05/23/17 21:15 (D50w (Vial) Inj) 50 ml UNSCH PRN IV PUSH 05/16/17 22:30 (Heparin Inj) 5,000 units Q12H SQ 05/18/17 17:00 06/05/17 05:22 (D50w (Vial) Inj) 50 ml UNSCH PRN IV 05/19/17 08:30 (Glucagon Inj) 1 mg UNSCH PRN OTHER 05/19/17 08:30 Sodium Hypochlorite APPLY DAKIN'S 0.1... BID TOPICAL 05/19/17 15:30 06/05/17 09:26 (NS 1000 ml Inj) 1,000 ml @ 0 mls/hr TITRATE PRN IV 05/19/17 20:00 05/22/17 15:08 (Heparin Inj) 8,000 units UNSCH PRN IV FLUSH 05/19/17 20:00 Heparin Sodium (Porcine) 1000 units 1,000 units Q1H PRN IV FLUSH 05/19/17 20:00 Sodium Chloride 1,000 ml @ 200 mls/hr Q5H PRN IV 05/19/17 20:00 (NS 250 ml Inj) 200 ml @ 0 mls/hr UNSCH PRN IV 05/19/17 20:00 (Mannitol Inj) 12.5 gm UNSCH PRN IV 05/19/17 20:00 (Albumin 25% Inj) 25 gm UNSCH PRN IV 05/19/17 20:00 (NS Flush) 5 ml UNSCH PRN IV FLUSH 05/19/17 20:00 (Heparin Inj) Dwell Heparin to f... UNSCH PRN OTHER 05/19/17 20:00 05/22/17 15:07 (Gentamicin (Dialysis) Inj) 10 mg UNSCH PRN OTHER 05/19/17 20:00 05/22/17 15:08 (Gelfoam 12 Mm/7 Mm Top) 1 foam UNSCH PRN TOPICAL 05/19/17 20:00 (Zofran Inj) 4 mg UNSCH PRN IV 05/19/17 20:00 (Benadryl) 25 mg UNSCH PRN PO 05/19/17 20:00 (Nitrostat Sl) 0.4 mg UNSCH PRN SL 05/19/17 20:00 (Catapres) 0.1 mg UNSCH PRN PO 05/19/17 20:00 (Apresoline Inj) 20 mg Q4H PRN IV 05/23/17 18:45 05/31/17 04:00 (Trandate Inj) 20 mg Q2H PRN IV 05/23/17 19:11 05/25/17 07:01 (NovoLOG SUPPLEMENTAL SCALE) 1 ACHS SQ 05/25/17 11:00 06/05/17 12:03 (Cathflo Activase Inj) 2 mg Q2H PRN INTRACATH 05/26/17 13:30 05/26/17 15:46 (Apresoline) 100 mg Q8HR PO 05/27/17 14:00 06/05/17 05:22 (Lopressor) 100 mg Q12HR PO 05/30/17 21:00 06/05/17 09:22 (Tessalon) 200 mg TID PRN PO 05/30/17 13:00 05/30/17 21:10 (Robitussin Dm 200-20 Mg/10 ml Liq) 10 ml Q4H PRN PO 05/30/17 23:15 06/04/17 04:27 (Norvasc) 10 mg DAILY PO 05/31/17 10:45 06/05/17 09:21 (Levemir Inj) 10 units Q12HR SQ 06/01/17 21:00 06/05/17 09:21 (Procardia Xl) 30 mg DAILY PO 06/02/17 09:00 06/05/17 09:21 (Levaquin) 750 mg Q48H PO 06/04/17 18:00 06/18/17 17:59 06/04/17 16:50 (Augmentin) 500 mg Q12HR PO 06/04/17 21:00 06/18/17 20:59 06/05/17 09:22 A/P Problem List: (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 - Continue Rocephin and Flagyl as well as mouth Diflucan per infectious disease specialist 05/20 - urine -tracee 05/16 - wound - Klebsiella/strep not A, ,D Status post I&D with debridement of scrotum and perineum - Dr. Lopes 05/16. Status post reexploration of perineum 05/18 - Dr. Lopes -Will likely need plastics at some point when available -cont BID dressing changes with Dakin's sodium hypochlorite 0.125% History of hypertension-labile -Continue with hydralazine 100 mg daily Q8H and Lopressor Q8H, as well as Norvasc and Bumex. Consider clonidine 0.2 mg every 8 if no improvement - Continue to hold lisinopril 10 mg by mouth daily light of elevated creatinine Acute respiratory failure BNP elevated Continue with DuoNeb when necessary, Bumex twice a day Check 2-D echo - normal EF - Continue antibiotics as per infectious disease. Anemia of chronic disease Transfused 1 unit packed red blood cell 05/27/17 and H&H stable Monitor H&H Elevated transaminases Positive HIDA scan - acute kenia cystitis? Hypoalbuminemia Famotidine 10 mg IV twice a day for GI prophylaxis discontinued Docusate sodium/senna 100 mg/8.6 mg 1 tablet twice a day for bowel regimen HIDA positive for nonvisualization of gallbladder/ probable acute cholecystitis Repeat liver/gallbladder ultrasound noted 05/26 ROBERTO Renal indices improving. -He had required hemodialysis 3 and now in recovery phase Avoid nephrotoxic drugs Appreciate input from nephrology DM-2 Currently on insulin detemir 10 units subcutaneous twice a day Insulin aspart SSI before meals/at bedtime. Continue Holding metformin 500 mg by mouth twice a day -06/05 well controlled Chest pain New onset. Nonreproducible to palpation. - EKG, CXR, trops pending. - telemetry. - pain control as needed. Prophylaxis. -Heparin 5000 units subcutaneous q12h. Ajay Sandoval DO Jun 05, 2017 15:04
--- NOTE | 2017-06-05 15:39 | RADRPT ---
EXAM DATE/TIME: 06/05/2017 15:28 [place] COMPARISON: CT THORAX W/O CONTRAST, June 03, 2017, 11:29. CHEST PA & LAT, June 02, 2017, 13:12. INDICATIONS : Chest pain. MEDICAL HISTORY : Hypertension. Diabetes mellitus type II. SURGICAL HISTORY : None. ENCOUNTER: Subsequent ACUITY: 2 weeks PAIN SCORE: 8/10 LOCATION: Bilateral chest FINDINGS: Right greater than left bilateral perihilar infiltrates persist and are not significantly changed. No pleural effusion. No pneumothorax. Heart size stable, normal. CONCLUSION: Persistent bilateral central infiltrates. Hamlet Rueda MD on June 05, 2017 at 15:37 Board Certified Radiologist. This report was verified electronically.
[2017-06-05] MEDS: ZOLPIDEM TARTRATE 5 MG TAB PO PRN (23:36)
[2017-06-06] VITALS (7 sets, daily range): BP systolic 128–165; BP diastolic 58–78; PULSE 85–98; RESP 19–22; TEMP 97.5–98.8; O2SAT 91–92
[2017-06-06 00:28] LABS: ANION GAP 11 MEQ/L (5-15); BICARBONATE 22.5 MEQ/L (21.0-32.0); BLOOD UREA NITROGEN 30 MG/DL (7-18); CHLORIDE 106 MEQ/L (98-107); GLOMERULAR FILTRATION RATE 49 ML/MIN (>89); POTASSIUM 3.9 MEQ/L (3.5-5.1); SODIUM (NA) 139 MEQ/L (136-145)
[2017-06-06] MEDS: RESP: IPRATROPIUM 0.5 MG/2.5 ML NEB NEB PRN (04:56)
[2017-06-06] MEDS: hydrALAZINE HCL 50 MG TAB PO SCH ×3 (05:23→22:53)
[2017-06-06] MEDS: HEPARIN SODIUM - SQ 10,000 UNITS/ML VIAL SQ SCH ×2 (05:23→17:31)
[2017-06-06] MEDS: INSULIN ASPART SUPPLEMENTAL SCALE SQ SCH ×4 (05:28→20:37)
[2017-06-06 06:15] LABS: HEMATOCRIT 29.7 % (39.0-51.0); MEAN CELL VOLUME 83.3 FL (80.0-100.0); MEAN CORPUSCULAR HEMOGLOBIN 27.7 PG (27.0-34.0); MEAN CORPUSCULAR HGB CONC 33.3 % (32.0-36.0); PLATELET COUNT 164 TH/MM3 (150-450); RED BLOOD COUNT 3.56 MIL/MM3 (4.50-5.90); RED CELL DISTRIBUTION WIDTH 16.1 % (11.6-17.2); REVIEW FLAG FINAL; WHITE BLOOD COUNT 11.7 TH/MM3 (4.0-11.0)
[2017-06-06 06:54] LABS: ANION GAP 9 MEQ/L (5-15); BICARBONATE 23.4 MEQ/L (21.0-32.0); BLOOD UREA NITROGEN 28 MG/DL (7-18); CHLORIDE 106 MEQ/L (98-107); GLOMERULAR FILTRATION RATE 51 ML/MIN (>89); POTASSIUM 3.8 MEQ/L (3.5-5.1); SODIUM (NA) 138 MEQ/L (136-145)
[2017-06-06] MEDS: NIFEdipine 30 MG SUSTAINED RELEASE TAB PO SCH (09:07)
[2017-06-06] MEDS: AMOXICILLIN/CLAVULANATE K 500 MG TAB PO SCH ×2 (09:07→20:35)
[2017-06-06] MEDS: SODIUM CHLORIDE 0.9% FLUSH 10 ML FLUSH IV FLUSH SCH ×2 (09:07→20:35)
[2017-06-06] MEDS: METOPROLOL TARTRATE 100 MG TAB PO SCH ×2 (09:07→20:35)
[2017-06-06] MEDS: SODIUM HYPOCHLORITE 0.125% 500 ML BTL TOPICAL SCH ×2 (09:10→20:38)
[2017-06-06] MEDS: INSULIN DETEMIR 100 UNITS/ML VIAL SQ SCH ×2 (09:10→20:36)
--- NOTE | 2017-06-06 09:29 | HHI.NPPN ---
Subjective Renal Failure: Acute Interval History Renal function is stable, improved. Notes reviewed. Repeat CXR reveals persistent bilateral infiltrates. Review of Systems General Constitutional: Fatigue General Remarks no fever/chills Respiratory Lungs: SOB, Cough Objective Data Data 06/05/17 06/06/17 19:00 07:00 Intake Total 720 ml 240 ml Output Total 1000 ml 400 ml Balance -280 ml -160 ml Intake Oral 720 ml 240 ml Output Urine Total 1000 ml 400 ml # Bowel Movements 1 0 Vital Signs Date Time Temp Pulse Resp B/P Pulse Ox O2 Delivery O2 Flow Rate FiO2 06/06/17 08:02 98.5 98 20 165/78 91 06/06/17 05:00 Nasal Cannula 6.00 06/06/17 05:00 98.5 96 22 142/67 92 06/05/17 23:20 99.0 80 20 119/74 92 06/05/17 20:00 95 Nasal Cannula 6.00 06/05/17 19:50 99.1 103 20 130/59 94 06/05/17 16:00 98.3 90 18 137/72 95 06/05/17 12:00 99.2 100 16 139/69 93 06/05/17 12:00 Nasal Cannula 6.00 06/05/17 12:00 95 Nasal Cannula 6.00 -: 06/06/17 0530 06/06/17 0530 Drip Comment none Physical Exam General Appearance: Well Developed, Well Nourished, No Acute Distress, Comfortable Eyes Eye Exam: Pupils Equal Throat Throat Exam: Oral Mucosa [place] & Moist Neck Neck Exam: Neck Supple Pulmonary Resp Exam: Clear Bilaterally, Breath Sounds Equal, No Distress Cardiology CV Exam: Regular, Normal Sinus Rhythm, Good Perfusion Gastrointestinal/Abdomen GI Exam: Soft, Non-Tender, Bowel Sounds Present Musculoskeletal MS Exam: Joints Intact, Normal Tone, Good Strength Integumentary Skin Exam: Warm, Dry Extremeties Extremities Exam: No Edema, Pedal Pulses Palpable Neurologic Neuro Exam: Alert, Awake, Oriented, Speech Clear, Moving All Extremities Psychiatric Psych Exam: Appropriate Responses VTE Prophylaxis Device: SCDs Assessment/Plan Discussed Condition With: Patient, Relative Assessment Summary: ROBERTO/Acute Renal Failure, Acute Tubular Necrosis, Hypertension, Diabetes Mellitus Electrolyte Assessment: Hypokalemia Problem List: (1) Acute renal failure Plan: resolving ATN from sepsis s/p three HD treatments , last one on 05/22 he is in recovery phase his creatinine began to elevate likely due to diuresis. Bumex stopped, renal function improved. Repeat labs. Avoid nephrotoxic agents. (2) Hypoxia Plan: suspected pneumonia, he is on Levaquin and clinically improving echo reviewed, normal EF CT reviewed pulmonary following, may require bronchoscopy if no improvement ID is also following, appreciate recommendations (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 ID following, antibiotics include Flagyl , Diflucan, and Rocephin continue Wound care, pain control may need potential skin graft in the future surgery has evaluated and do not recommend a diverting colostomy at this time (4) Sepsis Plan: ID following, current Carlos's as above also has developed acute cholecystitis, see below antibiotics as ordered monitor clinically, he is afebrile (5) Cholecystitis Plan: ID and surgery following, non surgical management at this time appreciate recommendations (6) Anemia Plan: Hb improved and stable he was transfused 1 unit 05/27 monitor for changes (7) Hypertension Plan: BP acceptable he is on amlodipine, hydralazine, and metoprolol follow and titrate as needed (8) Poorly controlled diabetes mellitus Plan: continue insulin as ordered monitor glucose, currently acceptable, with goal of 140-180 mg/dL. (9) Pneumonia Plan: antibiotics per ID. On Augmentin, Levaquin, also on Diflucan. Problem Qualifiers (1) Acute renal failure: Qualified Code: N17.0 - Acute renal failure with tubular necrosis Ernesto Montano MD Jun 06, 2017 09:29
[2017-06-06] MEDS ORDERED: INSULIN DETEMIR 100 UNITS/ML VIAL SQ SCH (13:30)
--- NOTE | 2017-06-06 13:31 | HHI.PR ---
Subjective Remarks The patient was sitting comfortably in a chair. Family was at the bedside. Their questions were answered. The patient says that he no longer has chest pain. He was able to ambulate. He still has shortness of breath, but it's stable. Discussed with nursing. Objective Vitals Vital Signs Date Time Temp Pulse Resp B/P Pulse Ox O2 Delivery O2 Flow Rate FiO2 06/06/17 12:23 97.5 85 19 132/67 91 06/06/17 08:02 98.5 98 20 165/78 91 06/06/17 05:00 Nasal Cannula 6.00 06/06/17 05:00 98.5 96 22 142/67 92 06/05/17 23:20 99.0 80 20 119/74 92 06/05/17 20:00 95 Nasal Cannula 6.00 06/05/17 19:50 99.1 103 20 130/59 94 06/05/17 16:00 98.3 90 18 137/72 95 I/O 06/05/17 06/05/17 06/05/17 06/06/17 06/06/17 06/06/17 07:00 15:00 23:00 07:00 15:00 23:00 Intake Total 100 ml 720 ml 240 ml Output Total 750 ml 1000 ml 400 ml Balance -650 ml -280 ml -160 ml Intake Oral 100 ml 720 ml 240 ml Output Urine Total 750 ml 1000 ml 400 ml # Bowel Movements 0 1 0 Result Diagram: 06/06/17 0530 06/06/17 0530 Imaging Last Impressions Chest X-Ray 06/05/17 0000 Signed Impressions: Service Date/Time: Monday, June 05, 2017 15:28 - CONCLUSION: Persistent bilateral central infiltrates. Hamlet Rueda MD Chest CT 06/03/17 0959 Signed Impressions: Service Date/Time: June 11:29 - CONCLUSION: 1. Redemonstration of diffuse perihilar groundglass opacities with peripheral lungs sparing and sparing of the lung bases bilaterally. Differential considerations include atypical infection versus atypical pulmonary edema/ARDS. Royal Alfaro MD Gall Bladder Ultrasound 05/26/17 0000 Signed Impressions: Service Date/Time: Thursday, May 25, 2017 17:11 - CONCLUSION: Distended sludge-filled gallbladder with gallbladder wall thickening. Overall degree of gallbladder distention is largely unchanged from prior ultrasound exam although there is increased wall thickening. Trace pericholecystic fluid has resolved in the interval. HIDA scan performed 3 days ago demonstrates no filling of the gallbladder at 24 hours. Findings are consistent with acute cholecystitis likely secondary to cystic duct obstruction with mild interval improvement following antibiotic therapy. Royal Alfaro MD Hepatobiliary Scan Nuclear Medicine 05/22/17 0000 Signed Impressions: Service Date/Time: Wednesday, May 22, 2017 12:05 - CONCLUSION: 1. No uptake within the gallbladder. Delayed imaging will be obtained. 2. Small amount of biliary enteric reflux. Eloy Mcginnis MD ADDENDUM: COMPARISON: CT ABDOMEN & PELVIS W/O CONTRAST, May 16, 2017, 16:28. Delayed 24 our view does not demonstrate gallbladder therefore possibility of cystic duct obstruction and acute cholecystitis should be entertained. Armaan Tanner MD Objective Remarks GENERAL: Patient sitting up in chair. Appears comfortable. SKIN: Warm and dry. Groin wound is clean and nontender to palpation. HEAD: Normocephalic. EYES: No scleral icterus. No injection or drainage. NECK: Supple, trachea midline. Exam limited by body habitus. CARDIOVASCULAR: Regular rate and rhythm without murmurs, gallops, or rubs. RESPIRATORY: Scattered rhonchi. GASTROINTESTINAL: Abdomen soft, non-tender, nondistended. MUSCULOSKELETAL: No cyanosis, or edema. BACK: Nontender without obvious deformity. No CVA tenderness. Medications and IVs Current Medications Medications (Trade) Dose Ordered Sig/Reese Route Start Time Stop Time Status Last Admin (NS Flush) 2 ml UNSCH PRN .XX 05/16/17 20:30 05/31/17 02:35 (NS Flush) 2 ml BID IV FLUSH 05/16/17 21:00 06/06/17 09:07 (Tylenol) 650 mg Q6H PRN PO 05/16/17 20:30 05/19/17 04:10 (Milk Of Magnesia Liq) 30 ml Q12H PRN PO 05/16/17 20:30 (Senokot) 17.2 mg Q12H PRN PO 05/16/17 20:30 (Dulcolax Supp) 10 mg DAILY PRN RECTAL 05/16/17 20:30 (Lactulose Liq) 30 ml DAILY PRN PO 05/16/17 20:30 (Lipitor) 20 mg HS PO 05/16/17 21:00 Hold 05/23/17 21:15 (D50w (Vial) Inj) 50 ml UNSCH PRN IV PUSH 05/16/17 22:30 (Heparin Inj) 5,000 units Q12H SQ 05/18/17 17:00 06/06/17 05:23 (D50w (Vial) Inj) 50 ml UNSCH PRN IV 05/19/17 08:30 (Glucagon Inj) 1 mg UNSCH PRN OTHER 05/19/17 08:30 Sodium Hypochlorite APPLY DAKIN'S 0.1... BID TOPICAL 05/19/17 15:30 06/06/17 09:10 (NS 1000 ml Inj) 1,000 ml @ 0 mls/hr TITRATE PRN IV 05/19/17 20:00 05/22/17 15:08 (Heparin Inj) 8,000 units UNSCH PRN IV FLUSH 05/19/17 20:00 Heparin Sodium (Porcine) 1000 units 1,000 units Q1H PRN IV FLUSH 05/19/17 20:00 Sodium Chloride 1,000 ml @ 200 mls/hr Q5H PRN IV 05/19/17 20:00 (NS 250 ml Inj) 200 ml @ 0 mls/hr UNSCH PRN IV 05/19/17 20:00 (Mannitol Inj) 12.5 gm UNSCH PRN IV 05/19/17 20:00 (Albumin 25% Inj) 25 gm UNSCH PRN IV 05/19/17 20:00 (NS Flush) 5 ml UNSCH PRN IV FLUSH 05/19/17 20:00 (Heparin Inj) Dwell Heparin to f... UNSCH PRN OTHER 05/19/17 20:00 05/22/17 15:07 (Gentamicin (Dialysis) Inj) 10 mg UNSCH PRN OTHER 05/19/17 20:00 05/22/17 15:08 (Gelfoam 12 Mm/7 Mm Top) 1 foam UNSCH PRN TOPICAL 05/19/17 20:00 (Zofran Inj) 4 mg UNSCH PRN IV 05/19/17 20:00 (Benadryl) 25 mg UNSCH PRN PO 05/19/17 20:00 (Nitrostat Sl) 0.4 mg UNSCH PRN SL 05/19/17 20:00 (Catapres) 0.1 mg UNSCH PRN PO 05/19/17 20:00 (Apresoline Inj) 20 mg Q4H PRN IV 05/23/17 18:45 05/31/17 04:00 (Trandate Inj) 20 mg Q2H PRN IV 05/23/17 19:11 05/25/17 07:01 (NovoLOG SUPPLEMENTAL SCALE) 1 ACHS SQ 05/25/17 11:00 06/06/17 12:25 (Cathflo Activase Inj) 2 mg Q2H PRN INTRACATH 05/26/17 13:30 05/26/17 15:46 (Apresoline) 100 mg Q8HR PO 05/27/17 14:00 06/06/17 05:23 (Lopressor) 100 mg Q12HR PO 05/30/17 21:00 06/06/17 09:07 (Tessalon) 200 mg TID PRN PO 05/30/17 13:00 05/30/17 21:10 (Robitussin Dm 200-20 Mg/10 ml Liq) 10 ml Q4H PRN PO 05/30/17 23:15 06/04/17 04:27 (Norvasc) 10 mg DAILY PO 05/31/17 10:45 06/06/17 09:07 (Levemir Inj) 10 units Q12HR SQ 06/01/17 21:00 06/06/17 09:10 (Procardia Xl) 30 mg DAILY PO 06/02/17 09:00 06/06/17 09:07 (Levaquin) 750 mg Q48H PO 06/04/17 18:00 06/18/17 17:59 06/04/17 16:50 (Augmentin) 500 mg Q12HR PO 06/04/17 21:00 06/18/17 20:59 06/06/17 09:07 (Ambien) 5 mg HS PRN PO 06/05/17 15:30 06/05/17 23:36 (Roxicodone) 5 mg Q4H PRN PO 06/05/17 15:30 A/P Problem List: (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 Status post I&D with debridement of scrotum and perineum - Dr. Lopes 05/16. Status post reexploration of perineum 05/18. ID consult appreciated. 05/20 - urine -tracee. 05/16 - wound - Klebsiella/strep not A, D. - Continue Augmentin and Levaquin per infectious disease specialist - Will likely need plastics at some point. - cont BID dressing changes with Dakin's sodium hypochlorite 0.125%. - follow up with urology. Hypertension Relatively well-controlled. - Continue with hydralazine, Lopressor, nifedipine and Norvasc. - Continue to hold lisinopril 10 mg by mouth daily light of elevated creatinine. Acute respiratory failure BNP elevated. Diuretics d/c s/t renal insufficiency. Normal EF on echo. Pulmonology consult appreciated. Repeat CXR showed persistent bilateral central infiltrates. - Continue with DuoNeb when necessary. - Continue antibiotics as per infectious disease. - consider bronchoscopy per pulmonology. - wean O2 as tolerated. - incentive spirometry. Anemia of chronic disease Transfused 1 unit packed red blood cell 05/27/17 and H&H stable. - Monitor H&H. Cholecystitis Positive HIDA scan. Repeat GB US with improvement. - continue antibiotics. ROBERTO Nephrology consult appreciated. Renal indices improving. He had required hemodialysis 3 and now in recovery phase. - Avoid nephrotoxic drugs. - follow up with nephrology. DM2 Glucose poorly controlled. - change Levemir to 15 units daily, 10 units HS. - Insulin aspart SSI before meals/at bedtime. - Continue Holding metformin 500 mg by mouth twice a day. Chest pain New onset. Nonreproducible to palpation. Resolved. Trops negative. CXR with infiltrates. - treat underlying PNA as above. - telemetry. - pain control as needed. Prophylaxis. -Heparin 5000 units subcutaneous q12h. Discharge Planning Awaiting clinical improvement Ajay Sandoval DO Jun 06, 2017 13:31
[2017-06-06] MEDS: LEVOFLOXACIN 750 MG TAB PO SCH (17:17)
[2017-06-06] MEDS: ZOLPIDEM TARTRATE 5 MG TAB PO PRN (22:53)
[2017-06-06] MEDS: guaiFENesin/DEXTROMETHORPHAN 200 MG/20 MG/10 ML CUP PO PRN (23:44)
[2017-06-07] VITALS (10 sets, daily range): BP systolic 130–160; BP diastolic 58–77; PULSE 87–105; RESP 18–24; TEMP 98–99.4; O2SAT 91–98
[2017-06-07] MEDS: BENZONATATE 100 MG CAP PO PRN (01:10)
[2017-06-07] MEDS: RESP: IPRATROPIUM 0.5 MG/2.5 ML NEB NEB PRN ×3 (01:38→10:43)
[2017-06-07] MEDS: hydrALAZINE HCL 50 MG TAB PO SCH ×3 (05:23→21:31)
[2017-06-07] MEDS: HEPARIN SODIUM - SQ 10,000 UNITS/ML VIAL SQ SCH ×2 (05:24→17:15)
[2017-06-07] MEDS: INSULIN ASPART SUPPLEMENTAL SCALE SQ SCH ×4 (06:26→21:56)
[2017-06-07] MEDS: INSULIN DETEMIR 100 UNITS/ML VIAL SQ SCH ×2 (08:11→21:48)
[2017-06-07] MEDS: AMOXICILLIN/CLAVULANATE K 500 MG TAB PO SCH ×2 (08:12→21:31)
[2017-06-07] MEDS: NIFEdipine 30 MG SUSTAINED RELEASE TAB PO SCH (08:12)
[2017-06-07] MEDS: METOPROLOL TARTRATE 100 MG TAB PO SCH (08:12)
[2017-06-07] MEDS: SODIUM CHLORIDE 0.9% FLUSH 10 ML FLUSH IV FLUSH SCH ×2 (08:13→21:32)
[2017-06-07] MEDS: SODIUM HYPOCHLORITE 0.125% 500 ML BTL TOPICAL SCH ×2 (08:14→21:33)
[2017-06-07] MEDS ORDERED: RESP: ALBUTEROL 1.25 MG/3 ML NEB (PRN) NEB ×2 (11:15→11:30)
--- NOTE | 2017-06-07 11:28 | HHI.NPPN ---
Subjective Complaints: Shortness of Breath Renal Failure: Acute Interval History His shortness of breath has worsened, on oxygen and coughing. AM labs in process , he is a difficult stick for phlebotomy. (Latha Friedman) Review of Systems General Constitutional: Fatigue General Remarks no fever/chills (Latha Friedman) Respiratory Lungs: SOB, Cough (Latha Friedman) Objective Data Data 06/06/17 06/07/17 19:00 07:00 Intake Total 600 ml 1576 ml Output Total 700 ml 2250 ml Balance -100 ml -674 ml Intake Oral 600 ml 1570 ml IV Total 6 ml Output Urine Total 700 ml 2250 ml # Bowel Movements 0 0 Vital Signs Date Time Temp Pulse Resp B/P Pulse Ox O2 Delivery O2 Flow Rate FiO2 06/07/17 10:43 91 Venturi Mask 6.00 50 06/07/17 08:15 Venturi Mask 6.00 50 06/07/17 08:00 98.4 98 20 158/76 92 06/07/17 04:48 93 Venturi Mask 6.00 50 06/07/17 04:00 Venturi Mask 6.00 50 06/07/17 04:00 98.5 89 21 139/70 94 06/07/17 00:00 Nasal Cannula 6.00 06/07/17 00:00 98.9 88 19 130/58 93 06/06/17 20:40 Nasal Cannula 6.00 Humidified 06/06/17 20:00 98.8 90 21 154/77 91 06/06/17 17:43 92 Nasal Cannula 6.00 06/06/17 16:02 98.4 93 20 128/58 92 06/06/17 16:00 Nasal Cannula 6.00 06/06/17 13:45 92 Nasal Cannula 6.00 06/06/17 12:23 97.5 85 19 132/67 91 (Latha Friedman) -: 06/06/17 0530 06/06/17 0530 Imaging Last 72 hours Impressions Chest X-Ray 06/05/17 0000 Signed Impressions: Service Date/Time: Monday, June 05, 2017 15:28 - CONCLUSION: Persistent bilateral central infiltrates. Hamlet Rueda MD Drip Comment none (Latha rFiedman) Physical Exam General Appearance: Well Developed, Well Nourished, No Acute Distress, Comfortable, Anxious (Latha Friedman) Eyes Eye Exam: Pupils Equal (Latha Friedman) Throat Throat Exam: Oral Mucosa [place] & Moist (Latha Friedman) Neck Neck Exam: Neck Supple (Latha Friedman) Pulmonary Resp Exam: Breath Sounds Equal, Rhonchi, Decreased Bases, Diminished Breath Sounds, Labored Resp Remarks actively coughing ; tachypneic (Latha Friedman) Cardiology CV Exam: Regular, Normal Sinus Rhythm, Good Perfusion (Latha Friedman) Gastrointestinal/Abdomen GI Exam: Soft, Non-Tender, Bowel Sounds Present (Latha Friedman) Musculoskeletal MS Exam: Joints Intact, Normal Tone, Good Strength (Latha Friedman) Integumentary Skin Exam: Warm, Dry Skin Remarks perineal wounds, buttock wound (Latha Friedman) Extremeties Extremities Exam: No Edema, Pedal Pulses Palpable (Latha Friedman) Neurologic Neuro Exam: Alert, Awake, Oriented, Speech Clear, Moving All Extremities ( Latha Friedman) Psychiatric Psych Exam: Appropriate Responses (Latha Friedman) VTE Prophylaxis Device: SCDs (Latha Friedman) Assessment/Plan Discussed Condition With: Patient, Relative Assessment Summary: ROBERTO/Acute Renal Failure, Acute Tubular Necrosis, Hypertension, Diabetes Mellitus Electrolyte Assessment: Hypokalemia Problem List: (1) Acute renal failure Plan: resolving ATN from sepsis s/p three HD treatments , last one on 05/22 he is in recovery phase today's labs in process, renal funciton had been improving. he is off diuretics Avoid nephrotoxic agents. PO fluids encouraged (2) Pneumonia Plan: he feels worse today He is On Augmentin, Levaquin, and Diflucan. 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 ID following Flagyl and Diflucan were stopped continue Wound care, pain control may need potential skin graft in the future surgery has evaluated and do not recommend a diverting colostomy at this time (4) Sepsis Plan: resolving, due to Carlos's as above also had developed acute cholecystitis, see below antibiotics as ordered monitor clinically, he is afebrile ID following (5) Cholecystitis Plan: ID and surgery following, non surgical management at this time appreciate recommendations (6) Anemia Plan: Hb improved and stable he was transfused 1 unit 05/27 monitor for changes (7) Hypertension Plan: BP acceptable he is on amlodipine, hydralazine, and metoprolol follow and titrate as needed (8) Poorly controlled diabetes mellitus Plan: continue insulin as ordered monitor glucose, currently acceptable, with goal of 140-180 mg/dL. (Latha Friedman) Plan patient was seen and examined. Agree with above assessment and plan. (Ernesto Montano MD) Problem Qualifiers (1) Acute renal failure: Qualified Code: N17.0 - Acute renal failure with tubular necrosis Latha Friedman Jun 07, 2017 11:28 Ernesto Montano MD Jun 08, 2017 12:20
--- NOTE | 2017-06-07 12:59 | HHI.PR ---
Subjective Remarks The patient was complaining of continued shortness of breath that was getting worse. He said he can't lay back at all without having a hard time breathing. He has been urinating well. He says his groin wound is okay. Discussed with physician practice coordinator over the phone. Objective Vitals Vital Signs Date Time Temp Pulse Resp B/P Pulse Ox O2 Delivery O2 Flow Rate FiO2 06/07/17 10:43 91 Venturi Mask 6.00 50 06/07/17 08:15 Venturi Mask 6.00 50 06/07/17 08:00 98.4 98 20 158/76 92 06/07/17 04:48 93 Venturi Mask 6.00 50 06/07/17 04:00 Venturi Mask 6.00 50 06/07/17 04:00 98.5 89 21 139/70 94 06/07/17 00:00 Nasal Cannula 6.00 06/07/17 00:00 98.9 88 19 130/58 93 06/06/17 20:40 Nasal Cannula 6.00 Humidified 06/06/17 20:00 98.8 90 21 154/77 91 06/06/17 17:43 92 Nasal Cannula 6.00 06/06/17 16:02 98.4 93 20 128/58 92 06/06/17 16:00 Nasal Cannula 6.00 06/06/17 13:45 92 Nasal Cannula 6.00 I/O 06/06/17 06/06/17 06/06/17 06/07/17 06/07/17 06/07/17 06:59 14:59 22:59 06:59 14:59 22:59 Intake Total 600 ml 710 ml 866 ml Output Total 700 ml 850 ml 1400 ml Balance -100 ml -140 ml -534 ml Intake Oral 600 ml 710 ml 860 ml IV Total 6 ml Output Urine Total 700 ml 850 ml 1400 ml # Bowel Movements 0 0 0 Result Diagram: 06/06/17 0530 06/06/17 0530 Imaging Last Impressions Chest X-Ray 06/05/17 0000 Signed Impressions: Service Date/Time: Monday, June 05, 2017 15:28 - CONCLUSION: Persistent bilateral central infiltrates. Hamlet Rueda MD Chest CT 06/03/17 0959 Signed Impressions: Service Date/Time: June 11:29 - CONCLUSION: 1. Redemonstration of diffuse perihilar groundglass opacities with peripheral lungs sparing and sparing of the lung bases bilaterally. Differential considerations include atypical infection versus atypical pulmonary edema/ARDS. Royal Alfaro MD Gall Bladder Ultrasound 05/26/17 0000 Signed Impressions: Service Date/Time: Thursday, May 25, 2017 17:11 - CONCLUSION: Distended sludge-filled gallbladder with gallbladder wall thickening. Overall degree of gallbladder distention is largely unchanged from prior ultrasound exam although there is increased wall thickening. Trace pericholecystic fluid has resolved in the interval. HIDA scan performed 3 days ago demonstrates no filling of the gallbladder at 24 hours. Findings are consistent with acute cholecystitis likely secondary to cystic duct obstruction with mild interval improvement following antibiotic therapy. Royal Alfaro MD Hepatobiliary Scan Nuclear Medicine 05/22/17 0000 Signed Impressions: Service Date/Time: Monday, May 22, 2017 12:05 - CONCLUSION: 1. No uptake within the gallbladder. Delayed imaging will be obtained. 2. Small amount of biliary enteric reflux. Eloy Mcginnis MD ADDENDUM: COMPARISON: CT ABDOMEN & PELVIS W/O CONTRAST, May 16, 2017, 16:28. Delayed 24 our view does not demonstrate gallbladder therefore possibility of cystic duct obstruction and acute cholecystitis should be entertained. Armaan Tanner MD Objective Remarks GENERAL: Patient sitting up in chair, feeling short of breath. SKIN: Warm and dry. Groin wound is clean and nontender to palpation. HEAD: Normocephalic. EYES: No scleral icterus. No injection or drainage. NECK: Supple, trachea midline. Exam limited by body habitus. CARDIOVASCULAR: Regular rate and rhythm without murmurs, gallops, or rubs. RESPIRATORY: Scattered rhonchi. GASTROINTESTINAL: Abdomen soft, non-tender, nondistended. MUSCULOSKELETAL: No cyanosis, or edema. BACK: Nontender without obvious deformity. No CVA tenderness. NEURO: No gross deficits. PSYCH: Mood and affect appropriate. Medications and IVs Current Medications Medications (Trade) Dose Ordered Sig/Reese Route Start Time Stop Time Status Last Admin (NS Flush) 2 ml UNSCH PRN .XX 05/16/17 20:30 05/31/17 02:35 (NS Flush) 2 ml BID IV FLUSH 05/16/17 21:00 06/07/17 08:13 (Tylenol) 650 mg Q6H PRN PO 05/16/17 20:30 05/19/17 04:10 (Milk Of Magnesia Liq) 30 ml Q12H PRN PO 05/16/17 20:30 (Senokot) 17.2 mg Q12H PRN PO 05/16/17 20:30 (Dulcolax Supp) 10 mg DAILY PRN RECTAL 05/16/17 20:30 (Lactulose Liq) 30 ml DAILY PRN PO 05/16/17 20:30 (Lipitor) 20 mg HS PO 05/16/17 21:00 Hold 05/23/17 21:15 (D50w (Vial) Inj) 50 ml UNSCH PRN IV PUSH 05/16/17 22:30 (Heparin Inj) 5,000 units Q12H SQ 05/18/17 17:00 06/07/17 05:24 (D50w (Vial) Inj) 50 ml UNSCH PRN IV 05/19/17 08:30 (Glucagon Inj) 1 mg UNSCH PRN OTHER 05/19/17 08:30 Sodium Hypochlorite APPLY DAKIN'S 0.1... BID TOPICAL 05/19/17 15:30 06/07/17 08:14 (NS 1000 ml Inj) 1,000 ml @ 0 mls/hr TITRATE PRN IV 05/19/17 20:00 05/22/17 15:08 (Heparin Inj) 8,000 units UNSCH PRN IV FLUSH 05/19/17 20:00 Heparin Sodium (Porcine) 1000 units 1,000 units Q1H PRN IV FLUSH 05/19/17 20:00 Sodium Chloride 1,000 ml @ 200 mls/hr Q5H PRN IV 05/19/17 20:00 (NS 250 ml Inj) 200 ml @ 0 mls/hr UNSCH PRN IV 05/19/17 20:00 (Mannitol Inj) 12.5 gm UNSCH PRN IV 05/19/17 20:00 (Albumin 25% Inj) 25 gm UNSCH PRN IV 05/19/17 20:00 (NS Flush) 5 ml UNSCH PRN IV FLUSH 05/19/17 20:00 (Heparin Inj) Dwell Heparin to f... UNSCH PRN OTHER 05/19/17 20:00 05/22/17 15:07 (Gentamicin (Dialysis) Inj) 10 mg UNSCH PRN OTHER 05/19/17 20:00 05/22/17 15:08 (Gelfoam 12 Mm/7 Mm Top) 1 foam UNSCH PRN TOPICAL 05/19/17 20:00 (Zofran Inj) 4 mg UNSCH PRN IV 05/19/17 20:00 (Benadryl) 25 mg UNSCH PRN PO 05/19/17 20:00 (Nitrostat Sl) 0.4 mg UNSCH PRN SL 05/19/17 20:00 (Catapres) 0.1 mg UNSCH PRN PO 05/19/17 20:00 (Apresoline Inj) 20 mg Q4H PRN IV 05/23/17 18:45 05/31/17 04:00 (Trandate Inj) 20 mg Q2H PRN IV 05/23/17 19:11 05/25/17 07:01 (NovoLOG SUPPLEMENTAL SCALE) 1 ACHS SQ 05/25/17 11:00 06/07/17 12:35 (Cathflo Activase Inj) 2 mg Q2H PRN INTRACATH 05/26/17 13:30 05/26/17 15:46 (Apresoline) 100 mg Q8HR PO 05/27/17 14:00 06/07/17 12:40 (Lopressor) 100 mg Q12HR PO 05/30/17 21:00 06/07/17 08:12 (Tessalon) 200 mg TID PRN PO 05/30/17 13:00 06/07/17 01:10 (Robitussin Dm 200-20 Mg/10 ml Liq) 10 ml Q4H PRN PO 05/30/17 23:15 06/06/17 23:44 (Norvasc) 10 mg DAILY PO 05/31/17 10:45 06/07/17 08:12 (Procardia Xl) 30 mg DAILY PO 06/02/17 09:00 06/07/17 08:12 (Levaquin) 750 mg Q48H PO 06/04/17 18:00 06/18/17 17:59 06/06/17 17:17 (Augmentin) 500 mg Q12HR PO 06/04/17 21:00 06/18/17 20:59 06/07/17 08:12 (Ambien) 5 mg HS PRN PO 06/05/17 15:30 06/06/17 22:53 (Roxicodone) 5 mg Q4H PRN PO 06/05/17 15:30 (Levemir Inj) 10 units HS SQ 06/06/17 21:00 06/06/17 20:36 (Levemir Inj) 15 units DAILY SQ 06/07/17 09:00 06/07/17 08:11 (SoluMEDROL INJ) 40 mg Q6HR IV PUSH 06/07/17 13:00 UNV A/P Problem List: (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 Status post I&D with debridement of scrotum and perineum - Dr. Lopes 05/16. Status post reexploration of perineum 05/18. ID consult appreciated. 05/20 - urine -tracee. 05/16 - wound - Klebsiella/strep not A, D. - Continue Augmentin and Levaquin per infectious disease specialist - Will likely need plastics at some point. - cont BID dressing changes with Dakin's sodium hypochlorite 0.125%. - follow up with urology. Hypertension Relatively well-controlled. - Continue with hydralazine, nifedipine and Norvasc. Hold Lopressor 06/07 as it might be contributing to bronchospasm. - Continue to hold lisinopril 10 mg by mouth daily light of elevated creatinine. Acute respiratory failure BNP elevated. Diuretics d/c s/t renal insufficiency. Normal EF on echo. Pulmonology consult appreciated. Repeat CXR showed persistent bilateral central infiltrates. Pt on VM 06/07. Discussed with pulmonology. - Continue with DuoNeb when necessary. - Continue antibiotics as per infectious disease. - consider bronchoscopy per pulmonology. - wean O2 as tolerated. - incentive spirometry. - start Solumedrol 40 mg IV q 6 hours 06/07. - repeat CXR, ABG 06/07. Anemia of chronic disease Transfused 1 unit packed red blood cell 05/27/17 and H&H stable. - Monitor H&H. Cholecystitis Positive HIDA scan. Repeat GB US with improvement. - continue antibiotics. ROBERTO Nephrology consult appreciated. Renal indices improving. He had required hemodialysis 3 and now in recovery phase. - Avoid nephrotoxic drugs. - follow up with nephrology. DM2 Glucose improved 06/07. - change Levemir to 15 units daily, 10 units HS. - Insulin aspart SSI before meals/at bedtime. - Continue Holding metformin 500 mg by mouth twice a day. Chest pain New onset. Nonreproducible to palpation. Resolved. Trops negative. CXR with infiltrates. - treat underlying PNA as above. - telemetry. - pain control as needed. Prophylaxis. -Heparin 5000 units subcutaneous q12h. Discharge Planning Awaiting clinical improvement Ajay Sandoval DO Jun 07, 2017 12:59
[2017-06-07] MEDS: methylPREDNISolone SOD SUCC 40 MG/1 ML VIAL IV PUSH SCH ×2 (13:25→21:33)
[2017-06-07 13:36] LABS: BLOOD GAS BASE EXCESS -1.4 mmol/L (-2-2); BLOOD GAS CARBOXYHEMOGLOBIN 2.1 % (0-4); BLOOD GAS HCO3 20 mmol/L (22-26); BLOOD GAS METHEMOGLOBIN 0.7 % (0-2); BLOOD GAS O2 HGB SATURATION 86 % (90-100); BLOOD GAS OXYGEN CONTENT 12.2 Vol % (12.0-20.0); BLOOD GAS PCO2 22 mmHg (38-42); BLOOD GAS PO2 49 mmHg (61-120); BLOOD GAS TOTAL HGB 10.1 G/DL (12.0-16.0); TEMP CORR TO 98.6
[2017-06-07 13:38] LABS: CRITICAL VALUE YES; DRAW SITE RT RADIAL; NUMBER OF ARTERIAL PUNCTURES 1; OXYGEN DEVICE room air; STAT NO; ULNAR PULSE PRESENT
[2017-06-07] MEDS ORDERED: LORazepam 2 MG/ML VIAL IV PUSH ONE (14:15)
--- NOTE | 2017-06-07 14:37 | RADRPT ---
EXAM DATE/TIME: 06/07/2017 13:08 [facility] COMPARISON: CHEST SINGLE AP, May 31, 2017, 0:36. CHEST SINGLE AP, May 27, 2017, 9:54. CHEST SINGLE AP, May 022016, 3:43. CHEST PA & LAT, June 02, 2017, 13:12. CHEST SINGLE AP, June 05, 2017, 15:28. INDICATIONS : Shortness of breath for 2 weeks. MEDICAL HISTORY : Hypertension. Diabetes mellitus type 2. SURGICAL HISTORY : None. ENCOUNTER: Subsequent ACUITY: 2 weeks PAIN SCORE: 0/10 LOCATION: FINDINGS: Patchy perihilar airspace disease is present in both lungs without significant change. This is worse on the right than the left. There is no adenopathy or pleural effusion. The heart and pulmonary vas cularity are normal. The portion of the bony skeleton visualized is unremarkable. CONCLUSION: Stable chest. Considerations range from pneumocystis pneumonia to sarcoid. An atypical inflammatory process is suspected. Bone biopsy may help if diagnosis is not known. Sincere Willis MD FACR on June 07, 2017 at 14:34 Board Certified Radiologist. This report was verified electronically.
[2017-06-07] MEDS: guaiFENesin/DEXTROMETHORPHAN 200 MG/20 MG/10 ML CUP PO PRN (15:44)
--- NOTE | 2017-06-07 15:59 | HHI.PR ---
Subjective Remarks ALERT NO SOB AT REST OVER ALL GRADUALLY IMPROVING Objective Vital Signs Date Time Temp Pulse Resp B/P Pulse Ox O2 Delivery O2 Flow Rate FiO2 06/07/17 12:00 98.0 87 20 160/77 98 06/07/17 10:43 91 Venturi Mask 6.00 50 06/07/17 08:15 Venturi Mask 6.00 50 06/07/17 08:00 98.4 98 20 158/76 92 06/07/17 04:48 93 Venturi Mask 6.00 50 06/07/17 04:00 Venturi Mask 6.00 50 06/07/17 04:00 98.5 89 21 139/70 94 06/07/17 00:00 Nasal Cannula 6.00 06/07/17 00:00 98.9 88 19 130/58 93 06/06/17 20:40 Nasal Cannula 6.00 Humidified 06/06/17 20:00 98.8 90 21 154/77 91 06/06/17 17:43 92 Nasal Cannula 6.00 06/06/17 16:02 98.4 93 20 128/58 92 06/06/17 16:00 Nasal Cannula 6.00 I/O 06/06/17 06/06/17 06/06/17 06/07/17 06/07/17 06/07/17 07:00 15:00 23:00 07:00 15:00 23:00 Intake Total 600 ml 710 ml 866 ml Output Total 700 ml 850 ml 1400 ml Balance -100 ml -140 ml -534 ml Intake Oral 600 ml 710 ml 860 ml IV Total 6 ml Output Urine Total 700 ml 850 ml 1400 ml # Bowel Movements 0 0 0 Result Diagram: 06/06/1730 06/06/17 0530 Objective Remarks GENERAL: SKIN: Warm and dry. HEAD: Atraumatic. Normocephalic. EYES: Pupils equal and round. No scleral icterus. No injection or drainage. ENT: No nasal bleeding or discharge. Mucous membranes pink and moist. NECK: Trachea midline. No JVD. CARDIOVASCULAR: Regular rate and rhythm. RESPIRATORY: No accessory muscle use. Clear to auscultation. Breath sounds equal bilaterally. GASTROINTESTINAL: Abdomen soft, non-tender, nondistended. Hepatic and splenic margins not palpable. MUSCULOSKELETAL: Extremities without clubbing, cyanosis, or edema. No obvious deformities. NEUROLOGICAL: Awake and alert. No obvious cranial nerve deficits. Motor grossly within normal limits. Five out of 5 muscle strength in the arms and legs. Normal speech. PSYCHIATRIC: Appropriate mood and affect; insight and judgment normal. Assessment and Plan Assessment and Plan ASS CLINICALY IMPROVING PNA , PERSISTS BY CXRAY TODAY SEPSIS PLAN F/U CXRAY CONTINUE ANTIBX INCREASE ACTIVITY BRONCHOSCOPY JIN Salcido,Omari House MD Jun 07, 2017 15:59
[2017-06-07 16:11] LABS: BICARBONATE 21.8 MEQ/L (21.0-32.0); MAGNESIUM 1.9 MG/DL (1.5-2.5); POTASSIUM 4.6 MEQ/L (3.5-5.1)
[2017-06-07 16:15] LABS: HEMATOCRIT 31.6 % (39.0-51.0); MEAN CELL VOLUME 83.7 FL (80.0-100.0); MEAN CORPUSCULAR HEMOGLOBIN 27.3 PG (27.0-34.0); MEAN CORPUSCULAR HGB CONC 32.6 % (32.0-36.0); PLATELET COUNT 176 TH/MM3 (150-450); RED BLOOD COUNT 3.78 MIL/MM3 (4.50-5.90); REVIEW FLAG FINAL; WHITE BLOOD COUNT 9.7 TH/MM3 (4.0-11.0)
[2017-06-07] MEDS: ZOLPIDEM TARTRATE 5 MG TAB PO PRN (23:26)
[2017-06-08] MEDS: SODIUM CHLORIDE 0.9% FLUSH 10 ML FLUSH PRN (03:56)
[2017-06-08] MEDS: methylPREDNISolone SOD SUCC 40 MG/1 ML VIAL IV PUSH SCH ×4 (03:56→21:15)
[2017-06-08] MEDS: HEPARIN SODIUM - SQ 10,000 UNITS/ML VIAL SQ SCH ×2 (03:57→17:00)
[2017-06-08 05:37] VITALS: BP 149/76; PULSE 106; RESP 18; TEMP 97.8; O2SAT 94
[2017-06-08] MEDS: INSULIN ASPART SUPPLEMENTAL SCALE SQ SCH ×4 (05:50→21:38)
[2017-06-08] MEDS: hydrALAZINE HCL 50 MG TAB PO SCH ×3 (05:57→21:15)
[2017-06-08 07:30] LABS: MEAN CELL VOLUME 83.7 FL (80.0-100.0); MEAN CORPUSCULAR HEMOGLOBIN 27.1 PG (27.0-34.0); MEAN CORPUSCULAR HGB CONC 32.4 % (32.0-36.0); PLATELET COUNT 173 TH/MM3 (150-450); RED BLOOD COUNT 3.46 MIL/MM3 (4.50-5.90); RED CELL DISTRIBUTION WIDTH 15.7 % (11.6-17.2); REVIEW FLAG FINAL; WHITE BLOOD COUNT 4.5 TH/MM3 (4.0-11.0)
[2017-06-08 07:47] LABS: BICARBONATE 22.2 MEQ/L (21.0-32.0); POTASSIUM 4.6 MEQ/L (3.5-5.1)
[2017-06-08 07:58] LABS: PROTHROMBIN TIME - PATIENT 11.1 SEC (9.8-11.6)
[2017-06-08 08:00] VITALS: BP 166/79; PULSE 114; RESP 20; TEMP 98.6; O2SAT 93
[2017-06-08] MEDS: SODIUM HYPOCHLORITE 0.125% 500 ML BTL TOPICAL SCH ×2 (09:00→21:18)
[2017-06-08] MEDS: INSULIN DETEMIR 100 UNITS/ML VIAL SQ SCH ×2 (09:00→21:36)
[2017-06-08] MEDS: NIFEdipine 30 MG SUSTAINED RELEASE TAB PO SCH (09:33)
[2017-06-08] MEDS: AMOXICILLIN/CLAVULANATE K 500 MG TAB PO SCH ×2 (09:33→21:14)
[2017-06-08] MEDS: SODIUM CHLORIDE 0.9% FLUSH 10 ML FLUSH IV FLUSH SCH ×2 (09:33→21:14)
--- NOTE | 2017-06-08 11:14 | HHI.NPPN ---
Subjective Complaints: Shortness of Breath Renal Failure: Acute Interval History Renal funciton is better. He is NPO for bronchoscopy today. (Latha Friedman) Review of Systems General Constitutional: Fatigue General Remarks no fever/chills (Latha Friedman) Respiratory Lungs: SOB, Cough (Latha Friedman) Objective Data Data 06/07/17 06/08/17 19:00 07:00 Intake Total 840 ml 360 ml Output Total 1075 ml 2525 ml Balance -235 ml -2165 ml Intake Oral 840 ml 360 ml Output Urine Total 1075 ml 2525 ml # Bowel Movements 1 1 Vital Signs Date Time Temp Pulse Resp B/P Pulse Ox O2 Delivery O2 Flow Rate FiO2 06/08/17 08:00 98.6 114 20 166/79 93 06/08/17 07:00 Venturi Mask 6.00 50 06/08/17 05:37 97.8 106 18 149/76 94 06/07/17 23:25 98.6 105 18 141/69 94 06/07/17 22:01 18 06/07/17 21:30 Venturi Mask 6.00 50 06/07/17 21:29 99.4 104 24 135/75 95 06/07/17 16:00 99.4 98 20 138/76 91 06/07/17 12:00 98.0 87 20 160/77 98 (Latha Friedman) -: 06/08/17 0632 06/08/17 0632 Imaging Last 72 hours Impressions Chest X-Ray 06/07/17 0000 Signed Impressions: Service Date/Time: Wednesday, June 07, 2017 13:08 - CONCLUSION: Stable chest. Considerations range from pneumocystis pneumonia to sarcoid. An atypical inflammatory process is suspected. Bone biopsy may help if diagnosis is not known. Sincere Willis MD FACR Drip Comment none (Latha Friedman) Physical Exam General Appearance: Well Developed, Well Nourished, No Acute Distress, Comfortable, Anxious (Latha Friedman) Eyes Eye Exam: Pupils Equal (Latha Friedman) Throat Throat Exam: Oral Mucosa [place] & Moist ([place],Latha B. VICE PRESIDENT TAX) Neck Neck Exam: Neck Supple (Latha Friedman) Pulmonary Resp Exam: Breath Sounds Equal, Rhonchi, Decreased Bases, Diminished Breath Sounds, Labored Resp Remarks actively coughing ; tachypneic (Latha Friedman VICE PRESIDENT TAX) Cardiology CV Exam: Regular, Normal Sinus Rhythm, Good Perfusion (Latha FriedmanP) Gastrointestinal/Abdomen GI Exam: Soft, Non-Tender, Bowel Sounds Present (Latha Friedman) Musculoskeletal MS Exam: Joints Intact, Normal Tone, Good Strength (Latha FriedmanP) Integumentary Skin Exam: Warm, Dry Skin Remarks perineal wounds, buttock wound (Latha FriedmanP) Extremeties Extremities Exam: No Edema, Pedal Pulses Palpable (Latha Friedman VICE PRESIDENT TAX) Neurologic Neuro Exam: Alert, Awake, Oriented, Speech Clear, Moving All Extremities ( Latha FriedmanP) Psychiatric Psych Exam: Appropriate Responses (Latha Friedman) VTE Prophylaxis Device: SCDs (Latha Friedman) Assessment/Plan Discussed Condition With: Patient, Relative Assessment Summary: ROBERTO/Acute Renal Failure, Acute Tubular Necrosis, Hypertension, Diabetes Mellitus Electrolyte Assessment: Hypokalemia Problem List: (1) Acute renal failure Plan: resolving ATN from sepsis s/p three HD treatments , last one on 05/22 he is in recovery phase renal function with continued improvement he is off diuretics Avoid nephrotoxic agents. PO fluids encouraged when no longer NPO (2) Pneumonia Plan: to have bronchoscopy today, pulmonary following He is On Augmentin, Levaquin, and Diflucan. 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 ID following Flagyl and Diflucan were stopped continue Wound care, pain control may need potential skin graft in the future surgery has evaluated and do not recommend a diverting colostomy at this time (4) Sepsis Plan: resolving, due to Carlos's as above also had developed acute cholecystitis, see below antibiotics as ordered monitor clinically, he is afebrile ID following (5) Cholecystitis Plan: ID and surgery following, non surgical management at this time appreciate recommendations (6) Anemia Plan: Hb improved and stable he was transfused 1 unit 05/27 monitor for changes (7) Hypertension Plan: BP acceptable he is on amlodipine, hydralazine, and metoprolol follow and titrate as needed (8) Poorly controlled diabetes mellitus Plan: continue insulin as ordered monitor glucose, currently acceptable, with goal of 140-180 mg/dL. (Latha Friedman) Plan patient was seen and examined. Renal function is better. Bronchoscopy today. Hypoxia persists. Pulmonary on the case. (Ernesto Montano MD) Problem Qualifiers (1) Acute renal failure: Qualified Code: N17.0 - Acute renal failure with tubular necrosis Latha Friedman Jun 08, 2017 11:14 Ernesto Montano MD Jun 08, 2017 12:21
--- NOTE | 2017-06-08 11:31 | HHI.PR ---
Subjective Remarks The patient said that he thinks the steroids are helping his breathing. He said today is the first day he hasn't been coughing that much. He is starving and says his bronchoscopy was scheduled at 3:30 PM. He says his groin wound is doing okay. He had a bowel movement today. He had no acute complaints. Objective Vitals Vital Signs Date Time Temp Pulse Resp B/P Pulse Ox O2 Delivery O2 Flow Rate FiO2 06/08/17 08:00 98.6 114 20 166/79 93 06/08/17 07:00 Venturi Mask 6.00 50 06/08/17 05:37 97.8 106 18 149/76 94 06/07/17 23:25 98.6 105 18 141/69 94 06/07/17 22:01 18 06/07/17 21:30 Venturi Mask 6.00 50 06/07/17 21:29 99.4 104 24 135/75 95 06/07/17 16:00 99.4 98 20 138/76 91 06/07/17 12:00 98.0 87 20 160/77 98 I/O 06/07/17 06/07/17 06/07/17 06/08/17 06/08/17 06/08/17 06:59 14:59 22:59 06:59 14:59 22:59 Intake Total 866 ml 840 ml 360 ml 0 ml Output Total 1400 ml 1075 ml 900 ml 1625 ml Balance -534 ml -235 ml -540 ml -1625 ml Intake Oral 860 ml 840 ml 360 ml 0 ml IV Total 6 ml Output Urine Total 1400 ml 1075 ml 900 ml 1625 ml # Bowel Movements 0 1 1 0 Result Diagram: 06/08/17 0632 06/08/17 0632 Imaging Last Impressions Chest X-Ray 06/07/17 0000 Signed Impressions: Service Date/Time: Wednesday, June 07, 2017 13:08 - CONCLUSION: Stable chest. Considerations range from pneumocystis pneumonia to sarcoid. An atypical inflammatory process is suspected. Bone biopsy may help if diagnosis is not known. Sincere Willis MD FACR Chest CT 06/03/17 0959 Signed Impressions: Service Date/Time: June 11:29 - CONCLUSION: 1. Redemonstration of diffuse perihilar groundglass opacities with peripheral lungs sparing and sparing of the lung bases bilaterally. Differential considerations include atypical infection versus atypical pulmonary edema/ARDS. Royal Alfaro MD Gall Bladder Ultrasound 05/26/17 0000 Signed Impressions: Service Date/Time: Thursday, May 25, 2017 17:11 - CONCLUSION: Distended sludge-filled gallbladder with gallbladder wall thickening. Overall degree of gallbladder distention is largely unchanged from prior ultrasound exam although there is increased wall thickening. Trace pericholecystic fluid has resolved in the interval. HIDA scan performed 3 days ago demonstrates no filling of the gallbladder at 24 hours. Findings are consistent with acute cholecystitis likely secondary to cystic duct obstruction with mild interval improvement following antibiotic therapy. Royal Alfaro MD Hepatobiliary Scan Nuclear Medicine 05/22/17 0000 Signed Impressions: Service Date/Time: Monday, May 22, 2017 12:05 - CONCLUSION: 1. No uptake within the gallbladder. Delayed imaging will be obtained. 2. Small amount of biliary enteric reflux. Eloy Mcginnis MD ADDENDUM: COMPARISON: CT ABDOMEN & PELVIS W/O CONTRAST, May 16, 2017, 16:28. Delayed 24 our view does not demonstrate gallbladder therefore possibility of cystic duct obstruction and acute cholecystitis should be entertained. Armaan Tanner MD Objective Remarks GENERAL: Patient sitting up in chair, NAD. SKIN: Warm and dry. Groin wound is clean and nontender to palpation. HEAD: Normocephalic. EYES: No scleral icterus. No injection or drainage. NECK: Supple, trachea midline. Exam limited by body habitus. CARDIOVASCULAR: Regular rate and rhythm without murmurs, gallops, or rubs. RESPIRATORY: CTAB, no W/R/R. GASTROINTESTINAL: Abdomen soft, non-tender, nondistended. MUSCULOSKELETAL: No cyanosis, or edema. BACK: Nontender without obvious deformity. No CVA tenderness. NEURO: No gross deficits. PSYCH: Mood and affect appropriate. Medications and IVs Current Medications Medications (Trade) Dose Ordered Sig/Reese Route Start Time Stop Time Status Last Admin (NS Flush) 2 ml UNSCH PRN .XX 05/16/17 20:30 06/08/17 03:56 (NS Flush) 2 ml BID IV FLUSH 05/16/17 21:00 06/08/17 09:33 (Tylenol) 650 mg Q6H PRN PO 05/16/17 20:30 05/19/17 04:10 (Milk Of Magnesia Liq) 30 ml Q12H PRN PO 05/16/17 20:30 (Senokot) 17.2 mg Q12H PRN PO 05/16/17 20:30 (Dulcolax Supp) 10 mg DAILY PRN RECTAL 05/16/17 20:30 (Lactulose Liq) 30 ml DAILY PRN PO 05/16/17 20:30 (Lipitor) 20 mg HS PO 05/16/17 21:00 Hold 05/23/17 21:15 (D50w (Vial) Inj) 50 ml UNSCH PRN IV PUSH 05/16/17 22:30 (Heparin Inj) 5,000 units Q12H SQ 05/18/17 17:00 06/07/17 17:15 (D50w (Vial) Inj) 50 ml UNSCH PRN IV 05/19/17 08:30 (Glucagon Inj) 1 mg UNSCH PRN OTHER 05/19/17 08:30 Sodium Hypochlorite APPLY DAKIN'S 0.1... BID TOPICAL 05/19/17 15:30 06/08/17 09:00 (NS 1000 ml Inj) 1,000 ml @ 0 mls/hr TITRATE PRN IV 05/19/17 20:00 05/22/17 15:08 (Heparin Inj) 8,000 units UNSCH PRN IV FLUSH 05/19/17 20:00 Heparin Sodium (Porcine) 1000 units 1,000 units Q1H PRN IV FLUSH 05/19/17 20:00 Sodium Chloride 1,000 ml @ 200 mls/hr Q5H PRN IV 05/19/17 20:00 (NS 250 ml Inj) 200 ml @ 0 mls/hr UNSCH PRN IV 05/19/17 20:00 (Mannitol Inj) 12.5 gm UNSCH PRN IV 05/19/17 20:00 (Albumin 25% Inj) 25 gm UNSCH PRN IV 05/19/17 20:00 (NS Flush) 5 ml UNSCH PRN IV FLUSH 05/19/17 20:00 (Heparin Inj) Dwell Heparin to f... UNSCH PRN OTHER 05/19/17 20:00 05/22/17 15:07 (Gentamicin (Dialysis) Inj) 10 mg UNSCH PRN OTHER 05/19/17 20:00 05/22/17 15:08 (Gelfoam 12 Mm/7 Mm Top) 1 foam UNSCH PRN TOPICAL 05/19/17 20:00 (Zofran Inj) 4 mg UNSCH PRN IV 05/19/17 20:00 (Benadryl) 25 mg UNSCH PRN PO 05/19/17 20:00 (Nitrostat Sl) 0.4 mg UNSCH PRN SL 05/19/17 20:00 (Catapres) 0.1 mg UNSCH PRN PO 05/19/17 20:00 (Apresoline Inj) 20 mg Q4H PRN IV 05/23/17 18:45 05/31/17 04:00 (NovoLOG SUPPLEMENTAL SCALE) 1 ACHS SQ 05/25/17 11:00 06/07/17 21:56 (Cathflo Activase Inj) 2 mg Q2H PRN INTRACATH 05/26/17 13:30 05/26/17 15:46 (Apresoline) 100 mg Q8HR PO 05/27/17 14:00 06/08/17 05:57 (Lopressor) 100 mg Q12HR PO 05/30/17 21:00 Hold 06/07/17 08:12 (Tessalon) 200 mg TID PRN PO 05/30/17 13:00 06/07/17 01:10 (Robitussin Dm 200-20 Mg/10 ml Liq) 10 ml Q4H PRN PO 05/30/17 23:15 06/07/17 15:44 (Norvasc) 10 mg DAILY PO 05/31/17 10:45 06/08/17 09:33 (Procardia Xl) 30 mg DAILY PO 06/02/17 09:00 06/08/17 09:33 (Levaquin) 750 mg Q48H PO 06/04/17 18:00 06/18/17 17:59 06/06/17 17:17 (Augmentin) 500 mg Q12HR PO 06/04/17 21:00 06/18/17 20:59 06/08/17 09:33 (Ambien) 5 mg HS PRN PO 06/05/17 15:30 06/07/17 23:26 (Roxicodone) 5 mg Q4H PRN PO 06/05/17 15:30 (Levemir Inj) 10 units HS SQ 06/06/17 21:00 06/07/17 21:48 (Levemir Inj) 15 units DAILY SQ 06/07/17 09:00 06/07/17 08:11 (SoluMEDROL INJ) 40 mg Q6H IV PUSH 06/07/17 14:00 06/08/17 09:34 A/P Problem List: (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 Status post I&D with debridement of scrotum and perineum - Dr. Lopes 05/16. Status post reexploration of perineum 05/18. ID consult appreciated. 05/20 - urine -tracee. 05/16 - wound - Klebsiella/strep not A, D. - Continue Augmentin and Levaquin per infectious disease specialist. - Will likely need plastics at some point. - cont BID dressing changes with Dakin's sodium hypochlorite 0.125%. - follow up with urology. Hypertension Relatively well-controlled. - Continue with hydralazine, nifedipine and Norvasc. Hold Lopressor 06/07 as it might be contributing to bronchospasm. - Continue to hold lisinopril 10 mg by mouth daily light of elevated creatinine. Acute respiratory failure BNP elevated. Diuretics d/c s/t renal insufficiency. Normal EF on echo. Pulmonology consult appreciated. Repeat CXR showed persistent bilateral central infiltrates. Pt on 06/07. Discussed with pulmonology. Repeat CXR: Stable chest ; Considerations range from pneumocystis pneumonia to sarcoid; An atypical inflammatory process is suspected. ABG with respiratory alkalosis. - Continue with DuoNeb when necessary. Stable chest. - Continue antibiotics as per infectious disease. - bronchoscopy scheduled 06/08 per pulmonology. - wean O2 as tolerated. - incentive spirometry. - start Solumedrol 40 mg IV q 6 hours 06/07. Improving. Anemia of chronic disease Transfused 1 unit packed red blood cell 05/27/17 and H&H stable. - Monitor H&H. Cholecystitis Positive HIDA scan. Repeat GB US with improvement. - continue antibiotics. ROBERTO Nephrology consult appreciated. Renal indices improving. He had required hemodialysis 3 and now in recovery phase. - Avoid nephrotoxic drugs. - follow up with nephrology. DM2 Glucose worse with steroids. - change Levemir to 15 units daily, 10 units HS. Adjust as needed. - Insulin aspart SSI before meals/at bedtime. - Continue Holding metformin 500 mg by mouth twice a day. PPx: Heparin Discharge Planning Awaiting clinical improvement Ajay Sandoval DO Jun 08, 2017 11:31
[2017-06-08 12:00] VITALS: BP 165/91; PULSE 116; RESP 22; TEMP 98.5; O2SAT 93
[2017-06-08 12:38] VITALS: O2SAT 92
--- NOTE | 2017-06-08 15:48 | HHI.PR ---
Subjective Remarks ALERT NO SOB AT REST OVER ALL GRADUALLY IMPROVING Objective Vital Signs Date Time Temp Pulse Resp B/P Pulse Ox O2 Delivery O2 Flow Rate FiO2 06/08/17 12:38 92 Venturi Mask 6.00 50 06/08/17 12:00 98.5 116 22 165/91 93 06/08/17 08:00 98.6 114 20 166/79 93 06/08/17 07:00 Venturi Mask 6.00 50 06/08/17 05:37 97.8 106 18 149/76 94 06/07/17 23:25 98.6 105 18 141/69 94 06/07/17 22:01 18 06/07/17 21:30 Venturi Mask 6.00 50 06/07/17 21:29 99.4 104 24 135/75 95 06/07/17 16:00 99.4 98 20 138/76 91 I/O 06/07/17 06/07/17 06/07/17 06/08/17 06/08/17 06/08/17 07:00 15:00 23:00 07:00 15:00 23:00 Intake Total 866 ml 840 ml 360 ml 0 ml 30 ml Output Total 1400 ml 1075 ml 900 ml 1625 ml 775 ml Balance -534 ml -235 ml -540 ml -1625 ml -745 ml Intake Oral 860 ml 840 ml 360 ml 0 ml 30 ml IV Total 6 ml Output Urine Total 1400 ml 1075 ml 900 ml 1625 ml 775 ml # Bowel Movements 0 1 1 0 0 Result Diagram: 06/08/1732 06/08/17 0632 Objective Remarks GENERAL: SKIN: Warm and dry. HEAD: Atraumatic. Normocephalic. EYES: Pupils equal and round. No scleral icterus. No injection or drainage. ENT: No nasal bleeding or discharge. Mucous membranes pink and moist. NECK: Trachea midline. No JVD. CARDIOVASCULAR: Regular rate and rhythm. RESPIRATORY: No accessory muscle use. Clear to auscultation. Breath sounds equal bilaterally. GASTROINTESTINAL: Abdomen soft, non-tender, nondistended. Hepatic and splenic margins not palpable. MUSCULOSKELETAL: Extremities without clubbing, cyanosis, or edema. No obvious deformities. NEUROLOGICAL: Awake and alert. No obvious cranial nerve deficits. Motor grossly within normal limits. Five out of 5 muscle strength in the arms and legs. Normal speech. PSYCHIATRIC: Appropriate mood and affect; insight and judgment normal. Assessment and Plan Assessment and Plan ASS CLINICALY IMPROVING PNA , PERSISTS BY CXRAY TODAY SEPSIS PLAN F/U CXRAY CONTINUE ANTIBX INCREASE ACTIVITY BRONCHOSCOPY Omari Salcido MD Jun 08, 2017 15:48
[2017-06-08 16:00] VITALS: BP 156/70; PULSE 120; RESP 20; TEMP 99; O2SAT 93
[2017-06-08] MEDS: LEVOFLOXACIN 750 MG TAB PO SCH (17:43)
[2017-06-08 20:00] VITALS: BP 155/71; PULSE 109; RESP 18; TEMP 99.5; O2SAT 97
[2017-06-09] VITALS (7 sets, daily range): BP systolic 142–158; BP diastolic 66–83; PULSE 108–115; RESP 18–20; TEMP 97.7–99.1; O2SAT 92–97
[2017-06-09] MEDS: guaiFENesin/DEXTROMETHORPHAN 200 MG/20 MG/10 ML CUP PO PRN ×2 (00:29→13:57)
[2017-06-09] MEDS: ZOLPIDEM TARTRATE 5 MG TAB PO PRN (00:29)
[2017-06-09] MEDS ORDERED: INSULIN HUMAN REGULAR 1,000 UNITS/10 ML VIAL IV PUSH ONE (00:30)
[2017-06-09] MEDS: methylPREDNISolone SOD SUCC 40 MG/1 ML VIAL IV PUSH SCH ×4 (02:00→17:49)
[2017-06-09] MEDS: HEPARIN SODIUM - SQ 10,000 UNITS/ML VIAL SQ SCH ×2 (04:53→17:48)
[2017-06-09] MEDS: hydrALAZINE HCL 50 MG TAB PO SCH ×3 (05:09→20:51)
[2017-06-09] MEDS: INSULIN ASPART SUPPLEMENTAL SCALE SQ SCH ×5 (05:16→23:04)
[2017-06-09] MEDS ORDERED: LIDOCAINE HCL 2% 50 ML VIAL ONE (06:51)
[2017-06-09] MEDS ORDERED: EPINEPHrine HCL (1:1000) 1 MG/ML VIAL ONE (06:52)
[2017-06-09] MEDS ORDERED: MIDAZOLAM HCL 2 MG/2 ML VIAL ONE (07:33)
[2017-06-09] MEDS ORDERED: FAMOTIDINE 20 MG/2 ML VIAL ONE (07:34)
--- NOTE | 2017-06-09 08:26 | HHI.PR ---
Subjective Remarks ALERT NO SOB AT REST OVER ALL GRADUALLY IMPROVING Objective Vital Signs Date Time Temp Pulse Resp B/P Pulse Ox O2 Delivery O2 Flow Rate FiO2 06/09/17 04:00 99.1 108 20 147/83 93 06/09/17 00:34 99.0 111 18 158/75 93 06/09/17 00:00 Venturi Mask 6.00 06/09/17 00:00 99.0 111 18 158/75 96 06/08/17 20:00 99.5 109 18 155/71 97 06/08/17 20:00 Venturi Mask 6.00 06/08/17 16:00 99.0 120 20 156/70 93 06/08/17 12:38 92 Venturi Mask 6.00 50 06/08/17 12:00 98.5 116 22 165/91 93 I/O 06/08/17 06/08/17 06/08/17 06/09/17 06/09/17 06/09/17 07:00 15:00 23:00 07:00 15:00 23:00 Intake Total 0 ml 30 ml 240 ml 0 ml Output Total 1625 ml 1900 ml 500 ml 1000 ml Balance -1625 ml -1870 ml -260 ml -1000 ml Intake Oral 0 ml 30 ml 240 ml 0 ml Output Urine Total 1625 ml 1900 ml 500 ml 1000 ml # Bowel Movements 0 1 0 0 Result Diagram: 06/08/17 0632 06/08/172224 Objective Remarks GENERAL: SKIN: Warm and dry. HEAD: Atraumatic. Normocephalic. EYES: Pupils equal and round. No scleral icterus. No injection or drainage. ENT: No nasal bleeding or discharge. Mucous membranes pink and moist. NECK: Trachea midline. No JVD. CARDIOVASCULAR: Regular rate and rhythm. RESPIRATORY: No accessory muscle use. Clear to auscultation. Breath sounds equal bilaterally. GASTROINTESTINAL: Abdomen soft, non-tender, nondistended. Hepatic and splenic margins not palpable. MUSCULOSKELETAL: Extremities without clubbing, cyanosis, or edema. No obvious deformities. NEUROLOGICAL: Awake and alert. No obvious cranial nerve deficits. Motor grossly within normal limits. Five out of 5 muscle strength in the arms and legs. Normal speech. PSYCHIATRIC: Appropriate mood and affect; insight and judgment normal. Assessment and Plan Assessment and Plan ASS CLINICALY IMPROVING PNA , PERSISTS BY CXRAY TODAY SEPSIS PLAN F/U CXRAY CONTINUE ANTIBX INCREASE ACTIVITY BRONCHOSCOPY today Omari Salcido MD Jun 09, 2017 08:25
[2017-06-09] MEDS ORDERED: DO NOT ADM ANY ANTICOAGULANT DRUGS PRN (08:32)
[2017-06-09] MEDS ORDERED: *RESP: ALBUTEROL 2.5 MG/3 ML NEB (PRN) PERIprocedural Use ONLY NEB ONE (08:39)
[2017-06-09] MEDS: RESP: IPRATROPIUM 0.5 MG/2.5 ML NEB NEB PRN (09:06)
[2017-06-09] MEDS ORDERED: *LABETALOL HCL 100 MG/20 ML VIAL PERIprocedural Use ONLY ONE (09:14)
--- NOTE | 2017-06-09 09:45 | MR ---
cc: OMARI SALCIDO DATE 06/09/2017 PROCEDURE Fiberoptic bronchoscopy flexible REASON FOR BRONCHOSCOPY Persistent pneumonia PROCEDURE NOTE Fiberoptic bronchoscopy was performed through endotracheal tube. Lower trachea appeared mildly hyperemic, aishwarya sharp. Right mainstem bronchus, right upper, middle and lower lobes, left main bronchus, left upper and lower lobes inspected. No obstructive pathology or mass lesion seen. Washings obtained from both sides of the tracheobronchial tree obtained, sent for routine TB, fungal culture, cytological exam and special stains for Pneumocystis. Cytological brushings right lower lung as well were sent for cytological exam and special stains for Pneumocystis carinii. Microbiology brushings were obtained as well for routine culture. IMPRESSION 1. Mild tracheobronchitis 2. No obstruction or mass lesion. 3. Samples obtained as above. 4. Procedure well tolerated. 5. The patient transferred to recovery in stable condition. Omari Salcido MD WWW/FROYLAN /8:26 AM /9:36 AM
--- NOTE | 2017-06-09 09:59 | RADRPT ---
EXAM DATE/TIME: 06/09/2017 09:13 [facility] COMPARISON: CHEST SINGLE AP, June 07, 2017, 13:08. INDICATIONS : Post bronchoscopy. MEDICAL HISTORY : Hypertension. Diabetes mellitus type II. SURGICAL HISTORY : None. ENCOUNTER: Initial ACUITY: 1 day PAIN SCORE: 0/10 LOCATION: Bilateral chest FINDINGS: Extensive bilateral airspace disease, right worse than left is grossly unchanged. There is no evidenc e of pneumothorax or other complication post bronchoscopy. Cardiac contours are grossly stable. CONCLUSION: Stable chest Hamlet Latham MD on June 09, 2017 at 9:55 Board Certified Radiologist. This report was verified electronically.
--- NOTE | 2017-06-09 11:23 | HHI.PR ---
Subjective Remarks The patient was seen following bronchoscopy. He said he is breathing better and is eager to go home. He was about to eat lunch. He had no acute complaints. Discussed with urology. Objective Vitals Vital Signs Date Time Temp Pulse Resp B/P Pulse Ox O2 Delivery O2 Flow Rate FiO2 06/09/17 10:00 99.4 107 12 148/70 98 Venturi Mask 35 06/09/17 09:45 108 14 148/67 95 Venturi Mask 06/09/17 09:30 107 14 143/65 95 Venturi Mask 35 06/09/17 09:15 117 16 141/62 96 Venturi Mask 35 06/09/17 09:00 120 24 180/73 89 Venturi Mask 35 06/09/17 08:45 120 38 164/73 91 Venturi Mask 06/09/17 08:35 98.4 125 30 171/74 91 Venturi Mask 35 06/09/17 04:00 99.1 108 20 147/83 93 06/09/17 00:34 99.0 111 18 158/75 93 06/09/17 00:00 Venturi Mask 6.00 06/09/17 00:00 99.0 111 18 158/75 96 06/08/17 20:00 99.5 109 18 155/71 97 06/08/17 20:00 Venturi Mask 6.00 06/08/17 16:00 99.0 120 20 156/70 93 06/08/17 12:38 92 Venturi Mask 6.00 50 06/08/17 12:00 98.5 116 22 165/91 93 I/O 06/08/17 06/08/17 06/08/17 06/09/17 06/09/17 06/09/17 06:59 14:59 22:59 06:59 14:59 22:59 Intake Total 0 ml 30 ml 240 ml 0 ml 330 ml Output Total 1625 ml 1900 ml 500 ml 1000 ml 0 ml Balance -1625 ml -1870 ml -260 ml -1000 ml 330 ml Intake Oral 0 ml 30 ml 240 ml 0 ml 0 ml IV Total 30 ml Other 300 ml Output Urine Total 1625 ml 1900 ml 500 ml 1000 ml 0 ml Estimated Blood Loss 0 ml # Voids 0 # Bowel Movements 0 1 0 0 Result Diagram: 06/08/17 0632 06/08/175 Imaging Last Impressions Chest X-Ray 06/09/17 0000 Signed Impressions: Service Date/Time: Friday, June 09, 2017 09:13 - CONCLUSION: Stable chest Hamlet Latham MD Chest CT 06/03/17 0959 Signed Impressions: Service Date/Time: June 11:29 - CONCLUSION: 1. Redemonstration of diffuse perihilar groundglass opacities with peripheral lungs sparing and sparing of the lung bases bilaterally. Differential considerations include atypical infection versus atypical pulmonary edema/ARDS. Royal Alfaro MD Gall Bladder Ultrasound 05/26/17 0000 Signed Impressions: Service Date/Time: Thursday, May 25, 2017 17:11 - CONCLUSION: Distended sludge-filled gallbladder with gallbladder wall thickening. Overall degree of gallbladder distention is largely unchanged from prior ultrasound exam although there is increased wall thickening. Trace pericholecystic fluid has resolved in the interval. HIDA scan performed 3 days ago demonstrates no filling of the gallbladder at 24 hours. Findings are consistent with acute cholecystitis likely secondary to cystic duct obstruction with mild interval improvement following antibiotic therapy. Royal Alfaro MD Hepatobiliary Scan Nuclear Medicine 05/22/17 0000 Signed Impressions: Service Date/Time: Monday, May 22, 2017 12:05 - CONCLUSION: 1. No uptake within the gallbladder. Delayed imaging will be obtained. 2. Small amount of biliary enteric reflux. Eloy Mcginnis MD ADDENDUM: COMPARISON: CT ABDOMEN & PELVIS W/O CONTRAST, May 16, 2017, 16:28. Delayed 24 our view does not demonstrate gallbladder therefore possibility of cystic duct obstruction and acute cholecystitis should be entertained. Armaan Tanner MD Objective Remarks GENERAL: Patient sitting up in chair, NAD. SKIN: Warm and dry. Groin wound is clean and nontender to palpation. HEAD: Normocephalic. EYES: No scleral icterus. No injection or drainage. NECK: Supple, trachea midline. Exam limited by body habitus. CARDIOVASCULAR: Regular rate and rhythm without murmurs, gallops, or rubs. RESPIRATORY: CTAB, no W/R/R. GASTROINTESTINAL: Abdomen soft, non-tender, nondistended. MUSCULOSKELETAL: No cyanosis, or edema. BACK: Nontender without obvious deformity. No CVA tenderness. NEURO: No gross deficits. PSYCH: Mood and affect appropriate. Procedures Bronchoscopy 06/09 Medications and IVs Current Medications Medications (Trade) Dose Ordered Sig/Reese Route Start Time Stop Time Status Last Admin (NS Flush) 2 ml UNSCH PRN .XX 05/16/17 20:30 06/08/17 03:56 (NS Flush) 2 ml BID IV FLUSH 05/16/17 21:00 06/08/17 21:14 (Tylenol) 650 mg Q6H PRN PO 05/16/17 20:30 05/19/17 04:10 (Milk Of Magnesia Liq) 30 ml Q12H PRN PO 05/16/17 20:30 (Senokot) 17.2 mg Q12H PRN PO 05/16/17 20:30 (Dulcolax Supp) 10 mg DAILY PRN RECTAL 05/16/17 20:30 (Lactulose Liq) 30 ml DAILY PRN PO 05/16/17 20:30 (Lipitor) 20 mg HS PO 05/16/17 21:00 Hold 05/23/17 21:15 (D50w (Vial) Inj) 50 ml UNSCH PRN IV PUSH 05/16/17 22:30 (Heparin Inj) 5,000 units Q12H SQ 05/18/17 17:00 06/07/17 17:15 (D50w (Vial) Inj) 50 ml UNSCH PRN IV 05/19/17 08:30 (Glucagon Inj) 1 mg UNSCH PRN OTHER 05/19/17 08:30 Sodium Hypochlorite APPLY DAKIN'S 0.1... BID TOPICAL 05/19/17 15:30 06/08/17 21:18 (NS 1000 ml Inj) 1,000 ml @ 0 mls/hr TITRATE PRN IV 05/19/17 20:00 05/22/17 15:08 (Heparin Inj) 8,000 units UNSCH PRN IV FLUSH 05/19/17 20:00 Heparin Sodium (Porcine) 1000 units 1,000 units Q1H PRN IV FLUSH 05/19/17 20:00 Sodium Chloride 1,000 ml @ 200 mls/hr Q5H PRN IV 05/19/17 20:00 (NS 250 ml Inj) 200 ml @ 0 mls/hr UNSCH PRN IV 05/19/17 20:00 (Mannitol Inj) 12.5 gm UNSCH PRN IV 05/19/17 20:00 (Albumin 25% Inj) 25 gm UNSCH PRN IV 05/19/17 20:00 (NS Flush) 5 ml UNSCH PRN IV FLUSH 05/19/17 20:00 (Heparin Inj) Dwell Heparin to f... UNSCH PRN OTHER 05/19/17 20:00 05/22/17 15:07 (Gentamicin (Dialysis) Inj) 10 mg UNSCH PRN OTHER 05/19/17 20:00 05/22/17 15:08 (Gelfoam 12 Mm/7 Mm Top) 1 foam UNSCH PRN TOPICAL 05/19/17 20:00 (Zofran Inj) 4 mg UNSCH PRN IV 05/19/17 20:00 (Benadryl) 25 mg UNSCH PRN PO 05/19/17 20:00 (Nitrostat Sl) 0.4 mg UNSCH PRN SL 05/19/17 20:00 (Catapres) 0.1 mg UNSCH PRN PO 05/19/17 20:00 (Apresoline Inj) 20 mg Q4H PRN IV 05/23/17 18:45 05/31/17 04:00 (NovoLOG SUPPLEMENTAL SCALE) 1 ACHS SQ 05/25/17 11:00 06/09/17 05:16 (Cathflo Activase Inj) 2 mg Q2H PRN INTRACATH 05/26/17 13:30 05/26/17 15:46 (Apresoline) 100 mg Q8HR PO 05/27/17 14:00 06/09/17 05:09 (Lopressor) 100 mg Q12HR PO 05/30/17 21:00 Hold 06/07/17 08:12 (Tessalon) 200 mg TID PRN PO 05/30/17 13:00 06/07/17 01:10 (Robitussin Dm 200-20 Mg/10 ml Liq) 10 ml Q4H PRN PO 05/30/17 23:15 06/09/17 00:29 (Norvasc) 10 mg DAILY PO 05/31/17 10:45 06/08/17 09:33 (Procardia Xl) 30 mg DAILY PO 06/02/17 09:00 06/08/17 09:33 (Levaquin) 750 mg Q48H PO 06/04/17 18:00 06/18/17 17:59 06/08/17 17:43 (Augmentin) 500 mg Q12HR PO 06/04/17 21:00 06/18/17 20:59 06/08/17 21:14 (Ambien) 5 mg HS PRN PO 06/05/17 15:30 06/09/17 00:29 (Roxicodone) 5 mg Q4H PRN PO 06/05/17 15:30 (Levemir Inj) 10 units HS SQ 06/06/17 21:00 06/08/17 21:36 (Levemir Inj) 15 units DAILY SQ 06/07/17 09:00 06/07/17 08:11 (SoluMEDROL INJ) 40 mg Q6H IV PUSH 06/07/17 14:00 06/09/17 09:09 Miscellaneous Information ALL NURSING DEPARTME... 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 Status post I&D with debridement of scrotum and perineum - Dr. Lopes 05/16. Status post reexploration of perineum 05/18. ID consult appreciated. 05/20 - urine -tracee. 05/16 - wound - Klebsiella/strep not A, D. - Continue Augmentin and Levaquin per infectious disease specialist. - Will need plastic evaluation per urology. Plastics is not available. Consult placed to wound care physician 06/09. - cont BID dressing changes with Dakin's sodium hypochlorite 0.125%. - follow up with urology. Stable. Hypertension Relatively well-controlled. - Continue with hydralazine, nifedipine and Norvasc. Held Lopressor 06/07 as it might be contributing to bronchospasm. - Continue to hold lisinopril 10 mg by mouth daily light of elevated creatinine. Acute respiratory failure BNP elevated. Diuretics d/c s/t renal insufficiency. Normal EF on echo. Pulmonology consult appreciated. Repeat CXR showed persistent bilateral central infiltrates. Pt on VM 06/07. Discussed with pulmonology. Repeat CXR: Stable chest ; Considerations range from pneumocystis pneumonia to sarcoid; An atypical inflammatory process is suspected. ABG with respiratory alkalosis. S/p bronchoscopy 06/09. - Continue with DuoNeb when necessary. - Continue antibiotics as per infectious disease. - wean O2 as tolerated. Currently on ventimask 06/09. - incentive spirometry. - started Solumedrol 40 mg IV q 6 hours 06/07. Improving. Wean to TID 06/09. Anemia of chronic disease Transfused 1 unit packed red blood cell 05/27/17 and H&H stable. - Monitor H&H. Cholecystitis Positive HIDA scan. Repeat GB US with improvement. - continue antibiotics. ROBERTO Nephrology consult appreciated. Renal indices improving. He had required hemodialysis 3 and now in recovery phase. - Avoid nephrotoxic drugs. - follow up with nephrology. DM2 Glucose worse with steroids. - change Levemir to 15 units daily, 10 units HS. Adjust as needed. - Insulin aspart SSI before meals/at bedtime. - Continue Holding metformin 500 mg by mouth twice a day. PPx: Heparin Discharge Planning Awaiting clinical improvement Ajay Sandoval DO Jun 09, 2017 11:23
[2017-06-09] MEDS ORDERED: PROPOFOL 200 MG/20 ML AMP IV ONE (12:00)
[2017-06-09] MEDS: AMOXICILLIN/CLAVULANATE K 500 MG TAB PO SCH ×2 (12:35→20:50)
[2017-06-09] MEDS: NIFEdipine 30 MG SUSTAINED RELEASE TAB PO SCH (12:35)
[2017-06-09] MEDS: INSULIN DETEMIR 100 UNITS/ML VIAL SQ SCH ×3 (12:37→23:03)
[2017-06-09] MEDS: SODIUM HYPOCHLORITE 0.125% 500 ML BTL TOPICAL SCH ×2 (12:40→22:48)
--- NOTE | 2017-06-09 13:40 | HHI.NPPN ---
Subjective Complaints: Shortness of Breath Renal Failure: Acute Interval History He had bronchoscopy earlier today. He states breathing is better. Awaiting daily lab results. (Latha Friedman) Review of Systems General Constitutional: Fatigue General Remarks no fever/chills (Latha Friedman) Respiratory Lungs: SOB, Cough (Latha Friedman) Objective Data Data 06/08/17 06/09/17 19:00 07:00 Intake Total 30 ml 240 ml Output Total 1900 ml 1500 ml Balance -1870 ml -1260 ml Intake Oral 30 ml 240 ml Output Urine Total 1900 ml 1500 ml # Bowel Movements 1 0 Vital Signs Date Time Temp Pulse Resp B/P Pulse Ox O2 Delivery O2 Flow Rate FiO2 06/09/17 13:07 94 06/09/17 12:44 Venturi Mask 4.00 Nasal Cannula 06/09/17 11:05 97 Venturi Mask 31 06/09/17 10:00 99.4 107 12 148/70 98 Venturi Mask 35 06/09/17 09:45 108 14 148/67 95 Venturi Mask 35 06/09/17 09:30 107 14 143/65 95 Venturi Mask 35 06/09/17 09:15 117 16 141/62 96 Venturi Mask 35 06/09/17 09:00 120 24 180/73 89 Venturi Mask 35 06/09/17 08:45 120 38 164/73 91 Venturi Mask 35 06/09/17 08:35 98.4 125 30 171/74 91 Venturi Mask 35 06/09/17 04:00 99.1 108 20 147/83 93 06/09/17 00:34 99.0 111 18 158/75 93 06/09/17 00:00 Venturi Mask 6.00 06/09/17 00:00 99.0 111 18 158/75 96 06/08/17 20:00 99.5 109 18 155/71 97 06/08/17 20:00 Venturi Mask 6.00 06/08/17 16:00 99.0 120 20 156/70 93 (Latha Friedman) -: 06/08/17 0632 06/08/17 2225 Microbiology 06/09/17 Bronchial Aspirate Culture, Received Pending 06/09/17 Gram Stain, Received Pending 06/09/17 Bronchial Culture, Received Pending 06/09/17 Acid Fast Stain, Received Pending 06/09/17 Mycobacterial Culture, Received Pending 06/09/17 Fungal Smear, Received Pending 06/09/17 Fungal Culture, Received Pending Drip Comment none (Latha Friedman) Physical Exam General Appearance: Well Developed, Well Nourished, No Acute Distress, Comfortable, Anxious (Latha Friedman) Eyes Eye Exam: Pupils Equal (Latha Friedman) Throat Throat Exam: Oral Mucosa [place] & Moist (Latha Friedman) Neck Neck Exam: Neck Supple (Latha Friedman) Pulmonary Resp Exam: Breath Sounds Equal, Rhonchi, Decreased Bases, Diminished Breath Sounds, Labored Resp Remarks actively coughing intermittently (Latha Friedman) Cardiology CV Exam: Regular, Normal Sinus Rhythm, Good Perfusion (Latha Friedman) Gastrointestinal/Abdomen GI Exam: Soft, Non-Tender, Bowel Sounds Present (Latha Friedman) Musculoskeletal MS Exam: Joints Intact, Normal Tone, Good Strength (Latha Friedman) Integumentary Skin Exam: Warm, Dry Skin Remarks perineal wounds, buttock wound (Latha Friedman) Extremeties Extremities Exam: No Edema, Pedal Pulses Palpable (Latha Friedman) Neurologic Neuro Exam: Alert, Awake, Oriented, Speech Clear, Moving All Extremities ( Latha Friedman) Psychiatric Psych Exam: Appropriate Responses (Latha Friedman) VTE Prophylaxis Device: SCDs (Latha Friedman) Assessment/Plan Discussed Condition With: Patient, Relative Assessment Summary: ROBERTO/Acute Renal Failure, Acute Tubular Necrosis, Hypertension, Diabetes Mellitus Electrolyte Assessment: Hypokalemia Problem List: (1) Acute renal failure Plan: resolving ATN from sepsis s/p three HD treatments , last one on 05/22 he is in recovery phase renal function with continued improvement, awaiting today's labs he is off diuretics, no edema formation Avoid nephrotoxic agents. 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 ID following continue Wound care, pain control may need potential skin graft in the future surgery has evaluated and do not recommend a diverting colostomy at this time (4) Sepsis Plan: resolving, due to Carlos's as above also had developed acute cholecystitis, see below antibiotics as ordered monitor clinically, he is afebrile ID following (5) Cholecystitis Plan: ID and surgery following, non surgical management at this time appreciate recommendations (6) Anemia Plan: Hb improved and stable he was transfused 1 unit 05/27 monitor for changes (7) Hypertension Plan: BP acceptable he is on amlodipine, hydralazine, and metoprolol follow and titrate as needed (8) Poorly controlled diabetes mellitus Plan: continue insulin as ordered monitor glucose, currently acceptable, with goal of 140-180 mg/dL. (Latha Friedman) Plan patient was seen and examined. Agree with above assessment and plan. (Ernesto Montano MD) Problem Qualifiers (1) Acute renal failure: Qualified Code: N17.0 - Acute renal failure with tubular necrosis Latha Friedman Jun 09, 2017 13:39 Ernesto Montano MD Jun 10, 2017 09:14
[2017-06-09 14:51] LABS: BICARBONATE 19.7 MEQ/L (21.0-32.0); POTASSIUM 4.3 MEQ/L (3.5-5.1)
--- NOTE | 2017-06-09 15:09 | PD.CONS ---
History of Present Illness Service Wound Care Consult Requested By Dr. Sandoval Primary Care Physician No Primary Care Physician Diagnoses: History of Present Illness Patient seen and examined. Records reviewed. This is a 51 year old male who is being seen today for evaluation of a wound to the left buttock and groin area. The patient was initially seen in the [place] emergency room, where he complained of feeling ill with fever and chills and also noted a pimple to the left gluteal area. CT scan showed air in the left gluteal area extending through the perineum to the scrotum. 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 Current treatment includes Dakin's solution wet to dry dressings covered with ABD pads. Review of Systems Except as stated in HPI: all other systems reviewed are Neg Past Family Social History Allergies: Coded Allergies: No Known Allergies (Unverified , 06/09/17) Past Medical History Type 2 Diabetes Dyslipidemia Hypertension Past Surgical History None Active Ordered Medications Current Medications Medications (Trade) Dose Ordered Sig/Reese Route Start Time Stop Time Status Last Admin (NS Flush) 2 ml UNSCH PRN .XX 05/16/17 20:30 06/08/17 03:56 (NS Flush) 2 ml BID IV FLUSH 05/16/17 21:00 06/08/17 21:14 (Tylenol) 650 mg Q6H PRN PO 05/16/17 20:30 05/19/17 04:10 (Milk Of Magnesia Liq) 30 ml Q12H PRN PO 05/16/17 20:30 (Senokot) 17.2 mg Q12H PRN PO 05/16/17 20:30 (Dulcolax Supp) 10 mg DAILY PRN RECTAL 05/16/17 20:30 (Lactulose Liq) 30 ml DAILY PRN PO 05/16/17 20:30 (Lipitor) 20 mg HS PO 05/16/17 21:00 Hold 05/23/17 21:15 (D50w (Vial) Inj) 50 ml UNSCH PRN IV PUSH 05/16/17 22:30 (Heparin Inj) 5,000 units Q12H SQ 05/18/17 17:00 06/07/17 17:15 (D50w (Vial) Inj) 50 ml UNSCH PRN IV 05/19/17 08:30 (Glucagon Inj) 1 mg UNSCH PRN OTHER 05/19/17 08:30 Sodium Hypochlorite APPLY DAKIN'S 0.1... BID TOPICAL 05/19/17 15:30 06/09/17 12:40 (NS 1000 ml Inj) 1,000 ml @ 0 mls/hr TITRATE PRN IV 05/19/17 20:00 05/22/17 15:08 (Heparin Inj) 8,000 units UNSCH PRN IV FLUSH 05/19/17 20:00 Heparin Sodium (Porcine) 1000 units 1,000 units Q1H PRN IV FLUSH 05/19/17 20:00 Sodium Chloride 1,000 ml @ 200 mls/hr Q5H PRN IV 05/19/17 20:00 (NS 250 ml Inj) 200 ml @ 0 mls/hr UNSCH PRN IV 05/19/17 20:00 (Mannitol Inj) 12.5 gm UNSCH PRN IV 05/19/17 20:00 (Albumin 25% Inj) 25 gm UNSCH PRN IV 05/19/17 20:00 (NS Flush) 5 ml UNSCH PRN IV FLUSH 05/19/17 20:00 (Heparin Inj) Dwell Heparin to f... UNSCH PRN OTHER 05/19/17 20:00 05/22/17 15:07 (Gentamicin (Dialysis) Inj) 10 mg UNSCH PRN OTHER 05/19/17 20:00 05/22/17 15:08 (Gelfoam 12 Mm/7 Mm Top) 1 foam UNSCH PRN TOPICAL 05/19/17 20:00 (Zofran Inj) 4 mg UNSCH PRN IV 05/19/17 20:00 (Benadryl) 25 mg UNSCH PRN PO 05/19/17 20:00 (Nitrostat Sl) 0.4 mg UNSCH PRN SL 05/19/17 20:00 (Catapres) 0.1 mg UNSCH PRN PO 05/19/17 20:00 (Apresoline Inj) 20 mg Q4H PRN IV 05/23/17 18:45 05/31/17 04:00 (NovoLOG SUPPLEMENTAL SCALE) 1 ACHS SQ 05/25/17 11:00 06/09/17 12:39 (Cathflo Activase Inj) 2 mg Q2H PRN INTRACATH 05/26/17 13:30 05/26/17 15:46 (Apresoline) 100 mg Q8HR PO 05/27/17 14:00 06/09/17 13:58 (Lopressor) 100 mg Q12HR PO 05/30/17 21:00 Hold 06/07/17 08:12 (Tessalon) 200 mg TID PRN PO 05/30/17 13:00 06/07/17 01:10 (Robitussin Dm 200-20 Mg/10 ml Liq) 10 ml Q4H PRN PO 05/30/17 23:15 06/09/17 13:57 (Norvasc) 10 mg DAILY PO 05/31/17 10:45 06/09/17 12:34 (Procardia Xl) 30 mg DAILY PO 06/02/17 09:00 06/09/17 12:35 (Levaquin) 750 mg Q48H PO 06/04/17 18:00 06/18/17 17:59 06/08/17 17:43 (Augmentin) 500 mg Q12HR PO 06/04/17 21:00 06/18/17 20:59 06/09/17 12:35 (Ambien) 5 mg HS PRN PO 06/05/17 15:30 06/09/17 00:29 (Roxicodone) 5 mg Q4H PRN PO 06/05/17 15:30 (Levemir Inj) 10 units HS SQ 06/06/17 21:00 06/08/17 21:36 (Levemir Inj) 15 units DAILY SQ 06/07/17 09:00 06/09/17 12:37 Miscellaneous Information ALL NURSING DEPARTME... UNSCH PRN .XX 06/09/17 08:32 06/10/17 08:31 (SoluMEDROL INJ) 40 mg TID IV PUSH 06/09/17 13:00 06/09/17 12:39 Family History Denies CAD or cancer Social History Denies tobacco and illicit drug use Physical Exam Vital Signs Vital Signs Date Time Temp Pulse Resp B/P Pulse Ox O2 Delivery O2 Flow Rate FiO2 06/09/17 13:07 94 06/09/17 12:44 Venturi Mask 4.00 Nasal Cannula 06/09/17 12:00 97.7 112 20 151/77 96 06/09/17 11:05 97 Venturi Mask 31 06/09/17 10:00 99.4 107 12 148/70 98 Venturi Mask 35 06/09/17 09:45 108 14 148/67 95 Venturi Mask 35 06/09/17 09:30 107 14 143/65 95 Venturi Mask 35 06/09/17 09:15 117 16 141/62 96 Venturi Mask 35 06/09/17 09:00 120 24 180/73 89 Venturi Mask 35 06/09/17 08:45 120 38 164/73 91 Venturi Mask 35 06/09/17 08:35 98.4 125 30 171/74 91 Venturi Mask 35 06/09/17 04:00 99.1 108 20 147/83 93 06/09/17 00:34 99.0 111 18 158/75 93 06/09/17 00:00 Venturi Mask 6.00 06/09/17 00:00 99.0 111 18 158/75 96 06/08/17 20:00 99.5 109 18 155/71 97 06/08/17 20:00 Venturi Mask 6.00 06/08/17 16:00 99.0 120 20 156/70 93 Physical Exam GENERAL: This is a well-nourished, well-developed patient, in no apparent distress. SKIN: On exam, there is an open wound present to the left buttock, which extends to the perineum and onto the scrotum. The wound measures approximately 18cm X 7cm x 0.2cm in greatest dimension. There is undermining at the 12 o' clock position. Wound bed is clean and covered with red granulation tissue. HEAD: Atraumatic. Normocephalic. EYES: Pupils equal round and reactive. Extraocular motions intact. No scleral icterus. No injection or drainage. ENT: Nose without bleeding, purulent drainage. Airway patent. NECK: Trachea midline. CARDIOVASCULAR: Regular rate and rhythm without murmurs, gallops, or rubs. RESPIRATORY: Clear to auscultation. Breath sounds equal bilaterally. No wheezes , rales, or rhonchi. MUSCULOSKELETAL: Extremities without clubbing, cyanosis, or edema. NEUROLOGICAL: Awake and alert. Normal speech. Laboratory Laboratory Tests Test 06/08/17 06/09/17 22:25 13:30 Random Glucose 450 353 Sodium Level 135 Potassium Level 4.3 Chloride Level 102 Carbon Dioxide Level 19.7 Anion Gap 13 Blood Urea Nitrogen 27 Creatinine 1.71 Estimat Glomerular Filtration 52 Rate Calcium Level 8.3 Phosphorus Level 3.1 Albumin 2.3 Date/Time Procedure Status Source Growth 06/09/17 08:15 Gram Stain Received Bronchial Washings Other Pending 06/09/17 08:15 Bronchial Culture Received Bronchial Washings Other Pending 06/09/17 08:15 Fungal Smear Received Bronchial Washings Other Pending 06/09/17 08:15 Fungal Culture Received Bronchial Washings Other Pending 06/09/17 08:15 Bronchial Aspirate Culture Received Bronchial Brushings Right Lower Lobe Pending 06/09/17 08:15 Acid Fast Stain Received Bronchial Washings Other Pending 06/09/17 08:15 Mycobacterial Culture Received Bronchial Washings Other Pending Result Diagram: 06/08/17 0632 06/09/17 1330 Assessment and Plan Problem List: (1) Wound, open, buttock Status: Acute Plan: The wound is clean, granulating, and healing well. The patient is advised that the wound is healing well and will likely heal completely without surgical intervention. We discussed a twice daily wound care protocol including sitz baths, irrigation and dressing with 0.25% Dakin's wet to dry and follow up in the wound care center. The RN was present for discussion. Discharge Planning Patient is cleared for discharge from wound care standpoint. He should perform twice daily wound care including 20 minutes sitz bath in a solution of betadine and water followed by irrigation in the shower. He should then apply a 0.25% Dakin's solution wet to dry dressing. He should follow up in the wound care center within a week after discharge. Physician Attestation The exam, history, and the medical decision-making described in the above note were completed with the assistance of the mid-level provider. I reviewed and agree with the findings presented. I attest that I had a [id number] encounter with the patient on the same day, and personally performed and documented my assessment and findings in the medical record. Noa Christina M.D. Problem Qualifiers (1) Wound, open, buttock: Qualified Code: S31.829A - Open wound of left buttock, initial encounter Tania Bradshaw Jun 09, 2017 15:09
[2017-06-09] MEDS: SODIUM CHLORIDE 0.9% FLUSH 10 ML FLUSH IV FLUSH SCH (20:52)
[2017-06-10] VITALS: BP 154/77; PULSE 113; RESP 18; TEMP 99.3; O2SAT 93
[2017-06-10 04:00] VITALS: BP 161/79; PULSE 109; RESP 18; TEMP 99.1; O2SAT 91
[2017-06-10] MEDS: HEPARIN SODIUM - SQ 10,000 UNITS/ML VIAL SQ SCH ×2 (05:00→17:43)
[2017-06-10] MEDS: INSULIN ASPART SUPPLEMENTAL SCALE SQ SCH ×3 (05:52→17:48)
[2017-06-10] MEDS: hydrALAZINE HCL 50 MG TAB PO SCH ×2 (06:19→16:44)
[2017-06-10 08:00] VITALS: BP 158/79; PULSE 111; RESP 20; TEMP 98.6; O2SAT 92
[2017-06-10] MEDS: SODIUM HYPOCHLORITE 0.125% 500 ML BTL TOPICAL SCH (09:00)
[2017-06-10] MEDS: AMOXICILLIN/CLAVULANATE K 500 MG TAB PO SCH (09:21)
[2017-06-10] MEDS: NIFEdipine 30 MG SUSTAINED RELEASE TAB PO SCH (09:21)
[2017-06-10] MEDS: methylPREDNISolone SOD SUCC 40 MG/1 ML VIAL IV PUSH SCH (09:22)
[2017-06-10] MEDS: SODIUM CHLORIDE 0.9% FLUSH 10 ML FLUSH IV FLUSH SCH (09:22)
[2017-06-10] MEDS: INSULIN DETEMIR 100 UNITS/ML VIAL SQ SCH (09:30)
--- NOTE | 2017-06-10 10:14 | HHI.NPPN ---
Subjective Complaints: Shortness of Breath Renal Failure: Acute Interval History Patient is upset and wanting to be discharged. Breathing has improved. Lung sounds improved. (Latha Friedman) Review of Systems General Constitutional: Fatigue General Remarks no fever/chills (Latha Friedman) Respiratory Lungs: SOB, Cough (Latha Friedman) Objective Data Data 06/09/17 06/10/17 19:00 07:00 Intake Total 1290 ml 1202 ml Output Total 1425 ml 2000 ml Balance -135 ml -798 ml Intake Oral 960 ml 1200 ml IV Total 30 ml 2 ml Other 300 ml Output Urine Total 1425 ml 2000 ml Estimated Blood Loss 0 ml # Voids 0 # Bowel Movements 1 1 Vital Signs Date Time Temp Pulse Resp B/P Pulse Ox O2 Delivery O2 Flow Rate FiO2 06/10/17 08:00 98.6 111 20 158/79 92 06/10/17 04:00 99.1 109 18 161/79 91 06/10/17 00:00 99.3 113 18 154/77 93 06/09/17 23:48 Room Air 06/09/17 20:00 98.8 115 18 142/66 93 06/09/17 16:00 Room Air 06/09/17 16:00 99.1 112 18 147/70 92 06/09/17 13:07 94 06/09/17 12:44 Venturi Mask 4.00 Nasal Cannula 06/09/17 12:00 97.7 112 20 151/77 96 06/09/17 11:05 97 Venturi Mask 31 (Latha Friedman) -: 06/08/17 0632 06/09/17 1330 Imaging Last Impressions Chest X-Ray 06/09/17 0000 Signed Impressions: Service Date/Time: Friday, June 09, 2017 09:13 - CONCLUSION: Stable chest Hamlet Latham MD Chest CT 06/03/17 0959 Signed Impressions: Service Date/Time: June 11:29 - CONCLUSION: 1. Redemonstration of diffuse perihilar groundglass opacities with peripheral lungs sparing and sparing of the lung bases bilaterally. Differential considerations include atypical infection versus atypical pulmonary edema/ARDS. Royal Alfaro MD Gall Bladder Ultrasound 05/26/17 0000 Signed Impressions: Service Date/Time: Thursday, May 25, 2017 17:11 - CONCLUSION: Distended sludge-filled gallbladder with gallbladder wall thickening. Overall degree of gallbladder distention is largely unchanged from prior ultrasound exam although there is increased wall thickening. Trace pericholecystic fluid has resolved in the interval. HIDA scan performed 3 days ago demonstrates no filling of the gallbladder at 24 hours. Findings are consistent with acute cholecystitis likely secondary to cystic duct obstruction with mild interval improvement following antibiotic therapy. Royal Alfaro MD Hepatobiliary Scan Nuclear Medicine 05/22/17 0000 Signed Impressions: Service Date/Time: Monday, May 22, 2017 12:05 - CONCLUSION: 1. No uptake within the gallbladder. Delayed imaging will be obtained. 2. Small amount of biliary enteric reflux. Eloy Mcginnis MD ADDENDUM: COMPARISON: CT ABDOMEN & PELVIS W/O CONTRAST, May 16, 2017, 16:28. Delayed 24 our view does not demonstrate gallbladder therefore possibility of cystic duct obstruction and acute cholecystitis should be entertained. Armaan Tanner MD Drip Comment none (Latha Friedman) Physical Exam General Appearance: Well Developed, Well Nourished, No Acute Distress, Comfortable, Anxious (Latha Friedman BKayce CATERING OPERATIONS MANAGER) Eyes Eye Exam: Pupils Equal (Latha Friedman BKayce [employer]ING [employer]PERATIONS MANAGER) Throat Throat Exam: Oral Mucosa [place] & Moist (Latha Friedman BKayce [employer]ING OPERATIONS MANAGER) Neck Neck Exam: Neck Supple (Latha Friedman BKayce [employer]ING OPERATIONS MANAGER) Pulmonary Resp Exam: Clear Bilaterally, Breath Sounds Equal, Decreased Bases, Diminished Breath Sounds Resp Remarks coughing intermittently (Latha Friedman BKayce [employer]ERING OPERATIONS MANAGER) Cardiology CV Exam: Regular, Normal Sinus Rhythm, Good Perfusion (Latha Friedman BKayce [employer]ERING [employer]PERATIONS MANAGER) Gastrointestinal/Abdomen GI Exam: Soft, Non-Tender, Bowel Sounds Present (Latha Friedman BKayce KIRANP) Musculoskeletal MS Exam: Joints Intact, Normal Tone, Good Strength (Latha Friedman BKayce [employer]ERING OPERATIONS MANAGER) Integumentary Skin Exam: Warm, Dry Skin Remarks perineal wounds, buttock wound (Latha Friedman BKyace KIRANP) Extremeties Extremities Exam: No Edema, Pedal Pulses Palpable (Latha Friedman) Neurologic Neuro Exam: Alert, Awake, Oriented, Speech Clear, Moving All Extremities ( Latha Friedman) Psychiatric Psych Exam: Appropriate Responses (Latha Friedman) VTE Prophylaxis Device: SCDs (Latha Friedman) Assessment/Plan Discussed Condition With: Patient, Relative Assessment Summary: ROBERTO/Acute Renal Failure, Acute Tubular Necrosis, Hypertension, Diabetes Mellitus Electrolyte Assessment: Hypokalemia Problem List: (1) Acute renal failure Plan: resolving ATN from sepsis s/p three HD treatments , last one on 05/22 he is in recovery phase renal function slightly worse which may be due to NPO status yesterday he is off diuretics, no edema formation Avoid nephrotoxic agents. 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 continue Wound care, pain control wound care has evaluated, will follow outpatient no skin grafts required (4) Sepsis Plan: resolving, due to Carlos's as above also had developed acute cholecystitis, see below antibiotics as ordered monitor clinically, he is afebrile ID following (5) Cholecystitis Plan: ID and surgery following, non surgical management at this time appreciate recommendations (6) Anemia Plan: Hb improved and stable he was transfused 1 unit 05/27 monitor for changes (7) Hypertension Plan: BP acceptable he is on amlodipine, hydralazine, and metoprolol follow and titrate as needed (8) Poorly controlled diabetes mellitus Plan: continue insulin as ordered monitor glucose, currently acceptable, with goal of 140-180 mg/dL. Plan he is cleared for discharge from renal perspective, we will follow in outpatient setting (Latha Friedman) Plan patient was seen and examined. Stable from renal standpoint. He wants to be discharged. (Ernesto Montano MD) Problem Qualifiers (1) Acute renal failure: Qualified Code: N17.0 - Acute renal failure with tubular necrosis Latha Friedman Jun 10, 2017 10:14 Ernesto Montano MD Jun 11, 2017 15:26
--- NOTE | 2017-06-10 11:22 | HHI.PR ---
Subjective Remarks The patient was anxious to go home. He said he had a rough experience with the nurse last night and a respiratory therapist today. He said he believes his sugars will get better if his steroids are stopped. He has been ambulating. Has been breathing on room air. No acute complaints at this time. Discussed with nursing. Objective Vitals Vital Signs Date Time Temp Pulse Resp B/P Pulse Ox O2 Delivery O2 Flow Rate FiO2 06/10/17 08:00 98.6 111 20 158/79 92 06/10/17 04:00 99.1 109 18 161/79 91 06/10/17 00:00 99.3 113 18 154/77 93 06/09/17 23:48 Room Air 06/09/17 20:00 98.8 115 18 142/66 93 06/09/17 16:00 Room Air 06/09/17 16:00 99.1 112 18 147/70 92 06/09/17 13:07 94 06/09/17 12:44 Venturi Mask 4.00 Nasal Cannula 06/09/17 12:00 97.7 112 20 151/77 96 I/O 06/09/17 06/09/17 06/09/17 06/10/17 06/10/17 06/10/17 07:00 15:00 23:00 07:00 15:00 23:00 Intake Total 0 ml 1290 ml 482 ml 720 ml Output Total 1000 ml 1425 ml 800 ml 1200 ml Balance -1000 ml -135 ml -318 ml -480 ml Intake Oral 0 ml 960 ml 480 ml 720 ml IV Total 30 ml 2 ml Other 300 ml Output Urine Total 1000 ml 1425 ml 800 ml 1200 ml Estimated Blood Loss 0 ml # Voids 0 # Bowel Movements 0 1 0 1 Result Diagram: 06/08/17 0632 06/09/17 1330 Imaging Last Impressions Chest X-Ray 06/09/17 0000 Signed Impressions: Service Date/Time: Friday, June 09, 2017 09:13 - CONCLUSION: Stable chest Hamlet Latham MD Chest CT 06/03/17 0959 Signed Impressions: Service Date/Time: June 11:29 - CONCLUSION: 1. Redemonstration of diffuse perihilar groundglass opacities with peripheral lungs sparing and sparing of the lung bases bilaterally. Differential considerations include atypical infection versus atypical pulmonary edema/ARDS. Royal Bozorgmanesh, MD Gall Bladder Ultrasound 05/26/17 0000 Signed Impressions: Service Date/Time: Thursday, May 25, 2017 17:11 - CONCLUSION: Distended sludge-filled gallbladder with gallbladder wall thickening. Overall degree of gallbladder distention is largely unchanged from prior ultrasound exam although there is increased wall thickening. Trace pericholecystic fluid has resolved in the interval. HIDA scan performed 3 days ago demonstrates no filling of the gallbladder at 24 hours. Findings are consistent with acute cholecystitis likely secondary to cystic duct obstruction with mild interval improvement following antibiotic therapy. Royal Alfaro MD Hepatobiliary Scan Nuclear Medicine 05/22/17 0000 Signed Impressions: Service Date/Time: Monday, May 22, 2017 12:05 - CONCLUSION: 1. No uptake within the gallbladder. Delayed imaging will be obtained. 2. Small amount of biliary enteric reflux. Eloy Mcginnis MD ADDENDUM: COMPARISON: CT ABDOMEN & PELVIS W/O CONTRAST, May 16, 2017, 16:28. Delayed 24 our view does not demonstrate gallbladder therefore possibility of cystic duct obstruction and acute cholecystitis should be entertained. Armaan Tanner MD Objective Remarks GENERAL: Patient sitting up in chair, NAD. SKIN: Warm and dry. Groin wound is clean and nontender to palpation. HEAD: Normocephalic. EYES: No scleral icterus. No injection or drainage. NECK: Supple, trachea midline. Exam limited by body habitus. CARDIOVASCULAR: Regular rate and rhythm without murmurs, gallops, or rubs. RESPIRATORY: CTAB, no W/R/R. GASTROINTESTINAL: Abdomen soft, non-tender, nondistended. MUSCULOSKELETAL: No cyanosis, or edema. BACK: Nontender without obvious deformity. No CVA tenderness. NEURO: No gross deficits. PSYCH: Mood and affect appropriate. Procedures Bronchoscopy /9 Medications and IVs Current Medications Medications (Trade) Dose Ordered Sig/Reese Route Start Time Stop Time Status Last Admin (NS Flush) 2 ml UNSCH PRN .XX 05/16/17 20:30 06/08/17 03:56 (NS Flush) 2 ml BID IV FLUSH 05/16/17 21:00 06/10/17 09:22 (Tylenol) 650 mg Q6H PRN PO 05/16/17 20:30 05/19/17 04:10 (Milk Of Magnesia Liq) 30 ml Q12H PRN PO 05/16/17 20:30 (Senokot) 17.2 mg Q12H PRN PO 05/16/17 20:30 (Dulcolax Supp) 10 mg DAILY PRN RECTAL 05/16/17 20:30 (Lactulose Liq) 30 ml DAILY PRN PO 05/16/17 20:30 (Lipitor) 20 mg HS PO 05/16/17 21:00 Hold 05/23/17 21:15 (D50w (Vial) Inj) 50 ml UNSCH PRN IV PUSH 05/16/17 22:30 (Heparin Inj) 5,000 units Q12H SQ 05/18/17 17:00 06/09/17 17:48 (D50w (Vial) Inj) 50 ml UNSCH PRN IV 05/19/17 08:30 (Glucagon Inj) 1 mg UNSCH PRN OTHER 05/19/17 08:30 Sodium Hypochlorite APPLY DAKIN'S 0.1... BID TOPICAL 05/19/17 15:30 06/09/17 22:48 (NS 1000 ml Inj) 1,000 ml @ 0 mls/hr TITRATE PRN IV 05/19/17 20:00 05/22/17 15:08 (Heparin Inj) 8,000 units UNSCH PRN IV FLUSH 05/19/17 20:00 Heparin Sodium (Porcine) 1000 units 1,000 units Q1H PRN IV FLUSH 05/19/17 20:00 Sodium Chloride 1,000 ml @ 200 mls/hr Q5H PRN IV 05/19/17 20:00 (NS 250 ml Inj) 200 ml @ 0 mls/hr UNSCH PRN IV 05/19/17 20:00 (Mannitol Inj) 12.5 gm UNSCH PRN IV 05/19/17 20:00 (Albumin 25% Inj) 25 gm UNSCH PRN IV 05/19/17 20:00 (NS Flush) 5 ml UNSCH PRN IV FLUSH 05/19/17 20:00 (Heparin Inj) Dwell Heparin to f... UNSCH PRN OTHER 05/19/17 20:00 05/22/17 15:07 (Gentamicin (Dialysis) Inj) 10 mg UNSCH PRN OTHER 05/19/17 20:00 05/22/17 15:08 (Gelfoam 12 Mm/7 Mm Top) 1 foam UNSCH PRN TOPICAL 05/19/17 20:00 (Zofran Inj) 4 mg UNSCH PRN IV 05/19/17 20:00 (Benadryl) 25 mg UNSCH PRN PO 05/19/17 20:00 (Nitrostat Sl) 0.4 mg UNSCH PRN SL 05/19/17 20:00 (Catapres) 0.1 mg UNSCH PRN PO 05/19/17 20:00 (Apresoline Inj) 20 mg Q4H PRN IV 05/23/17 18:45 05/31/17 04:00 (NovoLOG SUPPLEMENTAL SCALE) 1 ACHS SQ 05/25/17 11:00 06/09/17 23:04 (Cathflo Activase Inj) 2 mg Q2H PRN INTRACATH 05/26/17 13:30 05/26/17 15:46 (Apresoline) 100 mg Q8HR PO 05/27/17 14:00 06/10/17 06:19 (Lopressor) 100 mg Q12HR PO 05/30/17 21:00 Hold 06/07/17 08:12 (Tessalon) 200 mg TID PRN PO 05/30/17 13:00 06/07/17 01:10 (Robitussin Dm 200-20 Mg/10 ml Liq) 10 ml Q4H PRN PO 05/30/17 23:15 06/09/17 13:57 (Norvasc) 10 mg DAILY PO 05/31/17 10:45 06/10/17 09:21 (Procardia Xl) 30 mg DAILY PO 06/02/17 09:00 06/10/17 09:21 (Levaquin) 750 mg Q48H PO 06/04/17 18:00 06/18/17 17:59 06/08/17 17:43 (Augmentin) 500 mg Q12HR PO 06/04/17 21:00 06/18/17 20:59 06/10/17 09:21 (Ambien) 5 mg HS PRN PO 06/05/17 15:30 06/09/17 00:29 (Roxicodone) 5 mg Q4H PRN PO 06/05/17 15:30 (Levemir Inj) 10 units HS SQ 06/06/17 21:00 06/09/17 23:03 (Levemir Inj) 15 units DAILY SQ 06/07/17 09:00 06/10/17 09:30 (Deltasone) 20 mg BID PO 06/10/17 21:00 UNV A/P Problem List: (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 Status post I&D with debridement of scrotum and perineum - Dr. Lopes 05/16. Status post reexploration of perineum 05/18. ID consult appreciated. 05/20 - urine -tracee. 05/16 - wound - Klebsiella/strep not A, D. - Continue Augmentin and Levaquin per infectious disease specialist. Will need to clarify total duration of treatment. - Consult placed to wound care physician 06/09. The pt will be able to be discharged with Sitz baths and dressing changes. He will follow up with the wound center. - cont BID dressing changes with Dakin's sodium hypochlorite 0.125%. - follow up with urology. Stable. Hypertension Slightly elevated. - Continue with hydralazine, nifedipine and Norvasc. Held Lopressor 06/07 as it might be contributing to bronchospasm. - Continue to hold lisinopril 10 mg by mouth daily light of elevated creatinine. Acute respiratory failure BNP elevated. Diuretics d/c s/t renal insufficiency. Normal EF on echo. Pulmonology consult appreciated. Repeat CXR showed persistent bilateral central infiltrates. Pt on 06/07. Discussed with pulmonology. Repeat CXR: Stable chest ; Considerations range from pneumocystis pneumonia to sarcoid; An atypical inflammatory process is suspected. ABG with respiratory alkalosis. S/p bronchoscopy 06/09. - Continue with DuoNeb when necessary. - Continue antibiotics as per infectious disease. - wean O2 as tolerated. Currently on room air. - incentive spirometry. - started Solumedrol 40 mg IV q 6 hours 06/07. Improving. Wean to prednisone 20 mg BID. - oxygen walk test requested. Anemia of chronic disease Transfused 1 unit packed red blood cell 05/27/17 and H&H stable. - Monitor H&H. Cholecystitis Positive HIDA scan. Repeat GB US with improvement. - continue antibiotics. ROBERTO Nephrology consult appreciated. Renal indices improving. He had required hemodialysis 3 and now in recovery phase. - Avoid nephrotoxic drugs. - follow up with nephrology. - hold lisinopril. - encourage free fluids. DM2 Glucose worse with steroids. - change Levemir to 15 units daily, 10 units HS. Adjust as needed. - Insulin aspart SSI before meals/at bedtime. - Continue Holding metformin 500 mg by mouth twice a day. Will resume on discharge. - wean steroids. PPx: Heparin Discharge Planning Anticipate d/c in the next couple of days Ajay Sandoval DO Jun 10, 2017 11:22
[2017-06-10 13:29] VITALS: O2SAT 96
[2017-06-10 13:36] LABS: BICARBONATE 20.2 MEQ/L (21.0-32.0); POTASSIUM 4.1 MEQ/L (3.5-5.1)
[2017-06-10 14:00] VITALS: BP 149/76
[2017-06-10] MEDS ORDERED: OXYGENDME NAS.CANULA (14:56)
[2017-06-10] MEDS ORDERED: HYDR-3800 PO (15:29)
[2017-06-10] MEDS ORDERED: BENZ100 PO (15:29)
[2017-06-10] MEDS ORDERED: DAKI0.12 TOPICAL (15:29)
[2017-06-10] MEDS ORDERED: LEVA750T9 PO (15:29)
[2017-06-10] MEDS ORDERED: NIFE30TA8 PO (15:29)
[2017-06-10] MEDS ORDERED: AUGM500T7 PO (15:29)
[2017-06-10] MEDS ORDERED: AMLO10 PO (15:29)
[2017-06-10] MEDS ORDERED: PRED20 PO ×2 (15:29)
--- NOTE | 2017-06-10 15:30 | HHI.DCPOC ---
Discharge Care Plan Diagnosis: (1) Pneumonia (2) Hypoxia (3) Dyspnea (4) Wound, open, buttock (5) Hypertension (6) Sepsis (7) Cholecystitis (8) Sepsis affecting skin (9) Poorly controlled diabetes mellitus (10) Acute renal failure (11) Carlos gangrene (12) Gluteal abscess Goals to Promote Your Health * To prevent worsening of your condition and complications * To maintain your health at the optimal level Directions to Meet Your Goals Take your medications as prescribed Follow your dietary instruction Follow activity as directed Keep your appointments as scheduled Take your immunizations and boosters as scheduled If your symptoms worsen call your PCP, if no PCP go to Urgent Care Center or Emergency Room Smoking is Dangerous to Your Health. Avoid second hand smoke Call the 24-hour hour crisis hotline for domestic abuse at Ajay Sandoval DO Jun 10, 2017 15:30
--- NOTE | 2017-06-10 15:41 | HHI.DS ---
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 This has started to both the morning and a half week ago. Severe is a moderate to severe. CBC/BMP: 06/08/17 0632 06/10/17 1300 Significant Findings Laboratory Tests Test 06/08/17 06/08/17 06/09/17 06/10/17 06:32 22:25 13:30 13:00 Red Blood Count 3.46 MIL/MM3 (4.50-5.90) Hemoglobin 9.4 GM/DL (13.0-17.0) Hematocrit 29.0 % (39.0-51.0) Blood Urea Nitrogen 27 MG/DL (7-18) 27 MG/DL (7-18) 28 MG/DL (7-18) Creatinine 1.46 MG/DL 1.71 MG/DL 1.40 MG/DL (0.60-1.30) (0.60-1.30) (0.60-1.30) Estimat Glomerular Filtration 62 ML/MIN (>89) 52 ML/MIN (>89) 65 ML/MIN (>89) Rate Random Glucose 280 MG/DL 450 MG/DL 353 MG/DL 254 MG/DL (74-106) (74-106) (74-106) (74-106) Calcium Level 8.2 MG/DL 8.3 MG/DL (8.5-10.1) (8.5-10.1) Sodium Level 135 MEQ/L 133 MEQ/L (136-145) (136-145) Carbon Dioxide Level 19.7 MEQ/L 20.2 MEQ/L (21.0-32.0) (21.0-32.0) Albumin 2.3 GM/DL 2.7 GM/DL (3.4-5.0) (3.4-5.0) Phosphorus Level 2.2 MG/DL (2.5-4.9) Imaging Last Impressions Chest X-Ray 06/09/17 0000 Signed Impressions: Service Date/Time: Friday, June 09, 2017 09:13 - CONCLUSION: Stable chest Hamlet Latham MD Chest CT 06/03/17 0959 Signed Impressions: Service Date/Time: June 11:29 - CONCLUSION: 1. Redemonstration of diffuse perihilar groundglass opacities with peripheral lungs sparing and sparing of the lung bases bilaterally. Differential considerations include atypical infection versus atypical pulmonary edema/ARDS. Royal Alfaro MD Gall Bladder Ultrasound 05/26/17 0000 Signed Impressions: Service Date/Time: Thursday, May 25, 2017 17:11 - CONCLUSION: Distended sludge-filled gallbladder with gallbladder wall thickening. Overall degree of gallbladder distention is largely unchanged from prior ultrasound exam although there is increased wall thickening. Trace pericholecystic fluid has resolved in the interval. HIDA scan performed 3 days ago demonstrates no filling of the gallbladder at 24 hours. Findings are consistent with acute cholecystitis likely secondary to cystic duct obstruction with mild interval improvement following antibiotic therapy. Royal Alfaro MD Hepatobiliary Scan Nuclear Medicine 05/22/17 0000 Signed Impressions: Service Date/Time: Monday, May 22, 2017 12:05 - CONCLUSION: 1. No uptake within the gallbladder. Delayed imaging will be obtained. 2. Small amount of biliary enteric reflux. Eloy Mcginnis MD ADDENDUM: COMPARISON: CT ABDOMEN & PELVIS W/O CONTRAST, May 16, 2017, 16:28. Delayed 24 our view does not demonstrate gallbladder therefore possibility of cystic duct obstruction and acute cholecystitis should be entertained. Armaan Tanner MD PE at Discharge GENERAL: Patient sitting up in chair, NAD. SKIN: Warm and dry. Groin wound is clean and nontender to palpation. HEAD: Normocephalic. EYES: No scleral icterus. No injection or drainage. NECK: Supple, trachea midline. Exam limited by body habitus. CARDIOVASCULAR: Regular rate and rhythm without murmurs, gallops, or rubs. RESPIRATORY: CTAB, no W/R/R. GASTROINTESTINAL: Abdomen soft, non-tender, nondistended. MUSCULOSKELETAL: No cyanosis, or edema. BACK: Nontender without obvious deformity. No CVA tenderness. NEURO: No gross deficits. PSYCH: Mood and affect appropriate. Transfer Summary See below Hospital Course 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 Status post I&D with debridement of scrotum and perineum. Status post reexploration of perineum 05/18. ID was consulted. Wound culture grew Klebsiella/strep not A, D. Consult was placed to wound care physician. No surgical intervention indicated at this point. The pt will be able to be discharged with Sitz baths and dressing changes. He will follow up with the wound center. He will contine BID dressing changes with Dakin's sodium hypochlorite 0.125%. He will follow up with urology. He will complete a course of Augmentin and Levaquin per infectious disease. Acute respiratory failure BNP was elevated. Diuretics were d/c s/t renal insufficiency. Normal EF on echo. Pulmonology was consulted. Repeat CXR showed persistent bilateral central infiltrates; Considerations range from pneumocystis pneumonia to sarcoid; An atypical inflammatory process is suspected. ABG with respiratory alkalosis. S/p bronchoscopy 06/09. He was continued with DuoNebs when necessary. He was continued on antibiotics as per infectious disease. He received incentive spirometry. We started Solumedrol 40 mg IV q 6 hours and his symptoms largely improved. We weaned steroids to prednisone 20 mg BID. He will require oxygen per walk test. Case management assisted with home oxygen. He will follow up with pulmonology as an outpt. Hypertension Lisinopril held s/t renal insufficiency. Lopressor held s/t concerns for bronchospasm. He was continued on hydralazine, nifedipine and Norvasc, which he will be discharged on. He will follow up with his PCP. Anemia of chronic disease Transfused 1 unit packed red blood cell 05/27/17 and H&H has since been stable. Cholecystitis Positive HIDA scan. Repeat GB US with improvement. He will continue antibiotics. He will be referred for GI follow-up. Tolerating a diet. ROBERTO Nephrology was consulted. He had required hemodialysis 3. Diuretics and lisinopril were held. Creatinine improved. He will follow up with nephrology as an outpt. We encouraged free fluids. DM2 Glucose worse with steroids. We increased Levemir to 15 units daily, 10 units HS. He received insulin aspart SSI before meals/at bedtime. He will resume his home metformin. We will wean off his steroids gradually. Pt Condition on Discharge: Stable Discharge Disposition: Disch w/ Home Health Serv Discharge Time: > 30 minutes Discharge Instructions DIET: Follow Instructions for: Diabetic Diet Activities you can perform: Weight Bearing as Roxie Follow up Referrals: Gastroenterology - 1 Week with Lilly Snider MD Nephrology - [address] Montano PCP Follow-up - 1 Week Pulmonology - 1 Week with Omari Salcido MD [facility]/ with [facility] Urology - 1 Week with Nikolas Lopes MD [facility] - 1 [facility] with [facility] New Orders: BASIC METABOLIC PROF - 1 Week New Medications: Oxygen (O2) (Oxygen (O2)) Device 2 LITER RITA.CANULA CONTINUOUS Oxygen Concentrator Portable Gaseous 2 L/min via Nasal Canula Continuous For 99 months Prevent Hypoxemia #2 CYLINDER Prednisone (Prednisone) 20 Mg Tab 20 MG PO DAILY Please start taking once completed with twice daily script Breathing #5 Ref 0 TAB Amlodipine (Norvasc) 10 Mg Tab 10 MG PO DAILY Blood Pressure Management #30 TAB Amoxicillin-Clavulanate (Augmentin) 500-125 mg Tab 500 MG PO Q12HR Infection #15 TAB Benzonatate (Tessalon Perles) 100 Mg Cap 200 MG PO TID PRN cough #14 CAP Hydralazine HCl (Hydralazine HCl) 50 Mg Tablet 100 MG PO Q8HR Blood Pressure Management Days 30 TAB Levofloxacin (Levaquin) 750 Mg Tablet 750 MG PO Q48H Infection Days 7 TAB Nifedipine ER 24 HR (Nifedipine ER 24 HR) 30 Mg Tab 30 MG PO DAILY Blood Pressure Management #30 TAB Prednisone (Prednisone) 20 Mg Tab 20 MG PO BID Breathing #6 TAB Sodium Hypochlorite Topical (Dakins Solution Quarter Strength Topical) 0.125% Soln 0 ML TOPICAL BID 1 #1 BOTTLE Continued Medications: Atorvastatin (Lipitor) 20 Mg Tab 20 MG PO HS Cholesterol Management #30 Ref 0 TAB Metformin (Metformin) 500 Mg Tab 500 MG PO BIDPC With meals Blood Sugar Management #60 Ref 0 TAB Discontinued Medications: Lisinopril (Lisinopril) 10 Mg Tab 10 MG PO DAILY #30 Ref 0 TAB Ajay Sandoval DO Jun 10, 2017 15:41
--- NOTE | 2017-06-10 15:50 | HHI.PR ---
Subjective Remarks ALERT NO SOB AT REST OVER ALL GRADUALLY IMPROVING Objective Vital Signs Date Time Temp Pulse Resp B/P Pulse Ox O2 Delivery O2 Flow Rate FiO2 06/10/17 14:00 149/76 06/10/17 13:29 96 21 06/10/17 13:27 2.00 06/10/17 08:00 98.6 111 20 158/79 92 06/10/17 04:00 99.1 109 18 161/79 91 06/10/17 00:00 99.3 113 18 154/77 93 06/09/17 23:48 Room Air 06/09/17 20:00 98.8 115 18 142/66 93 06/09/17 16:00 Room Air 06/09/17 16:00 99.1 112 18 147/70 92 I/O 06/09/17 06/09/17 06/09/17 06/10/17 06/10/17 06/10/17 07:00 15:00 23:00 07:00 15:00 23:00 Intake Total 0 ml 1290 ml 482 ml 720 ml Output Total 1000 ml 1425 ml 800 ml 1200 ml 550 ml Balance -1000 ml -135 ml -318 ml -480 ml -550 ml Intake Oral 0 ml 960 ml 480 ml 720 ml IV Total 30 ml 2 ml Other 300 ml Output Urine Total 1000 ml 1425 ml 800 ml 1200 ml 550 ml Estimated Blood Loss 0 ml # Voids 0 # Bowel Movements 0 1 0 1 Result Diagram: 06/08/17 0632 06/10/17 1300 Objective Remarks GENERAL: SKIN: Warm and dry. HEAD: Atraumatic. Normocephalic. EYES: Pupils equal and round. No scleral icterus. No injection or drainage. ENT: No nasal bleeding or discharge. Mucous membranes pink and moist. NECK: Trachea midline. No JVD. CARDIOVASCULAR: Regular rate and rhythm. RESPIRATORY: No accessory muscle use. Clear to auscultation. Breath sounds equal bilaterally. GASTROINTESTINAL: Abdomen soft, non-tender, nondistended. Hepatic and splenic margins not palpable. MUSCULOSKELETAL: Extremities without clubbing, cyanosis, or edema. No obvious deformities. NEUROLOGICAL: Awake and alert. No obvious cranial nerve deficits. Motor grossly within normal limits. Five out of 5 muscle strength in the arms and legs. Normal speech. PSYCHIATRIC: Appropriate mood and affect; insight and judgment normal. Assessment and Plan Assessment and Plan ASS CLINICALY IMPROVING PNA , PERSISTS BY CXRAY TODAY doing well post bronchoscopy PLAN F/U CXRAY CONTINUE ANTIBX INCREASE ACTIVITY check bronch results Omari Salcido MD Jun 10, 2017 15:50
--- NOTE | 2017-06-10 16:00 | HHI.FF ---
Face to Face Verification Diagnosis: (1) Gluteal abscess (2) Pneumonia (3) Hypoxia (4) Dyspnea (5) Wound, open, buttock (6) Hypertension (7) Sepsis (8) Anemia of chronic disease (9) Cholecystitis (10) Sepsis affecting skin (11) Poorly controlled diabetes mellitus (12) Acute renal failure (13) Carlos gangrene Physical Therapy Order: Evaluate and Treat, Improve ambulation, Strength and gait training Home Health Nursing Order: Medical education Signs/symptoms of disease process Diabetic education Medication education-adverse effect Wound care and dressing changes Nursing assessment with vital signs I have seen patient Tadeo Cervantes on 06/10/17. My clinical findings support the need for the requested home health care services because: Ltd mobility - disease progression Patient has SOB Deconditioned w/ increased weakness Infection w/ risk of complications I certify that my clinical findings support that this patient is homebound because: Post-op weakness Unsteady gait/balance Unsafe to leave home unassisted Ajay Sandoval DO Jun 10, 2017 16:00
--- NOTE | 2017-06-10 16:36 | HHI.FF ---
Face to Face Verification Diagnosis: (1) Gluteal abscess (2) Pneumonia (3) Hypoxia (4) Dyspnea (5) Wound, open, buttock (6) Hypertension (7) Sepsis (8) Anemia of chronic disease (9) Cholecystitis (10) Sepsis affecting skin (11) Anemia (12) Poorly controlled diabetes mellitus (13) Acute renal failure (14) Carlos gangrene Physical Therapy Order: Evaluate and Treat, Improve ambulation, Strength and gait training Home Health Nursing Order: Medical education Signs/symptoms of disease process Diabetic education Oxygen administration education Medication education-adverse effect Wound care and dressing changes Nursing assessment with vital signs Instructions: Twice daily sitz bath in a 1:10 solution of Betadine solution and water. Please use Betadine solution and not scrub. Continue with Dakin's sodium hypochlorite 0.125%. solution wet to dry dressings BID I have seen patient Tadeo Cervantes on 06/10/17. My clinical findings support the need for the requested home health care services because: Ltd mobility - disease progression Patient has SOB Deconditioned w/ increased weakness Med compliance is questionable Limited ability to care for self High risk of falls Infection w/ risk of complications I certify that my clinical findings support that this patient is homebound because: Post-op weakness Unsteady gait/balance Unsafe to leave home unassisted Ajay Sandoval DO Jun 10, 2017 16:36
[2017-06-10] MEDS ORDERED: SODIUM PHOSPHATE INJ 15 MMOL in SODIUM CHLORIDE 0.9% INJ 150 ML IV ONE (17:00)
[2017-06-10] MEDS: LEVOFLOXACIN 750 MG TAB PO SCH (17:42)
[2017-06-10] MEDS ORDERED: predniSONE 20 MG TAB PO SCH (21:00)
== END 2017-06-10 20:24 | disposition home health service (06) | DRG 853 ==
LOC: HOR 19:35 → N03B 19:49 → N04A 05-25 16:10
PROVIDERS: ADMIT Hospitalist; ATTEND Hospitalist
PROC: 5A1955Z Respiratory Ventilation, Greater than 96 Consecutive Hours (ICD-10-PCS; 2017-05-16)
PROC: 0JB90ZZ Excision of Buttock Subcutaneous Tissue and Fascia, Open Approach (ICD-10-PCS; 2017-05-16)
PROC: 0JBB0ZZ Excision of Perineum Subcutaneous Tissue and Fascia, Open Approach (ICD-10-PCS; 2017-05-16)
PROC: 0BH17EZ Insertion of Endotracheal Airway into Trachea, Via Natural or Artificial Opening (ICD-10-PCS; 2017-05-16)
PROC: 0J9B0ZZ Drainage of Perineum Subcutaneous Tissue and Fascia, Open Approach (ICD-10-PCS; principal; 2017-05-16 21:12)
PROC: 05H533Z Insertion of Infusion Device into Right Subclavian Vein, Percutaneous Approach (ICD-10-PCS; 2017-05-17)
PROC: 03HY32Z Insertion of Monitoring Device into Upper Artery, Percutaneous Approach (ICD-10-PCS; 2017-05-17)
PROC: 0JD90ZZ Extraction of Buttock Subcutaneous Tissue and Fascia, Open Approach (ICD-10-PCS; 2017-05-18)
PROC: 0JDB0ZZ Extraction of Perineum Subcutaneous Tissue and Fascia, Open Approach (ICD-10-PCS; 2017-05-18)
PROC: 05HN33Z Insertion of Infusion Device into Left Internal Jugular Vein, Percutaneous Approach (ICD-10-PCS; 2017-05-19)
PROC: 5A1D60Z (ICD-10-PCS; 2017-05-19)
PROC: 30233N1 Transfusion of Nonautologous Red Blood Cells into Peripheral Vein, Percutaneous Approach (ICD-10-PCS; 2017-05-19)
PROC: 0B9J8ZX Drainage of Left Lower Lung Lobe, Via Natural or Artificial Opening Endoscopic, Diagnostic (ICD-10-PCS; 2017-06-09)
PROC: 0B9C8ZX Drainage of Right Upper Lung Lobe, Via Natural or Artificial Opening Endoscopic, Diagnostic (ICD-10-PCS; 2017-06-09)
PROC: 0B9G8ZX Drainage of Left Upper Lung Lobe, Via Natural or Artificial Opening Endoscopic, Diagnostic (ICD-10-PCS; 2017-06-09)
PROC: 0B9F8ZX Drainage of Right Lower Lung Lobe, Via Natural or Artificial Opening Endoscopic, Diagnostic (ICD-10-PCS; 2017-06-09)
PROC: 0BBF8ZX Excision of Right Lower Lung Lobe, Via Natural or Artificial Opening Endoscopic, Diagnostic (ICD-10-PCS; 2017-06-09)
DX: A41.9 Sepsis, unspecified organism (principal); R65.21 Severe sepsis with septic shock; N17.0 Acute kidney failure with tubular necrosis; J96.01 Acute respiratory failure with hypoxia; J18.9 Pneumonia, unspecified organism; E87.2 Acidosis; I11.0 Hypertensive heart disease with heart failure; E87.3 Alkalosis; E11.52 Type 2 diabetes mellitus with diabetic peripheral angiopathy with gangrene; I50.9 Heart failure, unspecified; B37.49 Other urogenital candidiasis; K80.00 Calculus of gallbladder with acute cholecystitis without obstruction; I48.91 Unspecified atrial fibrillation; E11.65 Type 2 diabetes mellitus with hyperglycemia; E83.41 Hypermagnesemia; E78.5 Hyperlipidemia, unspecified; Z79.84 Long term (current) use of oral hypoglycemic drugs; N49.3 Fournier gangrene; B96.1 Klebsiella pneumoniae [K. pneumoniae] as the cause of diseases classified elsewhere; R33.9 Retention of urine, unspecified; E87.6 Hypokalemia; D63.8 Anemia in other chronic diseases classified elsewhere; E88.09 Other disorders of plasma-protein metabolism, not elsewhere classified; J40 Bronchitis, not specified as acute or chronic; E11.649 Type 2 diabetes mellitus with hypoglycemia without coma; R19.7 Diarrhea, unspecified
CPT/HCPCS: 36430; 36556; 36600; 71010; 71020; 71250; 74176; 76705; 76937; 78226; 80048; 80053; 80069; 80074; 80076; 80202; 81001; 82010; 82550; 82570; 82805; 82947; 82948; 83605; 83735; 83880; 83935; 84100; 84155; 84300; 84484; 85007; 85025; 85027; 85610; 85730; 86850; 86900; 86901; 86920; 86922; 87015; 87040; 87070; 87071; 87077; 87086; 87102; 87106; 87116; 87186; 87205; 87206; 88112; 88305; 88312; 90935; 93005; 93306; 94002; 94003; 94150; 94620; 94640; 94664; 96361; 96365; 96367; 96374; 96375; 96376; 99281; A9537; J0131; J0171; J0360; J0692; J0696; J1170; J1450; J1580; J1644; J1815; J1817; J1940; J2060; J2250; J2270; J2370; J2405; J2543; J2765; J2920; J2997; J3010; J3370; J7030; J7040; J7050; J7608; J7613; J7644; P9016